=== PATIENT | female | born 1965 | race Caucasian/White ===

== ENCOUNTER 2018-08-16 08:28 | Emergency (ER) | payer OTHER, MEDICAID, SELFPAY ==
--- NOTE | 2018-08-16 08:33 | ED.SKABFB ---
HPI - Skin/Abscess/Foreign Bdy General Chief complaint: Skin/Abscess/Foreign Body Stated complaint: ITCHY RASH ALL OVER NECK/BACK Time Seen by Provider: 08/16/18 08:33 Source: patient Mode of arrival: ambulatory Limitations: no limitations History of Present Illness HPI narrative: The patient has a rash on her occipital scalp, posterior neck and upper back. The rash started 3 days ago, has not spread. There is irritating. She is very itchy. She has especially if she in the occipital scalp. She has psoriasis. She has been scratching the occipital scalp quite a bit. She also uses a she improved especially for psoriasis. She is having no fever, or chills. She has no drainage/discharge from the site specified. She has no other current skin irritation. Related Data Home Medications Medication Instructions Recorded Confirmed APAP/Dichloralphenazone/Torey #0 01/22/11 (MIDRIN 65 MG-100 MG-325 MG) NORTRIPTYLINE HCL (Nortriptyline 10 mg PO HS #0 01/22/11 HCl) cetirizine 10 mg PO Q DAY #0 01/22/11 Previous Rx's Medication Instructions Recorded clindamycin HCl [Cleocin HCl] 300 mg PO Q8H 7 Days #21 cap 08/16/18 Allergies Allergy/AdvReac Type Severity Reaction Status Date / Time bee pollen Allergy Severe Hives Verified 08/16/18 08:58 shellfish derived Allergy Severe Hives Verified 08/16/18 08:58 Sulfa (Sulfonamide Allergy Severe Hives Verified 08/16/18 08:58 Antibiotics) naproxen [From Naprosyn] Allergy Unknown Verified 08/16/18 08:58 PCN (PENICILLIN) Allergy Severe Hives Uncoded 08/16/18 08:58 Review of Systems Review of Systems ROS Unobtainable: All systems reviewed & are unremarkable except as noted in HPI and below Constitutional Denies chills and Denies fever(s) Eyes Denies irritation ENT Ears, Nose, Mouth, and Throat: Denies dry mouth, Denies mouth lesions and Denies mouth pain Cardiovascular Denies dyspnea Respiratory Denies cough and Denies dyspnea Integumentary/Breasts Reports as per HPI PFSH Medical History Psoriasis (Acute) Social History Smoking Status: Former smoker Social History Smoking Status: Former smoker Exam Initial Vital Signs Initial Vital Signs: Vital Signs Temperature 97.8 F 08/16/18 08:39 Pulse Rate 82 08/16/18 08:39 Respiratory Rate 16 08/16/18 08:39 Blood Pressure 110/77 08/16/18 08:39 Pulse Oximetry 99 08/16/18 08:39 Const General: cooperative and well developed Nutritional Appearance: well nourished Orientation: alert, awake and oriented x3 HENMT Head: normocephalic, atraumatic and scalp tenderness (Occipital area.) Mouth: oral mucosae normal Eyes General: appearance normal, both eyes and all related structures Eyelids: eyelids normal Conjunctivae: conjunctivae normal Sclera: sclerae normal Pupils: PERRL EOM: EOM intact bilaterally Neck Lymphatic: No lymphadenopathy Skin Other: Folliculitis on her posterior neck, and upper back. Just above the hairline there is intense erythema with warmth but no purulent discharge. Findings consistent with folliculitis. Neuro General: alert, oriented x3 and no focal motor deficits Speech: speech normal Course Vital Signs - 8 hr 08/16/18 08:39 Temperature 97.8 F Pulse Rate 82 Respiratory Rate 16 Blood Pressure 110/77 Pulse Oximetry 99 MDM - Skin/Abscess/Foreign Bdy MDM Narrative Medical decision making narrative: She has folliculitis most concentrated in the occipital scalp. She will be started on clindamycin. She is advised not to use her current show improved, she can try it again once the current rash as resolved. She should follow up with her doctor next week if no better. Discharge Plan Departure Patient Disposition: Home Clinical Impression: Folliculitis Instructions: Folliculitis Activity Restrictions/Additional Instructions: Do not use the psoriasis shampoo you most recently used. Cleocin 300 milligrams 3 times daily for 1 week. You may use Benadryl every 4-6 hours as needed for itching. Apply moisturizers to the area if you wish. Recheck with her doctor next week if no better. Return here if obviously worse. Prescriptions: New clindamycin HCl [Cleocin HCl] 300 mg capsule 300 mg PO Q8H 7 Days Qty: 21 RF: 0 No Action NORTRIPTYLINE HCL (Nortriptyline HCl) 10 mg PO HS Qty: 0 RF: 0 APAP/Dichloralphenazone/Torey (MIDRIN 65 MG-100 MG-325 MG) Qty: 0 RF: 0 cetirizine 10 MG tablet 10 mg PO Q DAY Qty: 0 RF: 0
[2018-08-16 08:39] VITALS: BP 110/77; PULSE 82; RESP 16; TEMP 36.6; O2SAT 99; BMI 36.6
[2018-08-16 09:21] VITALS: BP 104/78; PULSE 80; RESP 18; O2SAT 99
== END 2018-08-16 09:21 | disposition home or self-care (01) ==
PROVIDERS: Emergency Provider Emergency Medicine
DX: L73.9 Follicular disorder, unspecified (principal)
CPT/HCPCS: 99282

== ENCOUNTER 2021-05-30 09:45 | Outpatient (RCR) | payer MEDICARE, MEDICAID, SELFPAY ==
--- NOTE | 2021-05-03 16:41 | PT.OIE ---
Current Diagnoses Pain in right foot (05/03/21) Difficulty in walking, not elsewhere classified (05/03/21) Unspecified injury of right Achilles tendon, initial encounter (05/03/21) Past Medical History (Last Updated 08/16/18 @ 08:59 by Erin Cruz RN) Psoriasis Visit Care Team Role Provider Type CHANI Mack Attending Provider Non-Staff Family Provider Primary Care Provider Referring Provider Specialty: Medical Address: [address] [place] [address], [phone] Email: Physical Therapy Initial Evaluation PT-OP-A Visit Information Start: 05/02/21 12:45 Freq: Status: Active Protocol: Document 05/03/21 10:30 AW (Rec: 05/03/21 15:33 AW [email or web address]) Out-Patient Physical Therapy Visit Information Visit Information Visit Type Initial Evaluation Visit Start Time 09:45 Visit Stop Time 10:30 Total Visit Minutes 45 Visit Number 1 Number of CREDIT UNION MANAGER Visits 0 Evaluation Information Evaluation Date 05/03/21 PT-OP-B Current Condition Start: 05/02/21 12:45 Freq: Status: Active Protocol: Document 05/03/21 10:30 AW (Rec: 05/02/21 12:49 AW [email or web address]) Current Condition History of Current Condition Onset Date 3 weeks ago Current Complaints right ankle pain, recent fall History of Current Condition Pt was walking down stairs 3 weeks ago, did not trip but felt and heard a loud pop along her medial ankle and pain immediately spread around the circumference of her ankle. She states she rolls her ankle all the time. She has been using a SPC since the time of her injury. In 2017, she fell and badly sprained her right ankle. She ended up having surgery a year later on that ankle but can not remember what kind of surgery. She remembers she was in a walking boot for a while. She feels she had good outcomes with PT. Pt states her right foot is always numb and tingly. She occasionally has sharp pain in her arch. She lives with her 13 yo daughter and she can currrently do shopping trips with a shopping cart for support but does not feel she can walk any longer than that. 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 Her bed and bathroom are upstairs (13 with R rail ascending). Pt also reports scoliosis and learning disabilities. She is on SSDI. Prior Treatments and Tests April 2021: x-ray right foot and ankle - no fracture Future Testing and Treatments Planned none identified Treatment Goals Patient/Caregiver Goals Pt would like to be able to walk without a cane and with less pain. Prior Functional Status Baseline Function- ADL's Independent Baseline Function- Mobility Independent Baseline Function- Gait no assistive device Baseline Function- Work/School Pt is on disability Baseline Function- Other Able to complete shopping trips and walk for exercise without AD Current Functional Impairments (Reported) Functional Limitations- Mobility/Gait Walking with SPC nearly 100% of the time. Functional Limitations- Other Definite need for shopping cart or other support to complete shopping trips. PT-OP-C Subjective Start: 05/02/21 12:45 Freq: Status: Active Protocol: Document 05/03/21 10:30 AW (Rec: 05/03/21 15:33 AW [email or web address]) OP-PT Subjective Patient Comments Patient Comments My ankle hurts all the time but most when I put weight on it. Patient Questionnaires Foot & Ankle Ability Measure- ADL and Sports FAAM-ADL Score 38 FAAM-ADL Impairment 40 to 59% Impaired (Score 33- 49) Lower Extremity Functional Scale LEFS Score 35 LEFS Impairment 40 to 59% Impaired (Score 32- 47) OP-PT Pain Assessment Pain Assessment Grid Paper Pain Assessment Grid Completed Yes: scanned to EMR Comments Pain Comments Pt is using a CBD cream topically and finds fair relief PT-OP-D Balance Start: 05/02/21 12:45 Freq: Status: Active Protocol: Document 05/03/21 10:30 AW (Rec: 05/03/21 15:33 AW [email or web address]) OP-PT Balance Assessment Sitting Balance Static Sitting Balance Ability Normal Dynamic Sitting Balance Ability Normal Standing Balance Static Standing Balance Ability Fair Dynamic Standing Balance Ability Fair Barrios Fall Scale Copyright Permission PT-OP-F Manual Assessment Start: 05/02/21 12:45 Freq: Status: Active Protocol: Document 05/03/21 10:30 AW (Rec: 05/03/21 15:33 AW [email or web address]) Manual Assessments Soft Tissue Assessment Soft Tissue Mobility Assessment TTP along right plantar fascia , right medial and lateral ankle (medial more affected), calcaneus, and Achilles tendon . Joint Mobility Assessment Joint Mobility Assessment Distal tib-fib glides and talar glides painful on the right side. PT-OP-G Mobility & Gait Start: 05/02/21 12:45 Freq: Status: Active Protocol: Document 05/03/21 10:30 AW (Rec: 05/03/21 15:33 AW [email or web address]) OP Gait Assessment Gait Gait Assistance Required: Independent Distance (Feet) 100 Assistive Devices Assistive Device Straight Cane Orthotic/Prosthetic Devices or Brace: No Gait Deviations General Gait Pattern Antalgic,Lateral Trunk Lean, Step-to Gait,Wide Based Gait Factors Limiting Gait Function Factors Limiting Gait Function Decreased Sensation,Decreased Strength,Limited Range of Motion,Pain Comments Gait Comments Pt ambulates with cane in left hand, good patterning, decreased heelstrike, L lean in right stance, WBOS. Pt walks with inversion bias, landing on her lateral foot ( right more affected than left) . PT-OP-H Neuro Start: 05/02/21 12:45 Freq: Status: Active Protocol: Document 05/03/21 10:30 AW (Rec: 05/03/21 15:33 AW [email or web address]) Sensation Evaluation Gross Sensation Gross Sensation Right LE Impaired Sensation Description Numbness,Tingling Comments Summary Comments Pt reports chronic numbness and tingling in the right foot . Deep Tendon Reflex & Clonus Assessment Deep Tendon Reflex Bilateral Achilles Deep Tendon Reflex 1+ Diminished Bilateral Patellar Deep Tendon Reflex 1+ Diminished PT-OP-J Posture/Palpation/Skin Start: 05/02/21 12:45 Freq: Status: Active Protocol: Document 05/03/21 10:30 AW (Rec: 05/03/21 15:36 AW [email or web address]) Skin Assessment Circumference Measurement feet Location B foot and ankle Comments Ankle @ malleoli: 25 cm B. Forefoot: 23 cm B. 5 cm above ankle: 25 R 23 L PT-OP-K Range of Motion Start: 05/02/21 12:45 Freq: Status: Active Protocol: Document 05/03/21 10:30 AW (Rec: 05/03/21 15:42 AW [email or web address]) Ankle and Foot Goniometric Range of Motion Ankle and Foot right Ankle/Foot ROM WFL Yes Testing Position Supine Plantarflexion 30 Inversion 30 Eversion 10 Comments DF with knee flexed - lacking 5 degrees. DF with knee extended - lacking 3 degrees. left Ankle/Foot ROM WFL Yes Testing Position Supine Dorsiflexion with Knee Flexed 8 Dorsiflexion with Knee Extended 11 Plantarflexion 40 Inversion 48 Eversion 20 Toe Range of Motion Toe B great toe Toe ROM WFL Yes Comments No increased pain with extension in non-weightbearing . PT-OP-L Special Tests Start: 05/02/21 12:45 Freq: Status: Active Protocol: Document 05/03/21 10:30 AW (Rec: 05/03/21 15:42 AW [email or web address]) Special Tests Foot/Ankle Special Tests Anterior Draw Test Results boggy PT-OP-M Strength Start: 05/02/21 12:45 Freq: Status: Active Protocol: Document 05/03/21 10:30 AW (Rec: 05/03/21 15:42 AW [email or web address]) Hip Strength Hip Manual Muscle Testing bilat Flexion (L2) 4 Good Extension (S1) 4- Good- Abduction 4- Good- Knee Strength Knee Manual Muscle Testing Right Flexion (S2) 4 Good Extension (L3) 4 Good Left Flexion (S2) 4+ Good+ Extension (L3) 4+ Good+ Ankle/Foot Strength Ankle and Foot Manual Muscle Testing Right Dorsiflexion (L4) 3- Fair- Plantarflexion (S1) 3+ Fair+ Inversion 3+ Fair+ Eversion (S1) 3+ Fair+ Left Dorsiflexion (L4) 4+ Good+ Plantarflexion (S1) 4+ Good+ Inversion 4+ Good+ Eversion (S1) 4+ Good+ PT-OP-Q Treatments Start: 05/02/21 12:45 Freq: Status: Active Protocol: Document 05/03/21 10:30 AW (Rec: 05/03/21 15:47 AW [email or web address]) Gait Training Gait Activity gait with SPC Device Used SPC Level of Assistance SBA Surface carpet and tile Distance/Duration 100' x 3 Treatment Focus patterning, stability, step length Comments Pt able to ambulate with SPC, improved step length and swing through with cues for shorter step RLE. Self-Care/Home Management Treatment Education Patient Education Pain Management Other Education Discussed icing with pt who states she tolerates cold poorly and she reports shooting pain up her leg with cryotherapy. Discussed recommendation for continued use of SPC at this time and pt agreed. Summarized evaluation findings and proposed POC and pt agreed. PT-OP-T Assessment and Plan Start: 05/02/21 12:45 Freq: Status: Active Protocol: Document 05/03/21 10:30 AW (Rec: 05/03/21 15:54 AW [email or web address]) Physical Therapy Assessment Rehab Potential Rehabilitation Potential Good Evaluation Complexity Number of Personal Factors/Comorbidities 1-2 Number of Body Systems Impaired 3 Clinical Presentation at Evaluation Evolving Impairments Impairments Balance,Edema,Gait,Pain, Posture,ROM,Sensation,Soft Tissue Mobility,Strength Goals Four Impairment ROM - R ankle decreased ROM all planes Short Term Goal (STG) Pt will improve active right ankle dorsiflexion to neutral for improved gait mechanics. STG Duration 05/31/21 Offender Job Retention Specialist Goal (LTG) Pt will improve right ankle dorsiflexion to 5 degrees or greater for improved ability to navigate stairs. LTG Duration 07/07/21 Three Impairment needs cane for walking Short Term Goal (STG) Pt will walk parking lot distances without need for SPC and no increase in baseline pain. STG Duration 05/31/21 Snf Goal (LTG) Pt will complete 6 Minute Walk Test without AD and without increase in baseline pain as a measure of improved community ambulation LTG Duration 07/07/21 Two Impairment FAAM 38/84 Snf Goal (LTG) Pt will improve FAAM from 38/ 84 to 60/84 or greater as a measure of improved independence with ADL's. LTG Duration 07/07/21 One Impairment lacks HEP Short Term Goal (STG) Pt will be instructed in HEP for ROM and foot/ankle strength STG Duration 05/31/21 Offender Job Retention Specialist Goal (LTG) Pt will be independent with HEP for ROM and BLE strength to be able to participate in a self-directed exercise program of her choosing LTG Duration 07/07/21 Assessment Summary Assessment [place] is a 55 yo woman with history of chronic back pain and ankle instability who presents to outpatient physical therapy with complaints of right ankle pain after hearing a pop in her medial ankle while descending stairs three weeks ago. Her history of ankle instability and prior injuries predisposes her to the current injury. On exam, her symptoms are consistent with ankle sprain which is affecting her ability to ambulate without device and to participate in household duties such as grocery shopping for herself and her teenaged daughter. She is expected to benefit from skilled physical therapy to address her ROM and strength impairments for return to baseline function and to reduce risk of future injury. Physical Therapy Plan Frequency and Duration Frequency of Treatment 1-2x/week Duration of Treatment 10 weeks Plan of Care Start Date 05/03/21 Plan of Care End Date 07/07/21 Therapeutic Interventions Therapeutic Interventions Balance Training,Gait Training ,Home Exercise Program,Joint Mobilizations,Manual Therapy, Neuromuscular Re-education, Patient/Caregiver Education, Self-Care/Home Management,Soft Tissue Mobilization,Taping, Therapeutic Activities, Therapeutic Exercises Modalities Cold Pack/Ice Massage,Hot Packs,Ultrasound Next Visit Focus/Plan Next Note Type Treatment Note Next Visit Plan Consider recumbent stepper, assess stair mobility, initiate AROM right ankle all planes, modalities for pain management.
--- NOTE | 2021-05-16 11:02 | PT.OTN ---
Current Diagnoses Pain in right foot (05/16/21) Difficulty in walking, not elsewhere classified (05/16/21) Unspecified injury of right Achilles tendon, initial encounter (05/16/21) Physical Therapy Treatment Note PT-OP-A Visit Information Start: 05/02/21 12:45 Freq: Status: Active Protocol: Document 05/16/21 09:43 AW (Rec: 05/16/21 09:46 AW [id number]) Out-Patient Physical Therapy Visit Information Visit Information Visit Type Treatment Note Visit Start Time 09:00 Visit Stop Time 09:43 Total Visit Minutes 43 Visit Number 2 Number of CONSERVATION POLICY ANALYST Visits 0 Evaluation Information Evaluation Date 05/03/21 Precautions Precautions Pt does not tolerate cold PT-OP-B Current Condition Start: 05/02/21 12:45 Freq: Status: Active Protocol: Document 05/03/21 10:30 AW (Rec: 05/02/21 12:49 AW [email or web address]) Current Condition History of Current Condition Onset Date 3 weeks ago Current Complaints right ankle pain, recent fall History of Current Condition Pt was walking down stairs 3 weeks ago, did not trip but felt and heard a loud pop along her medial ankle and pain immediately spread around the circumference of her ankle. She states she rolls her ankle all the time. She has been using a SPC since the time of her injury. In 2017, she fell and badly sprained her right ankle. She ended up having surgery a year later on that ankle but can not remember what kind of surgery. She remembers she was in a walking boot for a while. She feels she had good outcomes with PT. Pt states her right foot is always numb and tingly. She occasionally has sharp pain in her arch. She lives with her 13 yo daughter and she can currrently do shopping trips with a shopping cart for support but does not feel she can walk any longer than that. 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 Her bed and bathroom are upstairs (13 with R rail ascending). Pt also reports scoliosis and learning disabilities. She is on SSDI. Prior Treatments and Tests April 2021: x-ray right foot and ankle - no fracture Future Testing and Treatments Planned none identified Treatment Goals Patient/Caregiver Goals Pt would like to be able to walk without a cane and with less pain. Prior Functional Status Baseline Function- ADL's Independent Baseline Function- Mobility Independent Baseline Function- Gait no assistive device Baseline Function- Work/School Pt is on disability Baseline Function- Other Able to complete shopping trips and walk for exercise without AD Current Functional Impairments (Reported) Functional Limitations- Mobility/Gait Walking with SPC nearly 100% of the time. Functional Limitations- Other Definite need for shopping cart or other support to complete shopping trips. PT-OP-C Subjective Start: 05/02/21 12:45 Freq: Status: Active Protocol: Document 05/16/21 09:43 AW (Rec: 05/16/21 09:46 AW [id number]) OP-PT Subjective Patient Comments Patient Comments Still unable to walk to walk without cane but doesn't feel stable enough yet. Left ankle is starting to feel worse due to overuse. PT-OP-D Balance Start: 05/02/21 12:45 Freq: Status: Active Protocol: Document 05/03/21 10:30 AW (Rec: 05/03/21 15:33 AW [email or web address]) OP-PT Balance Assessment Sitting Balance Static Sitting Balance Ability Normal Dynamic Sitting Balance Ability Normal Standing Balance Static Standing Balance Ability Fair Dynamic Standing Balance Ability Fair Barrios Fall Scale Copyright Permission PT-OP-F Manual Assessment Start: 05/02/21 12:45 Freq: Status: Active Protocol: Document 05/03/21 10:30 AW (Rec: 05/03/21 15:33 AW [email or web address]) Manual Assessments Soft Tissue Assessment Soft Tissue Mobility Assessment TTP along right plantar fascia , right medial and lateral ankle (medial more affected), calcaneus, and Achilles tendon . Joint Mobility Assessment Joint Mobility Assessment Distal tib-fib glides and talar glides painful on the right side. PT-OP-G Mobility & Gait Start: 05/02/21 12:45 Freq: Status: Active Protocol: Document 05/03/21 10:30 AW (Rec: 05/03/21 15:33 AW [email or web address]) OP Gait Assessment Gait Gait Assistance Required: Independent Distance (Feet) 100 Assistive Devices Assistive Device Straight Cane Orthotic/Prosthetic Devices or Brace: No Gait Deviations General Gait Pattern Antalgic,Lateral Trunk Lean, Step-to Gait,Wide Based Gait Factors Limiting Gait Function Factors Limiting Gait Function Decreased Sensation,Decreased Strength,Limited Range of Motion,Pain Comments Gait Comments Pt ambulates with cane in left hand, good patterning, decreased heelstrike, L lean in right stance, WBOS. Pt walks with inversion bias, landing on her lateral foot ( right more affected than left) . PT-OP-H Neuro Start: 05/02/21 12:45 Freq: Status: Active Protocol: Document 05/03/21 10:30 AW (Rec: 05/03/21 15:33 AW [email or web address]) Sensation Evaluation Gross Sensation Gross Sensation Right LE Impaired Sensation Description Numbness,Tingling Comments Summary Comments Pt reports chronic numbness and tingling in the right foot . Deep Tendon Reflex & Clonus Assessment Deep Tendon Reflex Bilateral Achilles Deep Tendon Reflex 1+ Diminished Bilateral Patellar Deep Tendon Reflex 1+ Diminished PT-OP-J Posture/Palpation/Skin Start: 05/02/21 12:45 Freq: Status: Active Protocol: Document 05/03/21 10:30 AW (Rec: 05/03/21 15:36 AW [email or web address]) Skin Assessment Circumference Measurement feet Location B foot and ankle Comments Ankle @ malleoli: 25 cm B. Forefoot: 23 cm B. 5 cm above ankle: 25 R 23 L PT-OP-K Range of Motion Start: 05/02/21 12:45 Freq: Status: Active Protocol: Document 05/03/21 10:30 AW (Rec: 05/03/21 15:42 AW [email or web address]) Ankle and Foot Goniometric Range of Motion Ankle and Foot right Ankle/Foot ROM WFL Yes Testing Position Supine Plantarflexion 30 Inversion 30 Eversion 10 Comments DF with knee flexed - lacking 5 degrees. DF with knee extended - lacking 3 degrees. left Ankle/Foot ROM WFL Yes Testing Position Supine Dorsiflexion with Knee Flexed 8 Dorsiflexion with Knee Extended 11 Plantarflexion 40 Inversion 48 Eversion 20 Toe Range of Motion Toe B great toe Toe ROM WFL Yes Comments No increased pain with extension in non-weightbearing . PT-OP-L Special Tests Start: 05/02/21 12:45 Freq: Status: Active Protocol: Document 05/03/21 10:30 AW (Rec: 05/03/21 15:42 AW [email or web address]) Special Tests Foot/Ankle Special Tests Anterior Draw Test Results boggy PT-OP-M Strength Start: 05/02/21 12:45 Freq: Status: Active Protocol: Document 05/03/21 10:30 AW (Rec: 05/03/21 15:42 AW [email or web address]) Hip Strength Hip Manual Muscle Testing bilat Flexion (L2) 4 Good Extension (S1) 4- Good- Abduction 4- Good- Knee Strength Knee Manual Muscle Testing Right Flexion (S2) 4 Good Extension (L3) 4 Good Left Flexion (S2) 4+ Good+ Extension (L3) 4+ Good+ Ankle/Foot Strength Ankle and Foot Manual Muscle Testing Right Dorsiflexion (L4) 3- Fair- Plantarflexion (S1) 3+ Fair+ Inversion 3+ Fair+ Eversion (S1) 3+ Fair+ Left Dorsiflexion (L4) 4+ Good+ Plantarflexion (S1) 4+ Good+ Inversion 4+ Good+ Eversion (S1) 4+ Good+ PT-OP-Q Treatments Start: 05/02/21 12:45 Freq: Status: Active Protocol: Document 05/16/21 09:43 AW (Rec: 05/16/21 09:46 AW [id number]) Cardio Equipment Recumbent Elliptical (Arrowsight) Duration (Minutes) 5 Resistance 2 Seat Position 6 Therapeutic Exercises Sitting Exercises great toe extension Sitting Exercise Name great toe extension Side right Resistance AROM Reps/Minutes x15 small ball plantar fascia self mob Equipment Used racquetball Comments can or bottle for HEP arch lift Sitting Exercise Name arch lift Side right Reps/Minutes x15 Comments 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 Manual Therapy Treatment Soft Tissue Mobilization retro edema massage Body Location retro edema massage Intensity/Depth Superficial Body Position Supine Comments With attention to right groin lymph nodes first for edema management Self-Care/Home Management Treatment Education Other Education Discussed elevating R ankle as much as possible since cold is not tolerated. PT-OP-T Assessment and Plan Start: 05/02/21 12:45 Freq: Status: Active Protocol: Document 05/16/21 09:43 AW (Rec: 05/16/21 11:02 AW [email or web address]) Physical Therapy Assessment Goals Four Impairment ROM - R ankle decreased ROM all planes Short Term Goal (STG) Pt will improve active right ankle dorsiflexion to neutral for improved gait mechanics. STG Duration 05/31/21 Intermediate Goal (LTG) Pt will improve right ankle dorsiflexion to 5 degrees or greater for improved ability to navigate stairs. LTG Duration 07/07/21 Three Impairment needs cane for walking Short Term Goal (STG) Pt will walk parking lot distances without need for SPC and no increase in baseline pain. STG Duration 05/31/21 Drier Tender Naphthalene Goal (LTG) Pt will complete 6 Minute Walk Test without AD and without increase in baseline pain as a measure of improved community ambulation LTG Duration 07/07/21 Two Impairment FAAM 38/84 Intermediate Goal (LTG) Pt will improve FAAM from 38/ 84 to 60/84 or greater as a measure of improved independence with ADL's. LTG Duration 07/07/21 One Impairment lacks HEP Short Term Goal (STG) Pt will be instructed in HEP for ROM and foot/ankle strength STG Duration 05/31/21 Drier Tender Naphthalene Goal (LTG) Pt will be independent with HEP for ROM and BLE strength to be able to participate in a self-directed exercise program of her choosing LTG Duration 07/07/21 Assessment Summary Assessment Treatment focused on intrinsic foot mobility and strength as well as edema management. Pt does not tolerate cold. PT educated pt on increasing time in elevation for edema management. Assigned initial HEP for ankle and foot ROM. Physical Therapy Plan Frequency and Duration Frequency of Treatment 1-2x/week Duration of Treatment 10 weeks Plan of Care Start Date 05/03/21 Plan of Care End Date 07/07/21 Therapeutic Interventions Therapeutic Interventions Balance Training,Gait Training ,Home Exercise Program,Joint Mobilizations,Manual Therapy, Neuromuscular Re-education, Patient/Caregiver Education, Self-Care/Home Management,Soft Tissue Mobilization,Taping, Therapeutic Activities, Therapeutic Exercises Modalities Cold Pack/Ice Massage,Hot Packs,Ultrasound Next Visit Focus/Plan Next Note Type Treatment Note Next Visit Plan Recumbent stepper, AROM right ankle all planes, BAPS, modalities for pain management .
--- NOTE | 2021-05-18 12:57 | PT.OTN ---
Current Diagnoses Pain in right foot (05/18/21) Difficulty in walking, not elsewhere classified (05/18/21) Unspecified injury of right Achilles tendon, initial encounter (05/18/21) Physical Therapy Treatment Note PT-OP-A Visit Information Start: 05/02/21 12:45 Freq: Status: Active Protocol: Document 05/18/21 08:15 ER (Rec: 05/18/21 09:48 ER [id number]) Out-Patient Physical Therapy Visit Information Visit Information Visit Type Treatment Note Visit Note NILDA Penaloza lead treatment and provided education under direct supervision and instruction of DOMINIQUE Farias. Visit Start Time 08:15 Visit Stop Time 09:06 Total Visit Minutes 51 Visit Number 3 Number of RESOLUTE PROFESSIONAL Visits 1 Precautions Precautions Pt does not tolerate cold PT-OP-B Current Condition Start: 05/02/21 12:45 Freq: Status: Active Protocol: Document 05/03/21 10:30 AW (Rec: 05/02/21 12:49 AW [email or web address]) Current Condition History of Current Condition Onset Date 3 weeks ago Current Complaints right ankle pain, recent fall History of Current Condition Pt was walking down stairs 3 weeks ago, did not trip but felt and heard a loud pop along her medial ankle and pain immediately spread around the circumference of her ankle. She states she rolls her ankle all the time. She has been using a SPC since the time of her injury. In 2016, she fell and badly sprained her right ankle. She ended up having surgery a year later on that ankle but can not remember what kind of surgery. She remembers she was in a walking boot for a while. She feels she had good outcomes with PT. Pt states her right foot is always numb and tingly. She occasionally has sharp pain in her arch. She lives with her 13 yo daughter and she can currrently do shopping trips with a shopping cart for support but does not feel she can walk any longer than that. 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 Her bed and bathroom are upstairs (13 with R rail ascending). Pt also reports scoliosis and learning disabilities. She is on SSDI. Prior Treatments and Tests April 2021: x-ray right foot and ankle - no fracture Future Testing and Treatments Planned none identified Treatment Goals Patient/Caregiver Goals Pt would like to be able to walk without a cane and with less pain. Prior Functional Status Baseline Function- ADL's Independent Baseline Function- Mobility Independent Baseline Function- Gait no assistive device Baseline Function- Work/School Pt is on disability Baseline Function- Other Able to complete shopping trips and walk for exercise without AD Current Functional Impairments (Reported) Functional Limitations- Mobility/Gait Walking with SPC nearly 100% of the time. Functional Limitations- Other Definite need for shopping cart or other support to complete shopping trips. PT-OP-C Subjective Start: 05/02/21 12:45 Freq: Status: Active Protocol: Document 05/18/21 08:15 ER (Rec: 05/18/21 09:48 ER [id number]) OP-PT Subjective Patient Comments Patient Comments Pt said had intense pain last night after performing exercises on back of heel and top of foot. She used CBD oil, which provided some relief. Feels like she cant put full weight on R heel. Indicated R ankle pain at 6/10 pre tx, and 8/10 post. PT-OP-D Balance Start: 05/02/21 12:45 Freq: Status: Active Protocol: Document 05/03/21 10:30 AW (Rec: 05/03/21 15:33 AW [email or web address]) OP-PT Balance Assessment Sitting Balance Static Sitting Balance Ability Normal Dynamic Sitting Balance Ability Normal Standing Balance Static Standing Balance Ability Fair Dynamic Standing Balance Ability Fair Barrios Fall Scale Copyright Permission PT-OP-F Manual Assessment Start: 05/02/21 12:45 Freq: Status: Active Protocol: Document 05/03/21 10:30 AW (Rec: 05/03/21 15:33 AW [email or web address]) Manual Assessments Soft Tissue Assessment Soft Tissue Mobility Assessment TTP along right plantar fascia , right medial and lateral ankle (medial more affected), calcaneus, and Achilles tendon . Joint Mobility Assessment Joint Mobility Assessment Distal tib-fib glides and talar glides painful on the right side. PT-OP-G Mobility & Gait Start: 05/02/21 12:45 Freq: Status: Active Protocol: Document 05/03/21 10:30 AW (Rec: 05/03/21 15:33 AW [email or web address]) OP Gait Assessment Gait Gait Assistance Required: Independent Distance (Feet) 100 Assistive Devices Assistive Device Straight Cane Orthotic/Prosthetic Devices or Brace: No Gait Deviations General Gait Pattern Antalgic,Lateral Trunk Lean, Step-to Gait,Wide Based Gait Factors Limiting Gait Function Factors Limiting Gait Function Decreased Sensation,Decreased Strength,Limited Range of Motion,Pain Comments Gait Comments Pt ambulates with cane in left hand, good patterning, decreased heelstrike, L lean in right stance, WBOS. Pt walks with inversion bias, landing on her lateral foot ( right more affected than left) . PT-OP-H Neuro Start: 05/02/21 12:45 Freq: Status: Active Protocol: Document 05/03/21 10:30 AW (Rec: 05/03/21 15:33 AW [email or web address]) Sensation Evaluation Gross Sensation Gross Sensation Right LE Impaired Sensation Description Numbness,Tingling Comments Summary Comments Pt reports chronic numbness and tingling in the right foot . Deep Tendon Reflex & Clonus Assessment Deep Tendon Reflex Bilateral Achilles Deep Tendon Reflex 1+ Diminished Bilateral Patellar Deep Tendon Reflex 1+ Diminished PT-OP-J Posture/Palpation/Skin Start: 05/02/21 12:45 Freq: Status: Active Protocol: Document 05/03/21 10:30 AW (Rec: 05/03/21 15:36 AW [email or web address]) Skin Assessment Circumference Measurement feet Location B foot and ankle Comments Ankle @ malleoli: 25 cm B. Forefoot: 23 cm B. 5 cm above ankle: 25 R 23 L PT-OP-K Range of Motion Start: 05/02/21 12:45 Freq: Status: Active Protocol: Document 05/03/21 10:30 AW (Rec: 05/03/21 15:42 AW [email or web address]) Ankle and Foot Goniometric Range of Motion Ankle and Foot right Ankle/Foot ROM WFL Yes Testing Position Supine Plantarflexion 30 Inversion 30 Eversion 10 Comments DF with knee flexed - lacking 5 degrees. DF with knee extended - lacking 3 degrees. left Ankle/Foot ROM WFL Yes Testing Position Supine Dorsiflexion with Knee Flexed 8 Dorsiflexion with Knee Extended 11 Plantarflexion 40 Inversion 48 Eversion 20 Toe Range of Motion Toe B great toe Toe ROM WFL Yes Comments No increased pain with extension in non-weightbearing . PT-OP-L Special Tests Start: 05/02/21 12:45 Freq: Status: Active Protocol: Document 05/03/21 10:30 AW (Rec: 05/03/21 15:42 AW [email or web address]) Special Tests Foot/Ankle Special Tests Anterior Draw Test Results boggy PT-OP-M Strength Start: 05/02/21 12:45 Freq: Status: Active Protocol: Document 05/03/21 10:30 AW (Rec: 05/03/21 15:42 AW [email or web address]) Hip Strength Hip Manual Muscle Testing bilat Flexion (L2) 4 Good Extension (S1) 4- Good- Abduction 4- Good- Knee Strength Knee Manual Muscle Testing Right Flexion (S2) 4 Good Extension (L3) 4 Good Left Flexion (S2) 4+ Good+ Extension (L3) 4+ Good+ Ankle/Foot Strength Ankle and Foot Manual Muscle Testing Right Dorsiflexion (L4) 3- Fair- Plantarflexion (S1) 3+ Fair+ Inversion 3+ Fair+ Eversion (S1) 3+ Fair+ Left Dorsiflexion (L4) 4+ Good+ Plantarflexion (S1) 4+ Good+ Inversion 4+ Good+ Eversion (S1) 4+ Good+ PT-OP-Q Treatments Start: 05/02/21 12:45 Freq: Status: Active Protocol: Document 05/18/21 08:15 ER (Rec: 05/18/21 09:48 ER [id number]) Cardio Equipment Recumbent Elliptical (Travolver) Duration (Minutes) 3 Resistance 2 Seat Position 6 Other Stopped due to pain in R ankle . Therapeutic Exercises Sitting Exercises WindUdacity Sitting Exercise Name added to HEP Side bilateral Reps/Minutes 10x Comments R ROM < L ROM. Some pain in R ankle. Pt agreed to continue. BAPS board Sitting Exercise Name AP, lateral Side right Equipment Used BAPS L3 Reps/Minutes 5x each direction Comments Most restriced in PF with pain in ankle/ top of foot. Pt agreed to continue Ankle all planes Side right arch lift Sitting Exercise Name arch lift Side right Reps/Minutes x10 Comments good feedback response ankle ABC Sitting Exercise Name reviewed ankle ABC Side right Resistance AROM Comments Increased pain in inversion. Pt agreed to continue. Gait Training Gait Activity stairs Description stairs Device Used R rail ascending, SPC Level of Assistance S Distance/Duration 1 lap Treatment Focus assessment Comments Pt able to ascend/descend step over step with R rail and SPC . improved ankle mobility Manual Therapy Treatment Soft Tissue Mobilization Ankle, Achilles, gastroc Mobilization Type Manual Lymphatic Drainage, Myofascial Release, Oscillations,Sustained Pressure Intensity/Depth Superficial Body Position prone, sitting Comments Pt tenderness lateral achilles at maleolus, dorsal surface of foot, lateral gastroc. Pt reports sore and tender with all. Backed off intensity, but pt okay with continuing work. retro edema massage Body Location retro edema massage Intensity/Depth Superficial Body Position Supine Comments Noted significant swelling R>L . Focus on R foot and calf with good lymphatic movement. Taping Calcaneus Body Location lateral taping of calcaneus Type of Tape Portillo Kinesiotape Comments Base tape across and under R calcaneus. McConnel over same. K tape R lateral gastroc to calcaneus and R peroneals support. Noted improved stance and gait with increased WB through R heel post taping. Self-Care/Home Management Treatment Education Patient Education Pain Management Other Education Self STM with rolling pin of gastroc, and hands on achilles , soft tissue of ankle, and edema management of foot and calf. PT-OP-T Assessment and Plan Start: 05/02/21 12:45 Freq: Status: Active Protocol: Document 05/18/21 08:15 ER (Rec: 05/18/21 09:48 ER [id number]) Physical Therapy Assessment Goals Four Impairment ROM - R ankle decreased ROM all planes Short Term Goal (STG) Pt will improve active right ankle dorsiflexion to neutral for improved gait mechanics. STG Duration 05/31/21 Overcoil Stepper Goal (LTG) Pt will improve right ankle dorsiflexion to 5 degrees or greater for improved ability to navigate stairs. LTG Duration 07/07/21 Three Impairment needs cane for walking Short Term Goal (STG) Pt will walk parking lot distances without need for SPC and no increase in baseline pain. STG Duration 05/31/21 Overcoil Stepper Goal (LTG) Pt will complete 6 Minute Walk Test without AD and without increase in baseline pain as a measure of improved community ambulation LTG Duration 07/07/21 Two Impairment FAAM 38/84 Overcoil Stepper Goal (LTG) Pt will improve FAAM from 38/ 84 to 60/84 or greater as a measure of improved independence with ADL's. LTG Duration 07/07/21 One Impairment lacks HEP Short Term Goal (STG) Pt will be instructed in HEP for ROM and foot/ankle strength STG Duration 05/31/21 Half-Way Goal (LTG) Pt will be independent with HEP for ROM and BLE strength to be able to participate in a self-directed exercise program of her choosing LTG Duration 07/07/21 Assessment Summary Assessment Pt expressed pain at a 6/10 lateral distal achilles and anterior ankle pre session, 8/ 10 after manual and exercise. Worked through ankle mobilization exercises c/o pain, but willing to continue with treatment. STM and edema management reduced pain some, and allowed Pt to continue with increased AROM in R ankle HEP and intruduction of BAPS. Instructed Pt on self STM of foot/ ankle/ calf with rolling pin/ retrograde hands as appropriate. Educated Pt for edema management of feet and lower legs. Pt indicated that she thought that self STM and edema mgmt would hep. Initiated BAPS board exercises , which were tolerated but uncomfortable. Taped R calcaneus, lateral gastroc to calcaneus, and R peroneals, which improved ability to WB in heel on R in stance and gait. Pt able to ascend/ descend stairs with improved DF and minimal discomfort compared to when arrived. Physical Therapy Plan Frequency and Duration Frequency of Treatment 1-2x/week Duration of Treatment 10 weeks Plan of Care Start Date 05/03/21 Plan of Care End Date 07/07/21 Therapeutic Interventions Therapeutic Interventions Balance Training,Gait Training ,Home Exercise Program,Joint Mobilizations,Manual Therapy, Neuromuscular Re-education, Patient/Caregiver Education, Self-Care/Home Management,Soft Tissue Mobilization,Taping, Therapeutic Activities, Therapeutic Exercises Modalities Cold Pack/Ice Massage,Hot Packs,Ultrasound Next Visit Focus/Plan Next Note Type Treatment Note Next Visit Plan Assess response to self STM and recheck windshield wipers. Recumbent stepper, AROM right ankle all planes, BAPS, modalities for pain management .
--- NOTE | 2021-05-22 16:25 | PT.OTN ---
Current Diagnoses Pain in right foot (05/22/21) Difficulty in walking, not elsewhere classified (05/22/21) Unspecified injury of right Achilles tendon, initial encounter (05/22/21) Physical Therapy Treatment Note PT-OP-A Visit Information Start: 05/02/21 12:45 Freq: Status: Active Protocol: Document 05/22/21 15:00 ER (Rec: 05/22/21 16:19 ER [id number]) Out-Patient Physical Therapy Visit Information Visit Information Visit Type Treatment Note Visit Note NILDA Penaloza lead treatment and provided education under direct supervision and instruction of DOMINIQUE Farias. Visit Start Time 15:00 Visit Stop Time 15:45 Total Visit Minutes 45 Visit Number 4 Number of PLATFORM MATERIAL HANDLER MANAGER Visits 2 PT-OP-B Current Condition Start: 05/02/21 12:45 Freq: Status: Active Protocol: Document 05/03/21 10:30 AW (Rec: 05/02/21 12:49 AW [email or web address]) Current Condition History of Current Condition Onset Date 3 weeks ago Current Complaints right ankle pain, recent fall History of Current Condition Pt was walking down stairs 3 weeks ago, did not trip but felt and heard a loud pop along her medial ankle and pain immediately spread around the circumference of her ankle. She states she rolls her ankle all the time. She has been using a SPC since the time of her injury. In 2017, she fell and badly sprained her right ankle. She ended up having surgery a year later on that ankle but can not remember what kind of surgery. She remembers she was in a walking boot for a while. She feels she had good outcomes with PT. Pt states her right foot is always numb and tingly. She occasionally has sharp pain in her arch. She lives with her 13 yo daughter and she can currrently do shopping trips with a shopping cart for support but does not feel she can walk any longer than that. 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 Her bed and bathroom are upstairs (13 with R rail ascending). Pt also reports scoliosis and learning disabilities. She is on SSDI. Prior Treatments and Tests April 2021: x-ray right foot and ankle - no fracture Future Testing and Treatments Planned none identified Treatment Goals Patient/Caregiver Goals Pt would like to be able to walk without a cane and with less pain. Prior Functional Status Baseline Function- ADL's Independent Baseline Function- Mobility Independent Baseline Function- Gait no assistive device Baseline Function- Work/School Pt is on disability Baseline Function- Other Able to complete shopping trips and walk for exercise without AD Current Functional Impairments (Reported) Functional Limitations- Mobility/Gait Walking with SPC nearly 100% of the time. Functional Limitations- Other Definite need for shopping cart or other support to complete shopping trips. PT-OP-C Subjective Start: 05/02/21 12:45 Freq: Status: Active Protocol: Document 05/22/21 15:00 ER (Rec: 05/22/21 16:19 ER [id number]) OP-PT Subjective Patient Comments Patient Comments Pt said that she feels like she is doing better today, and can walk some without her SPC . Indicated that the taping seemed to help her walking, and that her ankle hurt when walking after she took it off. PT-OP-D Balance Start: 05/02/21 12:45 Freq: Status: Active Protocol: Document 05/03/21 10:30 AW (Rec: 05/03/21 15:33 AW [email or web address]) OP-PT Balance Assessment Sitting Balance Static Sitting Balance Ability Normal Dynamic Sitting Balance Ability Normal Standing Balance Static Standing Balance Ability Fair Dynamic Standing Balance Ability Fair Barrios Fall Scale Copyright Permission PT-OP-F Manual Assessment Start: 05/02/21 12:45 Freq: Status: Active Protocol: Document 05/03/21 10:30 AW (Rec: 05/03/21 15:33 AW [email or web address]) Manual Assessments Soft Tissue Assessment Soft Tissue Mobility Assessment TTP along right plantar fascia , right medial and lateral ankle (medial more affected), calcaneus, and Achilles tendon . Joint Mobility Assessment Joint Mobility Assessment Distal tib-fib glides and talar glides painful on the right side. PT-OP-G Mobility & Gait Start: 05/02/21 12:45 Freq: Status: Active Protocol: Document 05/03/21 10:30 AW (Rec: 05/03/21 15:33 AW [email or web address]) OP Gait Assessment Gait Gait Assistance Required: Independent Distance (Feet) 100 Assistive Devices Assistive Device Straight Cane Orthotic/Prosthetic Devices or Brace: No Gait Deviations General Gait Pattern Antalgic,Lateral Trunk Lean, Step-to Gait,Wide Based Gait Factors Limiting Gait Function Factors Limiting Gait Function Decreased Sensation,Decreased Strength,Limited Range of Motion,Pain Comments Gait Comments Pt ambulates with cane in left hand, good patterning, decreased heelstrike, L lean in right stance, WBOS. Pt walks with inversion bias, landing on her lateral foot ( right more affected than left) . PT-OP-H Neuro Start: 05/02/21 12:45 Freq: Status: Active Protocol: Document 05/03/21 10:30 AW (Rec: 05/03/21 15:33 AW [email or web address]) Sensation Evaluation Gross Sensation Gross Sensation Right LE Impaired Sensation Description Numbness,Tingling Comments Summary Comments Pt reports chronic numbness and tingling in the right foot . Deep Tendon Reflex & Clonus Assessment Deep Tendon Reflex Bilateral Achilles Deep Tendon Reflex 1+ Diminished Bilateral Patellar Deep Tendon Reflex 1+ Diminished PT-OP-J Posture/Palpation/Skin Start: 05/02/21 12:45 Freq: Status: Active Protocol: Document 05/03/21 10:30 AW (Rec: 05/03/21 15:36 AW [email or web address]) Skin Assessment Circumference Measurement feet Location B foot and ankle Comments Ankle @ malleoli: 25 cm B. Forefoot: 23 cm B. 5 cm above ankle: 25 R 23 L PT-OP-K Range of Motion Start: 05/02/21 12:45 Freq: Status: Active Protocol: Document 05/03/21 10:30 AW (Rec: 05/03/21 15:42 AW [email or web address]) Ankle and Foot Goniometric Range of Motion Ankle and Foot right Ankle/Foot ROM WFL Yes Testing Position Supine Plantarflexion 30 Inversion 30 Eversion 10 Comments DF with knee flexed - lacking 5 degrees. DF with knee extended - lacking 3 degrees. left Ankle/Foot ROM WFL Yes Testing Position Supine Dorsiflexion with Knee Flexed 8 Dorsiflexion with Knee Extended 11 Plantarflexion 40 Inversion 48 Eversion 20 Toe Range of Motion Toe B great toe Toe ROM WFL Yes Comments No increased pain with extension in non-weightbearing . PT-OP-L Special Tests Start: 05/02/21 12:45 Freq: Status: Active Protocol: Document 05/03/21 10:30 AW (Rec: 05/03/21 15:42 AW [email or web address]) Special Tests Foot/Ankle Special Tests Anterior Draw Test Results boggy PT-OP-M Strength Start: 05/02/21 12:45 Freq: Status: Active Protocol: Document 05/03/21 10:30 AW (Rec: 05/03/21 15:42 AW [email or web address]) Hip Strength Hip Manual Muscle Testing bilat Flexion (L2) 4 Good Extension (S1) 4- Good- Abduction 4- Good- Knee Strength Knee Manual Muscle Testing Right Flexion (S2) 4 Good Extension (L3) 4 Good Left Flexion (S2) 4+ Good+ Extension (L3) 4+ Good+ Ankle/Foot Strength Ankle and Foot Manual Muscle Testing Right Dorsiflexion (L4) 3- Fair- Plantarflexion (S1) 3+ Fair+ Inversion 3+ Fair+ Eversion (S1) 3+ Fair+ Left Dorsiflexion (L4) 4+ Good+ Plantarflexion (S1) 4+ Good+ Inversion 4+ Good+ Eversion (S1) 4+ Good+ PT-OP-Q Treatments Start: 05/02/21 12:45 Freq: Status: Active Protocol: Document 05/22/21 15:00 ER (Rec: 05/22/21 16:19 ER [id number]) Cardio Equipment Recumbent Elliptical (Biodex) Duration (Minutes) 2 Resistance 2 Seat Position 6 Other stopped due to R ankle pain. switched to SciFit Recumbent Stepper (Sci-Fit) Duration (Minutes) 2 Resistance 1 Seat Position 9 Other stopped due to R ankle pain. Therapeutic Exercises Sitting Exercises Tennis Ball DF/PF Sitting Exercise Name DF/ AF of R foot with tennis ball under plantar surface. added to HEP Side right Resistance AROM Equipment Used tennis ball Reps/Minutes 10x Comments good feedback response. Pt expressed would be helpful BAPS board Sitting Exercise Name AP, lateral Side right Equipment Used BAPS L3 AP, L4 lateral Reps/Minutes 10x Comments good feeback with no pain. ankle ABC Sitting Exercise Name reviewed Side right Resistance AROM Comments Pt got to Q before dorsal foot pain made her stop Gait Training Gait Activity Gait with no AD Description without AD Level of Assistance SBA Surface firm Distance/Duration 749' Treatment Focus quality gait, foot clearance, heel to toe, Comments 5min 30 sec duration. 6/10 ankle pain caused Pt to stop. Cues for long strides, erect posture, even step duration. Pt began to tire ~3 min into session, but wanted to continue. required increased cues at this point for long stride, heel to toe pattern. Pt indicated at ~ 4:30 that she felt her R foot felt like it wanted to roll, but wanted to continue. Slowed pace, and additional cues for mindfulness about heel to toe pattern and long, even strides . Manual Therapy Treatment Taping Calcaneus Body Location lateral taping of calcaneus Type of Tape Portillo, Kinesiotape Comments Base tape across and under R calcaneus. Tae over same. K tape R lateral gastroc to calcaneus and R peroneals support. Noted improved stance and gait with increased WB through R heel post taping. PT-OP-T Assessment and Plan Start: 05/02/21 12:45 Freq: Status: Active Protocol: Document 05/22/21 15:00 ER (Rec: 05/22/21 16:19 ER [id number]) Physical Therapy Assessment Goals Four Impairment ROM - R ankle decreased ROM all planes Short Term Goal (STG) Pt will improve active right ankle dorsiflexion to neutral for improved gait mechanics. STG Duration 05/31/21 Animal Care Technician Goal (LTG) Pt will improve right ankle dorsiflexion to 5 degrees or greater for improved ability to navigate stairs. LTG Duration 07/07/21 Three Impairment needs cane for walking Short Term Goal (STG) Pt will walk parking lot distances without need for SPC and no increase in baseline pain. STG Duration 05/31/21 Animal Care Technician Goal (LTG) Pt will complete 6 Minute Walk Test without AD and without increase in baseline pain as a measure of improved community ambulation LTG Duration 07/07/21 Two Impairment FAAM 38/84 Usp Goal (LTG) Pt will improve FAAM from 38/ 84 to 60/84 or greater as a measure of improved independence with ADL's. LTG Duration 07/07/21 One Impairment lacks HEP Short Term Goal (STG) Pt will be instructed in HEP for ROM and foot/ankle strength STG Duration 05/31/21 Animal Care Technician Goal (LTG) Pt will be independent with HEP for ROM and BLE strength to be able to participate in a self-directed exercise program of her choosing LTG Duration 07/07/21 Assessment Summary Assessment Pt demonstrated decreased pain and improved gait pattern with more even weight distribution, and firm heel placement on R foot at beginning of session. Pt experienced R ankle pain when using either the Biodex or SciFit and had to stop using both machines at approx 2 minutes. Recommend no further use of Cardio machines for ankle warm up. Progressed Baps board to L4 ball with lateral shifting of R ankle. Pt experienced tightness w/ Baps board anterior tilt of R ankle , but no pain at L3. Educated Pt on use of a tennis ball as an at-home BAPS exercise. Pt expressed that she thought it would be useful. Taped R calcaneus, R achilles/gastroc, and R peroneals prior to gait . In standing, Pt expressed that she felt more stable. Pt was able to ambulate 749 feet without an AD. Pt did, however become fatigued, and expressed increased pain late in the walk. Required cues for even stride time, foot clearance, heel to toe pattern , which increased as Pt fatigued. Pt had to stop at 5: 30 of 6MWT due to pain in her R ankle. Pt expressed that she felt like her foot had swollen up in her shoe. Pt ambulated from clinic with SPC . Pt expressed she felt today was a helpful session. Physical Therapy Plan Frequency and Duration Frequency of Treatment 1-2x/week Duration of Treatment 10 weeks Plan of Care Start Date 05/03/21 Plan of Care End Date 07/07/21 Therapeutic Interventions Therapeutic Interventions Balance Training,Gait Training ,Home Exercise Program,Joint Mobilizations,Manual Therapy, Neuromuscular Re-education, Patient/Caregiver Education, Self-Care/Home Management,Soft Tissue Mobilization,Taping, Therapeutic Activities, Therapeutic Exercises Modalities Cold Pack/Ice Massage,Hot Packs,Ultrasound Next Visit Focus/Plan Next Note Type Treatment Note Next Visit Plan Stop Biodex and Sci Fit. Pt experiences R ankle pain and has to stop within 2 minutes. Continue AROM R ankle all planes, BAPS, add gait w/o AD and stairs. Recumbent stepper, AROM right ankle all planes, BAPS, modalities for pain management .
--- NOTE | 2021-05-30 12:30 | PT.OTN ---
Current Diagnoses Pain in right foot (05/30/21) Difficulty in walking, not elsewhere classified (05/30/21) Unspecified injury of right Achilles tendon, initial encounter (05/30/21) Physical Therapy Treatment Note PT-OP-A Visit Information Start: 05/02/21 12:45 Freq: Status: Active Protocol: Document 05/30/21 10:23 AW (Rec: 05/30/21 10:25 AW [id number]) Out-Patient Physical Therapy Visit Information Visit Information Visit Type Treatment Note Visit Start Time 09:45 Visit Stop Time 10:23 Total Visit Minutes 38 Visit Number 5 Number of BIOLOGICAL PLANT OPERATOR Visits 0 Precautions Precautions Pt does not tolerate cold PT-OP-B Current Condition Start: 05/02/21 12:45 Freq: Status: Active Protocol: Document 05/03/21 10:30 AW (Rec: 05/02/21 12:49 AW [email or web address]) Current Condition History of Current Condition Onset Date 3 weeks ago Current Complaints right ankle pain, recent fall History of Current Condition Pt was walking down stairs 3 weeks ago, did not trip but felt and heard a loud pop along her medial ankle and pain immediately spread around the circumference of her ankle. She states she rolls her ankle all the time. She has been using a SPC since the time of her injury. In 2017, she fell and badly sprained her right ankle. She ended up having surgery a year later on that ankle but can not remember what kind of surgery. She remembers she was in a walking boot for a while. She feels she had good outcomes with PT. Pt states her right foot is always numb and tingly. She occasionally has sharp pain in her arch. She lives with her 13 yo daughter and she can currrently do shopping trips with a shopping cart for support but does not feel she can walk any longer than that. 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 Her bed and bathroom are upstairs (13 with R rail ascending). Pt also reports scoliosis and learning disabilities. She is on SSDI. Prior Treatments and Tests April 2021: x-ray right foot and ankle - no fracture Future Testing and Treatments Planned none identified Treatment Goals Patient/Caregiver Goals Pt would like to be able to walk without a cane and with less pain. Prior Functional Status Baseline Function- ADL's Independent Baseline Function- Mobility Independent Baseline Function- Gait no assistive device Baseline Function- Work/School Pt is on disability Baseline Function- Other Able to complete shopping trips and walk for exercise without AD Current Functional Impairments (Reported) Functional Limitations- Mobility/Gait Walking with SPC nearly 100% of the time. Functional Limitations- Other Definite need for shopping cart or other support to complete shopping trips. PT-OP-C Subjective Start: 05/02/21 12:45 Freq: Status: Active Protocol: Document 05/30/21 10:23 AW (Rec: 05/30/21 10:25 AW [id number]) OP-PT Subjective Patient Comments Patient Comments I keep rolling my ankle every time I walk. Tape did not seem to help. PT-OP-D Balance Start: 05/02/21 12:45 Freq: Status: Active Protocol: Document 05/03/21 10:30 AW (Rec: 05/03/21 15:33 AW [email or web address]) OP-PT Balance Assessment Sitting Balance Static Sitting Balance Ability Normal Dynamic Sitting Balance Ability Normal Standing Balance Static Standing Balance Ability Fair Dynamic Standing Balance Ability Fair Barrios Fall Scale Copyright Permission PT-OP-F Manual Assessment Start: 05/02/21 12:45 Freq: Status: Active Protocol: Document 05/03/21 10:30 AW (Rec: 05/03/21 15:33 AW [email or web address]) Manual Assessments Soft Tissue Assessment Soft Tissue Mobility Assessment TTP along right plantar fascia , right medial and lateral ankle (medial more affected), calcaneus, and Achilles tendon . Joint Mobility Assessment Joint Mobility Assessment Distal tib-fib glides and talar glides painful on the right side. PT-OP-G Mobility & Gait Start: 05/02/21 12:45 Freq: Status: Active Protocol: Document 05/03/21 10:30 AW (Rec: 05/03/21 15:33 AW [email or web address]) OP Gait Assessment Gait Gait Assistance Required: Independent Distance (Feet) 100 Assistive Devices Assistive Device Straight Cane Orthotic/Prosthetic Devices or Brace: No Gait Deviations General Gait Pattern Antalgic,Lateral Trunk Lean, Step-to Gait,Wide Based Gait Factors Limiting Gait Function Factors Limiting Gait Function Decreased Sensation,Decreased Strength,Limited Range of Motion,Pain Comments Gait Comments Pt ambulates with cane in left hand, good patterning, decreased heelstrike, L lean in right stance, WBOS. Pt walks with inversion bias, landing on her lateral foot ( right more affected than left) . PT-OP-H Neuro Start: 05/02/21 12:45 Freq: Status: Active Protocol: Document 05/03/21 10:30 AW (Rec: 05/03/21 15:33 AW [email or web address]) Sensation Evaluation Gross Sensation Gross Sensation Right LE Impaired Sensation Description Numbness,Tingling Comments Summary Comments Pt reports chronic numbness and tingling in the right foot . Deep Tendon Reflex & Clonus Assessment Deep Tendon Reflex Bilateral Achilles Deep Tendon Reflex 1+ Diminished Bilateral Patellar Deep Tendon Reflex 1+ Diminished PT-OP-J Posture/Palpation/Skin Start: 05/02/21 12:45 Freq: Status: Active Protocol: Document 05/03/21 10:30 AW (Rec: 05/03/21 15:36 AW [email or web address]) Skin Assessment Circumference Measurement feet Location B foot and ankle Comments Ankle @ malleoli: 25 cm B. Forefoot: 23 cm B. 5 cm above ankle: 25 R 23 L PT-OP-K Range of Motion Start: 05/02/21 12:45 Freq: Status: Active Protocol: Document 05/03/21 10:30 AW (Rec: 05/03/21 15:42 AW [email or web address]) Ankle and Foot Goniometric Range of Motion Ankle and Foot right Ankle/Foot ROM WFL Yes Testing Position Supine Plantarflexion 30 Inversion 30 Eversion 10 Comments DF with knee flexed - lacking 5 degrees. DF with knee extended - lacking 3 degrees. left Ankle/Foot ROM WFL Yes Testing Position Supine Dorsiflexion with Knee Flexed 8 Dorsiflexion with Knee Extended 11 Plantarflexion 40 Inversion 48 Eversion 20 Toe Range of Motion Toe B great toe Toe ROM WFL Yes Comments No increased pain with extension in non-weightbearing . PT-OP-L Special Tests Start: 05/02/21 12:45 Freq: Status: Active Protocol: Document 05/03/21 10:30 AW (Rec: 05/03/21 15:42 AW [email or web address]) Special Tests Foot/Ankle Special Tests Anterior Draw Test Results boggy PT-OP-M Strength Start: 05/02/21 12:45 Freq: Status: Active Protocol: Document 05/03/21 10:30 AW (Rec: 05/03/21 15:42 AW [email or web address]) Hip Strength Hip Manual Muscle Testing bilat Flexion (L2) 4 Good Extension (S1) 4- Good- Abduction 4- Good- Knee Strength Knee Manual Muscle Testing Right Flexion (S2) 4 Good Extension (L3) 4 Good Left Flexion (S2) 4+ Good+ Extension (L3) 4+ Good+ Ankle/Foot Strength Ankle and Foot Manual Muscle Testing Right Dorsiflexion (L4) 3- Fair- Plantarflexion (S1) 3+ Fair+ Inversion 3+ Fair+ Eversion (S1) 3+ Fair+ Left Dorsiflexion (L4) 4+ Good+ Plantarflexion (S1) 4+ Good+ Inversion 4+ Good+ Eversion (S1) 4+ Good+ PT-OP-Q Treatments Start: 05/02/21 12:45 Freq: Status: Active Protocol: Document 05/30/21 10:23 AW (Rec: 05/30/21 10:25 AW [id number]) Therapeutic Exercises Sitting Exercises ankle ABC Sitting Exercise Name reviewed Side right Resistance AROM Comments pt able to complete but with increased pain 1 pt on 10-pt scale Gait Training Gait Activity gait with SPC Device Used SPC Level of Assistance SBA Surface carpet and tile Distance/Duration 100' x 3 Treatment Focus patterning, stability, step length Comments focused on heel strike, weight acceptance. Uncued - pt tends to land on lateral border of right foot. No rolling when cued for heel strike and toes pointed fwd Manual Therapy Treatment Soft Tissue Mobilization Ankle, Achilles, gastroc Mobilization Type Manual Lymphatic Drainage, Myofascial Release, Oscillations,Sustained Pressure Intensity/Depth Superficial Body Position prone, sitting Comments Pt tenderness lateral achilles at maleolus, dorsal surface of foot, lateral gastroc. Pt reports sore and tender with all. Backed off intensity, but pt okay with continuing work. retro edema massage Body Location retro edema massage Intensity/Depth Superficial Body Position Supine Comments Noted significant swelling R>L . Focus on R foot and calf with good lymphatic movement. PT-OP-T Assessment and Plan Start: 05/02/21 12:45 Freq: Status: Active Protocol: Document 05/30/21 10:23 AW (Rec: 05/30/21 12:30 AW [email or web address]) Physical Therapy Assessment Goals Four Impairment ROM - R ankle decreased ROM all planes Short Term Goal (STG) Pt will improve active right ankle dorsiflexion to neutral for improved gait mechanics. 05/30/21 - AROM continues to be painful. Continue toward goal. STG Duration 05/31/21 Environmental Communications Specialist Goal (LTG) Pt will improve right ankle dorsiflexion to 5 degrees or greater for improved ability to navigate stairs. LTG Duration 07/07/21 Three Impairment needs cane for walking Short Term Goal (STG) Pt will walk parking lot distances without need for SPC and no increase in baseline pain. 05/30/21 - not met. Pt still requires SPC and cueing for ankle stability. STG Duration 05/31/21 Longterm Goal (LTG) Pt will complete 6 Minute Walk Test without AD and without increase in baseline pain as a measure of improved community ambulation LTG Duration 07/07/21 Two Impairment FAAM 38/84 Longterm Goal (LTG) Pt will improve FAAM from 38/ 84 to 60/84 or greater as a measure of improved independence with ADL's. LTG Duration 07/07/21 One Impairment lacks HEP Short Term Goal (STG) Pt will be instructed in HEP for ROM and foot/ankle strength 05/30/21 - Progressing with ROM only at this time due to irritability of symptoms. 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 Pt reports frequent continued rolling of her ankle . She is unable to discontinue stairs at home since her bathroom is upstairs and she admits much of the ankle inversion rolling happens on stairs. In gait, pt lands on lateral border with right foot , increasing the inversion moment. With training, cues, and increased awarenss, pt is able to ambulate with SPC and to improve her heel strike for more evenly distributed weight acceptance. and weightbearing. Pt has an appointment with podiatry on 06/06. PT advised pt to ask about a recommendation for an ankle brace to improve stability. Physical Therapy Plan Frequency and Duration Frequency of Treatment 1-2x/week Duration of Treatment 10 weeks Plan of Care Start Date 05/03/21 Plan of Care End Date 07/07/21 Therapeutic Interventions Therapeutic Interventions Balance Training,Gait Training ,Home Exercise Program,Joint Mobilizations,Manual Therapy, Neuromuscular Re-education, Patient/Caregiver Education, Self-Care/Home Management,Soft Tissue Mobilization,Taping, Therapeutic Activities, Therapeutic Exercises Modalities Cold Pack/Ice Massage,Hot Packs,Ultrasound Next Visit Focus/Plan Next Note Type Treatment Note Next Visit Plan AROM, STM for edema management , gait training or without SPC as tolerated.
--- NOTE | 2021-07-17 08:31 | PT.OPDS ---
Current Diagnoses Pain in right foot (05/30/21) Difficulty in walking, not elsewhere classified (05/30/21) Unspecified injury of right Achilles tendon, initial encounter (05/30/21) Visit Care Team Role Provider Type CHANI Mack Attending Provider Non-Staff Family Provider Primary Care Provider Referring Provider Specialty: Medical Address: [address] [place] [address], [place], [phone] Email: Visit Number Visit Number 5 Discharge Summary PT-OP-B Current Condition Start: 05/02/21 12:45 Freq: Status: Active Protocol: Document 05/03/21 10:30 AW (Rec: 05/02/21 12:49 AW [email or web address]) Current Condition History of Current Condition Onset Date 3 weeks ago Current Complaints right ankle pain, recent fall History of Current Condition Pt was walking down stairs 3 weeks ago, did not trip but felt and heard a loud pop along her medial ankle and pain immediately spread around the circumference of her ankle. She states she rolls her ankle all the time. She has been using a SPC since the time of her injury. In 2017, she fell and badly sprained her right ankle. She ended up having surgery a year later on that ankle but can not remember what kind of surgery. She remembers she was in a walking boot for a while. She feels she had good outcomes with PT. Pt states her right foot is always numb and tingly. She occasionally has sharp pain in her arch. She lives with her 13 yo daughter and she can currrently do shopping trips with a shopping cart for support but does not feel she can walk any longer than that. 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 Her bed and bathroom are upstairs (13 with R rail ascending). Pt also reports scoliosis and learning disabilities. She is on SSDI. Prior Treatments and Tests April 2021: x-ray right foot and ankle - no fracture Future Testing and Treatments Planned none identified Treatment Goals Patient/Caregiver Goals Pt would like to be able to walk without a cane and with less pain. Prior Functional Status Baseline Function- ADL's Independent Baseline Function- Mobility Independent Baseline Function- Gait no assistive device Baseline Function- Work/School Pt is on disability Baseline Function- Other Able to complete shopping trips and walk for exercise without AD Current Functional Impairments (Reported) Functional Limitations- Mobility/Gait Walking with SPC nearly 100% of the time. Functional Limitations- Other Definite need for shopping cart or other support to complete shopping trips. PT-OP-C Subjective Start: 05/02/21 12:45 Freq: Status: Active Protocol: Document 05/30/21 10:23 AW (Rec: 05/30/21 10:25 AW [id number]) OP-PT Subjective Patient Comments Patient Comments I keep rolling my ankle every time I walk. Tape did not seem to help. PT-OP-D Balance Start: 05/02/21 12:45 Freq: Status: Active Protocol: Document 05/03/21 10:30 AW (Rec: 05/03/21 15:33 AW [email or web address]) OP-PT Balance Assessment Sitting Balance Static Sitting Balance Ability Normal Dynamic Sitting Balance Ability Normal Standing Balance Static Standing Balance Ability Fair Dynamic Standing Balance Ability Fair Barrios Fall Scale Copyright Permission PT-OP-F Manual Assessment Start: 05/02/21 12:45 Freq: Status: Active Protocol: Document 05/03/21 10:30 AW (Rec: 05/03/21 15:33 AW [email or web address]) Manual Assessments Soft Tissue Assessment Soft Tissue Mobility Assessment TTP along right plantar fascia , right medial and lateral ankle (medial more affected), calcaneus, and Achilles tendon . Joint Mobility Assessment Joint Mobility Assessment Distal tib-fib glides and talar glides painful on the right side. PT-OP-G Mobility & Gait Start: 05/02/21 12:45 Freq: Status: Active Protocol: Document 05/03/21 10:30 AW (Rec: 05/03/21 15:33 AW [email or web address]) OP Gait Assessment Gait Gait Assistance Required: Independent Distance (Feet) 100 Assistive Devices Assistive Device Straight Cane Orthotic/Prosthetic Devices or Brace: No Gait Deviations General Gait Pattern Antalgic,Lateral Trunk Lean, Step-to Gait,Wide Based Gait Factors Limiting Gait Function Factors Limiting Gait Function Decreased Sensation,Decreased Strength,Limited Range of Motion,Pain Comments Gait Comments Pt ambulates with cane in left hand, good patterning, decreased heelstrike, L lean in right stance, WBOS. Pt walks with inversion bias, landing on her lateral foot ( right more affected than left) . PT-OP-H Neuro Start: 05/02/21 12:45 Freq: Status: Active Protocol: Document 05/03/21 10:30 AW (Rec: 05/03/21 15:33 AW [email or web address]) Sensation Evaluation Gross Sensation Gross Sensation Right LE Impaired Sensation Description Numbness,Tingling Comments Summary Comments Pt reports chronic numbness and tingling in the right foot . Deep Tendon Reflex & Clonus Assessment Deep Tendon Reflex Bilateral Achilles Deep Tendon Reflex 1+ Diminished Bilateral Patellar Deep Tendon Reflex 1+ Diminished PT-OP-J Posture/Palpation/Skin Start: 05/02/21 12:45 Freq: Status: Active Protocol: Document 05/03/21 10:30 AW (Rec: 05/03/21 15:36 AW [email or web address]) Skin Assessment Circumference Measurement feet Location B foot and ankle Comments Ankle @ malleoli: 25 cm B. Forefoot: 23 cm B. 5 cm above ankle: 25 R 23 L PT-OP-K Range of Motion Start: 05/02/21 12:45 Freq: Status: Active Protocol: Document 05/03/21 10:30 AW (Rec: 05/03/21 15:42 AW [email or web address]) Ankle and Foot Goniometric Range of Motion Ankle and Foot right Ankle/Foot ROM WFL Yes Testing Position Supine Plantarflexion 30 Inversion 30 Eversion 10 Comments DF with knee flexed - lacking 5 degrees. DF with knee extended - lacking 3 degrees. left Ankle/Foot ROM WFL Yes Testing Position Supine Dorsiflexion with Knee Flexed 8 Dorsiflexion with Knee Extended 11 Plantarflexion 40 Inversion 48 Eversion 20 Toe Range of Motion Toe B great toe Toe ROM WFL Yes Comments No increased pain with extension in non-weightbearing . PT-OP-L Special Tests Start: 05/02/21 12:45 Freq: Status: Active Protocol: Document 05/03/21 10:30 AW (Rec: 05/03/21 15:42 AW [email or web address]) Special Tests Foot/Ankle Special Tests Anterior Draw Test Results boggy PT-OP-M Strength Start: 05/02/21 12:45 Freq: Status: Active Protocol: Document 05/03/21 10:30 AW (Rec: 05/03/21 15:42 AW [email or web address]) Hip Strength Hip Manual Muscle Testing bilat Flexion (L2) 4 Good Extension (S1) 4- Good- Abduction 4- Good- Knee Strength Knee Manual Muscle Testing Right Flexion (S2) 4 Good Extension (L3) 4 Good Left Flexion (S2) 4+ Good+ Extension (L3) 4+ Good+ Ankle/Foot Strength Ankle and Foot Manual Muscle Testing Right Dorsiflexion (L4) 3- Fair- Plantarflexion (S1) 3+ Fair+ Inversion 3+ Fair+ Eversion (S1) 3+ Fair+ Left Dorsiflexion (L4) 4+ Good+ Plantarflexion (S1) 4+ Good+ Inversion 4+ Good+ Eversion (S1) 4+ Good+ PT-OP-T Assessment and Plan Start: 05/02/21 12:45 Freq: Status: Active Protocol: Document 07/17/21 08:30 AW (Rec: 08/22/21 08:31 AW [id number]) Physical Therapy Plan Discharge Physical Therapy Discharge Reasons No Longer Attending PT Discharge Comments Pt has not attended PT or scheduled more appointments in over one month. She will need a new referral if she wishes to return to PT.
== END 2021-08-23 08:56 ==
LOC: PHYS 09:45
PROVIDERS: Family Provider Nurse Practitioner Family; PCP Nurse Practitioner Family; Referring Provider Nurse Practitioner Family; Visit Provider Nurse Practitioner Family
DX: M79.671 Pain in right foot (principal); S86.001A Unspecified injury of right Achilles tendon, initial encounter; R26.2 Difficulty in walking, not elsewhere classified
CPT/HCPCS: 97110; 97116; 97140; 97162; 97535

== ENCOUNTER 2021-10-26 11:15 | Outpatient (RCR) | payer MEDICARE, MEDICAID, SELFPAY ==
--- NOTE | 2021-08-23 17:21 | PT.OIE ---
Current Diagnoses Other chronic pain (08/23/21) Other instability, right ankle (08/23/21) Other instability, left ankle (08/23/21) Low back pain, unspecified (08/23/21) Repeated falls (08/23/21) Past Medical History (Last Updated 08/16/18 @ 08:59 by Erin Cruz RN) Psoriasis Visit Care Team Role Provider Type CHANI Mack Attending Provider Non-Staff Family Provider Primary Care Provider Referring Provider Specialty: Medical Address: [address] [place] [address], [phone] Email: Physical Therapy Initial Evaluation PT-OP-A Visit Information Start: 08/22/21 14:24 Freq: Status: Active Protocol: Document 08/23/21 09:45 AW (Rec: 08/22/21 17:07 AW [id number]) Out-Patient Physical Therapy Visit Information Visit Information Visit Type Initial Evaluation Visit Start Time 09:00 Visit Stop Time 09:45 Total Visit Minutes 45 Visit Number 1 Number of 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 Most falls occur on the stairs but she says she can fall anywhere . She lives in a 2-story unit and can sleep on the order entry but the only bathroom is upstairs (13 narrow steps with R rail ascending and wall opposite side). She will often go up and down stairs sideways. She attributes her falls to ankle instability and the right is worse than the left. Urinary urgency is sometimes a factor in her falls. She states she often feels no urge to void and then has urgent need. She has new high top shoes and thinks she does not fall as frequently while wearing them but she usually does not wear them in the home. She has worn a custom shoe insert for right foot after previous surgery but has not used it in a long time. She is currently using a SPC for all mobility. Her PCP recently recommended a walker . She has ordered a walker and is waiting on delivery. Pt lives with her 14 yo daughter. She is able to manage shopping trips if hanging on to a cart but will sometimes use a motorized cart. 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 Prior Treatments and Tests - R ankle surgery 2017 - PT 2020 for ankle pain Future Testing and Treatments Planned Possible referral for EMG. Treatment Goals Patient/Caregiver Goals Walk with less pain and without assistive device. Improve ankle stability and balance. Reduce falls frequency. Prior Functional Status Baseline Function- Mobility Independent Baseline Function- Other Able to complete shopping trips without AD. Walk for exercise. Current Functional Impairments (Reported) Functional Limitations- Mobility/Gait Walking with SPC at all times Functional Limitations- Other Definite need for shopping cart or other support to walk grocery store distance. Personal Factors Other Personal Factors That May Effect Chronicity of deficits may Therapy/Recovery affect rehab outcomes. PT-OP-C Subjective Start: 08/22/21 14:24 Freq: Status: Active Protocol: Document 08/23/21 09:45 AW (Rec: 08/23/21 14:14 AW [id number]) Patient Questionnaires Lower Extremity Functional Scale LEFS Score 53 - pt likely misunderstood scoring Oswestry Low Back Index Oswestry Score 56 Oswestry Impairment 40 to 59% Impaired (Score 40- 59) OP-PT Pain Assessment Pain Assessment Grid Paper Pain Assessment Grid Completed Yes: Scanned to EMR PT-OP-D Balance Start: 08/22/21 14:24 Freq: Status: Active Protocol: Document 08/23/21 09:45 AW (Rec: 08/23/21 13:24 AW [id number]) Balance Tests Single Limb Standing Single Limb- Right < 3 seconds before reaching for support Single Limb- Left < 3 seconds before reaching for support PT-OP-F Manual Assessment Start: 08/22/21 14:24 Freq: Status: Active Protocol: Document 08/23/21 09:45 AW (Rec: 08/23/21 13:24 AW [id number]) Manual Assessments Soft Tissue Assessment Soft Tissue Mobility Assessment TTP at right medial and lateral malleolus. TTP at longitudinal arch bilaterally PT-OP-G Mobility & Gait Start: 08/22/21 14:24 Freq: Status: Active Protocol: Document 08/23/21 09:45 AW (Rec: 08/23/21 16:35 AW [id number]) OP Gait Assessment Comments Gait Comments Pt ambulates with cane held in left hand, heavy UE weightbearing, consistent patterning.She has decreased heel strike and poor push off bilaterally but right is more affected. Inversion bias noted with pt tending to land on the lateral border of both feet (R>L). Stair Climbing Evaluation Evaluation Level of Assist On Stairs Standby Assistance Devices Stair Climbing Assistive Devices Straight Cane,Right Railing Technique/Endurance Stair Climbing Direction Ascend and Descend Stair Climbing Technique Step Over Step Number of Steps Climbed 3 Stair Climbing Set # Repetitions (reps) 2 Comments Stair Climbing Comments Pt needs cues for patterning stair climbing with rail and SPC. PT-OP-H Neuro Start: 08/22/21 14:24 Freq: Status: Active Protocol: Document 08/23/21 09:45 AW (Rec: 08/23/21 16:43 AW [id number]) Sensation Evaluation Gross Sensation Gross Sensation Right LE Impaired Sensation Description Numbness,Tingling Comments Summary Comments Pt reports chronic numbness/ tingliong in the right foot Deep Tendon Reflex & Clonus Assessment Deep Tendon Reflex Bilateral Achilles Deep Tendon Reflex 1+ Diminished Bilateral Patellar Deep Tendon Reflex 1+ Diminished PT-OP-J Posture/Palpation/Skin Start: 08/22/21 14:24 Freq: Status: Active Protocol: Document 08/23/21 09:45 AW (Rec: 08/23/21 16:43 AW [id number]) Posture Evaluation Comments Posture Comments Pt stands in bare feet with minimal longitudinal arch, forefoot adduction. From behind, Achilles tendons appear normally aligned. Pt has spinal changes including levoscoliosis. Left illiac crest lower than right. PT-OP-K Range of Motion Start: 08/22/21 14:24 Freq: Status: Active Protocol: Document 08/23/21 09:45 AW (Rec: 08/23/21 16:43 AW [id number]) Knee Goniometric Range of Motion Knee bilat Knee ROM WFL Yes Comments Pt has swelling in right prepatellar bursae and chronic right knee pain. ROM WNL. Ankle and Foot Goniometric Range of Motion Ankle and Foot right Dorsiflexion with Knee Extended 5 Inversion 30 Eversion 22 Comments inversion and plantar flexion AROM reproduce pain left Testing Position Sitting Dorsiflexion with Knee Extended 5 Inversion 60 Eversion 25 Ankle and Foot ROM Limitations ROM Limitations Muscle Weakness,Pain PT-OP-M Strength Start: 08/22/21 14:24 Freq: Status: Active Protocol: Document 08/23/21 09:45 AW (Rec: 08/23/21 16:48 AW [id number]) Hip Strength Hip Manual Muscle Testing Right Flexion (L2) 4- Good- External Rotation 4- Good- Internal Rotation 4 Good Left Flexion (L2) 4+ Good+ External Rotation 4+ Good+ Internal Rotation 4+ Good+ Knee Strength Knee Manual Muscle Testing Right Flexion (S2) 4- Good- Extension (L3) 4 Good Comments Right knee painful with all resisted movement Left Flexion (S2) 4+ Good+ Extension (L3) 5 Normal Ankle/Foot Strength Ankle and Foot Manual Muscle Testing Right Dorsiflexion (L4) 4 Good Plantarflexion (S1) 4- Good- Inversion 4- Good- Eversion (S1) 4- Good- Left Dorsiflexion (L4) 5 Normal Plantarflexion (S1) 4 Good Inversion 4+ Good+ Eversion (S1) 4+ Good+ Toe Strength Toe Manual Muscle Testing Great Toe Flexion 4+ Good+ Comments 4+ bilat PT-OP-T Assessment and Plan Start: 08/22/21 14:24 Freq: Status: Active Protocol: Document 08/23/21 09:45 AW (Rec: 08/24/21 17:21 AW [id number]) Physical Therapy Assessment Rehab Potential Rehabilitation Potential Good Evaluation Complexity Number of Personal Factors/Comorbidities 1-2 Number of Body Systems Impaired 3 Clinical Presentation at Evaluation Evolving Impairments Impairments Balance,Edema,Gait,Pain, Posture,ROM,Sensation,Soft Tissue Mobility,Strength Other Concerns Fall Risk high per pt self-report Barriers to Rehabilitation Chronicity of deficits and pt' s environment including stairs which she has no choice but to navigate may be barriers to rehab. Goals Four Impairment balance Longterm Goal (LTG) Pt will score 19/24 or greater on Dynamic Gait Index as a measure of improved balance and reduced falls risk. 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 STG Duration 4 weeks - 09/20/21 Longterm Goal (LTG) Pt will be independent with HEP for ROM, strength, and balance to support a self- directed exrecise program LTG Duration 10 weeks - 11/01/21 Assessment Summary Assessment [place] is 56 yo woman who attends outpatient physical therapy with complaints of chronic back pain, chronic ankle instability, and regular falls . She reports falling twice daily on stairs which she must climb to access her washroom. Her history of ankle instability and previous injuries are contributing to current falls frequency. She is using a cane for all gait at this time and her primary care provider is recommending a walker. Pt is expected to benefit from skilled PT to address ankle ROM, BLE strength, and balance to reduce her falls risk and prevent re-injury. Physical Therapy Plan Frequency and Duration Frequency of Treatment 2x/Week Duration of Treatment 10 weeks Plan of Care Start Date 08/23/21 Plan of Care End Date 11/01/21 Therapeutic Interventions Therapeutic Interventions Aquatic Therapy,Balance Training,Gait Training,Home Exercise Program,Manual Therapy,Neuromuscular Re- education,Self-Care/Home Management,Soft Tissue Mobilization,Taping, Therapeutic Activities, Therapeutic Exercises Next Visit Focus/Plan Next Note Type Treatment Note Next Visit Plan Ankle AROM, TB ankle strength, consider taping for stability , stair training with SPC
--- NOTE | 2021-08-30 12:37 | PT.OTN ---
Current Diagnoses Other chronic pain (08/30/21) Other instability, right ankle (08/30/21) Other instability, left ankle (08/30/21) Low back pain, unspecified (08/30/21) Repeated falls (08/30/21) Physical Therapy Treatment Note PT-OP-A Visit Information Start: 08/22/21 14:24 Freq: Status: Active Protocol: Document 08/30/21 08:51 AW (Rec: 08/30/21 09:47 AW [id number]) Out-Patient Physical Therapy Visit Information Visit Information Visit Type Treatment Note Visit Start Time 09:00 Visit Stop Time 09:54 Total Visit Minutes 54 Visit Number 2 Number of SPORTS MEDICINE COORDINATOR Visits 0 Evaluation Information Evaluation Date 08/23/21 PT-OP-B Current Condition Start: 08/22/21 14:24 Freq: Status: Active Protocol: Document 08/23/21 09:45 AW (Rec: 08/22/21 17:07 AW [id number]) Current Condition History of Current Condition Onset Date acute on chronic, years Current Complaints falls, unstable ankles, low back pain, right knee pain History of Current Condition [place] reports a current falls frequency of ~2/day. Most falls occur on the stairs but she says she can fall anywhere . She lives in a 2-story unit and can sleep on the customs entry writer but the only bathroom is upstairs (13 narrow steps with R rail ascending and wall opposite side). She will often go up and down stairs sideways. She attributes her falls to ankle instability and the right is worse than the left. Urinary urgency is sometimes a factor in her falls. She states she often feels no urge to void and then has urgent need. She has new high top shoes and thinks she does not fall as frequently while wearing them but she usually does not wear them in the home. She has worn a custom shoe insert for right foot after previous surgery but has not used it in a long time. She is currently using a SPC for all mobility. Her PCP recently recommended a walker . She has ordered a walker and is waiting on delivery. Pt lives with her 14 yo daughter. She is able to manage shopping trips if hanging on to a cart but will sometimes use a motorized cart. 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 Prior Treatments and Tests - R ankle surgery 2018 - PT 2020 for ankle pain Future Testing and Treatments Planned Possible referral for EMG. Treatment Goals Patient/Caregiver Goals Walk with less pain and without assistive device. Improve ankle stability and balance. Reduce falls frequency. Prior Functional Status Baseline Function- Mobility Independent Baseline Function- Other Able to complete shopping trips without AD. Walk for exercise. Current Functional Impairments (Reported) Functional Limitations- Mobility/Gait Walking with SPC at all times Functional Limitations- Other Definite need for shopping cart or other support to walk grocery store distance. Personal Factors Other Personal Factors That May Effect Chronicity of deficits may Therapy/Recovery affect rehab outcomes. PT-OP-C Subjective Start: 08/22/21 14:24 Freq: Status: Active Protocol: Document 08/30/21 08:51 AW (Rec: 08/30/21 09:47 AW [id number]) OP-PT Subjective Patient Comments Patient Comments Pt walked five blocks yesterday. Feels sore at inside of right ankle and in low back today. PT-OP-D Balance Start: 08/22/21 14:24 Freq: Status: Active Protocol: Document 08/23/21 09:45 AW (Rec: 08/23/21 13:24 AW [id number]) Balance Tests Single Limb Standing Single Limb- Right < 3 seconds before reaching for support Single Limb- Left < 3 seconds before reaching for support PT-OP-F Manual Assessment Start: 08/22/21 14:24 Freq: Status: Active Protocol: Document 08/23/21 09:45 AW (Rec: 08/23/21 13:24 AW [id number]) Manual Assessments Soft Tissue Assessment Soft Tissue Mobility Assessment TTP at right medial and lateral malleolus. TTP at longitudinal arch bilaterally PT-OP-G Mobility & Gait Start: 08/22/21 14:24 Freq: Status: Active Protocol: Document 08/23/21 09:45 AW (Rec: 08/23/21 16:35 AW [id number]) OP Gait Assessment Comments Gait Comments Pt ambulates with cane held in left hand, heavy UE weightbearing, consistent patterning.She has decreased heel strike and poor push off bilaterally but right is more affected. Inversion bias noted with pt tending to land on the lateral border of both feet (R>L). Stair Climbing Evaluation Evaluation Level of Assist On Stairs Standby Assistance Devices Stair Climbing Assistive Devices Straight Cane,Right Railing Technique/Endurance Stair Climbing Direction Ascend and Descend Stair Climbing Technique Step Over Step Number of Steps Climbed 3 Stair Climbing Set # Repetitions (reps) 2 Comments Stair Climbing Comments Pt needs cues for patterning stair climbing with rail and SPC. PT-OP-H Neuro Start: 08/22/21 14:24 Freq: Status: Active Protocol: Document 08/23/21 09:45 AW (Rec: 08/23/21 16:43 AW [id number]) Sensation Evaluation Gross Sensation Gross Sensation Right LE Impaired Sensation Description Numbness,Tingling Comments Summary Comments Pt reports chronic numbness/ tingliong in the right foot Deep Tendon Reflex & Clonus Assessment Deep Tendon Reflex Bilateral Achilles Deep Tendon Reflex 1+ Diminished Bilateral Patellar Deep Tendon Reflex 1+ Diminished PT-OP-J Posture/Palpation/Skin Start: 08/22/21 14:24 Freq: Status: Active Protocol: Document 08/23/21 09:45 AW (Rec: 08/23/21 16:43 AW [id number]) Posture Evaluation Comments Posture Comments Pt stands in bare feet with minimal longitudinal arch, forefoot adduction. From behind, Achilles tendons appear normally aligned. Pt has spinal changes including levoscoliosis. Left illiac crest lower than right. PT-OP-K Range of Motion Start: 08/22/21 14:24 Freq: Status: Active Protocol: Document 08/23/21 09:45 AW (Rec: 08/23/21 16:43 AW [id number]) Knee Goniometric Range of Motion Knee bilat Knee ROM WFL Yes Comments Pt has swelling in right prepatellar bursae and chronic right knee pain. ROM WNL. Ankle and Foot Goniometric Range of Motion Ankle and Foot right Dorsiflexion with Knee Extended 5 Inversion 30 Eversion 22 Comments inversion and plantar flexion AROM reproduce pain left Testing Position Sitting Dorsiflexion with Knee Extended 5 Inversion 60 Eversion 25 Ankle and Foot ROM Limitations ROM Limitations Muscle Weakness,Pain PT-OP-M Strength Start: 08/22/21 14:24 Freq: Status: Active Protocol: Document 08/23/21 09:45 AW (Rec: 08/23/21 16:48 AW [id number]) Hip Strength Hip Manual Muscle Testing Right Flexion (L2) 4- Good- External Rotation 4- Good- Internal Rotation 4 Good Left Flexion (L2) 4+ Good+ External Rotation 4+ Good+ Internal Rotation 4+ Good+ Knee Strength Knee Manual Muscle Testing Right Flexion (S2) 4- Good- Extension (L3) 4 Good Comments Right knee painful with all resisted movement Left Flexion (S2) 4+ Good+ Extension (L3) 5 Normal Ankle/Foot Strength Ankle and Foot Manual Muscle Testing Right Dorsiflexion (L4) 4 Good Plantarflexion (S1) 4- Good- Inversion 4- Good- Eversion (S1) 4- Good- Left Dorsiflexion (L4) 5 Normal Plantarflexion (S1) 4 Good Inversion 4+ Good+ Eversion (S1) 4+ Good+ Toe Strength Toe Manual Muscle Testing Great Toe Flexion 4+ Good+ Comments 4+ bilat PT-OP-Q Treatments Start: 08/22/21 14:24 Freq: Status: Active Protocol: Document 08/30/21 08:51 AW (Rec: 08/30/21 09:47 AW [id number]) Therapeutic Exercises Sitting Exercises foot instrinsics Sitting Exercise Name toe ext/abd; 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 Focus on R foot and calf with good lymphatic movement. Taping tib post Body Location tib post Treatment Focus stability Type of Tape KT tape Skin Inspection intact Comments Pt educated to remove if skin irritation occurs Neuro Re-Education Treatment Balance Activities NBOS Details NBOS Surface firm Reps/Duration 10 min Comments - NBOS EO and EC - NBOS EO head turns and nods Self-Care/Home Management Treatment Education Patient Education Home Exercise Program Other Education Issued initial HEP. Educated pt extensively on elevation of BLE for edema management. PT-OP-R Modalities Start: 08/22/21 14:24 Freq: Status: Active Protocol: Document 08/30/21 08:51 AW (Rec: 08/30/21 09:48 AW [id number]) Hot Pack/Cold Pack Treatment Hot Pack Location l/s Patient Position Prone Treatment Duration (minutes) 12 Patient Tolerance Good Comments end of session during education PT-OP-T Assessment and Plan Start: 08/22/21 14:24 Freq: Status: Active Protocol: Document 08/30/21 08:51 AW (Rec: 08/30/21 09:47 AW [id number]) Physical Therapy Assessment Goals Four Impairment balance [facility] Goal (LTG) Pt will score 19/24 or greater on Dynamic Gait Index as a measure of improved balance and reduced falls risk. LTG Duration 10 weeks - 11/01/21 Three Impairment gait Short Term Goal (STG) Pt will ambulate 900 feet on 6 minute walk test with SPC to improve community ambulation STG Duration 4 weeks - 09/20/21 [facility] Goal (LTG) Pt will ambulate 1050 feet on 6 minute walk test with LRAD to improve community ambulation LTG Duration 10 weeks - 11/01/21 Two Impairment falls Short Term Goal (STG) Pt will reduce falls frequency to twice weekly or less STG Duration 4 weeks - 09/20/21 Blast Setter Goal (LTG) Pt will report no falls for two weeks LTG Duration 10 weeks - 11/01/21 One Impairment lacks HEP Short Term Goal (STG) Pt will be instructed in HEP for ROM, strength, and balance to support therapy services provided in clinic. STG Duration 4 weeks - 09/20/21 [facility] Goal (LTG) Pt will be independent with HEP for ROM, strength, and balance to support a self- directed exrecise program LTG Duration 10 weeks - 11/01/21 Assessment Summary Assessment Pt complained of low back pain in hooklying and in standing activities but otherwise tolerated AROM exercises intrinsic foot exercises well. Will consider taping for BLE edema which is limiting right ankle ROM. Physical Therapy Plan Frequency and Duration Frequency of Treatment 2x/Week Duration of Treatment 10 weeks Plan of Care Start Date 08/23/21 Plan of Care End Date 11/01/21 Therapeutic Interventions Therapeutic Interventions Aquatic Therapy,Balance Training,Gait Training,Home Exercise Program,Manual Therapy,Neuromuscular Re- education,Self-Care/Home Management,Soft Tissue Mobilization,Taping, Therapeutic Activities, Therapeutic Exercises Next Visit Focus/Plan Next Note Type Treatment Note Next Visit Plan Continue ankle AROM, instrinsic foot exercise. Consider isometric strength, taping for edema management. Stair training with SPC.
--- NOTE | 2021-09-05 11:43 | PT.OTN ---
Current Diagnoses Other chronic pain (09/05/21) Other instability, right ankle (09/05/21) Other instability, left ankle (09/05/21) Low back pain, unspecified (09/05/21) Repeated falls (09/05/21) Physical Therapy Treatment Note PT-OP-A Visit Information Start: 08/22/21 14:24 Freq: Status: Active Protocol: Document 09/05/21 08:28 AW (Rec: 09/05/21 09:47 AW [id number]) Out-Patient Physical Therapy Visit Information Visit Information Visit Type Treatment Note Visit Start Time 09:00 Visit Stop Time 09:45 Total Visit Minutes 45 Visit Number 3 Number of INSTALLMENT LOAN COLLECTOR Visits 0 Evaluation Information Evaluation Date 08/23/21 PT-OP-B Current Condition Start: 08/22/21 14:24 Freq: Status: Active Protocol: Document 08/23/21 09:45 AW (Rec: 08/22/21 17:07 AW [id number]) Current Condition History of Current Condition Onset Date acute on chronic, years Current Complaints falls, unstable ankles, low back pain, right knee pain History of Current Condition [place] reports a current falls frequency of ~2/day. Most falls occur on the stairs but she says she can fall anywhere . She lives in a 2-story unit and can sleep on the carpentry specialist but the only bathroom is upstairs (13 narrow steps with R rail ascending and wall opposite side). She will often go up and down stairs sideways. She attributes her falls to ankle instability and the right is worse than the left. Urinary urgency is sometimes a factor in her falls. She states she often feels no urge to void and then has urgent need. She has new high top shoes and thinks she does not fall as frequently while wearing them but she usually does not wear them in the home. She has worn a custom shoe insert for right foot after previous surgery but has not used it in a long time. She is currently using a SPC for all mobility. Her PCP recently recommended a walker . She has ordered a walker and is waiting on delivery. Pt lives with her 14 yo daughter. She is able to manage shopping trips if hanging on to a cart but will sometimes use a motorized cart. 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 Prior Treatments and Tests - R ankle surgery 2018 - PT 2020 for ankle pain Future Testing and Treatments Planned Possible referral for EMG. Treatment Goals Patient/Caregiver Goals Walk with less pain and without assistive device. Improve ankle stability and balance. Reduce falls frequency. Prior Functional Status Baseline Function- Mobility Independent Baseline Function- Other Able to complete shopping trips without AD. Walk for exercise. Current Functional Impairments (Reported) Functional Limitations- Mobility/Gait Walking with SPC at all times Functional Limitations- Other Definite need for shopping cart or other support to walk grocery store distance. Personal Factors Other Personal Factors That May Effect Chronicity of deficits may Therapy/Recovery affect rehab outcomes. PT-OP-C Subjective Start: 08/22/21 14:24 Freq: Status: Active Protocol: Document 09/05/21 08:28 AW (Rec: 09/05/21 09:47 AW [id number]) OP-PT Subjective Patient Comments Patient Comments Pt had swelling above tape after last treatment but does not think it was related. No redness. Tape did feel stabilizing and pt's mom noticed a difference in gait. PT-OP-D Balance Start: 08/22/21 14:24 Freq: Status: Active Protocol: Document 08/23/21 09:45 AW (Rec: 08/23/21 13:24 AW [id number]) Balance Tests Single Limb Standing Single Limb- Right < 3 seconds before reaching for support Single Limb- Left < 3 seconds before reaching for support PT-OP-F Manual Assessment Start: 08/22/21 14:24 Freq: Status: Active Protocol: Document 08/23/21 09:45 AW (Rec: 08/23/21 13:24 AW [id number]) Manual Assessments Soft Tissue Assessment Soft Tissue Mobility Assessment TTP at right medial and lateral malleolus. TTP at longitudinal arch bilaterally PT-OP-G Mobility & Gait Start: 08/22/21 14:24 Freq: Status: Active Protocol: Document 08/23/21 09:45 AW (Rec: 08/23/21 16:35 AW [id number]) OP Gait Assessment Comments Gait Comments Pt ambulates with cane held in left hand, heavy UE weightbearing, consistent patterning.She has decreased heel strike and poor push off bilaterally but right is more affected. Inversion bias noted with pt tending to land on the lateral border of both feet (R>L). Stair Climbing Evaluation Evaluation Level of Assist On Stairs Standby Assistance Devices Stair Climbing Assistive Devices Straight Cane,Right Railing Technique/Endurance Stair Climbing Direction Ascend and Descend Stair Climbing Technique Step Over Step Number of Steps Climbed 3 Stair Climbing Set # Repetitions (reps) 2 Comments Stair Climbing Comments Pt needs cues for patterning stair climbing with rail and SPC. PT-OP-H Neuro Start: 08/22/21 14:24 Freq: Status: Active Protocol: Document 08/23/21 09:45 AW (Rec: 08/23/21 16:43 AW [id number]) Sensation Evaluation Gross Sensation Gross Sensation Right LE Impaired Sensation Description Numbness,Tingling Comments Summary Comments Pt reports chronic numbness/ tingliong in the right foot Deep Tendon Reflex & Clonus Assessment Deep Tendon Reflex Bilateral Achilles Deep Tendon Reflex 1+ Diminished Bilateral Patellar Deep Tendon Reflex 1+ Diminished PT-OP-J Posture/Palpation/Skin Start: 08/22/21 14:24 Freq: Status: Active Protocol: Document 08/23/21 09:45 AW (Rec: 08/23/21 16:43 AW [id number]) Posture Evaluation Comments Posture Comments Pt stands in bare feet with minimal longitudinal arch, forefoot adduction. From behind, Achilles tendons appear normally aligned. Pt has spinal changes including levoscoliosis. Left illiac crest lower than right. PT-OP-K Range of Motion Start: 08/22/21 14:24 Freq: Status: Active Protocol: Document 08/23/21 09:45 AW (Rec: 08/23/21 16:43 AW [id number]) Knee Goniometric Range of Motion Knee bilat Knee ROM WFL Yes Comments Pt has swelling in right prepatellar bursae and chronic right knee pain. ROM WNL. Ankle and Foot Goniometric Range of Motion Ankle and Foot right Dorsiflexion with Knee Extended 5 Inversion 30 Eversion 22 Comments inversion and plantar flexion AROM reproduce pain left Testing Position Sitting Dorsiflexion with Knee Extended 5 Inversion 60 Eversion 25 Ankle and Foot ROM Limitations ROM Limitations Muscle Weakness,Pain PT-OP-M Strength Start: 08/22/21 14:24 Freq: Status: Active Protocol: Document 08/23/21 09:45 AW (Rec: 08/23/21 16:48 AW [id number]) Hip Strength Hip Manual Muscle Testing Right Flexion (L2) 4- Good- External Rotation 4- Good- Internal Rotation 4 Good Left Flexion (L2) 4+ Good+ External Rotation 4+ Good+ Internal Rotation 4+ Good+ Knee Strength Knee Manual Muscle Testing Right Flexion (S2) 4- Good- Extension (L3) 4 Good Comments Right knee painful with all resisted movement Left Flexion (S2) 4+ Good+ Extension (L3) 5 Normal Ankle/Foot Strength Ankle and Foot Manual Muscle Testing Right Dorsiflexion (L4) 4 Good Plantarflexion (S1) 4- Good- Inversion 4- Good- Eversion (S1) 4- Good- Left Dorsiflexion (L4) 5 Normal Plantarflexion (S1) 4 Good Inversion 4+ Good+ Eversion (S1) 4+ Good+ Toe Strength Toe Manual Muscle Testing Great Toe Flexion 4+ Good+ Comments 4+ bilat PT-OP-Q Treatments Start: 08/22/21 14:24 Freq: Status: Active Protocol: Document 09/05/21 08:28 AW (Rec: 09/05/21 09:47 AW [id number]) Therapeutic Exercises Supine Exercises isometric ankle Supine Exercise Name isometric ankle - inv/ev/PF with ball Side bilateral Equipment Used sm ball Reps/Minutes 5SH x 10 Comments HEP Sitting Exercises ankle AROM Sitting Exercise Name PF/DF/inv/ev Side bilateral Resistance AROM Reps/Minutes with legs elevated on bolster Comments inv/ev feeling less painful Gait Training Gait Activity stairs Device Used R rail ascending, SPC Level of Assistance SBA Distance/Duration 6 step - 4 steps x 3 Treatment Focus stability, patterning Comments Pt able to ascend/descend step over step with R rail and SPC . Cues for patterning Manual Therapy Treatment Taping R ankle edema Body Location R ankle Treatment Focus edema management Type of Tape KT tape Skin Inspection intact tib post Body Location tib post Treatment Focus stability Type of Tape KT tape Skin Inspection intact Comments Pt educated to remove if skin irritation occurs Neuro Re-Education Treatment Balance Activities NBOS Details NBOS, semi-tandem Surface firm Equipment socks only Reps/Duration 6 min Comments - NBOS EO and EC - NBOS EO head turns and nods - semi-tandem EO and EC with head turns Self-Care/Home Management Treatment Education Patient Education Home Exercise Program Other Education Added isometric ankle exercises. Continued to encourage elevation. PT-OP-R Modalities Start: 08/22/21 14:24 Freq: Status: Active Protocol: Document 08/30/21 08:51 AW (Rec: 08/30/21 09:48 AW [id number]) Hot Pack/Cold Pack Treatment Hot Pack Location l/s Patient Position Prone Treatment Duration (minutes) 12 Patient Tolerance Good Comments end of session during education PT-OP-T Assessment and Plan Start: 08/22/21 14:24 Freq: Status: Active Protocol: Document 09/05/21 08:28 AW (Rec: 09/05/21 09:47 AW [id number]) Physical Therapy Assessment Goals Four Impairment balance [facility] Goal (LTG) Pt will score 19/24 or greater on Dynamic Gait Index as a measure of improved balance and reduced falls risk. LTG Duration 10 weeks - 11/01/21 Three Impairment gait Short Term Goal (STG) Pt will ambulate 900 feet on 6 minute walk test with SPC to improve community ambulation STG Duration 4 weeks - 09/20/21 Trumpet Player Goal (LTG) Pt will ambulate 1050 feet on 6 minute walk test with LRAD to improve community ambulation LTG Duration 10 weeks - 11/01/21 Two Impairment falls Short Term Goal (STG) Pt will reduce falls frequency to twice weekly or less STG Duration 4 weeks - 09/20/21 [facility] Goal (LTG) Pt will report no falls for two weeks LTG Duration 10 weeks - 11/01/21 One Impairment lacks HEP Short Term Goal (STG) Pt will be instructed in HEP for ROM, strength, and balance to support therapy services provided in clinic. STG Duration 4 weeks - 09/20/21 [facility] Goal (LTG) Pt will be independent with HEP for ROM, strength, and balance to support a self- directed exrecise program LTG Duration 10 weeks - 11/01/21 Assessment Summary Assessment Pt reports improved ankle stability with taping. Re- applied tape for tibialis posterior support and added fan strips for edema management on the right ankle. Pt tolerated exercise, stair navigation, and balance work without complaint of increased pain today. Physical Therapy Plan Frequency and Duration Frequency of Treatment 2x/Week Duration of Treatment 10 weeks Plan of Care Start Date 08/23/21 Plan of Care End Date 11/01/21 Therapeutic Interventions Therapeutic Interventions Aquatic Therapy,Balance Training,Gait Training,Home Exercise Program,Manual Therapy,Neuromuscular Re- education,Self-Care/Home Management,Soft Tissue Mobilization,Taping, Therapeutic Activities, Therapeutic Exercises Next Visit Focus/Plan Next Note Type Treatment Note Next Visit Plan Continue ankle AROM in elevation, stair training. Review isometrics. Progress balance to uneven surface - consider yoga mat.
--- NOTE | 2021-09-07 09:47 | PT.OTN ---
Current Diagnoses Other chronic pain (09/07/21) Other instability, right ankle (09/07/21) Other instability, left ankle (09/07/21) Low back pain, unspecified (09/07/21) Repeated falls (09/07/21) Physical Therapy Treatment Note PT-OP-A Visit Information Start: 08/22/21 14:24 Freq: Status: Active Protocol: Document 09/07/21 08:50 AW (Rec: 09/07/21 09:47 AW [id number]) Out-Patient Physical Therapy Visit Information Visit Information Visit Type Treatment Note Visit Start Time 09:00 Visit Stop Time 09:45 Total Visit Minutes 45 Visit Number 4 Number of BIRD RAISER Visits 0 Evaluation Information Evaluation Date 08/23/21 PT-OP-B Current Condition Start: 08/22/21 14:24 Freq: Status: Active Protocol: Document 08/23/21 09:45 AW (Rec: 08/22/21 17:07 AW [id number]) Current Condition History of Current Condition Onset Date acute on chronic, years Current Complaints falls, unstable ankles, low back pain, right knee pain History of Current Condition [place] reports a current falls frequency of ~2/day. Most falls occur on the stairs but she says she can fall anywhere . She lives in a 2-story unit and can sleep on the direct entry midwife but the only bathroom is upstairs (13 narrow steps with R rail ascending and wall opposite side). She will often go up and down stairs sideways. She attributes her falls to ankle instability and the right is worse than the left. Urinary urgency is sometimes a factor in her falls. She states she often feels no urge to void and then has urgent need. She has new high top shoes and thinks she does not fall as frequently while wearing them but she usually does not wear them in the home. She has worn a custom shoe insert for right foot after previous surgery but has not used it in a long time. She is currently using a SPC for all mobility. Her PCP recently recommended a walker . She has ordered a walker and is waiting on delivery. Pt lives with her 14 yo daughter. She is able to manage shopping trips if hanging on to a cart but will sometimes use a motorized cart. 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 Prior Treatments and Tests - R ankle surgery 2018 - PT 2020 for ankle pain Future Testing and Treatments Planned Possible referral for EMG. Treatment Goals Patient/Caregiver Goals Walk with less pain and without assistive device. Improve ankle stability and balance. Reduce falls frequency. Prior Functional Status Baseline Function- Mobility Independent Baseline Function- Other Able to complete shopping trips without AD. Walk for exercise. Current Functional Impairments (Reported) Functional Limitations- Mobility/Gait Walking with SPC at all times Functional Limitations- Other Definite need for shopping cart or other support to walk grocery store distance. Personal Factors Other Personal Factors That May Effect Chronicity of deficits may Therapy/Recovery affect rehab outcomes. PT-OP-C Subjective Start: 08/22/21 14:24 Freq: Status: Active Protocol: Document 09/07/21 08:50 AW (Rec: 09/07/21 09:47 AW [id number]) OP-PT Subjective Patient Comments Patient Comments Pt denies reaction to tape after last tx. She did her exercises yesterday and feels more sore today. Pt arrives using a 4WW she got from the [facility]. Pt states she slept with her legs elevated last night. PT-OP-D Balance Start: 08/22/21 14:24 Freq: Status: Active Protocol: Document 08/23/21 09:45 AW (Rec: 08/23/21 13:24 AW [id number]) Balance Tests Single Limb Standing Single Limb- Right < 3 seconds before reaching for support Single Limb- Left < 3 seconds before reaching for support PT-OP-F Manual Assessment Start: 08/22/21 14:24 Freq: Status: Active Protocol: Document 08/23/21 09:45 AW (Rec: 08/23/21 13:24 AW [id number]) Manual Assessments Soft Tissue Assessment Soft Tissue Mobility Assessment TTP at right medial and lateral malleolus. TTP at longitudinal arch bilaterally PT-OP-G Mobility & Gait Start: 08/22/21 14:24 Freq: Status: Active Protocol: Document 08/23/21 09:45 AW (Rec: 08/23/21 16:35 AW [id number]) OP Gait Assessment Comments Gait Comments Pt ambulates with cane held in left hand, heavy UE weightbearing, consistent patterning.She has decreased heel strike and poor push off bilaterally but right is more affected. Inversion bias noted with pt tending to land on the lateral border of both feet (R>L). Stair Climbing Evaluation Evaluation Level of Assist On Stairs Standby Assistance Devices Stair Climbing Assistive Devices Straight Cane,Right Railing Technique/Endurance Stair Climbing Direction Ascend and Descend Stair Climbing Technique Step Over Step Number of Steps Climbed 3 Stair Climbing Set # Repetitions (reps) 2 Comments Stair Climbing Comments Pt needs cues for patterning stair climbing with rail and SPC. PT-OP-H Neuro Start: 08/22/21 14:24 Freq: Status: Active Protocol: Document 08/23/21 09:45 AW (Rec: 08/23/21 16:43 AW [id number]) Sensation Evaluation Gross Sensation Gross Sensation Right LE Impaired Sensation Description Numbness,Tingling Comments Summary Comments Pt reports chronic numbness/ tingliong in the right foot Deep Tendon Reflex & Clonus Assessment Deep Tendon Reflex Bilateral Achilles Deep Tendon Reflex 1+ Diminished Bilateral Patellar Deep Tendon Reflex 1+ Diminished PT-OP-J Posture/Palpation/Skin Start: 08/22/21 14:24 Freq: Status: Active Protocol: Document 08/23/21 09:45 AW (Rec: 08/23/21 16:43 AW [id number]) Posture Evaluation Comments Posture Comments Pt stands in bare feet with minimal longitudinal arch, forefoot adduction. From behind, Achilles tendons appear normally aligned. Pt has spinal changes including levoscoliosis. Left illiac crest lower than right. PT-OP-K Range of Motion Start: 08/22/21 14:24 Freq: Status: Active Protocol: Document 08/23/21 09:45 AW (Rec: 08/23/21 16:43 AW [id number]) Knee Goniometric Range of Motion Knee bilat Knee ROM WFL Yes Comments Pt has swelling in right prepatellar bursae and chronic right knee pain. ROM WNL. Ankle and Foot Goniometric Range of Motion Ankle and Foot right Dorsiflexion with Knee Extended 5 Inversion 30 Eversion 22 Comments inversion and plantar flexion AROM reproduce pain left Testing Position Sitting Dorsiflexion with Knee Extended 5 Inversion 60 Eversion 25 Ankle and Foot ROM Limitations ROM Limitations Muscle Weakness,Pain PT-OP-M Strength Start: 08/22/21 14:24 Freq: Status: Active Protocol: Document 08/23/21 09:45 AW (Rec: 08/23/21 16:48 AW [id number]) Hip Strength Hip Manual Muscle Testing Right Flexion (L2) 4- Good- External Rotation 4- Good- Internal Rotation 4 Good Left Flexion (L2) 4+ Good+ External Rotation 4+ Good+ Internal Rotation 4+ Good+ Knee Strength Knee Manual Muscle Testing Right Flexion (S2) 4- Good- Extension (L3) 4 Good Comments Right knee painful with all resisted movement Left Flexion (S2) 4+ Good+ Extension (L3) 5 Normal Ankle/Foot Strength Ankle and Foot Manual Muscle Testing Right Dorsiflexion (L4) 4 Good Plantarflexion (S1) 4- Good- Inversion 4- Good- Eversion (S1) 4- Good- Left Dorsiflexion (L4) 5 Normal Plantarflexion (S1) 4 Good Inversion 4+ Good+ Eversion (S1) 4+ Good+ Toe Strength Toe Manual Muscle Testing Great Toe Flexion 4+ Good+ Comments 4+ bilat PT-OP-Q Treatments Start: 08/22/21 14:24 Freq: Status: Active Protocol: Document 09/07/21 08:50 AW (Rec: 09/07/21 09:47 AW [id number]) Cardio Equipment Recumbent Stepper (Sci-Fit) Duration (Minutes) 2 Resistance 1 Seat Position 9 Other stopped due to R ankle pain. Therapeutic Exercises Supine Exercises isometric ankle Supine Exercise Name isometric ankle - inv/ev/PF with ball Side bilateral Equipment Used sm blue ball Reps/Minutes 5SH x 10 Comments HEP review Sitting Exercises ankle AROM Sitting Exercise Name PF/DF/inv/ev Side bilateral Resistance AROM Reps/Minutes with legs elevated on 2 bolsters Comments inv/ev feeling less painful Manual Therapy Treatment Soft Tissue Mobilization retro edema massage Body Location retro edema massage Intensity/Depth Superficial Body Position Supine Comments Noted significant swelling R>L . Focus on R foot and calf with good lymphatic movement. Taping R ankle edema Body Location R ankle Treatment Focus edema management Type of Tape KT tape Skin Inspection intact Comments 1 fan strip lateral ankle tib post Body Location tib post Treatment Focus stability Type of Tape KT tape Skin Inspection intact Comments 1 I strip medial ankle Neuro Re-Education Treatment Balance Activities NBOS Details NBOS, semi-tandem Surface firm Equipment socks only; yoga mat with towel laid over Reps/Duration 8 min Comments - NBOS EO and EC - NBOS EO head turns and nods - semi-tandem EO and EC with head turns PT-OP-R Modalities Start: 08/22/21 14:24 Freq: Status: Active Protocol: Document 08/30/21 08:51 AW (Rec: 08/30/21 09:48 AW [id number]) Hot Pack/Cold Pack Treatment Hot Pack Location l/s Patient Position Prone Treatment Duration (minutes) 12 Patient Tolerance Good Comments end of session during education PT-OP-T Assessment and Plan Start: 08/22/21 14:24 Freq: Status: Active Protocol: Document 09/07/21 08:50 AW (Rec: 09/07/21 09:47 AW [id number]) Physical Therapy Assessment Goals Four Impairment balance Back End Developer Goal (LTG) Pt will score 19/24 or greater on Dynamic Gait Index as a measure of improved balance and reduced falls risk. LTG Duration 10 weeks - 11/01/21 Three Impairment gait Short Term Goal (STG) Pt will ambulate 900 feet on 6 minute walk test with SPC to improve community ambulation STG Duration 4 weeks - 09/20/21 Shelter Goal (LTG) Pt will ambulate 1050 feet on 6 minute walk test with LRAD to improve community ambulation LTG Duration 10 weeks - 11/01/21 Two Impairment falls Short Term Goal (STG) Pt will reduce falls frequency to twice weekly or less STG Duration 4 weeks - 09/20/21 Shelter Goal (LTG) Pt will report no falls for two weeks LTG Duration 10 weeks - 11/01/21 One Impairment lacks HEP Short Term Goal (STG) Pt will be instructed in HEP for ROM, strength, and balance to support therapy services provided in clinic. STG Duration 4 weeks - 09/20/21 Shelter Goal (LTG) Pt will be independent with HEP for ROM, strength, and balance to support a self- directed exrecise program LTG Duration 10 weeks - 11/01/21 Assessment Summary Assessment Pt reports good energy conservation and improved stability with FWW. She is tolerating isometric ankle well. Educated today on importance of progressing balance work for ankle stability. Physical Therapy Plan Frequency and Duration Frequency of Treatment 2x/Week Duration of Treatment 10 weeks Plan of Care Start Date 08/23/21 Plan of Care End Date 11/01/21 Therapeutic Interventions Therapeutic Interventions Aquatic Therapy,Balance Training,Gait Training,Home Exercise Program,Manual Therapy,Neuromuscular Re- education,Self-Care/Home Management,Soft Tissue Mobilization,Taping, Therapeutic Activities, Therapeutic Exercises Next Visit Focus/Plan Next Note Type Treatment Note Next Visit Plan Continue ankle AROM in elevation, stair training. Review isometrics. Progress balance to uneven surface - consider blue foam, shuttle balance.
--- NOTE | 2021-09-12 11:30 | PT.OTN ---
Current Diagnoses Other chronic pain (09/12/21) Other instability, right ankle (09/12/21) Other instability, left ankle (09/12/21) Low back pain, unspecified (09/12/21) Repeated falls (09/12/21) Physical Therapy Treatment Note PT-OP-A Visit Information Start: 08/22/21 14:24 Freq: Status: Active Protocol: Document 09/12/21 08:34 AW (Rec: 09/12/21 08:51 AW [id number]) Out-Patient Physical Therapy Visit Information Visit Information Visit Type Treatment Note Visit Start Time 09:00 Visit Stop Time 09:44 Total Visit Minutes 44 Visit Number 5 Number of CAR STEREO INSTALLER Visits 0 Evaluation Information Evaluation Date 08/23/21 PT-OP-B Current Condition Start: 08/22/21 14:24 Freq: Status: Active Protocol: Document 08/23/21 09:45 AW (Rec: 08/22/21 17:07 AW [id number]) Current Condition History of Current Condition Onset Date acute on chronic, years Current Complaints falls, unstable ankles, low back pain, right knee pain History of Current Condition [place] reports a current falls frequency of ~2/day. Most falls occur on the stairs but she says she can fall anywhere . She lives in a 2-story unit and can sleep on the jacquard card cutter but the only bathroom is upstairs (13 narrow steps with R rail ascending and wall opposite side). She will often go up and down stairs sideways. She attributes her falls to ankle instability and the right is worse than the left. Urinary urgency is sometimes a factor in her falls. She states she often feels no urge to void and then has urgent need. She has new high top shoes and thinks she does not fall as frequently while wearing them but she usually does not wear them in the home. She has worn a custom shoe insert for right foot after previous surgery but has not used it in a long time. She is currently using a SPC for all mobility. Her PCP recently recommended a walker . She has ordered a walker and is waiting on delivery. Pt lives with her 14 yo daughter. She is able to manage shopping trips if hanging on to a cart but will sometimes use a motorized cart. 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 Prior Treatments and Tests - R ankle surgery 2018 - PT 2020 for ankle pain Future Testing and Treatments Planned Possible referral for EMG. Treatment Goals Patient/Caregiver Goals Walk with less pain and without assistive device. Improve ankle stability and balance. Reduce falls frequency. Prior Functional Status Baseline Function- Mobility Independent Baseline Function- Other Able to complete shopping trips without AD. Walk for exercise. Current Functional Impairments (Reported) Functional Limitations- Mobility/Gait Walking with SPC at all times Functional Limitations- Other Definite need for shopping cart or other support to walk grocery store distance. Personal Factors Other Personal Factors That May Effect Chronicity of deficits may Therapy/Recovery affect rehab outcomes. PT-OP-C Subjective Start: 08/22/21 14:24 Freq: Status: Active Protocol: Document 09/12/21 08:34 AW (Rec: 09/12/21 09:14 AW [id number]) OP-PT Subjective Patient Comments Patient Comments Pt states she was picking something up from the floor yesterday and rolled her right ankle hard. She is pretty sore today. Going up stairs is getting better but last three steps coming down are where she now tends to roll ankles. PT-OP-D Balance Start: 08/22/21 14:24 Freq: Status: Active Protocol: Document 08/23/21 09:45 AW (Rec: 08/23/21 13:24 AW [id number]) Balance Tests Single Limb Standing Single Limb- Right < 3 seconds before reaching for support Single Limb- Left < 3 seconds before reaching for support PT-OP-F Manual Assessment Start: 08/22/21 14:24 Freq: Status: Active Protocol: Document 08/23/21 09:45 AW (Rec: 08/23/21 13:24 AW [id number]) Manual Assessments Soft Tissue Assessment Soft Tissue Mobility Assessment TTP at right medial and lateral malleolus. TTP at longitudinal arch bilaterally PT-OP-G Mobility & Gait Start: 08/22/21 14:24 Freq: Status: Active Protocol: Document 08/23/21 09:45 AW (Rec: 08/23/21 16:35 AW [id number]) OP Gait Assessment Comments Gait Comments Pt ambulates with cane held in left hand, heavy UE weightbearing, consistent patterning.She has decreased heel strike and poor push off bilaterally but right is more affected. Inversion bias noted with pt tending to land on the lateral border of both feet (R>L). Stair Climbing Evaluation Evaluation Level of Assist On Stairs Standby Assistance Devices Stair Climbing Assistive Devices Straight Cane,Right Railing Technique/Endurance Stair Climbing Direction Ascend and Descend Stair Climbing Technique Step Over Step Number of Steps Climbed 3 Stair Climbing Set # Repetitions (reps) 2 Comments Stair Climbing Comments Pt needs cues for patterning stair climbing with rail and SPC. PT-OP-H Neuro Start: 08/22/21 14:24 Freq: Status: Active Protocol: Document 08/23/21 09:45 AW (Rec: 08/23/21 16:43 AW [id number]) Sensation Evaluation Gross Sensation Gross Sensation Right LE Impaired Sensation Description Numbness,Tingling Comments Summary Comments Pt reports chronic numbness/ tingliong in the right foot Deep Tendon Reflex & Clonus Assessment Deep Tendon Reflex Bilateral Achilles Deep Tendon Reflex 1+ Diminished Bilateral Patellar Deep Tendon Reflex 1+ Diminished PT-OP-J Posture/Palpation/Skin Start: 08/22/21 14:24 Freq: Status: Active Protocol: Document 08/23/21 09:45 AW (Rec: 08/23/21 16:43 AW [id number]) Posture Evaluation Comments Posture Comments Pt stands in bare feet with minimal longitudinal arch, forefoot adduction. From behind, Achilles tendons appear normally aligned. Pt has spinal changes including levoscoliosis. Left illiac crest lower than right. PT-OP-K Range of Motion Start: 08/22/21 14:24 Freq: Status: Active Protocol: Document 08/23/21 09:45 AW (Rec: 08/23/21 16:43 AW [id number]) Knee Goniometric Range of Motion Knee bilat Knee ROM WFL Yes Comments Pt has swelling in right prepatellar bursae and chronic right knee pain. ROM WNL. Ankle and Foot Goniometric Range of Motion Ankle and Foot right Dorsiflexion with Knee Extended 5 Inversion 30 Eversion 22 Comments inversion and plantar flexion AROM reproduce pain left Testing Position Sitting Dorsiflexion with Knee Extended 5 Inversion 60 Eversion 25 Ankle and Foot ROM Limitations ROM Limitations Muscle Weakness,Pain PT-OP-M Strength Start: 08/22/21 14:24 Freq: Status: Active Protocol: Document 08/23/21 09:45 AW (Rec: 08/23/21 16:48 AW [id number]) Hip Strength Hip Manual Muscle Testing Right Flexion (L2) 4- Good- External Rotation 4- Good- Internal Rotation 4 Good Left Flexion (L2) 4+ Good+ External Rotation 4+ Good+ Internal Rotation 4+ Good+ Knee Strength Knee Manual Muscle Testing Right Flexion (S2) 4- Good- Extension (L3) 4 Good Comments Right knee painful with all resisted movement Left Flexion (S2) 4+ Good+ Extension (L3) 5 Normal Ankle/Foot Strength Ankle and Foot Manual Muscle Testing Right Dorsiflexion (L4) 4 Good Plantarflexion (S1) 4- Good- Inversion 4- Good- Eversion (S1) 4- Good- Left Dorsiflexion (L4) 5 Normal Plantarflexion (S1) 4 Good Inversion 4+ Good+ Eversion (S1) 4+ Good+ Toe Strength Toe Manual Muscle Testing Great Toe Flexion 4+ Good+ Comments 4+ bilat PT-OP-Q Treatments Start: 08/22/21 14:24 Freq: Status: Active Protocol: Document 09/12/21 08:34 AW (Rec: 09/12/21 08:51 AW [id number]) Therapeutic Exercises Sitting Exercises resisted inv/ev Sitting Exercise Name resisted inv/ev Side bilateral Resistance TB1 Reps/Minutes 2x10 Comments HEP ankle AROM Sitting Exercise Name PF/DF/inv/ev Side bilateral Resistance AROM Reps/Minutes with legs elevated on 2 bolsters Comments inv/ev feeling less painful Other Exercises sit to stand Other Exercise Name sit to stand Manual Therapy Treatment Taping tib post Body Location tib post Treatment Focus stability Type of Tape KT tape Skin Inspection intact Comments 1 I strip medial ankle Neuro Re-Education Treatment Balance Activities NBOS Details NBOS, stride stance Surface firm Equipment socks only; yoga mat folded over + towel laid over Reps/Duration 10 min Comments - NBOS EO and EC - NBOS EO head turns and nods - stride stance with A/P weight shifts EO (CGA) and EC (CGA>[place]). Self-Care/Home Management Treatment Education Patient Education Home Exercise Program Other Education added resisted inv/ev to HEP PT-OP-R Modalities Start: 08/22/21 14:24 Freq: Status: Active Protocol: Document 08/30/21 08:51 AW (Rec: 08/30/21 09:48 AW [id number]) Hot Pack/Cold Pack Treatment Hot Pack Location l/s Patient Position Prone Treatment Duration (minutes) 12 Patient Tolerance Good Comments end of session during education PT-OP-T Assessment and Plan Start: 08/22/21 14:24 Freq: Status: Active Protocol: Document 09/12/21 08:34 AW (Rec: 09/12/21 08:51 AW [id number]) Physical Therapy Assessment Goals Four Impairment balance Agronomy Technician Goal (LTG) Pt will score 19/24 or greater on Dynamic Gait Index as a measure of improved balance and reduced falls risk. LTG Duration 10 weeks - 11/01/21 Three Impairment gait Short Term Goal (STG) Pt will ambulate 900 feet on 6 minute walk test with SPC to improve community ambulation STG Duration 4 weeks - 09/20/21 Correction Goal (LTG) Pt will ambulate 1050 feet on 6 minute walk test with LRAD to improve community ambulation LTG Duration 10 weeks - 11/01/21 Two Impairment falls Short Term Goal (STG) Pt will reduce falls frequency to twice weekly or less STG Duration 4 weeks - 09/20/21 Agronomy Technician Goal (LTG) Pt will report no falls for two weeks LTG Duration 10 weeks - 11/01/21 One Impairment lacks HEP Short Term Goal (STG) Pt will be instructed in HEP for ROM, strength, and balance to support therapy services provided in clinic. STG Duration 4 weeks - 09/20/21 Correction Goal (LTG) Pt will be independent with HEP for ROM, strength, and balance to support a self- directed exrecise program LTG Duration 10 weeks - 11/01/21 Assessment Summary Assessment Pt reports improved stair management ascending but continues to struggle with descent. She tolerates balance work for ankle stability well and left with less pain than on arrival today. Physical Therapy Plan Frequency and Duration Frequency of Treatment 2x/Week Duration of Treatment 10 weeks Plan of Care Start Date 08/23/21 Plan of Care End Date 11/01/21 Therapeutic Interventions Therapeutic Interventions Aquatic Therapy,Balance Training,Gait Training,Home Exercise Program,Manual Therapy,Neuromuscular Re- education,Self-Care/Home Management,Soft Tissue Mobilization,Taping, Therapeutic Activities, Therapeutic Exercises Next Visit Focus/Plan Next Note Type Treatment Note Next Visit Plan Continue ankle AROM in elevation, stair training. Progress balance to uneven surface - consider blue foam, shuttle balance. Weight shifting A/P and lateral - possibly for HEP
--- NOTE | 2021-09-14 12:27 | PT.OTN ---
Current Diagnoses Other chronic pain (09/14/21) Other instability, right ankle (09/14/21) Other instability, left ankle (09/14/21) Low back pain, unspecified (09/14/21) Repeated falls (09/14/21) Physical Therapy Treatment Note PT-OP-A Visit Information Start: 08/22/21 14:24 Freq: Status: Active Protocol: Document 09/14/21 08:31 AW (Rec: 09/14/21 09:43 AW [id number]) Out-Patient Physical Therapy Visit Information Visit Information Visit Type Treatment Note Visit Start Time 09:00 Visit Stop Time 09:43 Total Visit Minutes 43 Visit Number 6 Number of RINKMAN Visits 0 Evaluation Information Evaluation Date 08/23/21 PT-OP-B Current Condition Start: 08/22/21 14:24 Freq: Status: Active Protocol: Document 08/23/21 09:45 AW (Rec: 08/22/21 17:07 AW [id number]) Current Condition History of Current Condition Onset Date acute on chronic, years Current Complaints falls, unstable ankles, low back pain, right knee pain History of Current Condition [place] reports a current falls frequency of ~2/day. Most falls occur on the stairs but she says she can fall anywhere . 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 She will often go up and down stairs sideways. She attributes her falls to ankle instability and the right is worse than the left. Urinary urgency is sometimes a factor in her falls. She states she often feels no urge to void and then has urgent need. She has new high top shoes and thinks she does not fall as frequently while wearing them but she usually does not wear them in the home. She has worn a custom shoe insert for right foot after previous surgery but has not used it in a long time. She is currently using a SPC for all mobility. Her PCP recently recommended a walker . She has ordered a walker and is waiting on delivery. Pt lives with her 14 yo daughter. She is able to manage shopping trips if hanging on to a cart but will sometimes use a motorized cart. 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 Prior Treatments and Tests - R ankle surgery 2018 - PT 2020 for ankle pain Future Testing and Treatments Planned Possible referral for EMG. Treatment Goals Patient/Caregiver Goals Walk with less pain and without assistive device. Improve ankle stability and balance. Reduce falls frequency. Prior Functional Status Baseline Function- Mobility Independent Baseline Function- Other Able to complete shopping trips without AD. Walk for exercise. Current Functional Impairments (Reported) Functional Limitations- Mobility/Gait Walking with SPC at all times Functional Limitations- Other Definite need for shopping cart or other support to walk grocery store distance. Personal Factors Other Personal Factors That May Effect Chronicity of deficits may Therapy/Recovery affect rehab outcomes. PT-OP-C Subjective Start: 08/22/21 14:24 Freq: Status: Active Protocol: Document 09/14/21 08:31 AW (Rec: 09/14/21 09:43 AW [id number]) OP-PT Subjective Patient Comments Patient Comments Pt states she is feeling better today and having less foot/ankle pain. PT-OP-D Balance Start: 08/22/21 14:24 Freq: Status: Active Protocol: Document 08/23/21 09:45 AW (Rec: 08/23/21 13:24 AW [id number]) Balance Tests Single Limb Standing Single Limb- Right < 3 seconds before reaching for support Single Limb- Left < 3 seconds before reaching for support PT-OP-F Manual Assessment Start: 08/22/21 14:24 Freq: Status: Active Protocol: Document 08/23/21 09:45 AW (Rec: 08/23/21 13:24 AW [id number]) Manual Assessments Soft Tissue Assessment Soft Tissue Mobility Assessment TTP at right medial and lateral malleolus. TTP at longitudinal arch bilaterally PT-OP-G Mobility & Gait Start: 08/22/21 14:24 Freq: Status: Active Protocol: Document 08/23/21 09:45 AW (Rec: 08/23/21 16:35 AW [id number]) OP Gait Assessment Comments Gait Comments Pt ambulates with cane held in left hand, heavy UE weightbearing, consistent patterning.She has decreased heel strike and poor push off bilaterally but right is more affected. Inversion bias noted with pt tending to land on the lateral border of both feet (R>L). Stair Climbing Evaluation Evaluation Level of Assist On Stairs Standby Assistance Devices Stair Climbing Assistive Devices Straight Cane,Right Railing Technique/Endurance Stair Climbing Direction Ascend and Descend Stair Climbing Technique Step Over Step Number of Steps Climbed 3 Stair Climbing Set # Repetitions (reps) 2 Comments Stair Climbing Comments Pt needs cues for patterning stair climbing with rail and SPC. PT-OP-H Neuro Start: 08/22/21 14:24 Freq: Status: Active Protocol: Document 08/23/21 09:45 AW (Rec: 08/23/21 16:43 AW [id number]) Sensation Evaluation Gross Sensation Gross Sensation Right LE Impaired Sensation Description Numbness,Tingling Comments Summary Comments Pt reports chronic numbness/ tingliong in the right foot Deep Tendon Reflex & Clonus Assessment Deep Tendon Reflex Bilateral Achilles Deep Tendon Reflex 1+ Diminished Bilateral Patellar Deep Tendon Reflex 1+ Diminished PT-OP-J Posture/Palpation/Skin Start: 08/22/21 14:24 Freq: Status: Active Protocol: Document 08/23/21 09:45 AW (Rec: 08/23/21 16:43 AW [id number]) Posture Evaluation Comments Posture Comments Pt stands in bare feet with minimal longitudinal arch, forefoot adduction. From behind, Achilles tendons appear normally aligned. Pt has spinal changes including levoscoliosis. Left illiac crest lower than right. PT-OP-K Range of Motion Start: 08/22/21 14:24 Freq: Status: Active Protocol: Document 08/23/21 09:45 AW (Rec: 08/23/21 16:43 AW [id number]) Knee Goniometric Range of Motion Knee bilat Knee ROM WFL Yes Comments Pt has swelling in right prepatellar bursae and chronic right knee pain. ROM WNL. Ankle and Foot Goniometric Range of Motion Ankle and Foot right Dorsiflexion with Knee Extended 5 Inversion 30 Eversion 22 Comments inversion and plantar flexion AROM reproduce pain left Testing Position Sitting Dorsiflexion with Knee Extended 5 Inversion 60 Eversion 25 Ankle and Foot ROM Limitations ROM Limitations Muscle Weakness,Pain PT-OP-M Strength Start: 08/22/21 14:24 Freq: Status: Active Protocol: Document 08/23/21 09:45 AW (Rec: 08/23/21 16:48 AW [id number]) Hip Strength Hip Manual Muscle Testing Right Flexion (L2) 4- Good- External Rotation 4- Good- Internal Rotation 4 Good Left Flexion (L2) 4+ Good+ External Rotation 4+ Good+ Internal Rotation 4+ Good+ Knee Strength Knee Manual Muscle Testing Right Flexion (S2) 4- Good- Extension (L3) 4 Good Comments Right knee painful with all resisted movement Left Flexion (S2) 4+ Good+ Extension (L3) 5 Normal Ankle/Foot Strength Ankle and Foot Manual Muscle Testing Right Dorsiflexion (L4) 4 Good Plantarflexion (S1) 4- Good- Inversion 4- Good- Eversion (S1) 4- Good- Left Dorsiflexion (L4) 5 Normal Plantarflexion (S1) 4 Good Inversion 4+ Good+ Eversion (S1) 4+ Good+ Toe Strength Toe Manual Muscle Testing Great Toe Flexion 4+ Good+ Comments 4+ bilat PT-OP-Q Treatments Start: 08/22/21 14:24 Freq: Status: Active Protocol: Document 09/14/21 08:31 AW (Rec: 09/14/21 09:43 AW [id number]) Therapeutic Exercises Supine Exercises SAQ Supine Exercise Name SAQ Side bilateral Reps/Minutes 5SH x 10 Sitting Exercises LAQ Sitting Exercise Name LAQ Reps/Minutes 5SH x 8 resisted inv/ev Sitting Exercise Name resisted inv/ev Side bilateral Resistance TB1 Reps/Minutes 2x10 Comments hooklying w/ legs up on bolster foot instrinsics Sitting Exercise Name toe ext/abd; marble fiber picker; towel scrunch Side bilateral ankle AROM Sitting Exercise Name PF/DF/inv/ev Side bilateral Resistance AROM Reps/Minutes with legs elevated on 2 bolsters Other Exercises sit to stand Other Exercise Name sit to stand Equipment Used hi/lo table set high, set low, std ht chair Reps/Minutes 3x8 - one set from each surface Manual Therapy Treatment Soft Tissue Mobilization retro edema massage Body Location retro edema massage Intensity/Depth Superficial Body Position Supine Comments During ther ex Neuro Re-Education Treatment Balance Activities NBOS Details NBOS, stride stance Surface yoga mat Equipment socks only; yoga mat folded over + towel laid over Reps/Duration 10 min Comments - NBOS EO and EC - NBOS EO head turns and nods - stride stance with A/P and lateral weight shifts EO (CGA) and EC (CGA). Focus on ankle stability Self-Care/Home Management Treatment Education Other Education Educated pt on benefits of compression stockings to address persistent edema. Provided handout describing recommended 15-20 mm hg. PT-OP-R Modalities Start: 08/22/21 14:24 Freq: Status: Active Protocol: Document 08/30/21 08:51 AW (Rec: 08/30/21 09:48 AW [id number]) Hot Pack/Cold Pack Treatment Hot Pack Location l/s Patient Position Prone Treatment Duration (minutes) 12 Patient Tolerance Good Comments end of session during education PT-OP-T Assessment and Plan Start: 08/22/21 14:24 Freq: Status: Active Protocol: Document 09/14/21 08:31 AW (Rec: 09/14/21 09:43 AW [id number]) Physical Therapy Assessment Goals Four Impairment balance Alf Goal (LTG) Pt will score 19/24 or greater on Dynamic Gait Index as a measure of improved balance and reduced falls risk. 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 STG Duration 4 weeks - 09/20/21 Alf Goal (LTG) Pt will be independent with HEP for ROM, strength, and balance to support a self- directed exrecise program LTG Duration 10 weeks - 11/01/21 Assessment Summary Assessment Pt is able to focus well on stabilizing ankles during balance challenges on unstable surfaces today. She would benefit from continued balance training to progress ankle stability and balance reactions. Physical Therapy Plan Frequency and Duration Frequency of Treatment 2x/Week Duration of Treatment 10 weeks Plan of Care Start Date 08/23/21 Plan of Care End Date 11/01/21 Therapeutic Interventions Therapeutic Interventions Aquatic Therapy,Balance Training,Gait Training,Home Exercise Program,Manual Therapy,Neuromuscular Re- education,Self-Care/Home Management,Soft Tissue Mobilization,Taping, Therapeutic Activities, Therapeutic Exercises Next Visit Focus/Plan Next Note Type Treatment Note Next Visit Plan Continue ankle AROM in elevation, stair training. Progress balance to uneven surface - consider blue foam, shuttle balance. Weight shifting A/P and lateral - possibly for HEP
--- NOTE | 2021-09-19 14:56 | PT.OTN ---
Current Diagnoses Other chronic pain (09/19/21) Other instability, right ankle (09/19/21) Other instability, left ankle (09/19/21) Low back pain, unspecified (09/19/21) Repeated falls (09/19/21) Physical Therapy Treatment Note PT-OP-A Visit Information Start: 08/22/21 14:24 Freq: Status: Active Protocol: Document 09/19/21 13:49 LRN (Rec: 09/19/21 14:55 LRN [id number]) Out-Patient Physical Therapy Visit Information Visit Information Visit Type Treatment Note Visit Start Time 13:49 Visit Stop Time 14:32 Total Visit Minutes 43 Visit Number 7 Number of SPORT INTERNSHIP Visits 0 Evaluation Information Evaluation Date 08/23/21 PT-OP-B Current Condition Start: 08/22/21 14:24 Freq: Status: Active Protocol: Document 08/23/21 09:45 AW (Rec: 08/22/21 17:07 AW [id number]) Current Condition History of Current Condition Onset Date acute on chronic, years Current Complaints falls, unstable ankles, low back pain, right knee pain History of Current Condition [place] reports a current falls frequency of ~2/day. Most falls occur on the stairs but she says she can fall anywhere . 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 She will often go up and down stairs sideways. She attributes her falls to ankle instability and the right is worse than the left. Urinary urgency is sometimes a factor in her falls. She states she often feels no urge to void and then has urgent need. She has new high top shoes and thinks she does not fall as frequently while wearing them but she usually does not wear them in the home. She has worn a custom shoe insert for right foot after previous surgery but has not used it in a long time. She is currently using a SPC for all mobility. Her PCP recently recommended a walker . She has ordered a walker and is waiting on delivery. Pt lives with her 14 yo daughter. She is able to manage shopping trips if hanging on to a cart but will sometimes use a motorized cart. 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 Prior Treatments and Tests - R ankle surgery 2018 - PT 2020 for ankle pain Future Testing and Treatments Planned Possible referral for EMG. Treatment Goals Patient/Caregiver Goals Walk with less pain and without assistive device. Improve ankle stability and balance. Reduce falls frequency. Prior Functional Status Baseline Function- Mobility Independent Baseline Function- Other Able to complete shopping trips without AD. Walk for exercise. Current Functional Impairments (Reported) Functional Limitations- Mobility/Gait Walking with SPC at all times Functional Limitations- Other Definite need for shopping cart or other support to walk grocery store distance. Personal Factors Other Personal Factors That May Effect Chronicity of deficits may Therapy/Recovery affect rehab outcomes. PT-OP-C Subjective Start: 08/22/21 14:24 Freq: Status: Active Protocol: Document 09/19/21 13:49 LRN (Rec: 09/19/21 14:55 LRN [id number]) OP-PT Subjective Patient Comments Patient Comments States she is walking around your apartment without the walker holding onto things. Thinks she is doing better walking with the walker. Pain in R foot is the same, 12/24. PT-OP-D Balance Start: 08/22/21 14:24 Freq: Status: Active Protocol: Document 08/23/21 09:45 AW (Rec: 08/23/21 13:24 AW [id number]) Balance Tests Single Limb Standing Single Limb- Right < 3 seconds before reaching for support Single Limb- Left < 3 seconds before reaching for support PT-OP-F Manual Assessment Start: 08/22/21 14:24 Freq: Status: Active Protocol: Document 08/23/21 09:45 AW (Rec: 08/23/21 13:24 AW [id number]) Manual Assessments Soft Tissue Assessment Soft Tissue Mobility Assessment TTP at right medial and lateral malleolus. TTP at longitudinal arch bilaterally PT-OP-G Mobility & Gait Start: 08/22/21 14:24 Freq: Status: Active Protocol: Document 08/23/21 09:45 AW (Rec: 08/23/21 16:35 AW [id number]) OP Gait Assessment Comments Gait Comments Pt ambulates with cane held in left hand, heavy UE weightbearing, consistent patterning.She has decreased heel strike and poor push off bilaterally but right is more affected. Inversion bias noted with pt tending to land on the lateral border of both feet (R>L). Stair Climbing Evaluation Evaluation Level of Assist On Stairs Standby Assistance Devices Stair Climbing Assistive Devices Straight Cane,Right Railing Technique/Endurance Stair Climbing Direction Ascend and Descend Stair Climbing Technique Step Over Step Number of Steps Climbed 3 Stair Climbing Set # Repetitions (reps) 2 Comments Stair Climbing Comments Pt needs cues for patterning stair climbing with rail and SPC. PT-OP-H Neuro Start: 08/22/21 14:24 Freq: Status: Active Protocol: Document 08/23/21 09:45 AW (Rec: 08/23/21 16:43 AW [id number]) Sensation Evaluation Gross Sensation Gross Sensation Right LE Impaired Sensation Description Numbness,Tingling Comments Summary Comments Pt reports chronic numbness/ tingliong in the right foot Deep Tendon Reflex & Clonus Assessment Deep Tendon Reflex Bilateral Achilles Deep Tendon Reflex 1+ Diminished Bilateral Patellar Deep Tendon Reflex 1+ Diminished PT-OP-J Posture/Palpation/Skin Start: 08/22/21 14:24 Freq: Status: Active Protocol: Document 08/23/21 09:45 AW (Rec: 08/23/21 16:43 AW [id number]) Posture Evaluation Comments Posture Comments Pt stands in bare feet with minimal longitudinal arch, forefoot adduction. From behind, Achilles tendons appear normally aligned. Pt has spinal changes including levoscoliosis. Left illiac crest lower than right. PT-OP-K Range of Motion Start: 08/22/21 14:24 Freq: Status: Active Protocol: Document 08/23/21 09:45 AW (Rec: 08/23/21 16:43 AW [id number]) Knee Goniometric Range of Motion Knee bilat Knee ROM WFL Yes Comments Pt has swelling in right prepatellar bursae and chronic right knee pain. ROM WNL. Ankle and Foot Goniometric Range of Motion Ankle and Foot right Dorsiflexion with Knee Extended 5 Inversion 30 Eversion 22 Comments inversion and plantar flexion AROM reproduce pain left Testing Position Sitting Dorsiflexion with Knee Extended 5 Inversion 60 Eversion 25 Ankle and Foot ROM Limitations ROM Limitations Muscle Weakness,Pain PT-OP-M Strength Start: 08/22/21 14:24 Freq: Status: Active Protocol: Document 08/23/21 09:45 AW (Rec: 08/23/21 16:48 AW [id number]) Hip Strength Hip Manual Muscle Testing Right Flexion (L2) 4- Good- External Rotation 4- Good- Internal Rotation 4 Good Left Flexion (L2) 4+ Good+ External Rotation 4+ Good+ Internal Rotation 4+ Good+ Knee Strength Knee Manual Muscle Testing Right Flexion (S2) 4- Good- Extension (L3) 4 Good Comments Right knee painful with all resisted movement Left Flexion (S2) 4+ Good+ Extension (L3) 5 Normal Ankle/Foot Strength Ankle and Foot Manual Muscle Testing Right Dorsiflexion (L4) 4 Good Plantarflexion (S1) 4- Good- Inversion 4- Good- Eversion (S1) 4- Good- Left Dorsiflexion (L4) 5 Normal Plantarflexion (S1) 4 Good Inversion 4+ Good+ Eversion (S1) 4+ Good+ Toe Strength Toe Manual Muscle Testing Great Toe Flexion 4+ Good+ Comments 4+ bilat PT-OP-Q Treatments Start: 08/22/21 14:24 Freq: Status: Active Protocol: Document 09/19/21 13:49 LRN (Rec: 09/19/21 14:55 LRN [id number]) Therapeutic Exercises Supine Exercises SAQ Supine Exercise Name SAQ Side bilateral Reps/Minutes 5SH x 15 Sitting Exercises LAQ Sitting Exercise Name LAQ Reps/Minutes 5SH x 12 resisted inv/ev Sitting Exercise Name resisted inv/ev in longsit Side bilateral Resistance TB1 Reps/Minutes 10x 2 R, 30x L Comments Long rest between 2nd & 3rd set on R ankle ankle AROM Sitting Exercise Name PF/DF/inv/ev Side bilateral Resistance AROM Reps/Minutes Each 30x, inv/ev required rests btn bouts Comments with legs elevated on 2 bolsters Other Exercises sit to stand Other Exercise Name sit to stand Equipment Used hi/lo table, set low, std ht chair Reps/Minutes 3x10 - one set from low surface, 2 sets from std hgt chair surface Manual Therapy Treatment Soft Tissue Mobilization retro edema massage Body Location retro edema massage Intensity/Depth Superficial Body Position Supine Comments During ther ex Neuro Re-Education Treatment Balance Activities NBOS Details NBOS, stride stance Surface yoga mat Equipment NBOS: Blue foam; Stride stance : Black Oval & Blue Foam Reps/Duration 10 min Comments - NBOS EO and EC - NBOS EO head turns and nods - stride stance with A/P and lateral weight shifts EO (SBA) and EC (Close guarding SBA). 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 LTG Duration 10 weeks - 11/01/21 Three Impairment gait Short Term Goal (STG) Pt will ambulate 900 feet on 6 minute walk test with SPC to improve community ambulation STG Duration 4 weeks - 09/20/21 [facility] Goal (LTG) Pt will ambulate 1050 feet on 6 minute walk test with LRAD to improve community ambulation LTG Duration 10 weeks - 11/01/21 Two Impairment falls Short Term Goal (STG) Pt will reduce falls frequency to twice weekly or less STG Duration 4 weeks - 09/20/21 Blade Bender Furnace Tender Goal (LTG) Pt will report no falls for two weeks LTG Duration 10 weeks - 11/01/21 One Impairment lacks HEP Short Term Goal (STG) Pt will be instructed in HEP for ROM, strength, and balance to support therapy services provided in clinic. STG Duration 4 weeks - 09/20/21 [facility] Goal (LTG) Pt will be independent with HEP for ROM, strength, and balance to support a self- directed exrecise program LTG Duration 10 weeks - 11/01/21 Assessment Summary Assessment Pt R lateral ankle appears moderately swollen with mild decrease after massage. Pt is limited with EV strengthening due to pain/swelling. Pt was able to tolerate increase in ex; therefore strength is slowly improving. She did well on blue foam balance ex's EO, less steady with EC as expected. Physical Therapy Plan Frequency and Duration Frequency of Treatment 2x/Week Duration of Treatment 10 weeks Plan of Care Start Date 08/23/21 Plan of Care End Date 11/01/21 Next Visit Focus/Plan Next Note Type Treatment Note Next Visit Plan K-tape to R ankle for stability. Educate pt in MARY wrap to R ankle if she brings own MARY wrap in. Assess response to balance on uneven surface (blue foam/black oval) . Continue ankle AROM in elevation. Add shuttle balance and stair training. Weight shifting A/P and lateral - possibly for HEP
--- NOTE | 2021-09-21 16:53 | PT.OTN ---
Current Diagnoses Other chronic pain (09/21/21) Other instability, right ankle (09/21/21) Other instability, left ankle (09/21/21) Low back pain, unspecified (09/21/21) Repeated falls (09/21/21) Physical Therapy Treatment Note PT-OP-A Visit Information Start: 08/22/21 14:24 Freq: Status: Active Protocol: Document 09/21/21 14:36 LRN (Rec: 09/21/21 16:53 LRN [id number]) Out-Patient Physical Therapy Visit Information Visit Information Visit Type Treatment Note Visit Start Time 14:37 Visit Stop Time 15:17 Total Visit Minutes 40 Visit Number 8 Evaluation Information Evaluation Date 08/23/21 PT-OP-B Current Condition Start: 08/22/21 14:24 Freq: Status: Active Protocol: Document 08/23/21 09:45 AW (Rec: 08/22/21 17:07 AW [id number]) Current Condition History of Current Condition Onset Date acute on chronic, years Current Complaints falls, unstable ankles, low back pain, right knee pain History of Current Condition [place] reports a current falls frequency of ~2/day. Most falls occur on the stairs but she says she can fall anywhere . 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 She will often go up and down stairs sideways. She attributes her falls to ankle instability and the right is worse than the left. Urinary urgency is sometimes a factor in her falls. She states she often feels no urge to void and then has urgent need. She has new high top shoes and thinks she does not fall as frequently while wearing them but she usually does not wear them in the home. She has worn a custom shoe insert for right foot after previous surgery but has not used it in a long time. She is currently using a SPC for all mobility. Her PCP recently recommended a walker . She has ordered a walker and is waiting on delivery. Pt lives with her 14 yo daughter. She is able to manage shopping trips if hanging on to a cart but will sometimes use a motorized cart. 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 Prior Treatments and Tests - R ankle surgery 2018 - PT 2020 for ankle pain Future Testing and Treatments Planned Possible referral for EMG. Treatment Goals Patient/Caregiver Goals Walk with less pain and without assistive device. Improve ankle stability and balance. Reduce falls frequency. Prior Functional Status Baseline Function- Mobility Independent Baseline Function- Other Able to complete shopping trips without AD. Walk for exercise. Current Functional Impairments (Reported) Functional Limitations- Mobility/Gait Walking with SPC at all times Functional Limitations- Other Definite need for shopping cart or other support to walk grocery store distance. Personal Factors Other Personal Factors That May Effect Chronicity of deficits may Therapy/Recovery affect rehab outcomes. PT-OP-C Subjective Start: 08/22/21 14:24 Freq: Status: Active Protocol: Document 09/21/21 14:36 LRN (Rec: 09/21/21 16:53 LRN [id number]) OP-PT Subjective Patient Comments Patient Comments Fell out of the car and twisted R ankle yesterday. She tried to stay off of it and elevated it. Pain rated 9 /10 in R ankle. States she got her ankle sock and it is working. PT-OP-D Balance Start: 08/22/21 14:24 Freq: Status: Active Protocol: Document 08/23/21 09:45 AW (Rec: 08/23/21 13:24 AW [id number]) Balance Tests Single Limb Standing Single Limb- Right < 3 seconds before reaching for support Single Limb- Left < 3 seconds before reaching for support PT-OP-F Manual Assessment Start: 08/22/21 14:24 Freq: Status: Active Protocol: Document 08/23/21 09:45 AW (Rec: 08/23/21 13:24 AW [id number]) Manual Assessments Soft Tissue Assessment Soft Tissue Mobility Assessment TTP at right medial and lateral malleolus. TTP at longitudinal arch bilaterally PT-OP-G Mobility & Gait Start: 08/22/21 14:24 Freq: Status: Active Protocol: Document 08/23/21 09:45 AW (Rec: 08/23/21 16:35 AW [id number]) OP Gait Assessment Comments Gait Comments Pt ambulates with cane held in left hand, heavy UE weightbearing, consistent patterning.She has decreased heel strike and poor push off bilaterally but right is more affected. Inversion bias noted with pt tending to land on the lateral border of both feet (R>L). Stair Climbing Evaluation Evaluation Level of Assist On Stairs Standby Assistance Devices Stair Climbing Assistive Devices Straight Cane,Right Railing Technique/Endurance Stair Climbing Direction Ascend and Descend Stair Climbing Technique Step Over Step Number of Steps Climbed 3 Stair Climbing Set # Repetitions (reps) 2 Comments Stair Climbing Comments Pt needs cues for patterning stair climbing with rail and SPC. PT-OP-H Neuro Start: 08/22/21 14:24 Freq: Status: Active Protocol: Document 08/23/21 09:45 AW (Rec: 08/23/21 16:43 AW [id number]) Sensation Evaluation Gross Sensation Gross Sensation Right LE Impaired Sensation Description Numbness,Tingling Comments Summary Comments Pt reports chronic numbness/ tingliong in the right foot Deep Tendon Reflex & Clonus Assessment Deep Tendon Reflex Bilateral Achilles Deep Tendon Reflex 1+ Diminished Bilateral Patellar Deep Tendon Reflex 1+ Diminished PT-OP-J Posture/Palpation/Skin Start: 08/22/21 14:24 Freq: Status: Active Protocol: Document 08/23/21 09:45 AW (Rec: 08/23/21 16:43 AW [id number]) Posture Evaluation Comments Posture Comments Pt stands in bare feet with minimal longitudinal arch, forefoot adduction. From behind, Achilles tendons appear normally aligned. Pt has spinal changes including levoscoliosis. Left illiac crest lower than right. PT-OP-K Range of Motion Start: 08/22/21 14:24 Freq: Status: Active Protocol: Document 08/23/21 09:45 AW (Rec: 08/23/21 16:43 AW [id number]) Knee Goniometric Range of Motion Knee bilat Knee ROM WFL Yes Comments Pt has swelling in right prepatellar bursae and chronic right knee pain. ROM WNL. Ankle and Foot Goniometric Range of Motion Ankle and Foot right Dorsiflexion with Knee Extended 5 Inversion 30 Eversion 22 Comments inversion and plantar flexion AROM reproduce pain left Testing Position Sitting Dorsiflexion with Knee Extended 5 Inversion 60 Eversion 25 Ankle and Foot ROM Limitations ROM Limitations Muscle Weakness,Pain PT-OP-M Strength Start: 08/22/21 14:24 Freq: Status: Active Protocol: Document 08/23/21 09:45 AW (Rec: 08/23/21 16:48 AW [id number]) Hip Strength Hip Manual Muscle Testing Right Flexion (L2) 4- Good- External Rotation 4- Good- Internal Rotation 4 Good Left Flexion (L2) 4+ Good+ External Rotation 4+ Good+ Internal Rotation 4+ Good+ Knee Strength Knee Manual Muscle Testing Right Flexion (S2) 4- Good- Extension (L3) 4 Good Comments Right knee painful with all resisted movement Left Flexion (S2) 4+ Good+ Extension (L3) 5 Normal Ankle/Foot Strength Ankle and Foot Manual Muscle Testing Right Dorsiflexion (L4) 4 Good Plantarflexion (S1) 4- Good- Inversion 4- Good- Eversion (S1) 4- Good- Left Dorsiflexion (L4) 5 Normal Plantarflexion (S1) 4 Good Inversion 4+ Good+ Eversion (S1) 4+ Good+ Toe Strength Toe Manual Muscle Testing Great Toe Flexion 4+ Good+ Comments 4+ bilat PT-OP-Q Treatments Start: 08/22/21 14:24 Freq: Status: Active Protocol: Document 09/21/21 14:36 LRN (Rec: 09/21/21 16:53 LRN [id number]) Therapeutic Exercises Sitting Exercises LE lymphedema ex's Sitting Exercise Name LE lymphedema ex's. Side right Reps/Minutes 20' Manual Therapy Treatment Soft Tissue Mobilization R LE lympedema massage Body Location R LE Mobilization Type Manual Lymphatic Drainage Intensity/Depth Superficial Body Position Supine Comments Legs elevated on bolster. Start of therapy: Girth MSMT of R ankle: Fig 8: R is 51.5 cm. L is 51.2 cm. Taping R ankle support Body Location R ankle medial/lateral stability Treatment Focus Stabilization Type of Tape Kinesio Tape Skin Inspection Intact/good Comments One I-strip each for lateral & medial R ankle support. R ankle edema Body Location R ankle Treatment Focus edema and stability management Type of Tape Kinesio Tape Skin Inspection intact Comments One Y strip for edema at ankle . Self-Care/Home Management Treatment Education Patient Education Joint Protection,Pain Management Other Education Pt educated in safe and proper removal of K-tape with I/S in precautions to remove if having allergic reaction. Pt I/S to remove within 5 days or sooner as needed. Pt educated in LE lymphedema massage/exercise. Pt educated in RICE treatment to her RLE. Brief review of precautions to for manula lyphatic drainiage LE sequence. Activities Self-Care/Home Management Activities Pt issued & reviewed HEP handouts for LE lymphedema exercises, RICE self care for edema, and Do's & Dont's of LE lymphedema. PT-OP-R Modalities Start: 08/22/21 14:24 Freq: Status: Active Protocol: Document 08/30/21 08:51 AW (Rec: 08/30/21 09:48 AW [id number]) Hot Pack/Cold Pack Treatment Hot Pack Location l/s Patient Position Prone Treatment Duration (minutes) 12 Patient Tolerance Good Comments end of session during education PT-OP-T Assessment and Plan Start: 08/22/21 14:24 Freq: Status: Active Protocol: Document 09/21/21 14:36 LRN (Rec: 09/21/21 16:53 LRN [id number]) Physical Therapy Assessment Goals Four Impairment balance Baseball Scout Goal (LTG) Pt will score 19/24 or greater on Dynamic Gait Index as a measure of improved balance and reduced falls risk. LTG Duration 10 weeks - 11/01/21 Three Impairment gait Short Term Goal (STG) Pt will ambulate 900 feet on 6 minute walk test with SPC to improve community ambulation STG Duration 4 weeks - 09/20/21 Half-Way Goal (LTG) Pt will ambulate 1050 feet on 6 minute walk test with LRAD to improve community ambulation LTG Duration 10 weeks - 11/01/21 Two Impairment falls Short Term Goal (STG) Pt will reduce falls frequency to twice weekly or less STG Duration 4 weeks - 09/20/21 Half-Way Goal (LTG) Pt will report no falls for two weeks LTG Duration 10 weeks - 11/01/21 One Impairment lacks HEP Short Term Goal (STG) Pt will be instructed in HEP for ROM, strength, and balance to support therapy services provided in clinic. STG Duration 4 weeks - 09/20/21 Baseball Scout Goal (LTG) Pt will be independent with HEP for ROM, strength, and balance to support a self- directed exrecise program LTG Duration 10 weeks - 11/01/21 Progress Towards Goals Progress Towards Goals Slow Progress due to Activity Tolerance,Slow Progress due to Medical Issues Progress Comments Pt fell yesterday coming out of a car, spraining possibly the medial side of her R ankle . Assessment Summary Assessment Pt presents with reinjury of the ankle from what appears to have strained the medial aspect of the R ankle by her description of what happened. Her ankle is tender to touch and painful with AROM. She is wearing a compressive ankle sock that doesn't appear to be causing swelling in the R LE; therefor the pt did not need education in MARY wrap of the ankle. The sock appears to be doing a good job at minimizing swelling at the ankle. Physical Therapy Plan Frequency and Duration Frequency of Treatment 2x/Week Duration of Treatment 10 weeks Plan of Care Start Date 08/23/21 Plan of Care End Date 11/01/21 Next Visit Focus/Plan Next Note Type Treatment Note Next Visit Plan Assess response to K-tape for stability and edema of R ankle . Assess response to balance on uneven surface ( blue foam/black oval). Continue ankle AROM in elevation. Add shuttle balance and stair training. Weight shifting A/P and lateral - possibly for HEP when appropriate.
--- NOTE | 2021-09-25 15:18 | PT.OTN ---
Current Diagnoses Other chronic pain (09/25/21) Other instability, right ankle (09/25/21) Other instability, left ankle (09/25/21) Low back pain, unspecified (09/25/21) Repeated falls (09/25/21) Physical Therapy Treatment Note PT-OP-A Visit Information Start: 08/22/21 14:24 Freq: Status: Active Protocol: Document 09/25/21 14:35 LRN (Rec: 09/25/21 15:15 LRN [id number]) Out-Patient Physical Therapy Visit Information Visit Information Visit Type Treatment Note Visit Start Time 14:35 Visit Stop Time 15:14 Total Visit Minutes 39 Visit Number 9 Evaluation Information Evaluation Date 08/23/21 PT-OP-B Current Condition Start: 08/22/21 14:24 Freq: Status: Active Protocol: Document 08/23/21 09:45 AW (Rec: 08/22/21 17:07 AW [id number]) Current Condition History of Current Condition Onset Date acute on chronic, years Current Complaints falls, unstable ankles, low back pain, right knee pain History of Current Condition [place] reports a current falls frequency of ~2/day. Most falls occur on the stairs but she says she can fall anywhere . 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 She will often go up and down stairs sideways. She attributes her falls to ankle instability and the right is worse than the left. Urinary urgency is sometimes a factor in her falls. She states she often feels no urge to void and then has urgent need. She has new high top shoes and thinks she does not fall as frequently while wearing them but she usually does not wear them in the home. She has worn a custom shoe insert for right foot after previous surgery but has not used it in a long time. She is currently using a SPC for all mobility. Her PCP recently recommended a walker . She has ordered a walker and is waiting on delivery. Pt lives with her 14 yo daughter. She is able to manage shopping trips if hanging on to a cart but will sometimes use a motorized cart. 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 Prior Treatments and Tests - R ankle surgery 2017 - PT 2020 for ankle pain Future Testing and Treatments Planned Possible referral for EMG. Treatment Goals Patient/Caregiver Goals Walk with less pain and without assistive device. Improve ankle stability and balance. Reduce falls frequency. Prior Functional Status Baseline Function- Mobility Independent Baseline Function- Other Able to complete shopping trips without AD. Walk for exercise. Current Functional Impairments (Reported) Functional Limitations- Mobility/Gait Walking with SPC at all times Functional Limitations- Other Definite need for shopping cart or other support to walk grocery store distance. Personal Factors Other Personal Factors That May Effect Chronicity of deficits may Therapy/Recovery affect rehab outcomes. PT-OP-C Subjective Start: 08/22/21 14:24 Freq: Status: Active Protocol: Document 09/25/21 14:35 LRN (Rec: 09/25/21 15:15 LRN [id number]) OP-PT Subjective Patient Comments Patient Comments States she had ms spasms in the bottoms of her R foot right after removing the K- tape 09/23/21 (was coming off). Went walking day after last session. Pt states R ankle pain is rated 5/10 (after PT 8 /10). Pt has not fallen this week, 1x tweeked the ankle. PT-OP-D Balance Start: 08/22/21 14:24 Freq: Status: Active Protocol: Document 08/23/21 09:45 AW (Rec: 08/23/21 13:24 AW [id number]) Balance Tests Single Limb Standing Single Limb- Right < 3 seconds before reaching for support Single Limb- Left < 3 seconds before reaching for support PT-OP-F Manual Assessment Start: 08/22/21 14:24 Freq: Status: Active Protocol: Document 09/25/21 14:35 LRN (Rec: 09/25/21 15:15 LRN [id number]) Manual Assessments Soft Tissue Assessment Soft Tissue Mobility Assessment Start of therapy: Girth MSMT of R ankle: Fig 8: R is 51.0 cm. L is 50.5 cm. PT-OP-G Mobility & Gait Start: 08/22/21 14:24 Freq: Status: Active Protocol: Document 08/23/21 09:45 AW (Rec: 08/23/21 16:35 AW [id number]) OP Gait Assessment Comments Gait Comments Pt ambulates with cane held in left hand, heavy UE weightbearing, consistent patterning.She has decreased heel strike and poor push off bilaterally but right is more affected. Inversion bias noted with pt tending to land on the lateral border of both feet (R>L). Stair Climbing Evaluation Evaluation Level of Assist On Stairs Standby Assistance Devices Stair Climbing Assistive Devices Straight Cane,Right Railing Technique/Endurance Stair Climbing Direction Ascend and Descend Stair Climbing Technique Step Over Step Number of Steps Climbed 3 Stair Climbing Set # Repetitions (reps) 2 Comments Stair Climbing Comments Pt needs cues for patterning stair climbing with rail and SPC. PT-OP-H Neuro Start: 08/22/21 14:24 Freq: Status: Active Protocol: Document 08/23/21 09:45 AW (Rec: 08/23/21 16:43 AW [id number]) Sensation Evaluation Gross Sensation Gross Sensation Right LE Impaired Sensation Description Numbness,Tingling Comments Summary Comments Pt reports chronic numbness/ tingliong in the right foot Deep Tendon Reflex & Clonus Assessment Deep Tendon Reflex Bilateral Achilles Deep Tendon Reflex 1+ Diminished Bilateral Patellar Deep Tendon Reflex 1+ Diminished PT-OP-J Posture/Palpation/Skin Start: 08/22/21 14:24 Freq: Status: Active Protocol: Document 08/23/21 09:45 AW (Rec: 08/23/21 16:43 AW [id number]) Posture Evaluation Comments Posture Comments Pt stands in bare feet with minimal longitudinal arch, forefoot adduction. From behind, Achilles tendons appear normally aligned. Pt has spinal changes including levoscoliosis. Left illiac crest lower than right. PT-OP-K Range of Motion Start: 08/22/21 14:24 Freq: Status: Active Protocol: Document 08/23/21 09:45 AW (Rec: 08/23/21 16:43 AW [id number]) Knee Goniometric Range of Motion Knee bilat Knee ROM WFL Yes Comments Pt has swelling in right prepatellar bursae and chronic right knee pain. ROM WNL. Ankle and Foot Goniometric Range of Motion Ankle and Foot right Dorsiflexion with Knee Extended 5 Inversion 30 Eversion 22 Comments inversion and plantar flexion AROM reproduce pain left Testing Position Sitting Dorsiflexion with Knee Extended 5 Inversion 60 Eversion 25 Ankle and Foot ROM Limitations ROM Limitations Muscle Weakness,Pain PT-OP-M Strength Start: 08/22/21 14:24 Freq: Status: Active Protocol: Document 08/23/21 09:45 AW (Rec: 08/23/21 16:48 AW [id number]) Hip Strength Hip Manual Muscle Testing Right Flexion (L2) 4- Good- External Rotation 4- Good- Internal Rotation 4 Good Left Flexion (L2) 4+ Good+ External Rotation 4+ Good+ Internal Rotation 4+ Good+ Knee Strength Knee Manual Muscle Testing Right Flexion (S2) 4- Good- Extension (L3) 4 Good Comments Right knee painful with all resisted movement Left Flexion (S2) 4+ Good+ Extension (L3) 5 Normal Ankle/Foot Strength Ankle and Foot Manual Muscle Testing Right Dorsiflexion (L4) 4 Good Plantarflexion (S1) 4- Good- Inversion 4- Good- Eversion (S1) 4- Good- Left Dorsiflexion (L4) 5 Normal Plantarflexion (S1) 4 Good Inversion 4+ Good+ Eversion (S1) 4+ Good+ Toe Strength Toe Manual Muscle Testing Great Toe Flexion 4+ Good+ Comments 4+ bilat PT-OP-Q Treatments Start: 08/22/21 14:24 Freq: Status: Active Protocol: Document 09/25/21 14:35 LRN (Rec: 09/25/21 15:15 LRN [id number]) Therapeutic Exercises Supine Exercises Ankle strengthening Supine Exercise Name Ankle DF, EV Side right Equipment Used Lev 2 TB Reps/Minutes 5H x 8 SAQ Supine Exercise Name SAQ Side bilateral Equipment Used 2# Reps/Minutes 15x 2 isometric ankle Supine Exercise Name Ankle Isometric EV, DF, PF Using other foot to resist Side right Reps/Minutes 10 H x 8 Sitting Exercises ankle AROM Sitting Exercise Name PF/DF/ev strengthening Side bilateral Resistance AROM Equipment Used Lev 2 TBand Reps/Minutes 10x 3 DF; 12x, 10x 2 EV, Comments Extra time to determine max karthik resistance with TBand PT-OP-R Modalities Start: 08/22/21 14:24 Freq: Status: Active Protocol: Document 08/30/21 08:51 AW (Rec: 08/30/21 09:48 AW [id number]) Hot Pack/Cold Pack Treatment Hot Pack Location l/s Patient Position Prone Treatment Duration (minutes) 12 Patient Tolerance Good Comments end of session during education PT-OP-T Assessment and Plan Start: 08/22/21 14:24 Freq: Status: Active Protocol: Document 09/25/21 14:35 LRN (Rec: 09/25/21 15:15 LRN [id number]) Physical Therapy Assessment Goals Four Impairment balance Stage Rigger Goal (LTG) Pt will score 19/24 or greater on Dynamic Gait Index as a measure of improved balance and reduced falls risk. LTG Duration 10 weeks - 11/01/21 Three Impairment gait Short Term Goal (STG) Pt will ambulate 900 feet on 6 minute walk test with SPC to improve community ambulation STG Duration 4 weeks - 09/20/21 Stage Rigger Goal (LTG) Pt will ambulate 1050 feet on 6 minute walk test with LRAD to improve community ambulation LTG Duration 10 weeks - 11/01/21 Two Impairment falls Short Term Goal (STG) Pt will reduce falls frequency to twice weekly or less STG Duration 4 weeks - 09/20/21 Retirement Goal (LTG) Pt will report no falls for two weeks LTG Duration 10 weeks - 11/01/21 One Impairment lacks HEP Short Term Goal (STG) Pt will be instructed in HEP for ROM, strength, and balance to support therapy services provided in clinic. STG Duration 4 weeks - 09/20/21 Retirement Goal (LTG) Pt will be independent with HEP for ROM, strength, and balance to support a self- directed exrecise program LTG Duration 10 weeks - 11/01/21 Progress Towards Goals Progress Towards Goals Slow Progress due to Activity Tolerance Assessment Summary Assessment Pt had foot ms spasm after removing K-tape, possibly due to tape supporting her arch; therefore pt chooses not to K- tape. R Ankle swelling is much improved with only a 0.5 cm difference. Girth MSMT of R ankle: Fig 8: R is 51.0 cm. L is 50.5 cm; therefore K- tape not needed. Pt moves slowly through ex's but does not complain of pain, but at end of therapy notes pain increased from 5/10 to 8/10. Pt to ice ankle at home. Physical Therapy Plan Frequency and Duration Frequency of Treatment 2x/Week Duration of Treatment 10 weeks Plan of Care Start Date 08/23/21 Plan of Care End Date 11/01/21 Next Visit Focus/Plan Next Note Type Progress Note Next Visit Plan Progress R ankle strengthening as tolerated. Assess response to balance on uneven surface (blue foam/black oval) . Continue ankle AROM in elevation. Add shuttle balance and stair training. Weight shifting A/P and lateral - possibly for HEP when appropriate.
--- NOTE | 2021-09-28 15:04 | PT.OTN ---
Current Diagnoses Other chronic pain (09/28/21) Other instability, right ankle (09/28/21) Other instability, left ankle (09/28/21) Low back pain, unspecified (09/28/21) Repeated falls (09/28/21) Physical Therapy Treatment Note PT-OP-A Visit Information Start: 08/22/21 14:24 Freq: Status: Active Protocol: Document 09/28/21 13:46 LRN (Rec: 09/28/21 14:59 LRN [id number]) Out-Patient Physical Therapy Visit Information Visit Information Visit Type Progress Note Visit Start Time 13:45 Visit Stop Time 14:28 Total Visit Minutes 43 Visit Number 10 Evaluation Information Evaluation Date 08/23/21 PT-OP-B Current Condition Start: 08/22/21 14:24 Freq: Status: Active Protocol: Document 08/23/21 09:45 AW (Rec: 08/22/21 17:07 AW [id number]) Current Condition History of Current Condition Onset Date acute on chronic, years Current Complaints falls, unstable ankles, low back pain, right knee pain History of Current Condition [place] reports a current falls frequency of ~2/day. Most falls occur on the stairs but she says she can fall anywhere . 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 She will often go up and down stairs sideways. She attributes her falls to ankle instability and the right is worse than the left. Urinary urgency is sometimes a factor in her falls. She states she often feels no urge to void and then has urgent need. She has new high top shoes and thinks she does not fall as frequently while wearing them but she usually does not wear them in the home. She has worn a custom shoe insert for right foot after previous surgery but has not used it in a long time. She is currently using a SPC for all mobility. Her PCP recently recommended a walker . She has ordered a walker and is waiting on delivery. Pt lives with her 14 yo daughter. She is able to manage shopping trips if hanging on to a cart but will sometimes use a motorized cart. 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 Prior Treatments and Tests - R ankle surgery 2018 - PT 2020 for ankle pain Future Testing and Treatments Planned Possible referral for EMG. Treatment Goals Patient/Caregiver Goals Walk with less pain and without assistive device. Improve ankle stability and balance. Reduce falls frequency. Prior Functional Status Baseline Function- Mobility Independent Baseline Function- Other Able to complete shopping trips without AD. Walk for exercise. Current Functional Impairments (Reported) Functional Limitations- Mobility/Gait Walking with SPC at all times Functional Limitations- Other Definite need for shopping cart or other support to walk grocery store distance. Personal Factors Other Personal Factors That May Effect Chronicity of deficits may Therapy/Recovery affect rehab outcomes. PT-OP-C Subjective Start: 08/22/21 14:24 Freq: Status: Active Protocol: Document 09/28/21 13:46 LRN (Rec: 09/28/21 14:59 LRN [id number]) OP-PT Subjective Patient Comments Patient Comments States her R ankle isn't sore, but is tired from driving her mom around (to [facility]). Patient Questionnaires Lower Extremity Functional Scale LEFS Score 39 LEFS Impairment 40 to 59% Impaired (Score 32- 47) Oswestry Low Back Index Oswestry Score 21 Oswestry Impairment 20 to 39% Impaired (Score 20- 39) PT-OP-D Balance Start: 08/22/21 14:24 Freq: Status: Active Protocol: Document 08/23/21 09:45 AW (Rec: 08/23/21 13:24 AW [id number]) Balance Tests Single Limb Standing Single Limb- Right < 3 seconds before reaching for support Single Limb- Left < 3 seconds before reaching for support PT-OP-E Functional Tests Start: 08/22/21 14:24 Freq: Status: Active Protocol: Document 09/28/21 13:46 LRN (Rec: 09/28/21 14:59 LRN [id number]) Functional Tests 6 Minute Walk Test Distance 664.8 Device Used SPC Comments Antalgic gait on R Dynamic Gait Index (DGI) Score 17 with SPC DGI Impairment Rating 20 to <40% Impaired (Score 15- 19) PT-OP-F Manual Assessment Start: 08/22/21 14:24 Freq: Status: Active Protocol: Document 09/25/21 14:35 LRN (Rec: 09/25/21 15:15 LRN [id number]) Manual Assessments Soft Tissue Assessment Soft Tissue Mobility Assessment Start of therapy: Girth MSMT of R ankle: Fig 8: R is 51.0 cm. L is 50.5 cm. PT-OP-G Mobility & Gait Start: 08/22/21 14:24 Freq: Status: Active Protocol: Document 08/23/21 09:45 AW (Rec: 08/23/21 16:35 AW [id number]) OP Gait Assessment Comments Gait Comments Pt ambulates with cane held in left hand, heavy UE weightbearing, consistent patterning.She has decreased heel strike and poor push off bilaterally but right is more affected. Inversion bias noted with pt tending to land on the lateral border of both feet (R>L). Stair Climbing Evaluation Evaluation Level of Assist On Stairs Standby Assistance Devices Stair Climbing Assistive Devices Straight Cane,Right Railing Technique/Endurance Stair Climbing Direction Ascend and Descend Stair Climbing Technique Step Over Step Number of Steps Climbed 3 Stair Climbing Set # Repetitions (reps) 2 Comments Stair Climbing Comments Pt needs cues for patterning stair climbing with rail and SPC. PT-OP-H Neuro Start: 08/22/21 14:24 Freq: Status: Active Protocol: Document 08/23/21 09:45 AW (Rec: 08/23/21 16:43 AW [id number]) Sensation Evaluation Gross Sensation Gross Sensation Right LE Impaired Sensation Description Numbness,Tingling Comments Summary Comments Pt reports chronic numbness/ tingliong in the right foot Deep Tendon Reflex & Clonus Assessment Deep Tendon Reflex Bilateral Achilles Deep Tendon Reflex 1+ Diminished Bilateral Patellar Deep Tendon Reflex 1+ Diminished PT-OP-J Posture/Palpation/Skin Start: 08/22/21 14:24 Freq: Status: Active Protocol: Document 08/23/21 09:45 AW (Rec: 08/23/21 16:43 AW [id number]) Posture Evaluation Comments Posture Comments Pt stands in bare feet with minimal longitudinal arch, forefoot adduction. From behind, Achilles tendons appear normally aligned. Pt has spinal changes including levoscoliosis. Left illiac crest lower than right. PT-OP-K Range of Motion Start: 08/22/21 14:24 Freq: Status: Active Protocol: Document 08/23/21 09:45 AW (Rec: 08/23/21 16:43 AW [id number]) Knee Goniometric Range of Motion Knee bilat Knee ROM WFL Yes Comments Pt has swelling in right prepatellar bursae and chronic right knee pain. ROM WNL. Ankle and Foot Goniometric Range of Motion Ankle and Foot right Dorsiflexion with Knee Extended 5 Inversion 30 Eversion 22 Comments inversion and plantar flexion AROM reproduce pain left Testing Position Sitting Dorsiflexion with Knee Extended 5 Inversion 60 Eversion 25 Ankle and Foot ROM Limitations ROM Limitations Muscle Weakness,Pain PT-OP-M Strength Start: 08/22/21 14:24 Freq: Status: Active Protocol: Document 08/23/21 09:45 AW (Rec: 08/23/21 16:48 AW [id number]) Hip Strength Hip Manual Muscle Testing Right Flexion (L2) 4- Good- External Rotation 4- Good- Internal Rotation 4 Good Left Flexion (L2) 4+ Good+ External Rotation 4+ Good+ Internal Rotation 4+ Good+ Knee Strength Knee Manual Muscle Testing Right Flexion (S2) 4- Good- Extension (L3) 4 Good Comments Right knee painful with all resisted movement Left Flexion (S2) 4+ Good+ Extension (L3) 5 Normal Ankle/Foot Strength Ankle and Foot Manual Muscle Testing Right Dorsiflexion (L4) 4 Good Plantarflexion (S1) 4- Good- Inversion 4- Good- Eversion (S1) 4- Good- Left Dorsiflexion (L4) 5 Normal Plantarflexion (S1) 4 Good Inversion 4+ Good+ Eversion (S1) 4+ Good+ Toe Strength Toe Manual Muscle Testing Great Toe Flexion 4+ Good+ Comments 4+ bilat PT-OP-Q Treatments Start: 08/22/21 14:24 Freq: Status: Active Protocol: Document 09/28/21 13:46 LRN (Rec: 09/28/21 14:59 LRN [id number]) Therapeutic Exercises Other Exercises sit to stand Other Exercise Name sit to stand Equipment Used hi/lo table, set low, std ht chair Reps/Minutes 15x 2 - one set from low surface, 2 sets from std hgt & lower chair surface Gait Training Gait Activity Gait with no AD Description Gait on solid flat surface Distance/Duration 1' Treatment Focus Stability of R ankle with gait Comments Pt wearing high top boots. stairs Device Used R rail ascending, L rail decending Level of Assistance SBA Distance/Duration 6 step - 4 steps x 2 Treatment Focus stability, patterning Comments Pt able to ascend/descend step over step with R rail and SPC . Cues for patterning gait with SPC Description Gait of varying speeds, obstacles Device Used SPC Level of Assistance SBA Surface carpet and tile Distance/Duration 6' + gait with changes of speed, head mvmts, turning x 4 , around/over steps Treatment Focus patterning, stability, step length Comments focused on heel strike, weight acceptance. Occasional mild rolling of R ankle in high top boots Neuro Re-Education Treatment Balance Activities NBOS Details Feet together & tandem (jay) Surface level Equipment corner with chair in front Reps/Duration 10 min Comments - NBOS EO - NBOS EO head turns and nods - stride stance with A/P and lateral weight shifts EO (SBA) . Focus on ankle stability PT-OP-R Modalities Start: 08/22/21 14:24 Freq: Status: Active Protocol: Document 08/30/21 08:51 AW (Rec: 08/30/21 09:48 AW [id number]) Hot Pack/Cold Pack Treatment Hot Pack Location l/s Patient Position Prone Treatment Duration (minutes) 12 Patient Tolerance Good Comments end of session during education PT-OP-T Assessment and Plan Start: 08/22/21 14:24 Freq: Status: Active Protocol: Document 09/28/21 13:46 LRN (Rec: 09/28/21 14:59 LRN [id number]) Physical Therapy Assessment Rehab Potential Rehabilitation Potential Good Evaluation Complexity Number of Personal Factors/Comorbidities 1-2 Number of Body Systems Impaired 3 Clinical Presentation at Evaluation Evolving Impairments Impairments Balance,Edema,Gait,Pain, Posture,ROM,Sensation,Soft Tissue Mobility,Strength Other Concerns Fall Risk high per pt self-report Barriers to Rehabilitation Chronicity of deficits and pt' s environment including stairs which she has no choice but to navigate may continue to be barriers to rehab. Goals Four Impairment balance [employer] Goal (LTG) Pt will score 19/24 or greater on Dynamic Gait Index as a measure of improved balance and reduced falls risk. LTG Duration 10 weeks - 11/01/21 (09/28/21: DGI 17) Three Impairment gait Short Term Goal (STG) Pt will ambulate 900 feet on 6 minute walk test with SPC to improve community ambulation STG Duration 4 weeks - 09/20/21 (4/14/22: 6 'walk w/SPC is 664.8 ft) [employer] Goal (LTG) Pt will ambulate 1050 feet on 6 minute walk test with LRAD to improve community ambulation LTG Duration 10 weeks - 11/01/21 Two Impairment falls Short Term Goal (STG) Pt will reduce falls frequency to twice weekly or less (09/28/21: Pt fell 1x last week and none this week thus far) STG Duration 4 weeks - 09/20/21 MET GOAL. Penitentiary Goal (LTG) Pt will report no falls for two weeks LTG Duration 10 weeks - 11/01/21 One Impairment lacks HEP Short Term Goal (STG) Pt will be instructed in HEP for ROM, strength, and balance to support therapy services provided in clinic. (: Pt I/S in HEP of corner standing balance ex of feet together and tandem). STG Duration 4 weeks - 09/20/21 [employer] Goal (LTG) Pt will be independent with HEP for ROM, strength, and balance to support a self- directed exrecise program LTG Duration 10 weeks - 11/01/21 Progress Towards Goals Progress Towards Goals Progressing Toward Goals,Slow Progress due to Activity Tolerance,Slow Progress due to Medical Issues Progress Comments Progressed HEP w/added standing balance corner ex ( feet together and tandem). DGI 17 (20<40% impairment), was 56 (40-59% impaired) LEFS 39 (40-59% impaired). was 53 (20-49% impaired) but note was pt likely misunderstood scoring. Assessment Summary Assessment Pt presents today with no complaints of R ankle pain, only tightness, tiredness. Pt wearing compressive ankle sock that is helping a lot to decrease edema. She has had a couple incidents of rolling of her R ankle; threrefore progress has been hindered by other medical issues after ankle rolling. The pt is improving in strength and would benefit from continued physical therapy to further improve her R ankle strength, endurance, and stability to return her to prior function and ability to be a community ambulator. Physical Therapy Plan Frequency and Duration Frequency of Treatment 2x/Week Duration of Treatment 10 weeks Plan of Care Start Date 08/23/21 Plan of Care End Date 11/01/21 Therapeutic Interventions Therapeutic Interventions Aquatic Therapy,Balance Training,Gait Training,Home Exercise Program,Manual Therapy,Neuromuscular Re- education,Self-Care/Home Management,Soft Tissue Mobilization,Taping, Therapeutic Activities, Therapeutic Exercises Next Visit Focus/Plan Next Note Type Treatment Note Next Visit Plan Progress R ankle strengthening , add standing balance ex's with both feet (feet together, tandem) until ankle strength improves for safe SLS balance. Assess response to balance on uneven surface (blue foam/ black oval). Continue ankle AROM in elevation. Add shuttle balance and stair training. Weight shifting A/P and lateral - possibly for HEP when appropriate.
--- NOTE | 2021-10-02 14:31 | PT.OTN ---
Current Diagnoses Other chronic pain (10/02/21) Other instability, right ankle (10/02/21) Other instability, left ankle (10/02/21) Low back pain, unspecified (10/02/21) Repeated falls (10/02/21) Physical Therapy Treatment Note PT-OP-A Visit Information Start: 08/22/21 14:24 Freq: Status: Active Protocol: Document 10/02/21 13:45 LRN (Rec: 10/02/21 14:30 LRN [id number]) Out-Patient Physical Therapy Visit Information Visit Information Visit Type Treatment Note Visit Start Time 13:45 Visit Stop Time 14:25 Total Visit Minutes 40 Visit Number 11 Evaluation Information Evaluation Date 08/23/21 PT-OP-B Current Condition Start: 08/22/21 14:24 Freq: Status: Active Protocol: Document 08/23/21 09:45 AW (Rec: 08/22/21 17:07 AW [id number]) Current Condition History of Current Condition Onset Date acute on chronic, years Current Complaints falls, unstable ankles, low back pain, right knee pain History of Current Condition [place] reports a current falls frequency of ~2/day. Most falls occur on the stairs but she says she can fall anywhere . She lives in a 2-story unit and can sleep on the foreign broadcast specialist but the only bathroom is upstairs (13 narrow steps with R rail ascending and wall opposite side). She will often go up and down stairs sideways. She attributes her falls to ankle instability and the right is worse than the left. Urinary urgency is sometimes a factor in her falls. She states she often feels no urge to void and then has urgent need. She has new high top shoes and thinks she does not fall as frequently while wearing them but she usually does not wear them in the home. She has worn a custom shoe insert for right foot after previous surgery but has not used it in a long time. She is currently using a SPC for all mobility. Her PCP recently recommended a walker . She has ordered a walker and is waiting on delivery. Pt lives with her 14 yo daughter. She is able to manage shopping trips if hanging on to a cart but will sometimes use a motorized cart. 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 Prior Treatments and Tests - R ankle surgery 2018 - PT 2020 for ankle pain Future Testing and Treatments Planned Possible referral for EMG. Treatment Goals Patient/Caregiver Goals Walk with less pain and without assistive device. Improve ankle stability and balance. Reduce falls frequency. Prior Functional Status Baseline Function- Mobility Independent Baseline Function- Other Able to complete shopping trips without AD. Walk for exercise. Current Functional Impairments (Reported) Functional Limitations- Mobility/Gait Walking with SPC at all times Functional Limitations- Other Definite need for shopping cart or other support to walk grocery store distance. Personal Factors Other Personal Factors That May Effect Chronicity of deficits may Therapy/Recovery affect rehab outcomes. PT-OP-C Subjective Start: 08/22/21 14:24 Freq: Status: Active Protocol: Document 10/02/21 13:45 LRN (Rec: 10/02/21 14:30 LRN [id number]) OP-PT Subjective Patient Comments Patient Comments States her daughter fell in her yesterday causing her R ankle to cave inward. Swelled even with high top shoes on. No falls this past week. PT-OP-D Balance Start: 08/22/21 14:24 Freq: Status: Active Protocol: Document 08/23/21 09:45 AW (Rec: 08/23/21 13:24 AW [id number]) Balance Tests Single Limb Standing Single Limb- Right < 3 seconds before reaching for support Single Limb- Left < 3 seconds before reaching for support PT-OP-E Functional Tests Start: 08/22/21 14:24 Freq: Status: Active Protocol: Document 09/28/21 13:46 LRN (Rec: 09/28/21 14:59 LRN [id number]) Functional Tests 6 Minute Walk Test Distance 664.8 Device Used SPC Comments Antalgic gait on R Dynamic Gait Index (DGI) Score 17 with SPC DGI Impairment Rating 20 to <40% Impaired (Score 15- 19) PT-OP-F Manual Assessment Start: 08/22/21 14:24 Freq: Status: Active Protocol: Document 09/25/21 14:35 LRN (Rec: 09/25/21 15:15 LRN [id number]) Manual Assessments Soft Tissue Assessment Soft Tissue Mobility Assessment Start of therapy: Girth MSMT of R ankle: Fig 8: R is 51.0 cm. L is 50.5 cm. PT-OP-G Mobility & Gait Start: 08/22/21 14:24 Freq: Status: Active Protocol: Document 08/23/21 09:45 AW (Rec: 08/23/21 16:35 AW [id number]) OP Gait Assessment Comments Gait Comments Pt ambulates with cane held in left hand, heavy UE weightbearing, consistent patterning.She has decreased heel strike and poor push off bilaterally but right is more affected. Inversion bias noted with pt tending to land on the lateral border of both feet (R>L). Stair Climbing Evaluation Evaluation Level of Assist On Stairs Standby Assistance Devices Stair Climbing Assistive Devices Straight Cane,Right Railing Technique/Endurance Stair Climbing Direction Ascend and Descend Stair Climbing Technique Step Over Step Number of Steps Climbed 3 Stair Climbing Set # Repetitions (reps) 2 Comments Stair Climbing Comments Pt needs cues for patterning stair climbing with rail and SPC. PT-OP-H Neuro Start: 08/22/21 14:24 Freq: Status: Active Protocol: Document 08/23/21 09:45 AW (Rec: 08/23/21 16:43 AW [id number]) Sensation Evaluation Gross Sensation Gross Sensation Right LE Impaired Sensation Description Numbness,Tingling Comments Summary Comments Pt reports chronic numbness/ tingliong in the right foot Deep Tendon Reflex & Clonus Assessment Deep Tendon Reflex Bilateral Achilles Deep Tendon Reflex 1+ Diminished Bilateral Patellar Deep Tendon Reflex 1+ Diminished PT-OP-J Posture/Palpation/Skin Start: 08/22/21 14:24 Freq: Status: Active Protocol: Document 08/23/21 09:45 AW (Rec: 08/23/21 16:43 AW [id number]) Posture Evaluation Comments Posture Comments Pt stands in bare feet with minimal longitudinal arch, forefoot adduction. From behind, Achilles tendons appear normally aligned. Pt has spinal changes including levoscoliosis. Left illiac crest lower than right. PT-OP-K Range of Motion Start: 08/22/21 14:24 Freq: Status: Active Protocol: Document 08/23/21 09:45 AW (Rec: 08/23/21 16:43 AW [id number]) Knee Goniometric Range of Motion Knee bilat Knee ROM WFL Yes Comments Pt has swelling in right prepatellar bursae and chronic right knee pain. ROM WNL. Ankle and Foot Goniometric Range of Motion Ankle and Foot right Dorsiflexion with Knee Extended 5 Inversion 30 Eversion 22 Comments inversion and plantar flexion AROM reproduce pain left Testing Position Sitting Dorsiflexion with Knee Extended 5 Inversion 60 Eversion 25 Ankle and Foot ROM Limitations ROM Limitations Muscle Weakness,Pain PT-OP-M Strength Start: 08/22/21 14:24 Freq: Status: Active Protocol: Document 08/23/21 09:45 AW (Rec: 08/23/21 16:48 AW [id number]) Hip Strength Hip Manual Muscle Testing Right Flexion (L2) 4- Good- External Rotation 4- Good- Internal Rotation 4 Good Left Flexion (L2) 4+ Good+ External Rotation 4+ Good+ Internal Rotation 4+ Good+ Knee Strength Knee Manual Muscle Testing Right Flexion (S2) 4- Good- Extension (L3) 4 Good Comments Right knee painful with all resisted movement Left Flexion (S2) 4+ Good+ Extension (L3) 5 Normal Ankle/Foot Strength Ankle and Foot Manual Muscle Testing Right Dorsiflexion (L4) 4 Good Plantarflexion (S1) 4- Good- Inversion 4- Good- Eversion (S1) 4- Good- Left Dorsiflexion (L4) 5 Normal Plantarflexion (S1) 4 Good Inversion 4+ Good+ Eversion (S1) 4+ Good+ Toe Strength Toe Manual Muscle Testing Great Toe Flexion 4+ Good+ Comments 4+ bilat PT-OP-Q Treatments Start: 08/22/21 14:24 Freq: Status: Active Protocol: Document 10/02/21 13:45 LRN (Rec: 10/02/21 14:30 LRN [id number]) Cardio Equipment Recumbent Bicycle Duration (Minutes) 5 Resistance 3 Seat Position 1 Other Gr back support Gym Equipment Shuttle Recovery Very shallow squats Details R LE very shallow squats keeping foot in neutral Resistance 25# Shuttle Recovery Platform Unstable Reps/Time 15x Bilateral Heel Raises Details Ranjith heel raise Resistance 50 Shuttle Recovery Platform Stable Reps/Time 10x Unilateral Heel Raises Details Unilateral heel raise with opposite foot on platform for safety Resistance 25 Shuttle Recovery Platform Stable Reps/Time 10x 2 Therapeutic Exercises Standing Exercises Heel ups Standing Exercise Name Toe ups: LE's in 3 positions: ER/neutral/IV Equipment Used // bars, holding on Reps/Minutes 10x each position Comments Cuing to not rock backward Toe ups Standing Exercise Name Toe ups: LE's in 3 positions: ER/neutral/IV Equipment Used // bars, holding on Reps/Minutes 10x each position Comments Cuing to move upward vs forward Other Exercises sit to stand Other Exercise Name sit to stand Equipment Used hi/lo table, set lowest hgt Reps/Minutes 15x 3 - lowest plinth setting Neuro Re-Education Treatment Balance Activities SLS Details SLS, L & R, SLS w/head turns Surface Level/solid Equipment // bars with hands over bars Reps/Duration 1' x 2 each. PT-OP-R Modalities Start: 08/22/21 14:24 Freq: Status: Active Protocol: Document 08/30/21 08:51 AW (Rec: 08/30/21 09:48 AW [id number]) Hot Pack/Cold Pack Treatment Hot Pack Location l/s Patient Position Prone Treatment Duration (minutes) 12 Patient Tolerance Good Comments end of session during education PT-OP-T Assessment and Plan Start: 08/22/21 14:24 Freq: Status: Active Protocol: Document 10/02/21 13:45 LRN (Rec: 10/02/21 14:30 LRN [id number]) Physical Therapy Assessment Goals Four Impairment balance Manager Retirement Goal (LTG) Pt will score 19/24 or greater on Dynamic Gait Index as a measure of improved balance and reduced falls risk. LTG Duration 10 weeks - 11/01/21 (09/28/21: DGI 17) Three Impairment gait Short Term Goal (STG) Pt will ambulate 900 feet on 6 minute walk test with SPC to improve community ambulation STG Duration 4 weeks - 09/20/21 (09/28/21: 6 'walk w/SPC is 664.8 ft) Manager Retirement Goal (LTG) Pt will ambulate 1050 feet on 6 minute walk test with LRAD to improve community ambulation LTG Duration 10 weeks - 11/01/21 Two Impairment falls Short Term Goal (STG) Pt will reduce falls frequency to twice weekly or less (09/28/21: Pt fell 1x last week and none this week thus far) STG Duration 4 weeks - 09/20/21 MET GOAL. Manager Retirement Goal (LTG) Pt will report no falls for two weeks LTG Duration 10 weeks - 11/01/21 One Impairment lacks HEP Short Term Goal (STG) Pt will be instructed in HEP for ROM, strength, and balance to support therapy services provided in clinic. (: Pt I/S in HEP of corner standing balance ex of feet together and tandem). STG Duration 4 weeks - 09/20/21 Manager Retirement Goal (LTG) Pt will be independent with HEP for ROM, strength, and balance to support a self- directed exrecise program LTG Duration 10 weeks - 11/01/21 Assessment Summary Assessment Pt fatigued with ankle ex's. Pt ankles weak with SLS, R worse than L. She may be stable enough for safe SLS ex' s next visit. Physical Therapy Plan Frequency and Duration Frequency of Treatment 2x/Week Duration of Treatment 10 weeks Plan of Care Start Date 08/23/21 Plan of Care End Date 11/01/21 Next Visit Focus/Plan Next Note Type Treatment Note Next Visit Plan Continual assessment for need of further therapy beyond current POC. Progress R ankle strengthening, add standing balance ex's with both feet ( tandem), might try SLS balance to see if pt ankle strength is strong enough for stability in standing. Assess response to balance on uneven surface (blue foam/black oval). Continue ankle AROM in elevation. Add shuttle balance and stair training. Weight shifting A/P and lateral - possibly for HEP when appropriate.
--- NOTE | 2021-10-18 09:46 | PT.OTN ---
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 Most falls occur on the stairs but she says she can fall anywhere . She lives in a 2-story unit and can sleep on the order entry administrator but the only bathroom is upstairs (13 narrow steps with R rail ascending and wall opposite side). She will often go up and down stairs sideways. She attributes her falls to ankle instability and the right is worse than the left. Urinary urgency is sometimes a factor in her falls. She states she often feels no urge to void and then has urgent need. She has new high top shoes and thinks she does not fall as frequently while wearing them but she usually does not wear them in the home. She has worn a custom shoe insert for right foot after previous surgery but has not used it in a long time. She is currently using a SPC for all mobility. Her PCP recently recommended a walker . She has ordered a walker and is waiting on delivery. Pt lives with her 14 yo daughter. She is able to manage shopping trips if hanging on to a cart but will sometimes use a motorized cart. 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 Prior Treatments and Tests - R ankle surgery 2017 - PT 2020 for ankle pain Future Testing and Treatments Planned Possible referral for EMG. Treatment Goals Patient/Caregiver Goals Walk with less pain and without assistive device. Improve ankle stability and balance. Reduce falls frequency. Prior Functional Status Baseline Function- Mobility Independent Baseline Function- Other Able to complete shopping trips without AD. Walk for exercise. Current Functional Impairments (Reported) Functional Limitations- Mobility/Gait Walking with SPC at all times Functional Limitations- Other Definite need for shopping cart or other support to walk grocery store distance. Personal Factors Other Personal Factors That May Effect Chronicity of deficits may Therapy/Recovery affect rehab outcomes. PT-OP-C Subjective Start: 08/22/21 14:24 Freq: Status: Active Protocol: Document 10/18/21 09:01 AW (Rec: 10/18/21 09:46 AW [id number]) OP-PT Subjective Patient Comments Patient Comments I'm back to using the cane mostly. I will use the walker though for longer distance. I can go up and down the stairs now without rolling my ankle as long as I'm wearing my brace (SMO compression style). PT-OP-D Balance Start: 08/22/21 14:24 Freq: Status: Active Protocol: Document 08/23/21 09:45 AW (Rec: 08/23/21 13:24 AW [id number]) Balance Tests Single Limb Standing Single Limb- Right < 3 seconds before reaching for support Single Limb- Left < 3 seconds before reaching for support PT-OP-E Functional Tests Start: 08/22/21 14:24 Freq: Status: Active Protocol: Document 09/28/21 13:46 LRN (Rec: 09/28/21 14:59 LRN [id number]) Functional Tests 6 Minute Walk Test Distance 664.8 Device Used SPC Comments Antalgic gait on R Dynamic Gait Index (DGI) Score 17 with SPC DGI Impairment Rating 20 to <40% Impaired (Score 15- 19) PT-OP-F Manual Assessment Start: 08/22/21 14:24 Freq: Status: Active Protocol: Document 09/25/21 14:35 LRN (Rec: 09/25/21 15:15 LRN [id number]) Manual Assessments Soft Tissue Assessment Soft Tissue Mobility Assessment Start of therapy: Girth MSMT of R ankle: Fig 8: R is 51.0 cm. L is 50.5 cm. PT-OP-G Mobility & Gait Start: 08/22/21 14:24 Freq: Status: Active Protocol: Document 08/23/21 09:45 AW (Rec: 08/23/21 16:35 AW [id number]) OP Gait Assessment Comments Gait Comments Pt ambulates with cane held in left hand, heavy UE weightbearing, consistent patterning.She has decreased heel strike and poor push off bilaterally but right is more affected. Inversion bias noted with pt tending to land on the lateral border of both feet (R>L). Stair Climbing Evaluation Evaluation Level of Assist On Stairs Standby Assistance Devices Stair Climbing Assistive Devices Straight Cane,Right Railing Technique/Endurance Stair Climbing Direction Ascend and Descend Stair Climbing Technique Step Over Step Number of Steps Climbed 3 Stair Climbing Set # Repetitions (reps) 2 Comments Stair Climbing Comments Pt needs cues for patterning stair climbing with rail and SPC. PT-OP-H Neuro Start: 08/22/21 14:24 Freq: Status: Active Protocol: Document 08/23/21 09:45 AW (Rec: 08/23/21 16:43 AW [id number]) Sensation Evaluation Gross Sensation Gross Sensation Right LE Impaired Sensation Description Numbness,Tingling Comments Summary Comments Pt reports chronic numbness/ tingliong in the right foot Deep Tendon Reflex & Clonus Assessment Deep Tendon Reflex Bilateral Achilles Deep Tendon Reflex 1+ Diminished Bilateral Patellar Deep Tendon Reflex 1+ Diminished PT-OP-J Posture/Palpation/Skin Start: 08/22/21 14:24 Freq: Status: Active Protocol: Document 08/23/21 09:45 AW (Rec: 08/23/21 16:43 AW [id number]) Posture Evaluation Comments Posture Comments Pt stands in bare feet with minimal longitudinal arch, forefoot adduction. From behind, Achilles tendons appear normally aligned. Pt has spinal changes including levoscoliosis. Left illiac crest lower than right. PT-OP-K Range of Motion Start: 08/22/21 14:24 Freq: Status: Active Protocol: Document 08/23/21 09:45 AW (Rec: 08/23/21 16:43 AW [id number]) Knee Goniometric Range of Motion Knee bilat Knee ROM WFL Yes Comments Pt has swelling in right prepatellar bursae and chronic right knee pain. ROM WNL. Ankle and Foot Goniometric Range of Motion Ankle and Foot right Dorsiflexion with Knee Extended 5 Inversion 30 Eversion 22 Comments inversion and plantar flexion AROM reproduce pain left Testing Position Sitting Dorsiflexion with Knee Extended 5 Inversion 60 Eversion 25 Ankle and Foot ROM Limitations ROM Limitations Muscle Weakness,Pain PT-OP-M Strength Start: 08/22/21 14:24 Freq: Status: Active Protocol: Document 08/23/21 09:45 AW (Rec: 08/23/21 16:48 AW [id number]) Hip Strength Hip Manual Muscle Testing Right Flexion (L2) 4- Good- External Rotation 4- Good- Internal Rotation 4 Good Left Flexion (L2) 4+ Good+ External Rotation 4+ Good+ Internal Rotation 4+ Good+ Knee Strength Knee Manual Muscle Testing Right Flexion (S2) 4- Good- Extension (L3) 4 Good Comments Right knee painful with all resisted movement Left Flexion (S2) 4+ Good+ Extension (L3) 5 Normal Ankle/Foot Strength Ankle and Foot Manual Muscle Testing Right Dorsiflexion (L4) 4 Good Plantarflexion (S1) 4- Good- Inversion 4- Good- Eversion (S1) 4- Good- Left Dorsiflexion (L4) 5 Normal Plantarflexion (S1) 4 Good Inversion 4+ Good+ Eversion (S1) 4+ Good+ Toe Strength Toe Manual Muscle Testing Great Toe Flexion 4+ Good+ Comments 4+ bilat PT-OP-Q Treatments Start: 08/22/21 14:24 Freq: Status: Active Protocol: Document 10/18/21 09:01 AW (Rec: 10/18/21 09:46 AW [id number]) Cardio Equipment Recumbent Bicycle Duration (Minutes) 5 Resistance 3 Seat Position 1 Other Gr back support Gym Equipment Shuttle Recovery Very shallow squats Details R LE 90 deg squats keeping foot in neutral Resistance 25# Shuttle Recovery Platform Unstable Reps/Time 15x Bilateral Heel Raises Details Ranjith heel raise Resistance 50 Shuttle Recovery Platform Stable Reps/Time 12x2 Unilateral Heel Raises Details Unilateral heel raise with opposite foot on platform for safety Resistance 25 Shuttle Recovery Platform Stable Reps/Time 12x 2 Therapeutic Exercises Standing Exercises Heel ups Standing Exercise Name Toe ups: LE's in 3 positions: ER/neutral/IV Equipment Used // bars, holding on Reps/Minutes 10x each position Comments Cuing to not rock backward Toe ups Standing Exercise Name Toe ups: LE's in 3 positions: ER/neutral/IV Equipment Used // bars, holding on Reps/Minutes 10x each position Comments Cuing to move upward vs forward Other Exercises sit to stand Other Exercise Name sit to stand Equipment Used mesh chair; 16 block Reps/Minutes 12x 2 - on set from each surface Comments cued hip rotation/neutral knee Gait Training Gait Activity stairs Device Used R rail ascending, L rail decending Level of Assistance SBA Distance/Duration 6 step - 4 steps x 2 Treatment Focus stability, patterning Comments Pt able to ascend/descend step over step with R rail and SPC . Cues for patterning Neuro Re-Education Treatment Balance Activities SLS Details SLS, L & R, SLS w/head turns Surface Level/solid Equipment // bars with hands over bars Reps/Duration 1' x 2 each. Comments cued weight distribution more medial for improved control of eversion moment NBOS Details Feet together & tandem (ranjith) Surface level Equipment corner with chair in front Reps/Duration 10 min Comments - NBOS EO - NBOS EO head turns and nods - stride stance with A/P and lateral weight shifts EO (SBA) . Focus on ankle stability PT-OP-R Modalities Start: 08/22/21 14:24 Freq: Status: Active Protocol: Document 08/30/21 08:51 AW (Rec: 08/30/21 09:48 AW [id number]) Hot Pack/Cold Pack Treatment Hot Pack Location l/s Patient Position Prone Treatment Duration (minutes) 12 Patient Tolerance Good Comments end of session during education PT-OP-T Assessment and Plan Start: 08/22/21 14:24 Freq: Status: Active Protocol: Document 10/18/21 09:01 AW (Rec: 10/18/21 09:46 AW [id number]) Physical Therapy Assessment Other Concerns Fall Risk high per pt self-report Barriers to Rehabilitation Chronicity of deficits and pt' s environment including stairs which she has no choice but to navigate may continue to be barriers to rehab. Goals Four Impairment balance Half-Way Goal (LTG) Pt will score 19/24 or greater on Dynamic Gait Index as a measure of improved balance and reduced falls risk. LTG Duration 10 weeks - 11/01/21 (09/28/21: DGI 17) Three Impairment gait Short Term Goal (STG) Pt will ambulate 900 feet on 6 minute walk test with SPC to improve community ambulation STG Duration 4 weeks - 09/20/21 (09/28/21: 6 'walk w/SPC is 664.8 ft) Aeronautical Engineering Teacher Goal (LTG) Pt will ambulate 1050 feet on 6 minute walk test with LRAD to improve community ambulation LTG Duration 10 weeks - 11/01/21 Two Impairment falls Short Term Goal (STG) Pt will reduce falls frequency to twice weekly or less (09/28/21: Pt fell 1x last week and none this week thus far) STG Duration 4 weeks - 09/20/21 MET GOAL. Aeronautical Engineering Teacher Goal (LTG) Pt will report no falls for two weeks LTG Duration 10 weeks - 11/01/21 One Impairment lacks HEP Short Term Goal (STG) Pt will be instructed in HEP for ROM, strength, and balance to support therapy services provided in clinic. (: Pt I/S in HEP of corner standing balance ex of feet together and tandem). STG Duration 4 weeks - 09/20/21 Aeronautical Engineering Teacher Goal (LTG) Pt will be independent with HEP for ROM, strength, and balance to support a self- directed exrecise program LTG Duration 10 weeks - 11/01/21 Assessment Summary Assessment Pt tolerates all activities well today with main complaints of knee pain ( corrected with cues for neutral hip rotation in sit to stand) and ankle fatigue. Pt greatly benefits from SMO style ankle compression which improves her stability. Physical Therapy Plan Frequency and Duration Frequency of Treatment 2x/Week Duration of Treatment 10 weeks Plan of Care Start Date 08/23/21 Plan of Care End Date 11/01/21 Therapeutic Interventions Therapeutic Interventions Aquatic Therapy,Balance Training,Gait Training,Home Exercise Program,Manual Therapy,Neuromuscular Re- education,Self-Care/Home Management,Soft Tissue Mobilization,Taping, Therapeutic Activities, Therapeutic Exercises Next Visit Focus/Plan Next Note Type Treatment Note Next Visit Plan Continual assessment for need of further therapy beyond current POC. Progress R ankle strengthening, add standing balance ex's with both feet ( tandem), might try SLS balance to see if pt ankle strength is strong enough for stability in standing. Assess response to balance on uneven surface (blue foam/black oval). Continue ankle AROM in elevation. Add shuttle balance and stair training. Weight shifting A/P and lateral - possibly for HEP when appropriate.
--- NOTE | 2021-10-26 12:08 | PT.OTN ---
Current Diagnoses Other chronic pain (10/26/21) Other instability, right ankle (10/26/21) Other instability, left ankle (10/26/21) Low back pain, unspecified (10/26/21) Repeated falls (10/26/21) Physical Therapy Treatment Note PT-OP-A Visit Information Start: 08/22/21 14:24 Freq: Status: Active Protocol: Document 10/26/21 11:19 AW (Rec: 10/26/21 12:07 AW [id number]) Out-Patient Physical Therapy Visit Information Visit Information Visit Type Discharge Summary Visit Start Time 11:19 Visit Stop Time 12:00 Total Visit Minutes 41 Visit Number 13 Number of RIM TECHNICIAN Visits 0 Evaluation Information Evaluation Date 08/23/21 PT-OP-B Current Condition Start: 08/22/21 14:24 Freq: Status: Active Protocol: Document 08/23/21 09:45 AW (Rec: 08/22/21 17:07 AW [id number]) Current Condition History of Current Condition Onset Date acute on chronic, years Current Complaints falls, unstable ankles, low back pain, right knee pain History of Current Condition [place] reports a current falls frequency of ~2/day. Most falls occur on the stairs but she says she can fall anywhere . 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 She will often go up and down stairs sideways. She attributes her falls to ankle instability and the right is worse than the left. Urinary urgency is sometimes a factor in her falls. She states she often feels no urge to void and then has urgent need. She has new high top shoes and thinks she does not fall as frequently while wearing them but she usually does not wear them in the home. She has worn a custom shoe insert for right foot after previous surgery but has not used it in a long time. She is currently using a SPC for all mobility. Her PCP recently recommended a walker . She has ordered a walker and is waiting on delivery. Pt lives with her 14 yo daughter. She is able to manage shopping trips if hanging on to a cart but will sometimes use a motorized cart. 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 Prior Treatments and Tests - R ankle surgery 2018 - PT 2020 for ankle pain Future Testing and Treatments Planned Possible referral for EMG. Treatment Goals Patient/Caregiver Goals Walk with less pain and without assistive device. Improve ankle stability and balance. Reduce falls frequency. Prior Functional Status Baseline Function- Mobility Independent Baseline Function- Other Able to complete shopping trips without AD. Walk for exercise. Current Functional Impairments (Reported) Functional Limitations- Mobility/Gait Walking with SPC at all times Functional Limitations- Other Definite need for shopping cart or other support to walk grocery store distance. Personal Factors Other Personal Factors That May Effect Chronicity of deficits may Therapy/Recovery affect rehab outcomes. PT-OP-C Subjective Start: 08/22/21 14:24 Freq: Status: Active Protocol: Document 10/26/21 11:19 AW (Rec: 10/26/21 12:07 AW [id number]) OP-PT Subjective Patient Comments Patient Comments Pt is wearing sandals with a high ankle strap and no SMO compression. She states her left ankle is now occasionally unstable but not nearly as bothersome as the right one was before starting therapy. PT-OP-D Balance Start: 08/22/21 14:24 Freq: Status: Active Protocol: Document 08/23/21 09:45 AW (Rec: 08/23/21 13:24 AW [id number]) Balance Tests Single Limb Standing Single Limb- Right < 3 seconds before reaching for support Single Limb- Left < 3 seconds before reaching for support PT-OP-E Functional Tests Start: 08/22/21 14:24 Freq: Status: Active Protocol: Document 09/28/21 13:46 LRN (Rec: 09/28/21 14:59 LRN [id number]) Functional Tests 6 Minute Walk Test Distance 664.8 Device Used SPC Comments Antalgic gait on R Dynamic Gait Index (DGI) Score 17 with SPC DGI Impairment Rating 20 to <40% Impaired (Score 15- 19) PT-OP-F Manual Assessment Start: 08/22/21 14:24 Freq: Status: Active Protocol: Document 09/25/21 14:35 LRN (Rec: 09/25/21 15:15 LRN [id number]) Manual Assessments Soft Tissue Assessment Soft Tissue Mobility Assessment Start of therapy: Girth MSMT of R ankle: Fig 8: R is 51.0 cm. L is 50.5 cm. PT-OP-G Mobility & Gait Start: 08/22/21 14:24 Freq: Status: Active Protocol: Document 08/23/21 09:45 AW (Rec: 08/23/21 16:35 AW [id number]) OP Gait Assessment Comments Gait Comments Pt ambulates with cane held in left hand, heavy UE weightbearing, consistent patterning.She has decreased heel strike and poor push off bilaterally but right is more affected. Inversion bias noted with pt tending to land on the lateral border of both feet (R>L). Stair Climbing Evaluation Evaluation Level of Assist On Stairs Standby Assistance Devices Stair Climbing Assistive Devices Straight Cane,Right Railing Technique/Endurance Stair Climbing Direction Ascend and Descend Stair Climbing Technique Step Over Step Number of Steps Climbed 3 Stair Climbing Set # Repetitions (reps) 2 Comments Stair Climbing Comments Pt needs cues for patterning stair climbing with rail and SPC. PT-OP-H Neuro Start: 08/22/21 14:24 Freq: Status: Active Protocol: Document 08/23/21 09:45 AW (Rec: 08/23/21 16:43 AW [id number]) Sensation Evaluation Gross Sensation Gross Sensation Right LE Impaired Sensation Description Numbness,Tingling Comments Summary Comments Pt reports chronic numbness/ tingliong in the right foot Deep Tendon Reflex & Clonus Assessment Deep Tendon Reflex Bilateral Achilles Deep Tendon Reflex 1+ Diminished Bilateral Patellar Deep Tendon Reflex 1+ Diminished PT-OP-J Posture/Palpation/Skin Start: 08/22/21 14:24 Freq: Status: Active Protocol: Document 08/23/21 09:45 AW (Rec: 08/23/21 16:43 AW [id number]) Posture Evaluation Comments Posture Comments Pt stands in bare feet with minimal longitudinal arch, forefoot adduction. From behind, Achilles tendons appear normally aligned. Pt has spinal changes including levoscoliosis. Left illiac crest lower than right. PT-OP-K Range of Motion Start: 08/22/21 14:24 Freq: Status: Active Protocol: Document 08/23/21 09:45 AW (Rec: 08/23/21 16:43 AW [id number]) Knee Goniometric Range of Motion Knee bilat Knee ROM WFL Yes Comments Pt has swelling in right prepatellar bursae and chronic right knee pain. ROM WNL. Ankle and Foot Goniometric Range of Motion Ankle and Foot right Dorsiflexion with Knee Extended 5 Inversion 30 Eversion 22 Comments inversion and plantar flexion AROM reproduce pain left Testing Position Sitting Dorsiflexion with Knee Extended 5 Inversion 60 Eversion 25 Ankle and Foot ROM Limitations ROM Limitations Muscle Weakness,Pain PT-OP-M Strength Start: 08/22/21 14:24 Freq: Status: Active Protocol: Document 08/23/21 09:45 AW (Rec: 08/23/21 16:48 AW [id number]) Hip Strength Hip Manual Muscle Testing Right Flexion (L2) 4- Good- External Rotation 4- Good- Internal Rotation 4 Good Left Flexion (L2) 4+ Good+ External Rotation 4+ Good+ Internal Rotation 4+ Good+ Knee Strength Knee Manual Muscle Testing Right Flexion (S2) 4- Good- Extension (L3) 4 Good Comments Right knee painful with all resisted movement Left Flexion (S2) 4+ Good+ Extension (L3) 5 Normal Ankle/Foot Strength Ankle and Foot Manual Muscle Testing Right Dorsiflexion (L4) 4 Good Plantarflexion (S1) 4- Good- Inversion 4- Good- Eversion (S1) 4- Good- Left Dorsiflexion (L4) 5 Normal Plantarflexion (S1) 4 Good Inversion 4+ Good+ Eversion (S1) 4+ Good+ Toe Strength Toe Manual Muscle Testing Great Toe Flexion 4+ Good+ Comments 4+ bilat PT-OP-Q Treatments Start: 08/22/21 14:24 Freq: Status: Active Protocol: Document 10/26/21 11:19 AW (Rec: 10/26/21 12:07 AW [id number]) Cardio Equipment Recumbent Bicycle Duration (Minutes) 5 Resistance 5 Seat Position 1 Other Gr back support Gym Equipment Shuttle Recovery Very shallow squats Details unilat BLE 90 deg squats keeping foot in neutral Resistance 25# Shuttle Recovery Platform Unstable Reps/Time 15x2 Bilateral Heel Raises Details Ranjith heel raise Resistance 50 Shuttle Recovery Platform Stable Reps/Time 12x Gait Training Gait Activity DGI Description DGI Device Used no AD Level of Assistance SBA Surface firm Treatment Focus reassessment Comments - reduced falls risk compared with earlier assesment 6MWT Device Used SPC Level of Assistance SBA Surface firm Distance/Duration 1168'/6 min Treatment Focus re-assessment Comments Average gait speed 0.99 m/s Neuro Re-Education Treatment Balance Activities tandem walking Details tandem walking Surface firm Equipment in and out of // Reps/Duration 10 steps x 5 Comments good ankle stability PT-OP-R Modalities Start: 08/22/21 14:24 Freq: Status: Active Protocol: Document 08/30/21 08:51 AW (Rec: 08/30/21 09:48 AW [id number]) Hot Pack/Cold Pack Treatment Hot Pack Location l/s Patient Position Prone Treatment Duration (minutes) 12 Patient Tolerance Good Comments end of session during education PT-OP-T Assessment and Plan Start: 08/22/21 14:24 Freq: Status: Active Protocol: Document 10/26/21 11:19 AW (Rec: 10/26/21 12:07 AW [id number]) Physical Therapy Assessment Goals Four Impairment balance Suppression Crew Leader Goal (LTG) Pt will score 19/24 or greater on Dynamic Gait Index as a measure of improved balance and reduced falls risk. 10/26/21 - GOAL MET LTG Duration 10 weeks - 11/01/21 (09/28/21: DGI 17) GOAL MET Three Impairment gait Short Term Goal (STG) Pt will ambulate 900 feet on 6 minute walk test with SPC to improve community ambulation STG Duration 4 weeks - 09/20/21 (09/28/21: 6 'walk w/SPC is 664.8 ft) Suppression Crew Leader Goal (LTG) Pt will ambulate 1050 feet on 6 minute walk test with LRAD to improve community ambulation 10/26/21 - Pt walked 1168 feet with SPC LTG Duration 10 weeks - 11/01/21 GOAL MET Two Impairment falls Short Term Goal (STG) Pt will reduce falls frequency to twice weekly or less (09/28/21: Pt fell 1x last week and none this week thus far) STG Duration 4 weeks - 09/20/21 MET GOAL. Group Home Goal (LTG) Pt will report no falls for two weeks LTG Duration 10 weeks - 11/01/21 GOAL MET One Impairment lacks HEP Short Term Goal (STG) Pt will be instructed in HEP for ROM, strength, and balance to support therapy services provided in clinic. (: Pt I/S in HEP of corner standing balance ex of feet together and tandem). STG Duration 4 weeks - 09/20/21 Group Home Goal (LTG) Pt will be independent with HEP for ROM, strength, and balance to support a self- directed exrecise program LTG Duration 10 weeks - 11/01/21 GOAL MET Assessment Summary Assessment Re-assessed all objective measures today and pt has improved all. Gait distance with SPC on 6MWT improved significantly. DGI score benny from to indicating decreased risk of falls. Pt is comforatble with [facility] and pleased with progress. Discharge to [facility] Physical Therapy Plan Frequency and Duration Frequency of Treatment 2x/Week Duration of Treatment 10 weeks Plan of Care Start Date 08/23/21 Plan of Care End Date 11/01/21 Therapeutic Interventions Therapeutic Interventions Aquatic Therapy,Balance Training,Gait Training,Home Exercise Program,Manual Therapy,Neuromuscular Re- education,Self-Care/Home Management,Soft Tissue Mobilization,Taping, Therapeutic Activities, Therapeutic Exercises Discharge Physical Therapy Discharge Reasons Goals Met Discharge Comments Pt is pleased with her progress and reports no falls in the past one month. She continues to experience mild ankle instability while descending stairs but states it is far less than when she began therapy. She is appropriate to discharge to [facility].
== END 2021-10-27 09:02 ==
LOC: PHYS 11:15
PROVIDERS: Family Provider Nurse Practitioner Family; PCP Nurse Practitioner Family; Referring Provider Nurse Practitioner Family; Visit Provider Nurse Practitioner Family
DX: M25.371 Other instability, right ankle (principal); M25.372 Other instability, left ankle; R29.6 Repeated falls; M54.50 Low back pain, unspecified; G89.29 Other chronic pain
CPT/HCPCS: 97110; 97112; 97116; 97140; 97162; 97530

== ENCOUNTER → 2022-01-08 07:21 | Outpatient (CLI) | payer MEDICARE, MEDICAID, SELFPAY ==
--- NOTE | 2022-01-08 07:22 | DI.MG.S_ITS ---
BILATERAL DIGITAL SCREENING MAMMOGRAM 3D/2D WITH CAD: 01/08/2022 CLINICAL: Routine screening. Family history of breast cancer. Comparison is made to exams dated: 03/08/2020 mammogram, 10/29/2016 mammogram, and 11/08/2016 mammogram - [facility]. The tissue of both breasts is heterogeneously dense. This may lower the sensitivity of mammography. Current study was also evaluated with a Computer Aided Detection (CAD) system. No significant masses, calcifications, or other findings are seen in either breast. There has been no significant interval change. IMPRESSION: NEGATIVE There is no mammographic evidence of malignancy. A 1 year screening mammogram is recommended. This exam was interpreted at Station ID: [id number]. NOTE: For mammograms, a report in lay terms will be sent to the patient. Approximately 15% of breast malignancies will not be visualized mammographically. In the management of a palpable breast mass, a negative mammogram must not discourage biopsy of a clinically suspicious lesion. Electronically Signed By: Hayes whitman/ric:01/08/2022 10:20:24 letter sent: Normal Exam ACR BI-RADS Category 1: Negative [id number]
== END ==
PROVIDERS: Family Provider Nurse Practitioner Family; PCP Nurse Practitioner Family; Referring Provider Nurse Practitioner Family; Visit Provider Nurse Practitioner Family
DX: Z12.31 Encounter for screening mammogram for malignant neoplasm of breast (principal); Z80.3 Family history of malignant neoplasm of breast
CPT/HCPCS: 77063; 77067

== ENCOUNTER 2022-04-11 18:40 | Emergency (ER) | payer MEDICARE, MEDICAID, SELFPAY ==
[2022-04-11 19:18] VITALS: BP 166/83; PULSE 70; RESP 20; TEMP 36.1; O2SAT 98; BMI 37.8
--- NOTE | 2022-04-11 19:22 | DI.RAD.S_ITS ---
PROCEDURE: XR CHEST 2V INDICATIONS: 3 week cough TECHNIQUE: 2 views of the chest were acquired. COMPARISON: None. FINDINGS: Surgical changes and devices: None. Lungs and pleura: Minimal streaky left basilar opacities likely representing atelectasis. No focal consolidation. No pleural effusions or pneumothorax. Mediastinum: Mediastinal contours are normal. Heart size is normal. Bones and chest wall: No suspicious bony abnormalities. Soft tissues appear unremarkable. IMPRESSION: Minimal left basilar streaky opacities likely representing atelectasis. No focal consolidation seen. Otherwise, no acute cardiopulmonary abnormalities. Dictated by: Von Anderson M.D. on 04/11/2022 at 20:15 Approved by: Von Anderson M.D. on 04/11/2022 at 20:16
[2022-04-11 20:36] LABS: Adenovirus Not Detected (Not Detect); B. parapertussis Not Detected (Not Detecte); Bordetella pertussis Not Detected (Not Detecte); Chlamydophila pneumoniae Not Detected (Not Detect); Coronavirus 229E Not Detected (Not Detect); Coronavirus HKU1 Not Detected (Not Detect); Coronavirus NL 63 Not Detected (Not Detect); Coronavirus OC43 Not Detected (Not Detect); Human Metapneumovirus Not Detected (Not Detect); Human Rhinovirus/Enterovirus Detected (Not Detect); Influenza A Not Detected (Not Detect); Influenza B Not Detected (Not Detect); Parainfluenza Virus 1 Not Detected (Not Detect); Parainfluenza Virus 2 Not Detected (Not Detect); Parainfluenza Virus 3 Not Detected (Not Detect); Parainfluenza Virus 4 Not Detected (Not Detect); Respiratory Syncytial Virus Not Detected (Not Detect); SARS- CoV-2 Not Detected (Not Detecte)
[2022-04-11 20:37] LABS: Mycoplasma pneumoniae Not Detected (Not Detect)
[2022-04-11 23:33] VITALS: PULSE 79; O2SAT 97
[2022-04-11 23:34] VITALS: BP 158/72; PULSE 77; O2SAT 94
--- NOTE | 2022-04-11 23:44 | ED.URI ---
HPI - URI/Sore Throat General Chief Complaint: Upper Respiratory Symptoms Stated Complaint: Illness, Coughing, SOB, 3 weeks Time Seen by Provider: 04/11/22 23:38 Source: patient Mode of arrival: Ambulatory History of Present Illness HPI Narrative: Patient complains of cough shortness of breath for the past 3 weeks. Unknown sick contacts. No fever chills. No previous lung disease. Patient in no distress. Related Data Home Medications Medication Instructions Recorded Confirmed APAP/Dichloralphenazone/Torey ##0 01/22/11 03/05/22 (MIDRIN 65 MG-100 MG-325 MG) NORTRIPTYLINE HCL (Nortriptyline 10 mg PO HS ##0 01/22/11 03/05/22 HCl) cetirizine 10 mg tablet 10 mg PO Q DAY ##0 01/22/11 03/05/22 losarten PO 1XD 01/08/22 03/05/22 Previous Rx's Medication Instructions Recorded benzocaine 15 mg-menthol 3.6 mg 1 sonido mucous membrane Q2-4H PRN 01/08/22 lozenges (Cepacol Sore Throat sore throat #16 ea (benzocaine-menthol)) nirmatrelvir 300 mg (150 mg See Rx Instructions PO .COMPLEX 01/08/22 x2)-ritonavir 100 mg tablet,dose #30 tabs pack(EUA) (Paxlovid) benzonatate 100 mg capsule 100 mg PO TID PRN cough #20 caps 04/11/22 Allergies Allergy/AdvReac Type Severity Reaction Status Date / Time bee pollen Allergy Severe Hives Verified 04/11/22 19:28 shellfish derived Allergy Severe Hives Verified 04/11/22 19:28 Sulfa (Sulfonamide Allergy Severe Hives Verified 04/11/22 19:28 Antibiotics) naproxen [From Naprosyn] Allergy Unknown Verified 04/11/22 19:28 Penicillins Allergy Verified 04/11/22 19:28 Review of Systems Review of Systems Narrative: GENERAL: Denies chills, fatigue, malaise, fever, sweats. HEENT: Denies sinus pain, ear pain, sore throat, positive congestion RESPIRATORY: Positive dyspnea, cough CARDIOVASCULAR: Denies chest pain, palpitations GASTROINTESTINAL: Denies nausea, vomiting, abdominal pain : Denies dysuria, frequency, hematuria MUSCULOSKELETAL: denies muscle or bony pain SKIN: Denies rash, skin lesions NEUROLOGIC: Denies weakness, numbness ROS Unobtainable: All systems reviewed & are unremarkable except as noted in HPI and below Patient History Medical History Psoriasis Social History Smoking Status: Former smoker Smoking Status: Former smoker alcohol intake frequency: holidays/special occasions only Substance Use Type: does not use Exam Narrative Exam Narrative: GENERAL: in no distress, not toxic not dyspneic HEAD: Normocephalic. EYES: Pupils equal round No scleral icterus. ENT: Mucous membranes moist. Bilateral nasal congestion and edema. NECK: Trachea midline. CARDIOVASCULAR: Regular rate and rhythm without murmurs RESPIRATORY: Clear to auscultation. Breath sounds equal bilaterally. No wheezes, rales, or rhonchi. Speaking full sentences no respiratory distress GASTROINTESTINAL: Abdomen soft, non-tender EXTREMITIES: No gross deformities. BACK: No flank tenderness. NEURO: AOx4. SKIN: Warm and dry PSYCH: Not anxious, is cooperative Initial Vital Signs Initial Vital Signs: Vital Signs Temperature 97 F L 04/11/22 19:18 Pulse Rate 70 04/11/22 19:18 Respiratory Rate 20 04/11/22 19:18 Blood Pressure 166/83 H 04/11/22 19:18 Pulse Oximetry 98 04/11/22 19:18 Oxygen Delivery Method 04/11/22 19:18 Course Course Course Narrative: No new issues during course of stay Orders Ordered: Discontinued Medications Albuterol (Albuterol Hfa Prepack) 1 box MISC SEEINSTR ONE Stop: 04/11/22 23:44 Last Admin: 04/12/22 00:09 Dose: 1 box Documented By: DAYANA Benzonatate (Benzonatate 100 Mg Capsule) 100 mg PO NOW ONE Stop: 04/11/22 23:44 Last Admin: 04/12/22 00:10 Dose: 100 mg Documented By: MONA Reevaluation(s) Reevaluation #1: Reviewed results with patient. Will need supportive care, this will need time to resolve. She does have a family doctor to follow up with. Not toxic at discharge. Return precautions reviewed with her Time: 23:51 Vital Signs Vital signs: Vital Signs - 8 hr 10/26/22 23:33 04/11/22 23:34 04/11/22 23:34 Pulse Rate 79 77 Blood Pressure 158/72 H Pulse Oximetry 97 94 04/12/22 00:00 04/12/22 00:00 04/12/22 00:13 Pulse Rate 69 66 Blood Pressure 136/64 Pulse Oximetry 93 98 04/12/22 00:13 Pulse Rate Blood Pressure 143/70 H Pulse Oximetry MDM - URI/Sore Throat Differential Diagnosis Differential diagnosis: Likely upper respiratory infection, viral infection and influenza Lab Data Labs: Lab Results 04/11/22 Range/Units 19:30 Chlamy pneumoniae PCR Not detected (Not Detect) Adenovirus (PCR) Not detected (Not Detect) B. pertussis DNA (PCR) Not detected (Not Detecte) B.parapertussis DNA PCR Not detected (Not Detecte) Coronavirus OC43 (PCR) Not detected (Not Detect) Coronavirus HKU1 (PCR) Not detected (Not Detect) Coronavirus 229E (PCR) Not detected (Not Detect) SARS-CoV-2 (PCR) Not detected (Not Detecte) Coronavirus NL63 (PCR) Not detected (Not Detect) Human Metapneumovir PCR Not detected (Not Detect) Influenza Type A (PCR) Not detected (Not Detect) Influenza Type B (PCR) Not detected (Not Detect) M. pneumoniae (PCR) Not detected (Not Detect) Parainfluenza 1 (PCR) Not detected (Not Detect) Parainfluenza 2 (PCR) Not detected (Not Detect) Parainfluenza 3 (PCR) Not detected (Not Detect) Parainfluenza 4 (PCR) Not detected (Not Detect) RSV (PCR) Not detected (Not Detect) Entero/Rhino (PCR) Detected H (Not Detect) Point of Care Testing Glucose POC 112 Imaging Data Chest x-ray: Radiologist's Impression: [address] [address] XRay Report Signed Patient: [place] Bruno MR#: [id number] : 1965 Acct:[id number] Age/Sex: 56 / F Date of Service: 04/11/22 Loc: ED Accession Number: [id number] ?? Procedure: XR chest 2V Ordering Provider: Tyrese Howard MD PROCEDURE:? XR CHEST 2V ? INDICATIONS:? 3 week cough ? TECHNIQUE:? 2 views of the chest were acquired.? ? COMPARISON:? None. ? FINDINGS:? ? Surgical changes and devices:? None.? ? Lungs and pleura:? Minimal streaky left basilar opacities likely representing atelectasis.? No focal consolidation.? No pleural effusions or pneumothorax.? ? Mediastinum:? Mediastinal contours are normal.? Heart size is normal.? ? Bones and chest wall:? No suspicious bony abnormalities.? Soft tissues appear unremarkable.? ? IMPRESSION:? Minimal left basilar streaky opacities likely representing atelectasis.? No focal consolidation seen.? Otherwise, no acute cardiopulmonary abnormalities. ? ? Dictated by: Von Anderson M.D. on 04/11/2022 at 20:15 ? ? Approved by: Von Anderson M.D. on 04/11/2022 at 20:16 ? MDM Narrative Medical decision making narrative: Appropriate for discharge home. Exam and laboratory studies and imaging are reassuring. Not hypoxic not tachypneic. Not requiring supplemental oxygen. Return precautions reviewed with her. Inhaler and cough medication provided. Patient agrees with treatment plan and follow up with primary care. Discharge Plan Departure Patient Disposition: Home Clinical Impression: Acute bronchitis due to Rhinovirus Instructions: DI for Acute Bronchitis, DI for Viral Upper Respiratory Infection -- Adult Activity Restrictions/Additional Instructions: See family doctor in a week for re-evaluation. Use inhaler 2 puffs every 4 hours as needed for cough or any shortness of breath. Return if worse if any questions or concerns. Return if any trouble breathing. 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 Prescriptions: New benzonatate 100 mg capsule 100 mg PO TID PRN (Reason: cough) Qty: 20 0RF No Action losarten 50 mg PO 1XD Paxlovid (EUA) 150 mg x 2- 100 mg tablet See Rx Instructions PO .COMPLEX Qty: 30 0RF Rx Instructions: take TWO 150 mg tablets of nirmatrelvir with ONE 100 mg tablet of ritonavir twice daily for 5 days PO Cepacol Sore Throat (felice-men) 15-3.6 mg lozenge 1 sonido mucous membrane Q2-4H PRN (Reason: sore throat) Qty: 16 0RF NORTRIPTYLINE HCL (Nortriptyline HCl) 10 mg PO HS Qty: 0 APAP/Dichloralphenazone/Torey (MIDRIN 65 MG-100 MG-325 MG) Qty: 0 cetirizine 10 MG tablet 10 mg PO Q DAY Qty: 0 Referrals: Mady Leyva ARNP [Primary Care Provider] - Visit Report Forms: Patient Portal/API
[2022-04-12] VITALS: BP 136/64; PULSE 69; O2SAT 93
[2022-04-12] MEDS: ALBUTEROL HFA PREPACK 1 BOX MISC (00:09)
[2022-04-12] MEDS: BENZONATATE 100 MG CAPSULE PO (00:10)
[2022-04-12 00:13] VITALS: BP 143/70; PULSE 66; O2SAT 98
== END 2022-04-12 00:18 | disposition home or self-care (01) ==
PROVIDERS: Emergency Provider Emergency Medicine; Family Provider Nurse Practitioner Family; PCP Nurse Practitioner Family
DX: J20.6 Acute bronchitis due to rhinovirus (principal); Z20.822 Contact with and (suspected) exposure to COVID-19
CPT/HCPCS: 71046; 82962; 87633; 99283; 99284

== ENCOUNTER 2022-07-08 18:09 | Emergency (ER) | payer MEDICARE, MEDICAID, SELFPAY ==
[2022-07-08 18:09] VITALS: BP 147/76; PULSE 86; RESP 16; TEMP 36.9; O2SAT 99; BMI 38.5
--- NOTE | 2022-07-08 18:13 | DI.RAD.S_ITS ---
PROCEDURE: XR CHEST 1V INDICATIONS: chest pain TECHNIQUE: One view of the chest was acquired. COMPARISON: [facility], CR, XR CHEST 2V, 04/11/2022, 19:37. FINDINGS: Surgical changes and devices: None. Lungs and pleura: Lungs are clear. No pleural effusions or pneumothorax. Mediastinum: Mediastinal contours appear normal. Heart size is normal. Bones and chest wall: No suspicious bony lesions. Overlying soft tissues appear unremarkable. IMPRESSION: No acute cardiopulmonary pathology. Dictated by: Kalpesh Cooper M.D. on 07/08/2022 at 18:36 Approved by: Kalpesh Cooper M.D. on 07/08/2022 at 18:38
[2022-07-08 18:14] VITALS: PULSE 83; O2SAT 97
--- NOTE | 2022-07-08 18:21 | PC.NURSE ---
patient has been moving furniture at home by herself. Today she was sitting and drinking soda when she began having 7/10 left chest pain radiating to her back. She states she is not short of breathe but it does hurt to breathe
--- NOTE | 2022-07-08 18:22 | ED.CHESTPAIN ---
HPI - Chest Pain General Chief Complaint: Chest Pain Stated Complaint: Lt. chest px Time Seen by Provider: 07/08/22 18:13 Source: patient and EMS Mode of arrival: EMS Limitations: no limitations History of Present Illness HPI narrative: 57-year-old female who for the past couple days has had left-sided chest discomfort that is now radiating around to his back. She states that it is now constant and was intermittent. It is worse when she touches the area or takes a deep breath. No vomiting. Has not tried anything for the symptoms. Does have a history of headaches. No problems breathing. Related Data Home Medications Medication Instructions Recorded Confirmed APAP/Dichloralphenazone/Torey ##0 01/22/11 03/05/22 (MIDRIN 65 MG-100 MG-325 MG) NORTRIPTYLINE HCL (Nortriptyline 10 mg PO HS ##0 01/22/11 03/05/22 HCl) cetirizine 10 mg tablet 10 mg PO Q DAY ##0 01/22/11 03/05/22 losarten PO 1XD 01/08/22 03/05/22 Previous Rx's Medication Instructions Recorded benzocaine 15 mg-menthol 3.6 mg 1 sonido mucous membrane Q2-4H PRN 01/08/22 lozenges (Cepacol Sore Throat sore throat #16 ea (benzocaine-menthol)) nirmatrelvir 300 mg (150 mg See Rx Instructions PO .COMPLEX 01/08/22 x2)-ritonavir 100 mg tablet,dose #30 tabs pack(EUA) (Paxlovid) benzonatate 100 mg capsule 100 mg PO TID PRN cough #20 caps 04/11/22 Allergies Allergy/AdvReac Type Severity Reaction Status Date / Time bee pollen Allergy Severe Hives Verified 04/11/22 19:28 shellfish derived Allergy Severe Hives Verified 04/11/22 19:28 Sulfa (Sulfonamide Allergy Severe Hives Verified 04/11/22 19:28 Antibiotics) naproxen [From Naprosyn] Allergy Unknown Verified 04/11/22 19:28 aspirin Allergy Verified 07/08/22 18:09 Penicillins Allergy Verified 04/11/22 19:28 Review of Systems Constitutional Constitutional: Reports system reviewed and no additional complaints, except as documented Cardiovascular Cardiovascular: Reports system reviewed and no additional complaints, except as documented Respiratory Respiratory: Reports system reviewed and no additional complaints, except as documented Gastrointestinal Gastrointestinal: Reports system reviewed and no additional complaints, except as documented Integumentary/Breasts Skin/Breast: Reports system reviewed and no additional complaints, except as documented Patient History Medical History Psoriasis Social History Smoking Status: Former smoker Smoking Status: Former smoker alcohol intake frequency: holidays/special occasions only Substance Use Type: does not use Exam Initial Vital Signs Initial Vital Signs: Vital Signs Temperature 98.5 F 07/08/22 18:09 Pulse Rate 86 07/08/22 18:09 Respiratory Rate 16 07/08/22 18:09 Blood Pressure 147/76 H 07/08/22 18:09 Pulse Oximetry 99 07/08/22 18:09 Oxygen Delivery Method 07/08/22 18:09 HENMT Head: normal to inspection and normocephalic Chest Chest: No crepitus and tenderness (Left-sided chest wall) Resp Effort & Inspection: normal respiratory effort Auscultation: clear to auscultation bilaterally Cardio Rate: regular rate Rhythm: regular rhythm Back/Spine/Pelvis Back: No erythema Thoracic/Lumbar Spine: paraspinal tenderness (Left-sided thoracic region) Skin General: no rashes or lesions noted Neuro General: patient alert, patient awake and moves all extremities Extrem General: capillary refill normal Scores HEART Score Heart Score history: Slightly Suspicious Heart Score EKG: Normal Heart Score Age: 45-64 years old Heart Score risk factors: No known risk factors Heart Score troponin: < or = to normal limit Heart Score Total: 1 Course Orders Ordered: ED Orders 07/08/22 18:12 Complete Blood Count AUTO DIFF Stat Comprehensive Metabolic Panel Stat Lipase Stat Magnesium Stat Troponin & CK Cardiac Panel Stat 07/08/22 18:13 XR chest 1V Stat 07/08/22 18:19 EKG-12 Lead Stat Discontinued Medications Ketorolac Tromethamine (Ketorolac 30 Mg/Ml Vial) 30 mg IV NOW ONE Stop: 07/08/22 18:23 Last Admin: 07/08/22 18:27 Dose: 30 mg Documented By: SY Vital Signs Vital signs: Vital Signs - 8 hr 07/08/22 18:09 07/08/22 19:17 07/08/22 18:14 Temperature 98.5 F Pulse Rate 86 71 83 Respiratory Rate 16 21 Blood Pressure 147/76 H 120/63 Pulse Oximetry 99 95 97 Oxygen Delivery Method Room Air Room Air 07/08/22 18:30 07/08/22 18:30 07/08/22 19:00 Temperature Pulse Rate 80 Respiratory Rate Blood Pressure 126/60 120/63 Pulse Oximetry 94 Oxygen Delivery Method 07/08/22 19:00 07/08/22 19:14 07/08/22 19:14 Temperature Pulse Rate 74 76 Respiratory Rate Blood Pressure 120/63 Pulse Oximetry 95 95 Oxygen Delivery Method MDM - Chest Pain Differential Diagnosis Differential diagnosis: Likely fracture of rib, pneumothorax, stable angina, unstable angina pectoris, atypical chest pain, st elevation myocardial infarction, costochondritis and chest pain Condition is:: Improved Lab Data Attestation: I reviewed the patient's lab results. Result diagrams: 07/08/22 18:12 07/08/22 18:12 Labs: Lab Results 07/08/22 07/08/22 Range/Units 18:12 18:12 WBC 11.0 (4.5-11.0) X10^3/uL RBC 4.68 (4.0-5.2) X10^6/uL Hgb 13.4 (12.0-16.0) g/dL Hct 39.9 (36-46) % MCV 85.2 (80-100) fL MCH 28.6 (26-34) PG MCHC 33.5 (30-36) % RDW 13.3 (11.6-14.8) % Plt Count 280 (150-400) X10^3/uL Neut % (Auto) 63.1 (50-75) % Lymph % (Auto) 28.6 (25-40) % Mellette % (Auto) 5.9 (3-14) % Eos % (Auto) 1.7 L (2-4) % Baso % (Auto) 0.7 (0-2) % Neut # (Auto) 7000 (5935-8420) /uL Lymph # (Auto) 3200 (4266-3265) /uL Mellette # (Auto) 700 (0-900) /uL Eos # (Auto) 200 (0-450) /uL Baso # (Auto) 100 (0-100) /uL Sodium 137 (137-145) mmol/L Potassium 3.0 L (3.4-5.1) mmol/L Chloride 96 L (98-107) mmol/L Carbon Dioxide 30 (22-32) mmol/L BUN 21 H (7-17) mg/dL Creatinine 0.93 (0.52-1.04) mg/dL Estimated GFR > 60 (>60) mL/min BUN/Creatinine Ratio 22.6 H (6-22) Glucose 151 H (70-100) mg/dL Calcium 9.2 (8.4-10.2) mg/dL Magnesium 1.6 (1.6-2.3) mg/dL Total Bilirubin 0.3 (0.2-1.3) mg/dL AST 28 (14-36) IU/L ALT 41 H (<35) IU/L Alkaline Phosphatase 136 H (38-126) U/L Total Creatine Kinase 47 (30-135) U/L CK-MB (CK-2) TNP CK-MB (CK-2) Rel Index TNP Troponin I < 0.012 (0.01-0.034) ng/mL Total Protein 7.9 (6.3-8.2) g/dL Albumin 4.2 (3.5-5.0) g/dL Globulin 3.7 (1.7-4.1) g/dL Albumin/Globulin Ratio 1.1 (1.0-2.8) Lipase 135 (23-300) U/L Imaging Data Chest x-ray: Radiologist's Impression: [address] [address] XRay Report Signed Patient: Brooklyn Bruno MR#: [id number] : 1965 Acct:[id number] Age/Sex: 57 / F Date of Service: 07/08/22 Loc: ED Accession Number: [id number] ?? Procedure: XR chest 1V Ordering Provider: Pancho Lucia D.O. PROCEDURE:? XR CHEST 1V ? INDICATIONS:? chest pain ? TECHNIQUE:? One view of the chest was acquired.? ? COMPARISON:? [facility], CR, XR CHEST 2V, 04/11/2022, 19:37. ? FINDINGS:? ? Surgical changes and devices:? None.? ? Lungs and pleura:? Lungs are clear.? No pleural effusions or pneumothorax.? ? Mediastinum:? Mediastinal contours appear normal.? Heart size is normal.? ? Bones and chest wall:? No suspicious bony lesions.? Overlying soft tissues appear unremarkable.? ? IMPRESSION:? No acute cardiopulmonary pathology. ? ? Dictated by: Kalpesh Cooper M.D. on 07/08/2022 at 18:36 ? ? Approved by: Kalpesh Cooper M.D. on 07/08/2022 at 18:38? ECG Data Attestation: I personally reviewed and interpreted this ECG as follows: Interpretation: Sinus rhythm Ventricular rate 82 Normal axis Normal QRS Normal QTC No ST T wave changes MDM Narrative Medical decision making narrative: Low risk heart score and the chest discomfort that the patient was complaining about is clearly reproducible with palpation. Her chest x-ray is negative. EKG is unremarkable. Troponin is negative. I have low suspicion that this is PE, ACS, pneumothorax, pneumonia or other emergent condition. I have a very high suspicion this is musculoskeletal potentially intercostal muscle spasms. She stated that she did feel somewhat better after the Toradol. There is no skin rash over the area concerning for zoster. Will discharge patient home to contact primary provider. She was given return precautions. She expressed understanding and agreement. Discharge Plan Departure Patient Disposition: Home Clinical Impression: Left-sided chest wall pain Instructions: DI for Atypical Chest Pain Activity Restrictions/Additional Instructions: Recommend that you continue to take all of your medications as directed. Do some stretching like we discussed. Your primary doctor a follow-up. Return to the emergency department for any new symptoms. Prescriptions: No Action losarten 50 mg PO 1XD Paxlovid (EUA) 150 mg x 2- 100 mg tablet See Rx Instructions PO .COMPLEX Qty: 30 0RF Rx Instructions: take TWO 150 mg tablets of nirmatrelvir with ONE 100 mg tablet of ritonavir twice daily for 5 days PO Cepacol Sore Throat (felice-men) 15-3.6 mg lozenge 1 sonido mucous membrane Q2-4H PRN (Reason: sore throat) Qty: 16 0RF NORTRIPTYLINE HCL (Nortriptyline HCl) 10 mg PO HS Qty: 0 APAP/Dichloralphenazone/Torey (MIDRIN 65 MG-100 MG-325 MG) Qty: 0 cetirizine 10 MG tablet 10 mg PO Q DAY Qty: 0 benzonatate 100 mg capsule 100 mg PO TID PRN (Reason: cough) Qty: 20 0RF Referrals: Mady Leyva ARNP [Primary Care Provider] - Stand Alone Forms: Patient Portal/API
[2022-07-08 18:23] LABS: Add Manual Diff / Slide Review NO; Basophils Absolute Auto 100 /uL (0-100); Basophils Percent Auto 0.7 % (0-2); Eosinophils Absolute Auto 200 /uL (0-450); Eosinophils Percent Auto 1.7 % (2-4); Hematocrit 39.9 % (36-46); Hemoglobin 13.4 g/dL (12.0-16.0); Lymphocytes Absolute Auto 3200 /uL (1100-4500); Lymphocytes Percent Auto 28.6 % (25-40); Mean Corpuscular HGB Conc 33.5 % (30-36); Mean Corpuscular Hemoglobin 28.6 PG (26-34); Mean Corpuscular Volume 85.2 fL (80-100); Monocytes Absolute Auto 700 /uL (0-900); Monocytes Percent Auto 5.9 % (3-14); Neutrophils Absolute Auto 7000 /uL (1500-7000); Neutrophils Percent Auto 63.1 % (50-75); Platelet Count 280 X10^3/uL (150-400); Red Blood Cell Count 4.68 X10^6/uL (4.0-5.2); Red Cell Distribution Width 13.3 % (11.6-14.8)
[2022-07-08] MEDS: KETOROLAC 30 MG/ML VIAL IV (18:27)
[2022-07-08 18:30] VITALS: BP 126/60; PULSE 80; O2SAT 94
[2022-07-08 18:34] LABS: Alanine Aminotransferase 41 IU/L (<35); Albumin 4.2 g/dL (3.5-5.0); Albumin Globulin Ratio 1.1 (1.0-2.8); Alkaline Phosphatase 136 U/L (38-126); Aspartate Aminotransferase 28 IU/L (14-36); BUN Creatinine Ratio 22.6 (6-22); Bilirubin Total 0.3 mg/dL (0.2-1.3); Blood Urea Nitrogen 21 mg/dL (7-17); Calcium 9.2 mg/dL (8.4-10.2); Carbon Dioxide 30 mmol/L (22-32); Chloride 96 mmol/L (98-107); Creatine Kinase 47 U/L (30-135); Estimated Glomerular Filt Rate > 60 mL/min (>60); Globulin 3.7 g/dL (1.7-4.1); Glucose 151 mg/dL (70-100); HEMOLYSIS < 15 (0-50); Lipase 135 U/L (23-300); Magnesium 1.6 mg/dL (1.6-2.3); Sodium 137 mmol/L (137-145); Total Protein 7.9 g/dL (6.3-8.2)
[2022-07-08 18:45] LABS: Troponin I < 0.012 ng/mL (0.01-0.034)
[2022-07-08 19:00] VITALS: BP 120/63; PULSE 74; O2SAT 95
[2022-07-08 19:14] VITALS: BP 120/63; PULSE 76; O2SAT 95
[2022-07-08 19:17] VITALS: BP 120/63; PULSE 71; RESP 21; O2SAT 95
== END 2022-07-08 19:31 | disposition home or self-care (01) ==
PROVIDERS: Emergency Provider Emergency Medicine; Family Provider Nurse Practitioner Family; PCP Nurse Practitioner Family
DX: R07.89 Other chest pain (principal)
CPT/HCPCS: 36415; 71045; 80053; 82550; 83690; 83735; 84484; 85025; 93005; 96374; 99284; J1885

== ENCOUNTER 2022-08-14 16:11 | Emergency (ER) | payer MEDICARE, MEDICAID, SELFPAY ==
[2022-08-14 16:23] VITALS: BP 137/83; PULSE 85; RESP 19; TEMP 36.4; O2SAT 97; BMI 37.5
[2022-08-14] MEDS: ONDANSETRON 4 MG/2 ML INJ IV (16:58)
[2022-08-14] MEDS: KETOROLAC 30 MG/ML VIAL 15 MG IV (16:58)
[2022-08-14 17:01] LABS: Add Manual Diff / Slide Review NO; Basophils Absolute Auto 100 /uL (0-100); Basophils Percent Auto 1.3 % (0-2); Eosinophils Absolute Auto 200 /uL (0-450); Eosinophils Percent Auto 1.9 % (2-4); Hematocrit 40.4 % (36-46); Hemoglobin 13.9 g/dL (12.0-16.0); Lymphocytes Absolute Auto 2800 /uL (1100-4500); Lymphocytes Percent Auto 29.2 % (25-40); Mean Corpuscular HGB Conc 34.3 % (30-36); Mean Corpuscular Hemoglobin 29.1 PG (26-34); Mean Corpuscular Volume 84.9 fL (80-100); Monocytes Absolute Auto 700 /uL (0-900); Monocytes Percent Auto 7.2 % (3-14); Neutrophils Absolute Auto 5900 /uL (1500-7000); Neutrophils Percent Auto 60.4 % (50-75); Platelet Count 269 X10^3/uL (150-400); Red Blood Cell Count 4.76 X10^6/uL (4.0-5.2); Red Cell Distribution Width 13.3 % (11.6-14.8); White Blood Cell Count 9.7 X10^3/uL (4.5-11.0)
[2022-08-14 17:17] LABS: Alanine Aminotransferase 42 IU/L (<35); Albumin 4.4 g/dL (3.5-5.0); Albumin Globulin Ratio 1.3 (1.0-2.8); Alkaline Phosphatase 112 U/L (38-126); Aspartate Aminotransferase 28 IU/L (14-36); BUN Creatinine Ratio 18.4 (6-22); Bilirubin Total 0.5 mg/dL (0.2-1.3); Blood Urea Nitrogen 19 mg/dL (7-17); Calcium 9.5 mg/dL (8.4-10.2); Carbon Dioxide 29 mmol/L (22-32); Chloride 98 mmol/L (98-107); Estimated Glomerular Filt Rate > 60 mL/min (>60); Globulin 3.5 g/dL (1.7-4.1); Glucose 116 mg/dL (70-100); HEMOLYSIS < 15 (0-50); Lipase 123 U/L (23-300); Potassium 3.4 mmol/L (3.4-5.1); Sodium 139 mmol/L (137-145); Total Protein 7.9 g/dL (6.3-8.2)
[2022-08-14] MEDS: SODIUM CHLORIDE 0.9% 1,000 ML 1000 ML IV (17:20)
[2022-08-14] MEDS: METOCLOPRAMIDE 10 MG/2 ML INJ IV (17:26)
--- NOTE | 2022-08-14 18:40 | DI.CT.S_ITS ---
PROCEDURE: CT ABDOMEN PELVIS W CON INDICATIONS: epigastric px; L flank pain TECHNIQUE: After the administration of intravenous contrast, axial sections acquired from the lung bases to the pubic symphysis. Coronal and sagittal reformats were performed. For radiation dose reduction, the following was used: automated exposure control, adjustment of mA and/or kV according to patient size. COMPARISON: None. FINDINGS: Image quality: Excellent. Lung bases: Bibasilar dependent atelectasis is seen. Heart: No significant findings. ABDOMEN: Liver: Moderate hepatic steatosis is seen. No discrete hepatic lesion.. Gallbladder: Gallbladder is within normal limits. Biliary ducts: Unremarkable. Pancreas: Unremarkable. Spleen: Unremarkable. Adrenal Glands: Unremarkable. Kidneys and Ureters: 5.1 x 5.4 cm simple cyst is seen in upper pole right kidney. No hydronephrosis or hydroureter.. Stomach and Bowel: There is no bowel obstruction or abnormal bowel wall thickening. Appendix is visualized and is within normal limits. No mesenteric fat stranding. Mild sigmoid diverticulosis is noted without sigmoid colon wall thickening or pericolonic fat stranding. Peritoneum: No abnormal intraperitoneal fluid. No free air. Ventral Wall: No hernias. Abdominal Nodes: No retroperitoneal or mesenteric adenopathy by size criteria. Vessels: Aorta and inferior vena cava are normal in size. PELVIS: Pelvic Organs: Uterus and bilateral adnexa show no gross abnormalities.. Bladder: Mild diffuse bladder wall thickening is noted particularly in anterior bladder wall measures up to 1 cm in thickness. No definite bladder wall mass is seen. Pelvic Nodes: No enlarged lymph nodes. Miscellaneous: No hernias are seen. Bones: No suspicious bony lesions. No acute vertebral body compression fracture. IMPRESSION: 1. No bowel obstruction or abnormal bowel wall thickening. Normal appendix. Sigmoid diverticulosis without evidence of acute diverticulitis. No free fluid or free air. 2. Simple right renal cyst as above. No hydronephrosis or hydroureter. Diffuse bladder wall thickening as above which may represent infectious inflammatory cystitis. Urological correlation is recommended. No definite bladder wall mass. 3. Moderate hepatic steatosis, no discrete hepatic lesion. Dictated by: Kalpesh Cooper M.D. on 08/14/2022 at 19:42 Approved by: Kalpesh Cooper M.D. on 08/14/2022 at 19:46
[2022-08-14 19:45] VITALS: BP 126/68; PULSE 64; O2SAT 97
--- NOTE | 2022-08-21 20:58 | ED_ITS ---
HPI - Abdominal Pain <Elba Mendoza PA-C - Last Filed: 08/21/22 21:03> General Chief Complaint: Abdominal Pain Stated Complaint: states kidney attack Time Seen by Provider: 08/14/22 17:06 Source: patient Mode of arrival: Family Vehicle History of Present Illness HPI narrative: 57-year-old female presents to the ED with 2 days of left flank pain wrapping around to the left lower abdomen. Patient endorses severe pain of 9/10. Patient endorses a history of kidney stones. Patient endorses nausea, vomiting, denies fever, chills. Denies dysuria, lightheadedness, dizziness, syncope, chest pain, shortness of breath. Related Data Home Medications Medication Instructions Recorded Confirmed APAP/Dichloralphenazone/Torey ##0 01/22/11 03/05/22 (MIDRIN 65 MG-100 MG-325 MG) NORTRIPTYLINE HCL (Nortriptyline 10 mg PO HS ##0 01/22/11 03/05/22 HCl) cetirizine 10 mg tablet 10 mg PO Q DAY ##0 01/22/11 03/05/22 losarten PO 1XD 01/08/22 03/05/22 Previous Rx's Medication Instructions Recorded benzocaine 15 mg-menthol 3.6 mg 1 sonido mucous membrane Q2-4H PRN 01/08/22 lozenges (Cepacol Sore Throat sore throat #16 ea (benzocaine-menthol)) nirmatrelvir 300 mg (150 mg See Rx Instructions PO .COMPLEX 01/08/22 x2)-ritonavir 100 mg tablet,dose #30 tabs pack(EUA) (Paxlovid) benzonatate 100 mg capsule 100 mg PO TID PRN cough #20 caps 04/11/22 Allergies Allergy/AdvReac Type Severity Reaction Status Date / Time bee pollen Allergy Severe Hives Verified 08/14/22 16:21 shellfish derived Allergy Severe Hives Verified 08/14/22 16:21 Sulfa (Sulfonamide Allergy Severe Hives Verified 08/14/22 16:21 Antibiotics) naproxen [From Naprosyn] Allergy Unknown Verified 08/14/22 16:21 aspirin Allergy Verified 08/14/22 16:21 Penicillins Allergy Verified 08/14/22 16:21 Review of Systems <Elba Mendoza PA-C - Last Filed: 08/21/22 21:03> Review of Systems ROS Unobtainable: All systems reviewed & are unremarkable except as noted in HPI and below Constitutional Constitutional: Denies chills, Denies fatigue, Denies fever(s), Denies frequent falls, Denies lethargy and Denies weakness Eyes Eyes: Denies change in vision, Denies eye discharge, Denies irritation and Denies loss of vision ENT Ears, Nose, Mouth, and Throat: Denies change in voice, Denies dizziness, Denies neck pain, Denies sore throat and Denies throat swelling Cardiovascular Cardiovascular: Denies chest pain, Denies irregular heart rhythm, Denies lightheadedness, Denies palpitations, Denies dyspnea, Denies dyspnea on exertion and Denies orthopnea Respiratory Respiratory: Denies cough, Denies dyspnea, Denies dyspnea on exertion and Denies wheezing Gastrointestinal Gastrointestinal: Reports abdominal pain, Denies change in bowel habits, Denies diarrhea, Reports nausea and Reports vomiting Genitourinary Genitourinary: Denies hematuria, Denies flank pain, Denies urinary incontinence and Denies urinary urgency Comments: Flank pain Musculoskeletal Musculoskeletal: Denies back pain, Denies muscle weakness, Denies neck pain, Denies numbness and Denies tingling Integumentary/Breasts Skin/Breast: Denies pruritus, Denies erythema, Denies rash and Denies wounds Neurologic Neurologic: Denies behavioral changes, Denies confusion, Denies dizziness, Denies frequent falls, Denies loss of vision, Denies numbness, Denies tingling and Denies weakness Psychiatric Psychiatric: Denies anxiety, Denies behavioral changes, Denies confusion, Denies depression, Denies homicidal ideation and Denies suicidal ideation Endocrine Endocrine: Denies fatigue, Denies flushing and Denies palpitations Hematologic/Lymphatic Hematologic/Lymphatic: Denies easy bruising Allergic/Immunologic Allergic/Immunologic: Denies urticaria, Denies throat swelling and Denies wheezing Patient History <Elba Mendoza PA-C - Last Filed: 08/21/22 21:03> Medical History Psoriasis Social History Smoking Status: Former smoker Smoking Status: Former smoker alcohol intake frequency: holidays/special occasions only Substance Use Type: does not use Exam <Elba Mendoza PA-C - Last Filed: 08/21/22 21:03> Narrative Exam Narrative: Const General:?cooperative, healthy appearing and comfortable [facility] Head:?normal to inspection Ears:?hearing grossly normal bilaterally Nose:?external nose normal Face and sinus:?normal facial exam and sinuses nontender Mouth:?oral mucosae normal Throat:?posterior oropharynx normal Eyes General:?appearance normal, both eyes and all related structures Neck Neck:?normal visual inspection and no lymphadenopathy noted Resp Effort & Inspection:?normal respiratory effort Auscultation:?clear to auscultation bilaterally Cardio Rate:?regular rate Rhythm:?regular rhythm GI Abdomen is soft, nontender, nondistended. There is no CVA tenderness. Neuro General:?patient alert, patient awake and patient oriented x3 Initial Vital Signs Initial Vital Signs: Vital Signs Temperature 97.6 F 08/14/22 16:23 Pulse Rate 85 08/14/22 16:23 Respiratory Rate 19 08/14/22 16:23 Blood Pressure 137/83 08/14/22 16:23 Pulse Oximetry 97 08/14/22 16:23 Oxygen Delivery Method Room Air 08/14/22 16:23 <Tyrese Howard MD - Last Filed: 08/28/22 08:03> Initial Vital Signs Initial Vital Signs: Vital Signs Temperature 97.6 F 08/14/22 16:23 Pulse Rate 85 08/14/22 16:23 Respiratory Rate 19 08/14/22 16:23 Blood Pressure 137/83 08/14/22 16:23 Pulse Oximetry 97 08/14/22 16:23 Oxygen Delivery Method Room Air 08/14/22 16:23 Course <Elba Mendoza PA-C - Last Filed: 08/21/22 21:03> Orders Ordered: Discontinued Medications Sodium Chloride (Normal Saline 0.9%) 1,000 mls @ 1,000 mls/hr IV BOLUS ONE Stop: 08/14/22 18:24 Last Infusion: 08/14/22 18:22 Dose: 0 mls/hr Documented By: Admin: 08/14/22 17:20 Dose: 1,000 mls/hr Documented By: RICO Ketorolac Tromethamine (Ketorolac 30 Mg/Ml Vial) 15 mg IV NOW ONE Stop: 08/14/22 16:53 Last Admin: 08/14/22 16:58 Dose: 15 mg Documented By: RB Metoclopramide HCl (Metoclopramide 10 Mg/2 Ml Inj) 10 mg IV NOW ONE Stop: 08/14/22 17:23 Last Admin: 08/14/22 17:26 Dose: 10 mg Documented By: AMU Morphine Sulfate (Morphine 4 Mg/Ml Inj) 4 mg IV NOW ONE Stop: 08/14/22 19:28 Last Admin: 08/14/22 19:48 Dose: Not Given Documented By: ABIMBOLA Ondansetron HCl (Ondansetron 4 Mg Odt) 4 mg PO NOW PRN PRN Reason: Nausea And Vomiting Ondansetron HCl (Ondansetron 4 Mg/2 Ml Inj) 4 mg IV NOW PRN PRN Reason: Nausea And Vomiting Last Admin: 08/14/22 16:58 Dose: 4 mg Documented By: RB <Tyrese Howard MD - Last Filed: 08/28/22 08:03> Orders Ordered: Discontinued Medications Sodium Chloride (Normal Saline 0.9%) 1,000 mls @ 1,000 mls/hr IV BOLUS ONE Stop: 08/14/22 18:24 Last Infusion: 08/14/22 18:22 Dose: 0 mls/hr Documented By: Admin: 08/14/22 17:20 Dose: 1,000 mls/hr Documented By: RICO Ketorolac Tromethamine (Ketorolac 30 Mg/Ml Vial) 15 mg IV NOW ONE Stop: 08/14/22 16:53 Last Admin: 08/14/22 16:58 Dose: 15 mg Documented By: RB Metoclopramide HCl (Metoclopramide 10 Mg/2 Ml Inj) 10 mg IV NOW ONE Stop: 08/14/22 17:23 Last Admin: 08/14/22 17:26 Dose: 10 mg Documented By: AMU Morphine Sulfate (Morphine 4 Mg/Ml Inj) 4 mg IV NOW ONE Stop: 08/14/22 19:28 Last Admin: 08/14/22 19:48 Dose: Not Given Documented By: ABIMBOLA Ondansetron HCl (Ondansetron 4 Mg Odt) 4 mg PO NOW PRN PRN Reason: Nausea And Vomiting Ondansetron HCl (Ondansetron 4 Mg/2 Ml Inj) 4 mg IV NOW PRN PRN Reason: Nausea And Vomiting Last Admin: 08/14/22 16:58 Dose: 4 mg Documented By: SANDY KOENIG - Abdominal Pain <Elba Mendoza PA-C - Last Filed: 08/21/22 21:03> Lab Data 08/14/22 16:46 08/14/22 16:46 Labs: Lab Results 08/14/22 08/14/22 Range/Units 16:46 16:46 WBC 9.7 (4.5-11.0) X10^3/uL RBC 4.76 (4.0-5.2) X10^6/uL Hgb 13.9 (12.0-16.0) g/dL Hct 40.4 (36-46) % MCV 84.9 (80-100) fL MCH 29.1 (26-34) PG MCHC 34.3 (30-36) % RDW 13.3 (11.6-14.8) % Plt Count 269 (150-400) X10^3/uL Neut % (Auto) 60.4 (50-75) % Lymph % (Auto) 29.2 (25-40) % Eagle % (Auto) 7.2 (3-14) % Eos % (Auto) 1.9 L (2-4) % Baso % (Auto) 1.3 (0-2) % Neut # (Auto) 5900 (4945-0114) /uL Lymph # (Auto) 2800 (5657-6767) /uL Eagle # (Auto) 700 (0-900) /uL Eos # (Auto) 200 (0-450) /uL Baso # (Auto) 100 (0-100) /uL Sodium 139 (137-145) mmol/L Potassium 3.4 (3.4-5.1) mmol/L Chloride 98 (98-107) mmol/L Carbon Dioxide 29 (22-32) mmol/L BUN 19 H (7-17) mg/dL Creatinine 1.03 (0.52-1.04) mg/dL Estimated GFR > 60 (>60) mL/min BUN/Creatinine Ratio 18.4 (6-22) Glucose 116 H (70-100) mg/dL Calcium 9.5 (8.4-10.2) mg/dL Total Bilirubin 0.5 (0.2-1.3) mg/dL AST 28 (14-36) IU/L ALT 42 H (<35) IU/L Alkaline Phosphatase 112 (38-126) U/L Total Protein 7.9 (6.3-8.2) g/dL Albumin 4.4 (3.5-5.0) g/dL Globulin 3.5 (1.7-4.1) g/dL Albumin/Globulin Ratio 1.3 (1.0-2.8) Lipase 123 (23-300) U/L Point of care testing: Urine Dip Bedside Urine Glucose Negative Bedside Urine Bilirubin - Negative Bedside Urine Ketone - Negative Urine Specific Fleischmanns 1.015 Bedside Urine Occult Blood - Negative Bedside Urine pH 6 Bedside Urine Protein - Negative Bedside Urine Urobilinogen - Negative Bedside Urine Nitrite - Negative Bedside Urine Leukocytes - Negative Esterase MDM Narrative Medical decision making narrative: 57-year-old female presents to the ED with 2 days of left flank pain wrapping around to the left lower abdomen. Concern for kidney stones versus UTI versus pyelonephritis versus other intra-abdominal pathology versus other. Obtained UA, labs, CT abdomen pelvis. UA was negative for UTI. Labs within normal limits. CT abdomen pelvis with no acute findings. It is possible that patient passed the kidney stone prior to the CT since her symptoms improved over the course of the ED. Patient was also given Zofran, Toradol, Reglan, IV fluids for her symptoms with good improvement. Findings discussed with patient. ED return precautions were discussed with patient. Patient verbalized understanding. Medical records reviewed: Yes <Tyrese Howard MD - Last Filed: 08/28/22 08:03> Lab Data Labs: Lab Results 08/14/22 08/14/22 Range/Units 16:46 16:46 WBC 9.7 (4.5-11.0) X10^3/uL RBC 4.76 (4.0-5.2) X10^6/uL Hgb 13.9 (12.0-16.0) g/dL Hct 40.4 (36-46) % MCV 84.9 (80-100) fL MCH 29.1 (26-34) PG MCHC 34.3 (30-36) % RDW 13.3 (11.6-14.8) % Plt Count 269 (150-400) X10^3/uL Neut % (Auto) 60.4 (50-75) % Lymph % (Auto) 29.2 (25-40) % Eagle % (Auto) 7.2 (3-14) % Eos % (Auto) 1.9 L (2-4) % Baso % (Auto) 1.3 (0-2) % Neut # (Auto) 5900 (4082-5566) /uL Lymph # (Auto) 2800 (8831-7092) /uL Eagle # (Auto) 700 (0-900) /uL Eos # (Auto) 200 (0-450) /uL Baso # (Auto) 100 (0-100) /uL Sodium 139 (137-145) mmol/L Potassium 3.4 (3.4-5.1) mmol/L Chloride 98 (98-107) mmol/L Carbon Dioxide 29 (22-32) mmol/L BUN 19 H (7-17) mg/dL Creatinine 1.03 (0.52-1.04) mg/dL Estimated GFR > 60 (>60) mL/min BUN/Creatinine Ratio 18.4 (6-22) Glucose 116 H (70-100) mg/dL Calcium 9.5 (8.4-10.2) mg/dL Total Bilirubin 0.5 (0.2-1.3) mg/dL AST 28 (14-36) IU/L ALT 42 H (<35) IU/L Alkaline Phosphatase 112 (38-126) U/L Total Protein 7.9 (6.3-8.2) g/dL Albumin 4.4 (3.5-5.0) g/dL Globulin 3.5 (1.7-4.1) g/dL Albumin/Globulin Ratio 1.3 (1.0-2.8) Lipase 123 (23-300) U/L Point of care testing: Urine Dip Bedside Urine Glucose Negative Bedside Urine Bilirubin - Negative Bedside Urine Ketone - Negative Urine Specific Fleischmanns 1.015 Bedside Urine Occult Blood - Negative Bedside Urine pH 6 Bedside Urine Protein - Negative Bedside Urine Urobilinogen - Negative Bedside Urine Nitrite - Negative Bedside Urine Leukocytes - Negative Esterase Discharge Plan Departure Patient Disposition: Home Clinical Impression: Abdominal pain Instructions: DI for Abdominal Pain-Adult Activity Restrictions/Additional Instructions: You were evaluated in the ED today for flank and abdominal pain. Your labs, urine, CT abdomen pelvis did not show any acute findings to explain your symptoms. It is quite possible that you passed the kidney stone prior to the CT, which can also explain why your pain improved in the ED. You were given some ketorolac and IV fluids along with Zofran and Reglan for nausea. Please follow-up with your PCP as soon as possible. If your symptoms worsen, you are persistently vomiting, you have a fever, chills, please return to the ED immedi ately for further evaluation. Prescriptions: No Action losarten 50 mg PO 1XD Paxlovid (EUA) 150 mg x 2- 100 mg tablet See Rx Instructions PO .COMPLEX Qty: 30 0RF Rx Instructions: take TWO 150 mg tablets of nirmatrelvir with ONE 100 mg tablet of ritonavir t wice daily for 5 days PO Cepacol Sore Throat (felice-men) 15-3.6 mg lozenge 1 sonido mucous membrane Q2-4H PRN (Reason: sore throat) Qty: 16 0RF NORTRIPTYLINE HCL (Nortriptyline HCl) 10 mg PO HS Qty: 0 APAP/Dichloralphenazone/Torey (MIDRIN 65 MG-100 MG-325 MG) Qty: 0 cetirizine 10 MG tablet 10 mg PO Q DAY Qty: 0 benzonatate 100 mg capsule 100 mg PO TID PRN (Reason: cough) Qty: 20 0RF Referrals: Mady Leyva ARNP [Primary Care Provider] - Stand Alone Forms: Patient Portal/API <Tyrese Howard MD - Last Filed: 08/28/22 08:03> [facility] Raymundo Attestation: I was immediately available in the department for consultation. ?This documentation has been reviewed and I agree with assessment and plan. Supervised by Tyrese Howard MD
== END 2022-08-14 20:11 | disposition home or self-care (01) ==
PROVIDERS: Emergency Medicine; Emergency Provider Student in an Organized Health Care Education/Training Program; Family Provider Nurse Practitioner Family; PCP Nurse Practitioner Family
DX: R10.32 Left lower quadrant pain (principal)
CPT/HCPCS: 36415; 74177; 80053; 81003; 83690; 85025; 96361; 96374; 96375; 99284; J1885; J2405; J2765

== ENCOUNTER → 2023-01-15 12:35 | Outpatient (CLI) | payer MEDICARE, MEDICAID, SELFPAY ==
--- NOTE | 2023-01-15 | DI.MG.S_ITS ---
BILATERAL DIGITAL SCREENING MAMMOGRAM 3D/2D WITH CAD: 01/15/2023 CLINICAL: Routine screening. Family history of breast cancer. Comparison is made to exams dated: 01/08/2022 mammogram - [facility], 03/08/2020 mammogram, and 10/29/2016 mammogram - [facility]. Both breasts are heterogeneously dense, which may obscure small masses (category c / 51-75% glandular tissue). Current study was also evaluated with a Computer Aided Detection (CAD) system. There is a 0.6 cm x 0.4 cm oval asymmetry with a circumscribed margin in the right breast middle depth medial region seen on the craniocaudal view only. This is seen in additional views. No other significant masses, calcifications, or other findings are seen in either breast. IMPRESSION: INCOMPLETE: NEEDS ADDITIONAL IMAGING EVALUATION The 0.6 cm x 0.4 cm oval asymmetry in the right breast is indeterminate. Additional views with possible ultrasound are recommended. Based on the Tyrer Cuzick model (a risk assessment model) the patient's lifetime risk is 13.2% and her 10 year risk is 4.4%. According to the ACR, ACS, and NCCN guidelines, an annual breast MRI exam along with mammogram is recommended if the patient's lifetime risk is 20% or greater. This exam was interpreted at Station ID: [id number]. NOTE: For mammograms, a report in lay terms will be sent to the patient. Approximately 15% of breast malignancies will not be visualized mammographically. In the management of a palpable breast mass, a negative mammogram must not discourage biopsy of a clinically suspicious lesion. Electronically Signed By: Ryan Byoce M.D. acr/:01/15/2023 16:07:27 letter sent: Additional Imaging Needed ACR BI-RADS Category 0: Incomplete 3340F
== END ==
PROVIDERS: Family Provider Nurse Practitioner Family; PCP Nurse Practitioner Family; Referring Provider Nurse Practitioner Family; Visit Provider Nurse Practitioner Family
DX: Z12.31 Encounter for screening mammogram for malignant neoplasm of breast (principal); Z80.3 Family history of malignant neoplasm of breast
CPT/HCPCS: 77063; 77067

== ENCOUNTER → 2023-01-25 09:17 | Outpatient (CLI) | payer MEDICARE, MEDICAID, SELFPAY ==
--- NOTE | 2023-01-25 | DI.US.S_ITS ---
ULTRASOUND OF RIGHT BREAST: 01/25/2023 CLINICAL: Patient returns today to evaluate an asymmetry in the right breast. Comparison is made to exams dated: 01/25/2023 mammogram, 01/15/2023 mammogram, 01/08/2022 mammogram - [facility], 03/08/2020 mammogram, 11/08/2016 mammogram, and 10/29/2016 mammogram - [facility]. Real-time ultrasound of the right breast was performed. Liriano scale images of the real-time examination were reviewed. No significant abnormalities were seen sonographically in the right breast. IMPRESSION: PROBABLY BENIGN There is no abnormality seen in the right breast to correspond with the mammography finding which likely represents normal fibroglandular tissue and is probably benign. A follow-up right mammogram with possible right ultrasound in 6 months is recommended to demonstrate stability. Findings and recommendations were conveyed to the patient during today's evaluation. This exam was interpreted at Station ID: [id number]. Electronically Signed By: Von Anderson M.D. at/:01/25/2023 10:40:30 letter sent: Followup Recommended Ultrasound BI-RADS: 3 Probably benign
--- NOTE | 2023-01-25 | DI.MG.S_ITS ---
UNILATERAL RIGHT DIGITAL DIAGNOSTIC MAMMOGRAM 3D/2D WITH ADDITIONAL VIEWS: 01/25/2023 CLINICAL: Additional evaluation requested from prior study. Comparison is made to exams dated: 01/15/2023 mammogram, 01/08/2022 mammogram - [facility], and 03/08/2020 mammogram - [facility]. The right breast is heterogeneously dense, which may obscure small masses (category c / 51-75% glandular tissue). There is a 0.6 cm oval equal density focal asymmetry in the right breast central to the nipple middle depth. This is seen in additional views but appears less prominent. No other significant masses or calcifications are seen in the breast. IMPRESSION: INCOMPLETE: NEEDS ADDITIONAL IMAGING EVALUATION The 0.6 cm oval equal density focal asymmetry in the right breast resembles a cyst or a lymph node and is indeterminate. An ultrasound is recommended for further evaluation and is scheduled to immediately follow this examination. Based on the Tyrer Cuzick model (a risk assessment model) the patient's lifetime risk is 13.2% and her 10 year risk is 4.4%. According to the ACR, ACS, and NCCN guidelines, an annual breast MRI exam along with mammogram is recommended if the patient's lifetime risk is 20% or greater. This exam was interpreted at Station ID: [id number]. NOTE: For mammograms, a report in lay terms will be sent to the patient. Approximately 15% of breast malignancies will not be visualized mammographically. In the management of a palpable breast mass, a negative mammogram must not discourage biopsy of a clinically suspicious lesion. Electronically Signed By: Von Anderson M.D. aty/:01/25/2023 10:13:14 ACR BI-RADS Category 0: Incomplete 3340F
== END ==
PROVIDERS: Family Provider Nurse Practitioner Family; PCP Nurse Practitioner Family; Referring Provider Nurse Practitioner Family; Visit Provider Nurse Practitioner Family
DX: R92.8 Other abnormal and inconclusive findings on diagnostic imaging of breast (principal)
CPT/HCPCS: 76642; 77065; G0279

== ENCOUNTER 2023-03-04 17:15 | Emergency (ER) | payer MEDICARE, MEDICAID, SELFPAY ==
[2023-03-04 17:16] VITALS: BP 135/67; PULSE 80; RESP 18; TEMP 36.7; O2SAT 96
[2023-03-04 17:37] LABS: COVID19 -Nasal RAPID POSITIVE (Negative)
--- NOTE | 2023-03-04 19:21 | ED.HA ---
HPI - Headache General Chief Complaint: Headache Stated Complaint: Headache, Dizzy, Lightheaded Time Seen by Provider: 03/04/23 19:21 History of Present Illness HPI Narrative: 57-year-old woman with a history hypertension began having mild upper respiratory symptoms approximately 6 days ago that significantly improved within about 4 days. She did have a positive home COVID test. She assumed that she was getting better until today when she began having increasing sinus pressure, frontal headaches dizziness and ear pain. She comes in for further evaluation. She is not having fever, cough, chills, abdominal pain, nausea or vomiting. The initial COVID symptoms were minimal at best and included mild headache and a stuffy nose. Related Data Home Medications Medication Instructions Recorded Confirmed APAP/Dichloralphenazone/Torey ##0 01/22/11 03/05/22 (MIDRIN 65 MG-100 MG-325 MG) NORTRIPTYLINE HCL (Nortriptyline 10 mg PO HS ##0 01/22/11 03/05/22 HCl) cetirizine 10 mg tablet 10 mg PO Q DAY ##0 01/22/11 03/05/22 losarten PO 1XD 01/08/22 03/05/22 Previous Rx's Medication Instructions Recorded benzocaine 15 mg-menthol 3.6 mg 1 sonido mucous membrane Q2-4H PRN 01/08/22 lozenges (Cepacol Sore Throat sore throat #16 ea (benzocaine-menthol)) nirmatrelvir 300 mg (150 mg See Rx Instructions PO .COMPLEX 01/08/22 x2)-ritonavir 100 mg tablet,dose #30 tabs pack (Paxlovid) benzonatate 100 mg capsule 100 mg PO TID PRN cough #20 caps 04/11/22 Allergies Allergy/AdvReac Type Severity Reaction Status Date / Time bee pollen Allergy Severe Hives Verified 08/14/22 16:21 shellfish derived Allergy Severe Hives Verified 08/14/22 16:21 Sulfa (Sulfonamide Allergy Severe Hives Verified 08/14/22 16:21 Antibiotics) naproxen [From Naprosyn] Allergy Unknown Verified 08/14/22 16:21 aspirin Allergy Verified 08/14/22 16:21 Penicillins Allergy Verified 08/14/22 16:21 Review of Systems Review of Systems Narrative: Pertinent positive and negative findings as per HPI Patient History Medical History Psoriasis Social History Smoking Status: Former smoker Smoking Status: Former smoker alcohol intake frequency: holidays/special occasions only Substance Use Type: does not use Exam Initial Vital Signs Initial Vital Signs: Vital Signs Temperature 98.0 F 03/04/23 17:16 Pulse Rate 80 03/04/23 17:16 Respiratory Rate 18 03/04/23 17:16 Blood Pressure 135/67 03/04/23 17:16 Pulse Oximetry 96 03/04/23 17:16 Oxygen Delivery Method Room Air 03/04/23 17:16 General: Healthy appearing, in no acute distress. Able to give a complete and coherent history. Well-nourished well-developed HEENT: Moist mucous membranes, normal sclera with reactive pupils, tympanic membranes occluded bilaterally with cerumen. This is removed with both mechanical removal as well as irrigation on the left side. Tympanic membranes after cerumen removed are normal bilaterally Neck: No cervical adenopathy, supple Respiratory: Lungs are clear to auscultation, no wheezing no rales no rhonchi. Full and symmetrical air movement Cardiac: Regular rate and rhythm no murmurs no bruits Abdomen: Soft, nontender, good bowel tones, no flank pain Skin: Warm and dry, no rashes Neurologic: Grossly neurologically intact with no obvious asymmetries or abnormalities Extremities: No trauma, well perfused Psych: Cooperative, appropriate insight and affect Procedures Ear Wax Removal Both Ears: Time of procedure: 19:50 Results: Re-examined: cerumen removed completely TM Examination: TM(s) intact, normal appearance Ear Canal Exam: atraumatic Patient Tolerated Procedure: Well Complications: no problems Technique: ear canal irrigated and ear canal curetted Course Orders Ordered: ED Orders 03/04/23 17:24 COVID19 -Nasal RAPID Stat Vital Signs Vital signs: Vital Signs - 8 hr 03/04/23 17:16 Temperature 98.0 F Pulse Rate 80 Respiratory Rate 18 Blood Pressure 135/67 Pulse Oximetry 96 Oxygen Delivery Method Room Air MDM - Headache Lab Data Labs: Lab Results 03/04/23 Range/Units 17:24 SARS-CoV-2 (PCR) Positive H (Negative) MDM Narrative Medical decision making narrative: CC: Day 6 of COVID, worsening headache and dizziness today Complicating co-morbidities: Hypertension Data collected from: patient, Differential considered: Worsening COVID, acute sinusitis, meningitis, stroke, vestibulitis, labyrinthitis, cerumen occlusion Exam documented above, pertinent findings include: Normal exam with the exception of bilateral cerumen occlusion Treatments: Cerumen removed and symptoms were significantly improved Discussion: Resolving COVID infection with likely mild labyrinthitis secondary to persistent nasal stuffiness and bilaterally occluded tympanic membranes. Once the ear wax was removed tympanic membranes were unremarkable. She has had sinus issues in the past and has had success with using saline nasal rinses and will go back to this. At this point she is past her 5 day infectivity window and as long as she feels well can go about activities as usual. She is safe for discharge Discharge Plan Departure Patient Disposition: Home Clinical Impression: COVID, Bilateral impacted cerumen, Headache Instructions: DI for Cerumen Impaction, DI for Viral Upper Respiratory Infection -- Adult Activity Restrictions/Additional Instructions: Thank you for coming in today I suspect that you had your very mild episode of COVID and still had some sinus fullness as a residual. Then with both ears blocked with ear wax that combination was causing your dizziness. I would recommend that you go back to using your saline nasal rinses (netti pot) to help with the sinus headache and sinus fullness. Tylenol and ibuprofen can be helpful. I was able to get the wax out of both ears and I suspect that will make a nice difference as well. If you find that you are getting worse or develop any new symptoms, please feel free to return to the emergency department for further evaluation. Prescriptions: No Action losarten 50 mg PO 1XD Paxlovid 150 mg x 2- 100 mg tablet See Rx Instructions PO .COMPLEX Qty: 30 0RF Rx Instructions: take TWO 150 mg tablets of nirmatrelvir with ONE 100 mg tablet of ritonavir twice daily for 5 days PO Cepacol Sore Throat (felice-men) 15-3.6 mg lozenge 1 sonido mucous membrane Q2-4H PRN (Reason: sore throat) Qty: 16 0RF NORTRIPTYLINE HCL (Nortriptyline HCl) 10 mg PO HS Qty: 0 APAP/Dichloralphenazone/Torey (MIDRIN 65 MG-100 MG-325 MG) Qty: 0 cetirizine 10 MG tablet 10 mg PO Q DAY Qty: 0 benzonatate 100 mg capsule 100 mg PO TID PRN (Reason: cough) Qty: 20 0RF Referrals: Mady Leyva ARNP [Primary Care Provider] - Stand Alone Forms: Patient Portal/API
[2023-03-04 19:51] VITALS: BP 128/77; PULSE 72; RESP 18; O2SAT 99
== END 2023-03-04 19:53 | disposition home or self-care (01) ==
PROVIDERS: Emergency Medicine; Emergency Provider Emergency Medicine; Family Provider Nurse Practitioner Family; PCP Nurse Practitioner Family
DX: U07.1 COVID-19 (principal); H61.23 Impacted cerumen, bilateral; R51.9 Headache, unspecified
CPT/HCPCS: 69209; 87635; 99281; 99283; C9803

== ENCOUNTER → 2023-03-19 09:54 | Outpatient (CLI) | payer MEDICARE, MEDICAID, SELFPAY ==
[2023-03-19 10:43] LABS: Add Manual Diff / Slide Review NO; Basophils Absolute Auto 100 /uL (0-100); Basophils Percent Auto 0.5 % (0-2); Eosinophils Absolute Auto 200 /uL (0-450); Eosinophils Percent Auto 1.8 % (2-4); Hematocrit 42.7 % (36-46); Hemoglobin 14.4 g/dL (12.0-16.0); Lymphocytes Absolute Auto 3200 /uL (1100-4500); Lymphocytes Percent Auto 33.3 % (25-40); Mean Corpuscular HGB Conc 33.7 % (30-36); Mean Corpuscular Hemoglobin 28.8 PG (26-34); Mean Corpuscular Volume 85.2 fL (80-100); Monocytes Absolute Auto 700 /uL (0-900); Monocytes Percent Auto 7.1 % (3-14); Neutrophils Absolute Auto 5400 /uL (1500-7000); Neutrophils Percent Auto 57.3 % (50-75); Platelet Count 315 X10^3/uL (150-400); Red Blood Cell Count 5.02 X10^6/uL (4.0-5.2); Red Cell Distribution Width 13.5 % (11.6-14.8); White Blood Cell Count 9.5 X10^3/uL (4.5-11.0)
[2023-03-19 10:52] LABS: Hemoglobin A1C% w Est Avg Glu 5.8 % (4.0-6.0)
[2023-03-19 11:14] LABS: Alanine Aminotransferase 38 IU/L (<35); Albumin 4.5 g/dL (3.5-5.0); Albumin Globulin Ratio 1.4 (1.0-2.8); Alkaline Phosphatase 109 U/L (38-126); Aspartate Aminotransferase 27 IU/L (14-36); BUN Creatinine Ratio 23.5 (6-22); Bilirubin Total 0.5 mg/dL (0.2-1.3); Blood Urea Nitrogen 20 mg/dL (7-17); Calcium 10.2 mg/dL (8.4-10.2); Carbon Dioxide 31 mmol/L (22-32); Chloride 97 mmol/L (98-107); Cholesterol 241 mg/dL (140-199); Estimated Glomerular Filt Rate > 60 mL/min (>60); Globulin 3.3 g/dL (1.7-4.1); Glucose 108 mg/dL (70-100); HDL Cholesterol 55 mg/dL (40-60); HEMOLYSIS < 15 (0-50); LDL Cholesterol Calculated 148 mg/dL (<100); Potassium 3.4 mmol/L (3.4-5.1); Sodium 138 mmol/L (137-145); Total Protein 7.8 g/dL (6.3-8.2); Triglycerides 188 mg/dL (35-150)
[2023-03-19 11:31] LABS: Creatinine Urine Random 161.5 mg/dL
[2023-03-19 11:37] LABS: Microalbumi Creatinin Ratio Ur 5.5 ug/mg CR (<30); Microalbumin Urine Random 0.9 mg/dL (0-1.6)
[2023-03-19 11:41] LABS: Ferritin 154 ng/mL (11-264)
== END ==
PROVIDERS: Family Provider Nurse Practitioner Family; PCP Nurse Practitioner Family; Referring Provider Nurse Practitioner Family; Visit Provider Nurse Practitioner Family
DX: R79.89 Other specified abnormal findings of blood chemistry (principal); I10 Essential (primary) hypertension; R73.01 Impaired fasting glucose
CPT/HCPCS: 36415; 80053; 80061; 82043; 82570; 82728; 83036; 85025

== ENCOUNTER 2023-03-21 09:00 | Outpatient (RCR) | payer MEDICARE, MEDICAID, SELFPAY ==
--- NOTE | 2023-02-06 08:55 | PT.OPPOC ---
Physical, Occupational & Speech Therapy At [facility] Current Diagnoses Achilles tendinitis, right leg (02/06/23) Visit Care Team Role Provider Type CHANI Mack Attending Provider Non-Staff Family Provider Primary Care Provider Referring Provider Specialty: Medical Address: [address] [place] [address], [phone] Email: Plan Of Care PT-OP-T Assessment and Plan Start: 02/05/23 15:34 Freq: Status: Active Protocol: Document 02/06/23 08:55 AM (Rec: 02/06/23 10:24 AM [id number]) Physical Therapy Assessment Rehab Potential Rehabilitation Potential Good Evaluation Complexity Number of Personal Factors/Comorbidities 1-2 Number of Body Systems Impaired 1-2 Clinical Presentation at Evaluation Stable Impairments Impairments Activity Tolerance,Balance, Edema,Functional Activities, Functional Mobility,Gait,Pain, ROM,Soft Tissue Mobility, Strength Goals Five Impairment Balance Impairment Pt unable to SLS on R LE secondary to pain Short Term Goal (STG) Pt able to SLS for 5 seconds on ea LE. STG Duration 3 weeks Penitentiary Goal (LTG) Pt able to SLS for 10 seconds on ea LE LTG Duration 6 weeks Four Impairment LEFS Impairment Pt with score of 44/80 on LEFS . Penitentiary Goal (LTG) Pt with LEFS of 65/80. LTG Duration 6 weeks Three Impairment Pain with driving Impairment Pt unable to drive without increase in pain. Manager Science Goal (LTG) Pt to report that she is able to drive desired distance without increase in pain by 1- 2 points on 0-10 scale. LTG Duration 6 weeks Two Impairment Difficulty walking Impairment Pt reports that she is unable to ambulate 3 blocks with SPC, secondary to pain. Short Term Goal (STG) Pt able to ambulate 3 blocks with proper heel strike without increase in pain more than 2 points on 0-10 scale. STG Duration 3 weeks Penitentiary Goal (LTG) Pt able to ambulate 5 blocks without increase in pain more than 2 points on 0-10 scale. LTG Duration 6 weeks One Impairment Pt with limited dorsiflexion ROM Impairment Pt's dorsiflexion with knee extended ROM at 3 degrees Short Term Goal (STG) Pt will demonstrate improvement in ankle dorsiflexion ROM to 8 degrees. STG Duration 3 weeks Manager Science Goal (LTG) Pt will demonstrate improvement in ankle dorsiflexion ROM to 12 degrees LTG Duration 6 weeks Assessment Summary Assessment Brooklyn Bruno presents to PT to address R achilles pain and difficulty with ambulation. Pt demonstrates limitations in R ankle ROM and strength in all directions. Pt with inability to demonstrate heel strike during gait secondary to ankle dorsiflexion ROM restrictions and pain. Pt demonstrated tenderness at achilles and posterior heel with palpation. Pt demonstrate edema at foot and lateral ankle. Pt demonstrates inability to bear weight on R LE in SLS secondary to pain. Pt is able to do heel raise with bilateral LE without production of increased pain. Pt demonstrates moderate limitations at R hamstring compare to L. Pt tolerated HEP well, though requires cueing to avoid painful ranges with exercises. Pt would benefit from continued PT to progress ankle ROM/strength to improve gait pattern and tolerance to functional tasks. Physical Therapy Plan Frequency and Duration Frequency of Treatment 2x/Week Duration of treatment (weeks) 6 Plan of Care Start Date 02/06/23 Plan of Care End Date 03/20/23 Therapeutic Interventions Therapeutic Interventions Balance Training,Gait Training ,Home Exercise Program,Joint Mobilizations,Manual Therapy, Neuromuscular Re-education, Patient/Caregiver Education, Self-Care/Home Management,Soft Tissue Mobilization,Taping, Therapeutic Activities, Therapeutic Exercises Modalities Cold Pack/Ice Massage,Electric Stimulation,Hot Packs, Ultrasound Next Visit Focus/Plan Next Note Type Treatment Note Next Visit Plan Progress LE strength and ankle mobility as tolerated. Utilize manual tecnniques to decrease pain. Continue to tape if effective. Plan of Care Dates Plan of Care Start Date 02/06/23 Plan of Care End Date 03/20/23 Electronically Signed by: Claudia Sanford PT 02/06/23 0567 If you are in agreement with this Plan of Care, please return a signed and dated copy. I have reviewed this Plan of Care and certify that the skilled therapy services above are required to meet the patient?s needs. Physician Signature Date Printed Name and Credentials Clinical Instructor Signature Printed Name and Credentials
--- NOTE | 2023-02-06 15:16 | PT.OIE ---
Addendum entered and electronically signed by Claudia Sanford, PT 02/07/23 09:02: Kinesiotape applied to R achilles, 1 webbed on ea med and lat ankle for edema, I strip for achilles assist from medial calf to heel Original Note: Addendum entered and electronically signed by Claudia Sanford, PT 02/06/23 16:24: Exercises include: seated calf stretch with towel, standing calf raise with 5 second hold at the top, seated hamstring stretch; each added to HEP Original Note: Current Diagnoses Achilles tendinitis, right leg (02/06/23) Past Medical History (Last Reviewed 08/21/22 @ 21:02 by Elba Mendoza PA-C) Psoriasis Visit Care Team Role Provider Type CHANI Mack Attending Provider Non-Staff Family Provider Primary Care Provider Referring Provider Specialty: Medical Address: [address] [place] [address], [phone] Email: Physical Therapy Initial Evaluation PT-OP-A Visit Information Start: 02/05/23 15:34 Freq: Status: Active Protocol: Document 02/06/23 08:55 AM (Rec: 02/06/23 10:24 AM [id number]) Out-Patient Physical Therapy Visit Information Visit Information Visit Type Initial Evaluation Visit Start Time 09:03 Visit Stop Time 09:48 Total Visit Minutes 45 Visit Number 1 Evaluation Information Evaluation Date 02/06/23 PT-OP-B Current Condition Start: 02/05/23 15:34 Freq: Status: Active Protocol: Document 02/06/23 08:55 AM (Rec: 02/06/23 10:24 AM [id number]) Current Condition History of Current Condition Onset Date 1 month ago Current Complaints Pain at posterior heel and achilles History of Current Condition Pt slipped on ice in 2017. In 2018 she found that she had more extensive damage from that event, which required surgery. 1 month ago pt was descending stairs and slipped on the last 2 stairs, which caused current exacerbation. Pt has been using SPC full- time for one month. Pt has used SPC intermittently in the past. Prior Treatments and Tests Pt reports that she saw her referring provider and they did not do imaging at this time. Pt is taking tylenol as needed. Future Testing and Treatments Planned Pt plans to go back to surgeon (from 2018) if symptoms do not resolve. Treatment Goals Patient/Caregiver Goals To be able to drive, walk and stand without increase in pain . Current Functional Impairments (Reported) Functional Limitations- ADL's Difficulty walking Functional Limitations- Mobility/Gait Pt only able to walk 2-3 blocks before pain prevents her from continuing. PT-OP-C Subjective Start: 02/05/23 15:34 Freq: Status: Active Protocol: Document 02/06/23 08:55 AM (Rec: 02/06/23 10:24 AM [id number]) OP-PT Subjective Patient Comments Patient Reported Progress Same Patient Questionnaires Foot & Ankle Ability Measure- ADL and Sports FAAM-ADL Score 66 FAAM-ADL Impairment 20 to 39% Impaired (Score 50- 66) Lower Extremity Functional Scale LEFS Score 44 LEFS Impairment 40 to 59% Impaired (Score 32- 47) OP-PT Pain Assessment Pain Assessment Grid Paper Pain Assessment Grid Completed Yes Location Right Posterior Lateral Ankle Pain Location Details Pain at heel, distal achilles Intensity 7 Scale Used Numeric (0 - 10) Description Aching,Spasm,Stabbing,Tender Frequency Daily Pain Aggravating Factors Changing Position,ADL's, Activity,Exercise,Standing, Walking,Stair Climbing Pain Alleviating Factors Inactivity,Elevation,Changing Position,Rest Other Pain Alleviating Factors Pt reports that ice worsens symptoms Home Pain Medication Use Pain Medications Used Yes: tylenol Home Pain Medication Frequency as needed Pain Behaviors Pain Behaviors Guarding,Restlessness PT-OP-D Balance Start: 02/05/23 15:34 Freq: Status: Active Protocol: Document 02/06/23 08:55 AM (Rec: 02/06/23 10:24 AM [id number]) OP-PT Balance Assessment Standing Balance Static Standing Balance Ability Poor Dynamic Standing Balance Ability Poor Device Used SPC Standing Balance Comments Pt unable to bear weight on R LE for SLS. Pt able to bear weight on L, though unable to balance >3 sec Balance Tests Single Limb Standing Single Limb- Right 0 Single Limb- Left 3 Barrios Fall Scale Copyright Permission PT-OP-G Mobility & Gait Start: 02/05/23 15:34 Freq: Status: Active Protocol: Document 02/06/23 08:55 AM (Rec: 02/06/23 10:24 AM [id number]) OP Gait Assessment Gait Gait Assistance Required: Independent Assistive Devices Assistive Device Straight Cane Orthotic/Prosthetic Devices or Brace: No Gait Deviations General Gait Pattern Antalgic,Decreased Stride Length Factors Limiting Gait Function Factors Limiting Gait Function Decreased Strength,Limited Range of Motion,Pain Comments Gait Comments Pt unable to demonstrate heel strike on right. Pt maintains R ankle plantarflexion during gait, secondary to pain. PT-OP-J Posture/Palpation/Skin Start: 02/05/23 15:34 Freq: Status: Active Protocol: Document 02/06/23 08:55 AM (Rec: 02/06/23 10:24 AM [id number]) Posture Evaluation Position Standing Ankle/Foot Posture (L) Pronated,(R) Pronated Foot Arch (L) Medium Arch,(R) Low Arch Palpation Assessment Location One Palpation Location R achilles/ankle Palpation Findings Edema,Soft Tissue Tightness, Tenderness Palpation Details at distal achilles, heel, minimal discomfort at calf PT-OP-K Range of Motion Start: 02/05/23 15:34 Freq: Status: Active Protocol: Document 02/06/23 08:55 AM (Rec: 02/06/23 10:24 AM [id number]) Knee Goniometric Range of Motion Knee Right Knee ROM WFL Yes Comments R hamstring limited compared to L. Ankle and Foot Goniometric Range of Motion Ankle and Foot Left Active Ankle/Foot ROM WFL Yes Testing Position Supine Dorsiflexion with Knee Flexed 12 Dorsiflexion with Knee Extended 12 Plantarflexion 35 Inversion 39 Eversion 20 Right Ankle/Foot ROM WFL No Testing Position Supine Dorsiflexion with Knee Flexed 3 Dorsiflexion with Knee Extended 3 Plantarflexion 20 Inversion 26 Eversion 8 Ankle and Foot ROM Limitations ROM Limitations Soft Tissue Tightness,Muscle Weakness,Pain,Swelling PT-OP-L Special Tests Start: 02/05/23 15:34 Freq: Status: Active Protocol: Document 02/06/23 08:55 AM (Rec: 02/06/23 10:24 AM [id number]) Special Tests Foot/Ankle Special Tests Zarco Test Results negative Other Special Tests Special Tests neg haglands, negative royal davila test on R PT-OP-M Strength Start: 02/05/23 15:34 Freq: Status: Active Protocol: Document 02/06/23 08:55 AM (Rec: 02/06/23 10:24 AM [id number]) Ankle/Foot Strength Ankle and Foot Manual Muscle Testing Left Dorsiflexion (L4) 5 Normal Plantarflexion (S1) 5 Normal Inversion 5 Normal Eversion (S1) 5 Normal Right Dorsiflexion (L4) 3+ Fair+ Plantarflexion (S1) 3+ Fair+ Inversion 3 Fair Eversion (S1) 3 Fair Comments Pt able to do heel raise in standing position with bilateral LE PT-OP-T Assessment and Plan Start: 02/05/23 15:34 Freq: Status: Active Protocol: Document 02/06/23 08:55 AM (Rec: 02/06/23 10:24 AM [id number]) Physical Therapy Assessment Rehab Potential Rehabilitation Potential Good Evaluation Complexity Number of Personal Factors/Comorbidities 1-2 Number of Body Systems Impaired 1-2 Clinical Presentation at Evaluation Stable Impairments Impairments Activity Tolerance,Balance, Edema,Functional Activities, Functional Mobility,Gait,Pain, ROM,Soft Tissue Mobility, Strength Goals Five Impairment Balance Impairment Pt unable to SLS on R LE secondary to pain Short Term Goal (STG) Pt able to SLS for 5 seconds on ea LE. STG Duration 3 weeks Housekeeping Attendant Goal (LTG) Pt able to SLS for 10 seconds on ea LE LTG Duration 6 weeks Four Impairment LEFS Impairment Pt with score of 44/80 on LEFS . Housekeeping Attendant Goal (LTG) Pt with LEFS of 65/80. LTG Duration 6 weeks Three Impairment Pain with driving Impairment Pt unable to drive without increase in pain. Snf Goal (LTG) Pt to report that she is able to drive desired distance without increase in pain by 1- 2 points on 0-10 scale. LTG Duration 6 weeks Two Impairment Difficulty walking Impairment Pt reports that she is unable to ambulate 3 blocks with SPC, secondary to pain. Short Term Goal (STG) Pt able to ambulate 3 blocks with proper heel strike without increase in pain more than 2 points on 0-10 scale. STG Duration 3 weeks Snf Goal (LTG) Pt able to ambulate 5 blocks without increase in pain more than 2 points on 0-10 scale. LTG Duration 6 weeks One Impairment Pt with limited dorsiflexion ROM Impairment Pt's dorsiflexion with knee extended ROM at 3 degrees Short Term Goal (STG) Pt will demonstrate improvement in ankle dorsiflexion ROM to 8 degrees. STG Duration 3 weeks Housekeeping Attendant Goal (LTG) Pt will demonstrate improvement in ankle dorsiflexion ROM to 12 degrees LTG Duration 6 weeks Assessment Summary Assessment Brooklyn Bruno presents to PT to address R achilles pain and difficulty with ambulation. Pt demonstrates limitations in R ankle ROM and strength in all directions. Pt with inability to demonstrate heel strike during gait secondary to ankle dorsiflexion ROM restrictions and pain. Pt demonstrated tenderness at achilles and posterior heel with palpation. Pt demonstrate edema at foot and lateral ankle. Pt demonstrates inability to bear weight on R LE in SLS secondary to pain. Pt is able to do heel raise with bilateral LE without production of increased pain. Pt demonstrates moderate limitations at R hamstring compare to L. Pt tolerated HEP well, though requires cueing to avoid painful ranges with exercises. Pt would benefit from continued PT to progress ankle ROM/strength to improve gait pattern and tolerance to functional tasks. Physical Therapy Plan Frequency and Duration Frequency of Treatment 2x/Week Duration of treatment (weeks) 6 Plan of Care Start Date 02/06/23 Plan of Care End Date 03/20/23 Therapeutic Interventions Therapeutic Interventions Balance Training,Gait Training ,Home Exercise Program,Joint Mobilizations,Manual Therapy, Neuromuscular Re-education, Patient/Caregiver Education, Self-Care/Home Management,Soft Tissue Mobilization,Taping, Therapeutic Activities, Therapeutic Exercises Modalities Cold Pack/Ice Massage,Electric Stimulation,Hot Packs, Ultrasound Next Visit Focus/Plan Next Note Type Treatment Note Next Visit Plan Progress LE strength and ankle mobility as tolerated. Utilize manual tecnniques to decrease pain. Continue to tape if effective.
--- NOTE | 2023-02-15 10:34 | PT.OTN ---
Current Diagnoses Achilles tendinitis, right leg (02/15/23) Physical Therapy Treatment Note PT-OP-A Visit Information Start: 02/05/23 15:34 Freq: Status: Active Protocol: Document 02/15/23 10:34 AM (Rec: 02/15/23 11:32 AM [id number]) Out-Patient Physical Therapy Visit Information Visit Information Visit Type Treatment Note Visit Start Time 10:34 Visit Stop Time 11:19 Total Visit Minutes 45 Visit Number 2 Number of FINAL OPERATIONS TECHNICIAN Visits 0 PT-OP-B Current Condition Start: 02/05/23 15:34 Freq: Status: Active Protocol: Document 02/15/23 10:34 AM (Rec: 02/15/23 11:32 AM [id number]) Current Condition History of Current Condition Onset Date 1 month ago Current Complaints Pain at posterior heel and achilles History of Current Condition Pt slipped on ice in 2017. In 2018 she found that she had more extensive damage from that event, which required surgery. 1 month ago pt was descending stairs and slipped on the last 2 stairs, which caused current exacerbation. Pt has been using SPC full- time for one month. Pt has used SPC intermittently in the past. Prior Treatments and Tests Pt reports that she saw her referring provider and they did not do imaging at this time. Pt is taking tylenol as needed. Future Testing and Treatments Planned Pt plans to go back to surgeon (from 2018) if symptoms do not resolve. PT-OP-C Subjective Start: 02/05/23 15:34 Freq: Status: Active Protocol: Document 02/15/23 10:34 AM (Rec: 02/15/23 11:32 AM [id number]) OP-PT Subjective Patient Comments Patient Comments Pt reports pain at a 4/10 today. Pt reports that her symptoms have improved some. Pt reports that she is focusing on trying to put her heel down when she walks. Pt reports that she had a head cold earlier this week, which is why she missed her appt. Pt reports that she has been walking at home without AD. PT-OP-D Balance Start: 02/05/23 15:34 Freq: Status: Active Protocol: Document 02/06/23 08:55 AM (Rec: 02/06/23 10:24 AM [id number]) OP-PT Balance Assessment Standing Balance Static Standing Balance Ability Poor Dynamic Standing Balance Ability Poor Device Used SPC Standing Balance Comments Pt unable to bear weight on R LE for SLS. Pt able to bear weight on L, though unable to balance >3 sec Balance Tests Single Limb Standing Single Limb- Right 0 Single Limb- Left 3 Barrios Fall Scale Copyright Permission PT-OP-G Mobility & Gait Start: 02/05/23 15:34 Freq: Status: Active Protocol: Document 02/06/23 08:55 AM (Rec: 02/06/23 10:24 AM [id number]) OP Gait Assessment Gait Gait Assistance Required: Independent Assistive Devices Assistive Device Straight Cane Orthotic/Prosthetic Devices or Brace: No Gait Deviations General Gait Pattern Antalgic,Decreased Stride Length Factors Limiting Gait Function Factors Limiting Gait Function Decreased Strength,Limited Range of Motion,Pain Comments Gait Comments Pt unable to demonstrate heel strike on right. Pt maintains R ankle plantarflexion during gait, secondary to pain. PT-OP-J Posture/Palpation/Skin Start: 02/05/23 15:34 Freq: Status: Active Protocol: Document 02/06/23 08:55 AM (Rec: 02/06/23 10:24 AM [id number]) Posture Evaluation Position Standing Ankle/Foot Posture (L) Pronated,(R) Pronated Foot Arch (L) Medium Arch,(R) Low Arch Palpation Assessment Location One Palpation Location R achilles/ankle Palpation Findings Edema,Soft Tissue Tightness, Tenderness Palpation Details at distal achilles, heel, minimal discomfort at calf PT-OP-K Range of Motion Start: 02/05/23 15:34 Freq: Status: Active Protocol: Document 02/06/23 08:55 AM (Rec: 02/06/23 10:24 AM [id number]) Knee Goniometric Range of Motion Knee Right Knee ROM WFL Yes Comments R hamstring limited compared to L. Ankle and Foot Goniometric Range of Motion Ankle and Foot Left Active Ankle/Foot ROM WFL Yes Testing Position Supine Dorsiflexion with Knee Flexed 12 Dorsiflexion with Knee Extended 12 Plantarflexion 35 Inversion 39 Eversion 20 Right Ankle/Foot ROM WFL No Testing Position Supine Dorsiflexion with Knee Flexed 3 Dorsiflexion with Knee Extended 3 Plantarflexion 20 Inversion 26 Eversion 8 Ankle and Foot ROM Limitations ROM Limitations Soft Tissue Tightness,Muscle Weakness,Pain,Swelling PT-OP-L Special Tests Start: 02/05/23 15:34 Freq: Status: Active Protocol: Document 02/06/23 08:55 AM (Rec: 02/06/23 10:24 AM [id number]) Special Tests Foot/Ankle Special Tests Zarco Test Results negative Other Special Tests Special Tests neg hag[place], negative royal davila test on R PT-OP-M Strength Start: 02/05/23 15:34 Freq: Status: Active Protocol: Document 02/06/23 08:55 AM (Rec: 02/06/23 10:24 AM [id number]) Ankle/Foot Strength Ankle and Foot Manual Muscle Testing Left Dorsiflexion (L4) 5 Normal Plantarflexion (S1) 5 Normal Inversion 5 Normal Eversion (S1) 5 Normal Right Dorsiflexion (L4) 3+ Fair+ Plantarflexion (S1) 3+ Fair+ Inversion 3 Fair Eversion (S1) 3 Fair Comments Pt able to do heel raise in standing position with bilateral LE PT-OP-Q Treatments Start: 02/05/23 15:34 Freq: Status: Active Protocol: Document 02/15/23 10:34 AM (Rec: 02/15/23 11:32 AM [id number]) Cardio Equipment Recumbent Stepper (Sci-Fit) Duration (Minutes) 5 Resistance 2 Seat Position 9 Therapeutic Exercises Standing Exercises 3 Standing Exercise Name standing hamstring stretch Side bilateral Equipment Used step Reps/Minutes 2x30 sec 2 Standing Exercise Name standing calf stretch Side bilateral Equipment Used wedge Reps/Minutes 2x30 sec 1 Standing Exercise Name calf raise Side bilateral Reps/Minutes 10 Comments 5 sec hold Manual Therapy Treatment Soft Tissue Mobilization Calf, achilles, plantarfascia Body Location R calf, achilles, plantar fascia Mobilization Type Myofascial Release,Trigger Point Release Intensity/Depth Moderate Body Position Prone Taping 1 Body Location R achilles Type of Tape Kinesio Tape Comments I Y band at calf to heel, 1 I band heel strap and 1 I band at posterior heel PT-OP-T Assessment and Plan Start: 02/05/23 15:34 Freq: Status: Active Protocol: Document 02/15/23 10:34 AM (Rec: 02/15/23 11:32 AM [id number]) Physical Therapy Assessment Impairments Impairments Activity Tolerance,Balance, Edema,Functional Activities, Functional Mobility,Gait,Pain, ROM,Soft Tissue Mobility, Strength Goals Five Impairment Balance Impairment Pt unable to SLS on R LE secondary to pain Short Term Goal (STG) Pt able to SLS for 5 seconds on ea LE. STG Duration 3 weeks Longterm Goal (LTG) Pt able to SLS for 10 seconds on ea LE LTG Duration 6 weeks Four Impairment LEFS Impairment Pt with score of 44/80 on LEFS . Backup Sawyer Goal (LTG) Pt with LEFS of 65/80. LTG Duration 6 weeks Three Impairment Pain with driving Impairment Pt unable to drive without increase in pain. Backup Sawyer Goal (LTG) Pt to report that she is able to drive desired distance without increase in pain by 1- 2 points on 0-10 scale. LTG Duration 6 weeks Two Impairment Difficulty walking Impairment Pt reports that she is unable to ambulate 3 blocks with SPC, secondary to pain. Short Term Goal (STG) Pt able to ambulate 3 blocks with proper heel strike without increase in pain more than 2 points on 0-10 scale. STG Duration 3 weeks Backup Sawyer Goal (LTG) Pt able to ambulate 5 blocks without increase in pain more than 2 points on 0-10 scale. LTG Duration 6 weeks One Impairment Pt with limited dorsiflexion ROM Impairment Pt's dorsiflexion with knee extended ROM at 3 degrees Short Term Goal (STG) Pt will demonstrate improvement in ankle dorsiflexion ROM to 8 degrees. STG Duration 3 weeks Longterm Goal (LTG) Pt will demonstrate improvement in ankle dorsiflexion ROM to 12 degrees LTG Duration 6 weeks Assessment Summary Assessment Pt with tenderness at medial/ lateral gastroc, achilles and plantar fascia with STM today. Pt able to tolerate gentle stretching with minimal increase in pain. Pt demonstrates improving gait pattern with increased frequency of heel strike. Pt would benefit from continued PT to progress R calf mobility and ankle strength as tolerated. Physical Therapy Plan Frequency and Duration Frequency of Treatment 2x/Week Duration of treatment (weeks) 6 Plan of Care Start Date 02/06/23 Plan of Care End Date 03/20/23 Therapeutic Interventions Therapeutic Interventions Balance Training,Gait Training ,Home Exercise Program,Joint Mobilizations,Manual Therapy, Neuromuscular Re-education, Patient/Caregiver Education, Self-Care/Home Management,Soft Tissue Mobilization,Taping, Therapeutic Activities, Therapeutic Exercises Modalities Cold Pack/Ice Massage,Electric Stimulation,Hot Packs, Ultrasound Next Visit Focus/Plan Next Note Type Treatment Note Next Visit Plan Progress LE strength and ankle mobility as tolerated. Utilize manual tecnniques to decrease pain. Continue to tape if effective.
--- NOTE | 2023-02-20 10:28 | PT.OTN ---
Current Diagnoses Achilles tendinitis, right leg (02/20/23) Physical Therapy Treatment Note PT-OP-A Visit Information Start: 02/05/23 15:34 Freq: Status: Active Protocol: Document 02/20/23 10:28 AM (Rec: 02/20/23 13:32 AM [id number]) Out-Patient Physical Therapy Visit Information Visit Information Visit Type Treatment Note Visit Start Time 10:30 Visit Stop Time 11:15 Total Visit Minutes 45 Visit Number 3 Number of SALES ENABLEMENT MANAGER Visits 0 PT-OP-B Current Condition Start: 02/05/23 15:34 Freq: Status: Active Protocol: Document 02/20/23 10:28 AM (Rec: 02/20/23 13:32 AM [id number]) Current Condition History of Current Condition Onset Date 1 month ago Current Complaints Pain at posterior heel and achilles History of Current Condition Pt slipped on ice in 2017. In 2018 she found that she had more extensive damage from that event, which required surgery. 1 month ago pt was descending stairs and slipped on the last 2 stairs, which caused current exacerbation. Pt has been using SPC full- time for one month. Pt has used SPC intermittently in the past. Prior Treatments and Tests Pt reports that she saw her referring provider and they did not do imaging at this time. Pt is taking tylenol as needed. Future Testing and Treatments Planned Pt plans to go back to surgeon (from 2018) if symptoms do not resolve. PT-OP-C Subjective Start: 02/05/23 15:34 Freq: Status: Active Protocol: Document 02/20/23 10:28 AM (Rec: 02/20/23 13:32 AM [id number]) OP-PT Subjective Patient Comments Patient Comments Pt reports that she is feels that it is getting easier to get her heel down when walking . Pt reports pain is now up in achilles more than the heel. Pt reports that she continues to have some swelling. Pt reports that she can almost walk 2 blocks before she needs to stop secondary to pain. PT-OP-D Balance Start: 02/05/23 15:34 Freq: Status: Active Protocol: Document 02/06/23 08:55 AM (Rec: 02/06/23 10:24 AM [id number]) OP-PT Balance Assessment Standing Balance Static Standing Balance Ability Poor Dynamic Standing Balance Ability Poor Device Used SPC Standing Balance Comments Pt unable to bear weight on R LE for SLS. Pt able to bear weight on L, though unable to balance >3 sec Balance Tests Single Limb Standing Single Limb- Right 0 Single Limb- Left 3 Barrios Fall Scale Copyright Permission PT-OP-G Mobility & Gait Start: 02/05/23 15:34 Freq: Status: Active Protocol: Document 02/06/23 08:55 AM (Rec: 02/06/23 10:24 AM [id number]) OP Gait Assessment Gait Gait Assistance Required: Independent Assistive Devices Assistive Device Straight Cane Orthotic/Prosthetic Devices or Brace: No Gait Deviations General Gait Pattern Antalgic,Decreased Stride Length Factors Limiting Gait Function Factors Limiting Gait Function Decreased Strength,Limited Range of Motion,Pain Comments Gait Comments Pt unable to demonstrate heel strike on right. Pt maintains R ankle plantarflexion during gait, secondary to pain. PT-OP-J Posture/Palpation/Skin Start: 02/05/23 15:34 Freq: Status: Active Protocol: Document 02/06/23 08:55 AM (Rec: 02/06/23 10:24 AM [id number]) Posture Evaluation Position Standing Ankle/Foot Posture (L) Pronated,(R) Pronated Foot Arch (L) Medium Arch,(R) Low Arch Palpation Assessment Location One Palpation Location R achilles/ankle Palpation Findings Edema,Soft Tissue Tightness, Tenderness Palpation Details at distal achilles, heel, minimal discomfort at calf PT-OP-K Range of Motion Start: 02/05/23 15:34 Freq: Status: Active Protocol: Document 02/06/23 08:55 AM (Rec: 02/06/23 10:24 AM [id number]) Knee Goniometric Range of Motion Knee Right Knee ROM WFL Yes Comments R hamstring limited compared to L. Ankle and Foot Goniometric Range of Motion Ankle and Foot Left Active Ankle/Foot ROM WFL Yes Testing Position Supine Dorsiflexion with Knee Flexed 12 Dorsiflexion with Knee Extended 12 Plantarflexion 35 Inversion 39 Eversion 20 Right Ankle/Foot ROM WFL No Testing Position Supine Dorsiflexion with Knee Flexed 3 Dorsiflexion with Knee Extended 3 Plantarflexion 20 Inversion 26 Eversion 8 Ankle and Foot ROM Limitations ROM Limitations Soft Tissue Tightness,Muscle Weakness,Pain,Swelling PT-OP-L Special Tests Start: 02/05/23 15:34 Freq: Status: Active Protocol: Document 02/06/23 08:55 AM (Rec: 02/06/23 10:24 AM [id number]) Special Tests Foot/Ankle Special Tests [place] Test Results negative Other Special Tests Special Tests neg [place]ag[place], negative royal davila test on R PT-OP-M Strength Start: 02/05/23 15:34 Freq: Status: Active Protocol: Document 02/06/23 08:55 AM (Rec: 02/06/23 10:24 AM [id number]) Ankle/Foot Strength Ankle and Foot Manual Muscle Testing Left Dorsiflexion (L4) 5 Normal Plantarflexion (S1) 5 Normal Inversion 5 Normal Eversion (S1) 5 Normal Right Dorsiflexion (L4) 3+ Fair+ Plantarflexion (S1) 3+ Fair+ Inversion 3 Fair Eversion (S1) 3 Fair Comments Pt able to do heel raise in standing position with bilateral LE PT-OP-Q Treatments Start: 02/05/23 15:34 Freq: Status: Active Protocol: Document 02/20/23 10:28 AM (Rec: 02/20/23 13:32 AM [id number]) Cardio Equipment Recumbent Stepper (Sci-Fit) Duration (Minutes) 5 Resistance 2.5 Seat Position 9 Gym Equipment Shuttle Recovery Unilateral squat Resistance 37# 1 navy and 1 heath Shuttle Recovery Platform Stable Reps/Time x40 sec on R and 1 min on L bilateral squat Resistance 3 navy 75# Shuttle Recovery Platform Stable Reps/Time x1 min Therapeutic Exercises Supine Exercises 4-way ankle Supine Exercise Name 4-way ankle Side right Resistance [place] for dorsiflexion and inversion, AROM plantarflexion Comments Eversion AROM painful, therefore not done today. Pain -limiting reps of all Standing Exercises 3 Standing Exercise Name standing hamstring stretch Side bilateral Equipment Used step Reps/Minutes 2x30 sec 2 Standing Exercise Name standing calf stretch Side bilateral Equipment Used wedge Reps/Minutes 2x30 sec Manual Therapy Treatment Soft Tissue Mobilization Calf, achilles, plantarfascia Body Location R calf, achilles, plantar fascia Mobilization Type Myofascial Release,Trigger Point Release Intensity/Depth Moderate Body Position Prone Joint Mobilizations A-P ankle Joint Talocrural Direction A-P Grade I Comments Increased discomfort, therefore limited today PT-OP-T Assessment and Plan Start: 02/05/23 15:34 Freq: Status: Active Protocol: Document 02/20/23 10:28 AM (Rec: 02/20/23 13:32 AM [id number]) Physical Therapy Assessment Goals Five Impairment Balance Impairment Pt unable to SLS on R LE secondary to pain Short Term Goal (STG) Pt able to SLS for 5 seconds on ea LE. STG Duration 3 weeks Ostomy Care Nurse Goal (LTG) Pt able to SLS for 10 seconds on ea LE LTG Duration 6 weeks Four Impairment LEFS Impairment Pt with score of 44/80 on LEFS . Alf Goal (LTG) Pt with LEFS of 65/80. LTG Duration 6 weeks Three Impairment Pain with driving Impairment Pt unable to drive without increase in pain. Alf Goal (LTG) Pt to report that she is able to drive desired distance without increase in pain by 1- 2 points on 0-10 scale. LTG Duration 6 weeks Two Impairment Difficulty walking Impairment Pt reports that she is unable to ambulate 3 blocks with SPC, secondary to pain. Short Term Goal (STG) Pt able to ambulate 3 blocks with proper heel strike without increase in pain more than 2 points on 0-10 scale. STG Duration 3 weeks Ostomy Care Nurse Goal (LTG) Pt able to ambulate 5 blocks without increase in pain more than 2 points on 0-10 scale. LTG Duration 6 weeks One Impairment Pt with limited dorsiflexion ROM Impairment Pt's dorsiflexion with knee extended ROM at 3 degrees Short Term Goal (STG) Pt will demonstrate improvement in ankle dorsiflexion ROM to 8 degrees. STG Duration 3 weeks Ostomy Care Nurse Goal (LTG) Pt will demonstrate improvement in ankle dorsiflexion ROM to 12 degrees LTG Duration 6 weeks Assessment Summary Assessment Pt demonstrated decreased tenderness at heel and achilles today compared to previous session. Pt with trigger points at medial gastroc. Pt demonstrated difficulty with resisted and active ankle ROM with 4-way ankle strengthening, reporting lateral ankle pain along scar . Pt would benefit from continued PT to progress ankle mobility and strength as tolerated. Pt not taped today as pt reporting no change with previous taping. Physical Therapy Plan Frequency and Duration Frequency of Treatment 2x/Week Duration of treatment (weeks) 6 Plan of Care Start Date 02/06/23 Plan of Care End Date 03/20/23 Therapeutic Interventions Therapeutic Interventions Balance Training,Gait Training ,Home Exercise Program,Joint Mobilizations,Manual Therapy, Neuromuscular Re-education, Patient/Caregiver Education, Self-Care/Home Management,Soft Tissue Mobilization,Taping, Therapeutic Activities, Therapeutic Exercises Modalities Cold Pack/Ice Massage,Electric Stimulation,Hot Packs, Ultrasound Next Visit Focus/Plan Next Note Type Treatment Note Next Visit Plan Progress LE strength and ankle mobility as tolerated. Utilize manual tecnniques to decrease pain.
--- NOTE | 2023-02-25 10:37 | PT.OTN ---
Current Diagnoses Achilles tendinitis, right leg (02/25/23) Physical Therapy Treatment Note PT-OP-A Visit Information Start: 02/05/23 15:34 Freq: Status: Active Protocol: Document 02/25/23 10:37 AM (Rec: 02/25/23 11:23 AM [id number]) Out-Patient Physical Therapy Visit Information Visit Information Visit Type Treatment Note Visit Start Time 10:37 Visit Stop Time 11:16 Total Visit Minutes 39 Visit Number 4 PT-OP-B Current Condition Start: 02/05/23 15:34 Freq: Status: Active Protocol: Document 02/25/23 10:37 AM (Rec: 02/25/23 11:23 AM [id number]) Current Condition History of Current Condition Onset Date 1 month ago Current Complaints Pain at posterior heel and achilles History of Current Condition Pt slipped on ice in 2017. In 2018 she found that she had more extensive damage from that event, which required surgery. 1 month ago pt was descending stairs and slipped on the last 2 stairs, which caused current exacerbation. Pt has been using SPC full- time for one month. Pt has used SPC intermittently in the past. Prior Treatments and Tests Pt reports that she saw her referring provider and they did not do imaging at this time. Pt is taking tylenol as needed. Future Testing and Treatments Planned Pt plans to go back to surgeon (from 2018) if symptoms do not resolve. PT-OP-C Subjective Start: 02/05/23 15:34 Freq: Status: Active Protocol: Document 02/25/23 10:37 AM (Rec: 02/25/23 11:23 AM [id number]) OP-PT Subjective Patient Comments Patient Comments Pt reports that she rolled her ankle (inversion) yesterday and has had signifcantly more pain since then. Pt reports difficulty descending stairs. Pt reports pain at 7/10 today. PT-OP-D Balance Start: 02/05/23 15:34 Freq: Status: Active Protocol: Document 02/06/23 08:55 AM (Rec: 02/06/23 10:24 AM [id number]) OP-PT Balance Assessment Standing Balance Static Standing Balance Ability Poor Dynamic Standing Balance Ability Poor Device Used SPC Standing Balance Comments Pt unable to bear weight on R LE for SLS. Pt able to bear weight on L, though unable to balance >3 sec Balance Tests Single Limb Standing Single Limb- Right 0 Single Limb- Left 3 Barrios Fall Scale Copyright Permission PT-OP-G Mobility & Gait Start: 02/05/23 15:34 Freq: Status: Active Protocol: Document 02/06/23 08:55 AM (Rec: 02/06/23 10:24 AM [id number]) OP Gait Assessment Gait Gait Assistance Required: Independent Assistive Devices Assistive Device Straight Cane Orthotic/Prosthetic Devices or Brace: No Gait Deviations General Gait Pattern Antalgic,Decreased Stride Length Factors Limiting Gait Function Factors Limiting Gait Function Decreased Strength,Limited Range of Motion,Pain Comments Gait Comments Pt unable to demonstrate heel strike on right. Pt maintains R ankle plantarflexion during gait, secondary to pain. PT-OP-J Posture/Palpation/Skin Start: 02/05/23 15:34 Freq: Status: Active Protocol: Document 02/06/23 08:55 AM (Rec: 02/06/23 10:24 AM [id number]) Posture Evaluation Position Standing Ankle/Foot Posture (L) Pronated,(R) Pronated Foot Arch (L) Medium Arch,(R) Low Arch Palpation Assessment Location One Palpation Location R achilles/ankle Palpation Findings Edema,Soft Tissue Tightness, Tenderness Palpation Details at distal achilles, heel, minimal discomfort at calf PT-OP-K Range of Motion Start: 02/05/23 15:34 Freq: Status: Active Protocol: Document 02/06/23 08:55 AM (Rec: 02/06/23 10:24 AM [id number]) Knee Goniometric Range of Motion Knee Right Knee ROM WFL Yes Comments R hamstring limited compared to L. Ankle and Foot Goniometric Range of Motion Ankle and Foot Left Active Ankle/Foot ROM WFL Yes Testing Position Supine Dorsiflexion with Knee Flexed 12 Dorsiflexion with Knee Extended 12 Plantarflexion 35 Inversion 39 Eversion 20 Right Ankle/Foot ROM WFL No Testing Position Supine Dorsiflexion with Knee Flexed 3 Dorsiflexion with Knee Extended 3 Plantarflexion 20 Inversion 26 Eversion 8 Ankle and Foot ROM Limitations ROM Limitations Soft Tissue Tightness,Muscle Weakness,Pain,Swelling PT-OP-L Special Tests Start: 02/05/23 15:34 Freq: Status: Active Protocol: Document 02/06/23 08:55 AM (Rec: 02/06/23 10:24 AM [id number]) Special Tests Foot/Ankle Special Tests [place] Test Results negative Other Special Tests Special Tests neg [place], negative royal davila test on R PT-OP-M Strength Start: 02/05/23 15:34 Freq: Status: Active Protocol: Document 02/06/23 08:55 AM (Rec: 02/06/23 10:24 AM [id number]) Ankle/Foot Strength Ankle and Foot Manual Muscle Testing Left Dorsiflexion (L4) 5 Normal Plantarflexion (S1) 5 Normal Inversion 5 Normal Eversion (S1) 5 Normal Right Dorsiflexion (L4) 3+ Fair+ Plantarflexion (S1) 3+ Fair+ Inversion 3 Fair Eversion (S1) 3 Fair Comments Pt able to do heel raise in standing position with bilateral LE PT-OP-Q Treatments Start: 02/05/23 15:34 Freq: Status: Active Protocol: Document 02/25/23 10:37 AM (Rec: 02/25/23 11:23 AM [id number]) Cardio Equipment Recumbent Stepper (Sci-Fit) Duration (Minutes) 3 Resistance 1.5 Seat Position 9 Therapeutic Exercises Supine Exercises Alphabet Supine Exercise Name Ankle alphabet Side right Reps/Minutes x1 Sitting Exercises 1 Sitting Exercise Name Towel scrunch Side right Equipment Used clipboard and towel Reps/Minutes 1 min Standing Exercises 3 Standing Exercise Name standing hamstring stretch Side right Equipment Used step Reps/Minutes 2x30 sec Manual Therapy Treatment Soft Tissue Mobilization Calf, achilles, plantarfascia Body Location R calf, achilles, plantar fascia Mobilization Type Myofascial Release,Trigger Point Release Intensity/Depth Moderate Body Position Prone Joint Mobilizations P-A ankle Joint Talocrural Direction P-A Grade I Body Position Prone PT-OP-T Assessment and Plan Start: 02/05/23 15:34 Freq: Status: Active Protocol: Document 02/25/23 10:37 AM (Rec: 02/25/23 11:23 AM [id number]) Physical Therapy Assessment Impairments Impairments Activity Tolerance,Balance, Edema,Functional Activities, Functional Mobility,Gait,Pain, ROM,Soft Tissue Mobility, Strength Goals Five Impairment Balance Impairment Pt unable to SLS on R LE secondary to pain Short Term Goal (STG) Pt able to SLS for 5 seconds on ea LE. STG Duration 02/27/23 Longterm Goal (LTG) Pt able to SLS for 10 seconds on ea LE LTG Duration 03/20/23 Four Impairment LEFS Impairment Pt with score of 44/80 on LEFS . Greige Goods Examiner Goal (LTG) Pt with LEFS of 65/80. LTG Duration 03/20/23 Three Impairment Pain with driving Impairment Pt unable to drive without increase in pain. Greige Goods Examiner Goal (LTG) Pt to report that she is able to drive desired distance without increase in pain by 1- 2 points on 0-10 scale. LTG Duration 03/20/23 Two Impairment Difficulty walking Impairment Pt reports that she is unable to ambulate 3 blocks with SPC, secondary to pain. Short Term Goal (STG) Pt able to ambulate 3 blocks with proper heel strike without increase in pain more than 2 points on 0-10 scale. STG Duration 02/27/23 Greige Goods Examiner Goal (LTG) Pt able to ambulate 5 blocks without increase in pain more than 2 points on 0-10 scale. LTG Duration 03/20/23 One Impairment Pt with limited dorsiflexion ROM Impairment Pt's dorsiflexion with knee extended ROM at 3 degrees Short Term Goal (STG) Pt will demonstrate improvement in ankle dorsiflexion ROM to 8 degrees. STG Duration 02/27/23 Greige Goods Examiner Goal (LTG) Pt will demonstrate improvement in ankle dorsiflexion ROM to 12 degrees LTG Duration 03/20/23 Assessment Summary Assessment Pt with poor tolerated to weightbearing, exercise and mobility work today secondary to increased pain. Pt with increased tenderness to palpation at plantar fascia, heel, achilles and calf with STM. Pt instructed to add alphabet to HEP and stop calf raises until next session. Pt with increased difficulty with heel strike during gait and demonstrated worsened antalgic gait compared to previous session. Pt will returnt to PT later this week to progress exercise and mobility as tolerated. Physical Therapy Plan Frequency and Duration Frequency of Treatment 2x/Week Duration of treatment (weeks) 6 Plan of Care Start Date 02/06/23 Plan of Care End Date 03/20/23 Therapeutic Interventions Therapeutic Interventions Balance Training,Gait Training ,Home Exercise Program,Joint Mobilizations,Manual Therapy, Neuromuscular Re-education, Patient/Caregiver Education, Self-Care/Home Management,Soft Tissue Mobilization,Taping, Therapeutic Activities, Therapeutic Exercises Modalities Cold Pack/Ice Massage,Electric Stimulation,Hot Packs, Ultrasound Next Visit Focus/Plan Next Note Type Treatment Note Next Visit Plan Progress LE strength and ankle mobility as tolerated. Utilize manual tecnniques to decrease pain.
--- NOTE | 2023-03-07 14:23 | PT.OTN ---
Current Diagnoses Achilles tendinitis, right leg (03/07/23) Physical Therapy Treatment Note PT-OP-A Visit Information Start: 02/05/23 15:34 Freq: Status: Active Protocol: Document 03/07/23 14:23 AM (Rec: 03/07/23 17:10 AM [id number]) Out-Patient Physical Therapy Visit Information Visit Information Visit Type Progress Note Visit Start Time 14:22 Visit Stop Time 15:02 Total Visit Minutes 40 Visit Number 5 PT-OP-B Current Condition Start: 02/05/23 15:34 Freq: Status: Active Protocol: Document 03/07/23 14:23 AM (Rec: 03/07/23 17:10 AM [id number]) Current Condition History of Current Condition Onset Date 1 month ago Current Complaints Pain at posterior heel and achilles History of Current Condition Pt slipped on ice in 2017. In 2018 she found that she had more extensive damage from that event, which required surgery. 1 month ago pt was descending stairs and slipped on the last 2 stairs, which caused current exacerbation. Pt has been using SPC full- time for one month. Pt has used SPC intermittently in the past. Prior Treatments and Tests Pt reports that she saw her referring provider and they did not do imaging at this time. Pt is taking tylenol as needed. Future Testing and Treatments Planned Pt plans to go back to surgeon (from 2018) if symptoms do not resolve. PT-OP-C Subjective Start: 02/05/23 15:34 Freq: Status: Active Protocol: Document 03/07/23 14:23 AM (Rec: 03/07/23 17:10 AM [id number]) OP-PT Subjective Patient Comments Patient Comments Pt reports that she went to the ER on Saturday for dizziness. Pt reports that she rolled her ankle because of the dizziness. Pt reports pain at 4/10 today. She feels symptoms are improving. Pt will see her referring provider on 03/22/23 PT-OP-D Balance Start: 02/05/23 15:34 Freq: Status: Active Protocol: Document 03/07/23 14:23 AM (Rec: 03/07/23 17:10 AM [id number]) Balance Tests Single Limb Standing Single Limb- Right 4 Single Limb- Left 10 PT-OP-G Mobility & Gait Start: 02/05/23 15:34 Freq: Status: Active Protocol: Document 02/06/23 08:55 AM (Rec: 02/06/23 10:24 AM [id number]) OP Gait Assessment Gait Gait Assistance Required: Independent Assistive Devices Assistive Device Straight Cane Orthotic/Prosthetic Devices or Brace: No Gait Deviations General Gait Pattern Antalgic,Decreased Stride Length Factors Limiting Gait Function Factors Limiting Gait Function Decreased Strength,Limited Range of Motion,Pain Comments Gait Comments Pt unable to demonstrate heel strike on right. Pt maintains R ankle plantarflexion during gait, secondary to pain. PT-OP-J Posture/Palpation/Skin Start: 02/05/23 15:34 Freq: Status: Active Protocol: Document 02/06/23 08:55 AM (Rec: 02/06/23 10:24 AM [id number]) Posture Evaluation Position Standing Ankle/Foot Posture (L) Pronated,(R) Pronated Foot Arch (L) Medium Arch,(R) Low Arch Palpation Assessment Location One Palpation Location R achilles/ankle Palpation Findings Edema,Soft Tissue Tightness, Tenderness Palpation Details at distal achilles, heel, minimal discomfort at calf PT-OP-K Range of Motion Start: 02/05/23 15:34 Freq: Status: Active Protocol: Document 03/07/23 14:23 AM (Rec: 03/07/23 17:10 AM [id number]) Ankle and Foot Goniometric Range of Motion Ankle and Foot Right Dorsiflexion with Knee Flexed 10 Dorsiflexion with Knee Extended 5 Plantarflexion 30 Inversion 30 Eversion 15 PT-OP-L Special Tests Start: 02/05/23 15:34 Freq: Status: Active Protocol: Document 02/06/23 08:55 AM (Rec: 02/06/23 10:24 AM [id number]) Special Tests Foot/Ankle Special Tests [place] Test Results negative Other Special Tests Special Tests neg haglands, negative royal davila test on R PT-OP-M Strength Start: 02/05/23 15:34 Freq: Status: Active Protocol: Document 02/06/23 08:55 AM (Rec: 02/06/23 10:24 AM [id number]) Ankle/Foot Strength Ankle and Foot Manual Muscle Testing Left Dorsiflexion (L4) 5 Normal Plantarflexion (S1) 5 Normal Inversion 5 Normal Eversion (S1) 5 Normal Right Dorsiflexion (L4) 3+ Fair+ Plantarflexion (S1) 3+ Fair+ Inversion 3 Fair Eversion (S1) 3 Fair Comments Pt able to do heel raise in standing position with bilateral LE PT-OP-Q Treatments Start: 02/05/23 15:34 Freq: Status: Active Protocol: Document 03/07/23 14:23 AM (Rec: 03/07/23 17:10 AM [id number]) Therapeutic Exercises Supine Exercises 4-way ankle Supine Exercise Name 4-way ankle Side right Resistance [place] TB for dorsiflexion and inversion, AROM plantarflexion Reps/Minutes x10 Comments Eversion AROM only Sitting Exercises 1 Sitting Exercise Name Towel scrunch Side right Equipment Used clipboard and towel Reps/Minutes 1 min Manual Therapy Treatment Soft Tissue Mobilization Calf, achilles, plantarfascia Body Location R calf, achilles, plantar fascia Mobilization Type Myofascial Release,Trigger Point Release Intensity/Depth Moderate Body Position Prone PT-OP-T Assessment and Plan Start: 02/05/23 15:34 Freq: Status: Active Protocol: Document 03/07/23 14:23 AM (Rec: 03/07/23 17:10 AM [id number]) Physical Therapy Assessment Impairments Impairments Activity Tolerance,Balance, Edema,Functional Activities, Functional Mobility,Gait,Pain, ROM,Soft Tissue Mobility, Strength Goals Five Impairment Balance Impairment Pt unable to SLS on R LE secondary to pain Short Term Goal (STG) Pt able to SLS for 5 seconds on ea LE. 03/07/23: progressing towards goal. Pt able to hold for 4 seconds on R STG Duration 02/27/23 Jail Goal (LTG) Pt able to SLS for 10 seconds on ea LE LTG Duration 03/20/23 Four Impairment LEFS Impairment Pt with score of 44/80 on LEFS . [place] Goal (LTG) Pt with LEFS of 65/80. LTG Duration 03/20/23 Three Impairment Pain with driving Impairment Pt unable to drive without increase in pain. Jail Goal (LTG) Pt to report that she is able to drive desired distance without increase in pain by 1- 2 points on 0-10 scale. LTG Duration 03/20/23 Two Impairment Difficulty walking Impairment Pt reports that she is unable to ambulate 3 blocks with SPC, secondary to pain. Short Term Goal (STG) Pt able to ambulate 3 blocks with proper heel strike without increase in pain more than 2 points on 0-10 scale. 03/07/23: Progressing towards goal. Pt reports that she has been able to walk 2 blocks comfortably. She had recent covid and has not been walking as much. STG Duration 02/27/23 Jail Goal (LTG) Pt able to ambulate 5 blocks without increase in pain more than 2 points on 0-10 scale. LTG Duration 03/20/23 One Impairment Pt with limited dorsiflexion ROM Impairment Pt's dorsiflexion with knee extended ROM at 3 degrees Short Term Goal (STG) Pt will demonstrate improvement in ankle dorsiflexion ROM to 8 degrees. 03/07/23: Progressing towards goal. Pt with 5 deg DF with knee extended and 10 deg with knee bent. STG Duration 02/27/23 [place] Goal (LTG) Pt will demonstrate improvement in ankle dorsiflexion ROM to 12 degrees LTG Duration 03/20/23 Progress Towards Goals Progress Towards Goals Progressing Toward Goals Assessment Summary Assessment Pt ambulating without AD today , though continues to demonstrate antalgic gait pattern. Pt demonstrates improving ankle mobility in all directions. Pt with tenderness along heel and achilles tendon today. Pt has made progress towards STG. Pt will return to PT next week to continued to progress ankle mobility and strength as tolerated. Physical Therapy Plan Frequency and Duration Frequency of Treatment 2x/Week Duration of treatment (weeks) 6 Plan of Care Start Date 02/06/23 Plan of Care End Date 03/20/23 Therapeutic Interventions Therapeutic Interventions Balance Training,Gait Training ,Home Exercise Program,Joint Mobilizations,Manual Therapy, Neuromuscular Re-education, Patient/Caregiver Education, Self-Care/Home Management,Soft Tissue Mobilization,Taping, Therapeutic Activities, Therapeutic Exercises Modalities Cold Pack/Ice Massage,Electric Stimulation,Hot Packs, Ultrasound Next Visit Focus/Plan Next Note Type Treatment Note Next Visit Plan Progress LE strength and ankle mobility as tolerated. Utilize manual tecnniques to decrease pain.
--- NOTE | 2023-03-12 09:02 | PT.OTN ---
Current Diagnoses Achilles tendinitis, right leg (03/12/23) Physical Therapy Treatment Note PT-OP-A Visit Information Start: 02/05/23 15:34 Freq: Status: Active Protocol: Document 03/12/23 09:02 AM (Rec: 03/12/23 09:45 AM [id number]) Out-Patient Physical Therapy Visit Information Visit Information Visit Type Treatment Note Visit Start Time 09:02 Visit Stop Time 09:43 Total Visit Minutes 41 Visit Number 6 PT-OP-B Current Condition Start: 02/05/23 15:34 Freq: Status: Active Protocol: Document 03/12/23 09:02 AM (Rec: 03/12/23 09:45 AM [id number]) Current Condition History of Current Condition Onset Date 1 month ago Current Complaints Pain at posterior heel and achilles History of Current Condition Pt slipped on ice in 2017. In 2018 she found that she had more extensive damage from that event, which required surgery. 1 month ago pt was descending stairs and slipped on the last 2 stairs, which caused current exacerbation. Pt has been using SPC full- time for one month. Pt has used SPC intermittently in the past. Prior Treatments and Tests Pt reports that she saw her referring provider and they did not do imaging at this time. Pt is taking tylenol as needed. Future Testing and Treatments Planned Pt plans to go back to surgeon (from 2018) if symptoms do not resolve. PT-OP-C Subjective Start: 02/05/23 15:34 Freq: Status: Active Protocol: Document 03/12/23 09:02 AM (Rec: 03/12/23 09:45 AM [id number]) OP-PT Subjective Patient Comments Patient Comments Pt reports that she walked 14 blocks this weekend. She reports that she has been sore for the last 3 days since. PT-OP-D Balance Start: 02/05/23 15:34 Freq: Status: Active Protocol: Document 03/07/23 14:23 AM (Rec: 03/07/23 17:10 AM [id number]) Balance Tests Single Limb Standing Single Limb- Right 4 Single Limb- Left 10 PT-OP-G Mobility & Gait Start: 02/05/23 15:34 Freq: Status: Active Protocol: Document 02/06/23 08:55 AM (Rec: 02/06/23 10:24 AM [id number]) OP Gait Assessment Gait Gait Assistance Required: Independent Assistive Devices Assistive Device Straight Cane Orthotic/Prosthetic Devices or Brace: No Gait Deviations General Gait Pattern Antalgic,Decreased Stride Length Factors Limiting Gait Function Factors Limiting Gait Function Decreased Strength,Limited Range of Motion,Pain Comments Gait Comments Pt unable to demonstrate heel strike on right. Pt maintains R ankle plantarflexion during gait, secondary to pain. PT-OP-J Posture/Palpation/Skin Start: 02/05/23 15:34 Freq: Status: Active Protocol: Document 02/06/23 08:55 AM (Rec: 02/06/23 10:24 AM [id number]) Posture Evaluation Position Standing Ankle/Foot Posture (L) Pronated,(R) Pronated Foot Arch (L) Medium Arch,(R) Low Arch Palpation Assessment Location One Palpation Location R achilles/ankle Palpation Findings Edema,Soft Tissue Tightness, Tenderness Palpation Details at distal achilles, heel, minimal discomfort at calf PT-OP-K Range of Motion Start: 02/05/23 15:34 Freq: Status: Active Protocol: Document 03/07/23 14:23 AM (Rec: 03/07/23 17:10 AM [id number]) Ankle and Foot Goniometric Range of Motion Ankle and Foot Right Dorsiflexion with Knee Flexed 10 Dorsiflexion with Knee Extended 5 Plantarflexion 30 Inversion 30 Eversion 15 PT-OP-L Special Tests Start: 02/05/23 15:34 Freq: Status: Active Protocol: Document 02/06/23 08:55 AM (Rec: 02/06/23 10:24 AM [id number]) Special Tests Foot/Ankle Special Tests [place] Test Results negative Other Special Tests Special Tests neg haglands, negative royal davila test on R PT-OP-M Strength Start: 02/05/23 15:34 Freq: Status: Active Protocol: Document 02/06/23 08:55 AM (Rec: 02/06/23 10:24 AM [id number]) Ankle/Foot Strength Ankle and Foot Manual Muscle Testing Left Dorsiflexion (L4) 5 Normal Plantarflexion (S1) 5 Normal Inversion 5 Normal Eversion (S1) 5 Normal Right Dorsiflexion (L4) 3+ Fair+ Plantarflexion (S1) 3+ Fair+ Inversion 3 Fair Eversion (S1) 3 Fair Comments Pt able to do heel raise in standing position with bilateral LE PT-OP-Q Treatments Start: 02/05/23 15:34 Freq: Status: Active Protocol: Document 03/12/23 09:02 AM (Rec: 03/12/23 09:45 AM [id number]) Cardio Equipment Recumbent Stepper (Sci-Fit) Duration (Minutes) 5 Resistance 1.5 Seat Position 9 Therapeutic Exercises Supine Exercises Alphabet Supine Exercise Name Ankle alphabet Side right Reps/Minutes x1 4-way ankle Supine Exercise Name 4-way ankle Side right Resistance [place] TB for dorsiflexion and inversion, AROM plantarflexion Reps/Minutes x10 Comments Eversion AROM only Standing Exercises Side step Standing Exercise Name Side step Equipment Used at railing Reps/Minutes x5 steps each direction Squats Standing Exercise Name Supported squats Equipment Used railing Reps/Minutes x10 [address] hip Standing Exercise Name 3-way hip Side right Resistance AROM Reps/Minutes x10 3 Standing Exercise Name standing hamstring stretch Side right Equipment Used step Reps/Minutes 2x30 sec Manual Therapy Treatment Soft Tissue Mobilization Calf, achilles, plantarfascia Body Location R calf, achilles, plantar fascia Mobilization Type Myofascial Release,Trigger Point Release Intensity/Depth Moderate Body Position Prone PT-OP-T Assessment and Plan Start: 02/05/23 15:34 Freq: Status: Active Protocol: Document 03/12/23 09:02 AM (Rec: 03/12/23 09:45 AM [id number]) Physical Therapy Assessment Impairments Impairments Activity Tolerance,Balance, Edema,Functional Activities, Functional Mobility,Gait,Pain, ROM,Soft Tissue Mobility, Strength Goals Five Impairment Balance Impairment Pt unable to SLS on R LE secondary to pain Short Term Goal (STG) Pt able to SLS for 5 seconds on ea LE. 03/07/23: progressing towards goal. Pt able to hold for 4 seconds on R STG Duration 02/27/23 Director Of Epidemiology Goal (LTG) Pt able to SLS for 10 seconds on ea LE LTG Duration 03/20/23 Four Impairment LEFS Impairment Pt with score of 44/80 on LEFS . Correction Goal (LTG) Pt with LEFS of 65/80. LTG Duration 03/20/23 Three Impairment Pain with driving Impairment Pt unable to drive without increase in pain. Correction Goal (LTG) Pt to report that she is able to drive desired distance without increase in pain by 1- 2 points on 0-10 scale. LTG Duration 03/20/23 Two Impairment Difficulty walking Impairment Pt reports that she is unable to ambulate 3 blocks with SPC, secondary to pain. Short Term Goal (STG) Pt able to ambulate 3 blocks with proper heel strike without increase in pain more than 2 points on 0-10 scale. 03/07/23: Progressing towards goal. Pt reports that she has been able to walk 2 blocks comfortably. She had recent covid and has not been walking as much. STG Duration 02/27/23 Correction Goal (LTG) Pt able to ambulate 5 blocks without increase in pain more than 2 points on 0-10 scale. LTG Duration 03/20/23 One Impairment Pt with limited dorsiflexion ROM Impairment Pt's dorsiflexion with knee extended ROM at 3 degrees Short Term Goal (STG) Pt will demonstrate improvement in ankle dorsiflexion ROM to 8 degrees. 03/07/23: Progressing towards goal. Pt with 5 deg DF with knee extended and 10 deg with knee bent. STG Duration 02/27/23 Director Of Epidemiology Goal (LTG) Pt will demonstrate improvement in ankle dorsiflexion ROM to 12 degrees LTG Duration 03/20/23 Assessment Summary Assessment Pt demonstrates continued antalgic gait. Pt with improving tolerance to 4-way ankle strengthening. Pt demonstrates continued tenderness at heel and achilles with STM today. Pt would benefit from continued PT to progress ankle strength and mobility to improve gait and tolerance to functional activities. Physical Therapy Plan Frequency and Duration Frequency of Treatment 2x/Week Duration of treatment (weeks) 6 Plan of Care Start Date 02/06/23 Plan of Care End Date 03/20/23 Therapeutic Interventions Therapeutic Interventions Balance Training,Gait Training ,Home Exercise Program,Joint Mobilizations,Manual Therapy, Neuromuscular Re-education, Patient/Caregiver Education, Self-Care/Home Management,Soft Tissue Mobilization,Taping, Therapeutic Activities, Therapeutic Exercises Modalities Cold Pack/Ice Massage,Electric Stimulation,Hot Packs, Ultrasound Next Visit Focus/Plan Next Note Type Treatment Note Next Visit Plan Progress LE strength and ankle mobility as tolerated. Utilize manual tecnniques to decrease pain.
--- NOTE | 2023-03-19 09:03 | PT.OTN ---
Current Diagnoses Achilles tendinitis, right leg (03/19/23) Physical Therapy Treatment Note PT-OP-A Visit Information Start: 02/05/23 15:34 Freq: Status: Active Protocol: Document 03/19/23 09:03 AM (Rec: 03/19/23 09:55 AM [id number]) Out-Patient Physical Therapy Visit Information Visit Information Visit Type Treatment Note Visit Start Time 09:03 Visit Stop Time 09:45 Total Visit Minutes 42 Visit Number 7 PT-OP-B Current Condition Start: 02/05/23 15:34 Freq: Status: Active Protocol: Document 03/12/23 09:02 AM (Rec: 03/12/23 09:45 AM [id number]) Current Condition History of Current Condition Onset Date 1 month ago Current Complaints Pain at posterior heel and achilles History of Current Condition Pt slipped on ice in 2017. In 2018 she found that she had more extensive damage from that event, which required surgery. 1 month ago pt was descending stairs and slipped on the last 2 stairs, which caused current exacerbation. Pt has been using SPC full- time for one month. Pt has used SPC intermittently in the past. Prior Treatments and Tests Pt reports that she saw her referring provider and they did not do imaging at this time. Pt is taking tylenol as needed. Future Testing and Treatments Planned Pt plans to go back to surgeon (from 2018) if symptoms do not resolve. PT-OP-C Subjective Start: 02/05/23 15:34 Freq: Status: Active Protocol: Document 03/19/23 09:03 AM (Rec: 03/19/23 09:55 AM [id number]) OP-PT Subjective Patient Comments Patient Comments Pt reports that she had a cramp at her calf a few days ago and her ankle has been quite painful since. Pt presents with SPC today. Pt will see her referring provider today. PT-OP-D Balance Start: 02/05/23 15:34 Freq: Status: Active Protocol: Document 03/07/23 14:23 AM (Rec: 03/07/23 17:10 AM [id number]) Balance Tests Single Limb Standing Single Limb- Right 4 Single Limb- Left 10 PT-OP-G Mobility & Gait Start: 02/05/23 15:34 Freq: Status: Active Protocol: Document 02/06/23 08:55 AM (Rec: 02/06/23 10:24 AM [id number]) OP Gait Assessment Gait Gait Assistance Required: Independent Assistive Devices Assistive Device Straight Cane Orthotic/Prosthetic Devices or Brace: No Gait Deviations General Gait Pattern Antalgic,Decreased Stride Length Factors Limiting Gait Function Factors Limiting Gait Function Decreased Strength,Limited Range of Motion,Pain Comments Gait Comments Pt unable to demonstrate heel strike on right. Pt maintains R ankle plantarflexion during gait, secondary to pain. PT-OP-J Posture/Palpation/Skin Start: 02/05/23 15:34 Freq: Status: Active Protocol: Document 02/06/23 08:55 AM (Rec: 02/06/23 10:24 AM [id number]) Posture Evaluation Position Standing Ankle/Foot Posture (L) Pronated,(R) Pronated Foot Arch (L) Medium Arch,(R) Low Arch Palpation Assessment Location One Palpation Location R achilles/ankle Palpation Findings Edema,Soft Tissue Tightness, Tenderness Palpation Details at distal achilles, heel, minimal discomfort at calf PT-OP-K Range of Motion Start: 02/05/23 15:34 Freq: Status: Active Protocol: Document 03/07/23 14:23 AM (Rec: 03/07/23 17:10 AM [id number]) Ankle and Foot Goniometric Range of Motion Ankle and Foot Right Dorsiflexion with Knee Flexed 10 Dorsiflexion with Knee Extended 5 Plantarflexion 30 Inversion 30 Eversion 15 PT-OP-L Special Tests Start: 02/05/23 15:34 Freq: Status: Active Protocol: Document 02/06/23 08:55 AM (Rec: 02/06/23 10:24 AM [id number]) Special Tests Foot/Ankle Special Tests Zar[place] Test Results negative Other Special Tests Special Tests neg haglands, negative royal davila test on R PT-OP-M Strength Start: 02/05/23 15:34 Freq: Status: Active Protocol: Document 02/06/23 08:55 AM (Rec: 02/06/23 10:24 AM [id number]) Ankle/Foot Strength Ankle and Foot Manual Muscle Testing Left Dorsiflexion (L4) 5 Normal Plantarflexion (S1) 5 Normal Inversion 5 Normal Eversion (S1) 5 Normal Right Dorsiflexion (L4) 3+ Fair+ Plantarflexion (S1) 3+ Fair+ Inversion 3 Fair Eversion (S1) 3 Fair Comments Pt able to do heel raise in standing position with bilateral LE PT-OP-Q Treatments Start: 02/05/23 15:34 Freq: Status: Active Protocol: Document 03/19/23 09:03 AM (Rec: 03/19/23 09:55 AM [id number]) Cardio Equipment Recumbent Stepper (Sci-Fit) Duration (Minutes) 5 Resistance 1.5 Seat Position 10 Therapeutic Exercises Supine Exercises 4-way ankle Supine Exercise Name 4-way ankle Side right Resistance [place] TB for dorsiflexion and inversion, AROM plantarflexion Reps/Minutes x10 Comments Eversion AROM only Manual Therapy Treatment Soft Tissue Mobilization Calf, achilles, plantarfascia Body Location R calf, achilles, plantar fascia Mobilization Type Myofascial Release,Trigger Point Release Intensity/Depth Moderate Body Position Prone Taping 1 Body Location R ankle Comments 2 I bands 1 vertical and 1 as a heel cup Manual Techniques Manual hamstring stretch Body Position Supine Manual ankle stretching Type all directions Body Location prone and supine PT-OP-T Assessment and Plan Start: 02/05/23 15:34 Freq: Status: Active Protocol: Document 03/19/23 09:03 AM (Rec: 03/19/23 09:55 AM [id number]) Physical Therapy Assessment Impairments Impairments Activity Tolerance,Balance, Edema,Functional Activities, Functional Mobility,Gait,Pain, ROM,Soft Tissue Mobility, Strength Goals Five Impairment Balance Impairment Pt unable to SLS on R LE secondary to pain Short Term Goal (STG) Pt able to SLS for 5 seconds on ea LE. 03/07/23: progressing towards goal. Pt able to hold for 4 seconds on R STG Duration 02/27/23 Service Person Goal (LTG) Pt able to SLS for 10 seconds on ea LE LTG Duration 03/20/23 Four Impairment LEFS Impairment Pt with score of 44/80 on LEFS . [facility]ci Goal (LTG) Pt with LEFS of 65/80. LTG Duration 03/20/23 Three Impairment Pain with driving Impairment Pt unable to drive without increase in pain. [facility] Goal (LTG) Pt to report that she is able to drive desired distance without increase in pain by 1- 2 points on 0-10 scale. LTG Duration 03/20/23 Two Impairment Difficulty walking Impairment Pt reports that she is unable to ambulate 3 blocks with SPC, secondary to pain. Short Term Goal (STG) Pt able to ambulate 3 blocks with proper heel strike without increase in pain more than 2 points on 0-10 scale. 03/07/23: Progressing towards goal. Pt reports that she has been able to walk 2 blocks comfortably. She had recent covid and has not been walking as much. STG Duration 02/27/23 [facility]ci Goal (LTG) Pt able to ambulate 5 blocks without increase in pain more than 2 points on 0-10 scale. LTG Duration 03/20/23 One Impairment Pt with limited dorsiflexion ROM Impairment Pt's dorsiflexion with knee extended ROM at 3 degrees Short Term Goal (STG) Pt will demonstrate improvement in ankle dorsiflexion ROM to 8 degrees. 03/07/23: Progressing towards goal. Pt with 5 deg DF with knee extended and 10 deg with knee bent. STG Duration 02/27/23 [facility]ci Goal (LTG) Pt will demonstrate improvement in ankle dorsiflexion ROM to 12 degrees LTG Duration 03/20/23 Assessment Summary Assessment Pt with increased antalgic gait today. Pt with por tolerance to weightbearing activities today. Pt demonstrates greater limitations in ankle mobility today compared to previous session. Pt will see her referring provider on Saturday. Pt will return to PT on to reassess progress. Physical Therapy Plan Frequency and Duration Frequency of Treatment 2x/Week Duration of treatment (weeks) 6 Plan of Care Start Date 02/06/23 Plan of Care End Date 03/20/23 Therapeutic Interventions Therapeutic Interventions Balance Training,Gait Training ,Home Exercise Program,Joint Mobilizations,Manual Therapy, Neuromuscular Re-education, Patient/Caregiver Education, Self-Care/Home Management,Soft Tissue Mobilization,Taping, Therapeutic Activities, Therapeutic Exercises Modalities Cold Pack/Ice Massage,Electric Stimulation,Hot Packs, Ultrasound Next Visit Focus/Plan Next Note Type Treatment Note Next Visit Plan Progress LE strength and ankle mobility as tolerated. Utilize manual tecnniques to decrease pain.
--- NOTE | 2023-03-21 09:03 | PT.OPPN ---
Current Diagnoses Achilles tendinitis, right leg (03/21/23) Physical Therapy Progress Note PT-OP-A Visit Information Start: 02/05/23 15:34 Freq: Status: Active Protocol: Document 03/21/23 09:03 AM (Rec: 03/21/23 15:16 AM [id number]) Out-Patient Physical Therapy Visit Information Visit Information Visit Type Treatment Note Visit Start Time 09:03 Visit Stop Time 09:45 Total Visit Minutes 42 Visit Number 8 PT-OP-B Current Condition Start: 02/05/23 15:34 Freq: Status: Active Protocol: Document 03/12/23 09:02 AM (Rec: 03/12/23 09:45 AM [id number]) Current Condition History of Current Condition Onset Date 1 month ago Current Complaints Pain at posterior heel and achilles History of Current Condition Pt slipped on ice in 2017. In 2018 she found that she had more extensive damage from that event, which required surgery. 1 month ago pt was descending stairs and slipped on the last 2 stairs, which caused current exacerbation. Pt has been using SPC full- time for one month. Pt has used SPC intermittently in the past. Prior Treatments and Tests Pt reports that she saw her referring provider and they did not do imaging at this time. Pt is taking tylenol as needed. Future Testing and Treatments Planned Pt plans to go back to surgeon (from 2018) if symptoms do not resolve. PT-OP-C Subjective Start: 02/05/23 15:34 Freq: Status: Active Protocol: Document 03/21/23 09:03 AM (Rec: 03/21/23 15:16 AM [id number]) OP-PT Subjective Patient Comments Patient Comments Pt reports continued discomfort. She will see her referring provider tomorrow and hoping to get further imaging. Pt reports that her foot was swollen yesterday for unknown reason. PT-OP-D Balance Start: 02/05/23 15:34 Freq: Status: Active Protocol: Document 03/07/23 14:23 AM (Rec: 03/07/23 17:10 AM [id number]) Balance Tests Single Limb Standing Single Limb- Right 4 Single Limb- Left 10 PT-OP-G Mobility & Gait Start: 02/05/23 15:34 Freq: Status: Active Protocol: Document 02/06/23 08:55 AM (Rec: 02/06/23 10:24 AM [id number]) OP Gait Assessment Gait Gait Assistance Required: Independent Assistive Devices Assistive Device Straight Cane Orthotic/Prosthetic Devices or Brace: No Gait Deviations General Gait Pattern Antalgic,Decreased Stride Length Factors Limiting Gait Function Factors Limiting Gait Function Decreased Strength,Limited Range of Motion,Pain Comments Gait Comments Pt unable to demonstrate heel strike on right. Pt maintains R ankle plantarflexion during gait, secondary to pain. PT-OP-J Posture/Palpation/Skin Start: 02/05/23 15:34 Freq: Status: Active Protocol: Document 02/06/23 08:55 AM (Rec: 02/06/23 10:24 AM [id number]) Posture Evaluation Position Standing Ankle/Foot Posture (L) Pronated,(R) Pronated Foot Arch (L) Medium Arch,(R) Low Arch Palpation Assessment Location One Palpation Location R achilles/ankle Palpation Findings Edema,Soft Tissue Tightness, Tenderness Palpation Details at distal achilles, heel, minimal discomfort at calf PT-OP-K Range of Motion Start: 02/05/23 15:34 Freq: Status: Active Protocol: Document 03/21/23 09:03 AM (Rec: 03/21/23 15:16 AM [id number]) Ankle and Foot Goniometric Range of Motion Ankle and Foot Measured in Degrees Right Dorsiflexion with Knee Extended 0 PT-OP-L Special Tests Start: 02/05/23 15:34 Freq: Status: Active Protocol: Document 02/06/23 08:55 AM (Rec: 02/06/23 10:24 AM [id number]) Special Tests Foot/Ankle Special Tests [place] Test Results negative Other Special Tests Special Tests neg haglands, negative royal davila test on R PT-OP-M Strength Start: 02/05/23 15:34 Freq: Status: Active Protocol: Document 02/06/23 08:55 AM (Rec: 02/06/23 10:24 AM [id number]) Ankle/Foot Strength Ankle and Foot Manual Muscle Testing Left Dorsiflexion (L4) 5 Normal Plantarflexion (S1) 5 Normal Inversion 5 Normal Eversion (S1) 5 Normal Right Dorsiflexion (L4) 3+ Fair+ Plantarflexion (S1) 3+ Fair+ Inversion 3 Fair Eversion (S1) 3 Fair Comments Pt able to do heel raise in standing position with bilateral LE PT-OP-T Assessment and Plan Start: 02/05/23 15:34 Freq: Status: Active Protocol: Document 03/21/23 09:03 AM (Rec: 03/21/23 15:16 AM [id number]) Physical Therapy Assessment Impairments Impairments Activity Tolerance,Balance, Edema,Functional Activities, Functional Mobility,Gait,Pain, ROM,Soft Tissue Mobility, Strength Goals Five Impairment Balance Impairment Pt unable to SLS on R LE secondary to pain Short Term Goal (STG) Pt able to SLS for 5 seconds on ea LE. 03/07/23: progressing towards goal. Pt able to hold for 4 seconds on R STG Duration 02/27/23 Social Media Assistant Goal (LTG) Pt able to SLS for 10 seconds on ea LE 03/21/23: Partially met. Pt able to SLS on L for 10 seconds, and R LE for 4 seconds. LTG Duration 03/20/23 Four Impairment LEFS Impairment Pt with score of 44/80 on LEFS . Half-Way Goal (LTG) Pt with LEFS of 65/80. Goal Unmet: 46/80 on 03/21/23 LTG Duration 03/20/23 Three Impairment Pain with driving Impairment Pt unable to drive without increase in pain. Half-Way Goal (LTG) Pt to report that she is able to drive desired distance without increase in pain by 1- 2 points on 0-10 scale. Unmet 03/21/23: Pt reports that she is able to drive for 10- 15 min before pain makes her want to stop. LTG Duration 03/20/23 Two Impairment Difficulty walking Impairment Pt reports that she is unable to ambulate 3 blocks with SPC, secondary to pain. Short Term Goal (STG) Pt able to ambulate 3 blocks with proper heel strike without increase in pain more than 2 points on 0-10 scale. 03/07/23: Progressing towards goal. Pt reports that she has been able to walk 2 blocks comfortably. She had recent covid and has not been walking as much. STG Duration 02/27/23 Social Media Assistant Goal (LTG) Pt able to ambulate 5 blocks without increase in pain more than 2 points on 0-10 scale. 03/21/23: Goal unmet: Pt able to ambulate 2 blocks before need to stop secondary to pain . LTG Duration 03/20/23 One Impairment Pt with limited dorsiflexion ROM Impairment Pt's dorsiflexion with knee extended ROM at 3 degrees Short Term Goal (STG) Pt will demonstrate improvement in ankle dorsiflexion ROM to 8 degrees. 03/07/23: Progressing towards goal. Pt with 5 deg DF with knee extended and 10 deg with knee bent. STG Duration 02/27/23 Social Media Assistant Goal (LTG) Pt will demonstrate improvement in ankle dorsiflexion ROM to 12 degrees LTG Duration 03/20/23 Assessment Summary Assessment Pt continues to demonstrate antalgic gait pattern and discomfort with ankle mobility . Pt with decrease in ankle DF mobility compared to previous assessments. Pt had been demonstrating some improvement in activity tolerance, though recently sprained ankle again . Pt able to tolerate very gentle ankle strengthening, though limited ROM. Pt with tenderness at plantar fascia, heel and achilles. Pt continues to demonstrate difficulty with weightbearing on R LE. Pt will be meeting with referring provider tomorrow to determine future POC. Physical Therapy Plan Frequency and Duration Frequency of Treatment 2x/Week Duration of treatment (weeks) 6 Plan of Care Start Date 02/06/23 Plan of Care End Date 03/21/23 Therapeutic Interventions Therapeutic Interventions Balance Training,Gait Training ,Home Exercise Program,Joint Mobilizations,Manual Therapy, Neuromuscular Re-education, Patient/Caregiver Education, Self-Care/Home Management,Soft Tissue Mobilization,Taping, Therapeutic Activities, Therapeutic Exercises Modalities Cold Pack/Ice Massage,Electric Stimulation,Hot Packs, Ultrasound Next Visit Focus/Plan Next Note Type Treatment Note Next Visit Plan Progress LE strength and ankle mobility as tolerated. Utilize manual tecnniques to decrease pain.
--- NOTE | 2023-03-21 09:03 | PT.OPPOC ---
Physical, Occupational & Speech Therapy At [facility] Current Diagnoses Achilles tendinitis, right leg (03/21/23) Visit Care Team Role Provider Type CHANI Mack Attending Provider Non-Staff Family Provider Primary Care Provider Referring Provider Specialty: Medical Address: [address] [place] [address], [phone] Email: Plan Of Care PT-OP-T Assessment and Plan Start: 02/05/23 15:34 Freq: Status: Active Protocol: Document 03/21/23 09:03 AM (Rec: 03/21/23 15:16 AM [id number]) Physical Therapy Assessment Impairments Impairments Activity Tolerance,Balance, Edema,Functional Activities, Functional Mobility,Gait,Pain, ROM,Soft Tissue Mobility, Strength Goals Five Impairment Balance Impairment Pt unable to SLS on R LE secondary to pain Short Term Goal (STG) Pt able to SLS for 5 seconds on ea LE. 03/07/23: progressing towards goal. Pt able to hold for 4 seconds on R STG Duration 02/27/23 Montessori Toddler Teacher Goal (LTG) Pt able to SLS for 10 seconds on ea LE 03/21/23: Partially met. Pt able to SLS on L for 10 seconds, and R LE for 4 seconds. LTG Duration 03/20/23 Four Impairment LEFS Impairment Pt with score of 44/80 on LEFS . [facility]dc Goal (LTG) Pt with LEFS of 65/80. Goal Unmet: 46/80 on 03/21/23 LTG Duration 03/20/23 Three Impairment Pain with driving Impairment Pt unable to drive without increase in pain. Montessori Toddler Teacher Goal (LTG) Pt to report that she is able to drive desired distance without increase in pain by 1- 2 points on 0-10 scale. Unmet 03/21/23: Pt reports that she is able to drive for 10- 15 min before pain makes her want to stop. LTG Duration 03/20/23 Two Impairment Difficulty walking Impairment Pt reports that she is unable to ambulate 3 blocks with SPC, secondary to pain. Short Term Goal (STG) Pt able to ambulate 3 blocks with proper heel strike without increase in pain more than 2 points on 0-10 scale. 03/07/23: Progressing towards goal. Pt reports that she has been able to walk 2 blocks comfortably. She had recent covid and has not been walking as much. STG Duration 02/27/23 Montessori Toddler Teacher Goal (LTG) Pt able to ambulate 5 blocks without increase in pain more than 2 points on 0-10 scale. 03/21/23: Goal unmet: Pt able to ambulate 2 blocks before need to stop secondary to pain . LTG Duration 03/20/23 One Impairment Pt with limited dorsiflexion ROM Impairment Pt's dorsiflexion with knee extended ROM at 3 degrees Short Term Goal (STG) Pt will demonstrate improvement in ankle dorsiflexion ROM to 8 degrees. 03/07/23: Progressing towards goal. Pt with 5 deg DF with knee extended and 10 deg with knee bent. STG Duration 02/27/23 Montessori Toddler Teacher Goal (LTG) Pt will demonstrate improvement in ankle dorsiflexion ROM to 12 degrees LTG Duration 03/20/23 Assessment Summary Assessment Pt continues to demonstrate antalgic gait pattern and discomfort with ankle mobility . Pt with decrease in ankle DF mobility compared to previous assessments. Pt had been demonstrating some improvement in activity tolerance, though recently sprained ankle again . Pt able to tolerate very gentle ankle strengthening, though limited ROM. Pt with tenderness at plantar fascia, heel and achilles. Pt continues to demonstrate difficulty with weightbearing on R LE. Pt will be meeting with referring provider tomorrow to determine future POC. Physical Therapy Plan Frequency and Duration Frequency of Treatment 2x/Week Duration of treatment (weeks) 6 Plan of Care Start Date 02/06/23 Plan of Care End Date 03/21/23 Therapeutic Interventions Therapeutic Interventions Balance Training,Gait Training ,Home Exercise Program,Joint Mobilizations,Manual Therapy, Neuromuscular Re-education, Patient/Caregiver Education, Self-Care/Home Management,Soft Tissue Mobilization,Taping, Therapeutic Activities, Therapeutic Exercises Modalities Cold Pack/Ice Massage,Electric Stimulation,Hot Packs, Ultrasound Next Visit Focus/Plan Next Note Type Treatment Note Next Visit Plan Progress LE strength and ankle mobility as tolerated. Utilize manual tecnniques to decrease pain. Plan of Care Dates Plan of Care Start Date 02/06/23 Plan of Care End Date 03/21/23 Electronically Signed by: Claudia Sanford, PT 03/21/23 6194 If you are in agreement with this Plan of Care, please return a signed and dated copy. I have reviewed this Plan of Care and certify that the skilled therapy services above are required to meet the patient?s needs. Physician Signature Date Printed Name and Credentials Clinical Instructor Signature Printed Name and Credentials
--- NOTE | 2023-04-12 10:22 | PT.OPDS ---
Current Diagnoses Achilles tendinitis, right leg (03/21/23) Visit Care Team Role Provider Type CHANI Mack Attending Provider Non-Staff Family Provider Primary Care Provider Referring Provider Specialty: Medical Address: [address] [place] [address], [place], [address] Email: Visit Number Visit Number 8 Discharge Summary PT-OP-B Current Condition Start: 02/05/23 15:34 Freq: Status: Active Protocol: Document 03/12/23 09:02 AM (Rec: 03/12/23 09:45 AM [id number]) Current Condition History of Current Condition Onset Date 1 month ago Current Complaints Pain at posterior heel and achilles History of Current Condition Pt slipped on ice in 2017. In 2018 she found that she had more extensive damage from that event, which required surgery. 1 month ago pt was descending stairs and slipped on the last 2 stairs, which caused current exacerbation. Pt has been using [facility]PC full- time for one month. Pt has used SPC intermittently in the past. Prior Treatments and Tests Pt reports that she saw her referring provider and they did not do imaging at this time. Pt is taking tylenol as needed. Future Testing and Treatments Planned Pt plans to go back to surgeon (from 2018) if symptoms do not resolve. PT-OP-C Subjective Start: 02/05/23 15:34 Freq: Status: Active Protocol: Document 03/21/23 09:03 AM (Rec: 03/21/23 15:16 AM [id number]) OP-PT Subjective Patient Comments Patient Comments Pt reports continued discomfort. She will see her referring provider tomorrow and hoping to get further imaging. Pt reports that her foot was swollen yesterday for unknown reason. PT-OP-D Balance Start: 02/05/23 15:34 Freq: Status: Active Protocol: Document 03/07/23 14:23 AM (Rec: 03/07/23 17:10 AM [id number]) Balance Tests Single Limb Standing Single Limb- Right 4 Single Limb- Left 10 PT-OP-G Mobility & Gait Start: 02/05/23 15:34 Freq: Status: Active Protocol: Document 02/06/23 08:55 AM (Rec: 02/06/23 10:24 AM [id number]) OP Gait Assessment Gait Gait Assistance Required: Independent Assistive Devices Assistive Device Straight Cane Orthotic/Prosthetic Devices or Brace: No Gait Deviations General Gait Pattern Antalgic,Decreased Stride Length Factors Limiting Gait Function Factors Limiting Gait Function Decreased Strength,Limited Range of Motion,Pain Comments Gait Comments Pt unable to demonstrate heel strike on right. Pt maintains R ankle plantarflexion during gait, secondary to pain. PT-OP-J Posture/Palpation/Skin Start: 02/05/23 15:34 Freq: Status: Active Protocol: Document 02/06/23 08:55 AM (Rec: 02/06/23 10:24 AM [id number]) Posture Evaluation Position Standing Ankle/Foot Posture (L) Pronated,(R) Pronated Foot Arch (L) Medium Arch,(R) Low Arch Palpation Assessment Location One Palpation Location R achilles/ankle Palpation Findings Edema,Soft Tissue Tightness, Tenderness Palpation Details at distal achilles, heel, minimal discomfort at calf PT-OP-K Range of Motion Start: 02/05/23 15:34 Freq: Status: Active Protocol: Document 03/21/23 09:03 AM (Rec: 03/21/23 15:16 AM [id number]) Ankle and Foot Goniometric Range of Motion Ankle and Foot Right Dorsiflexion with Knee Extended 0 PT-OP-L Special Tests Start: 02/05/23 15:34 Freq: Status: Active Protocol: Document 02/06/23 08:55 AM (Rec: 02/06/23 10:24 AM [id number]) Special Tests Foot/Ankle Special Tests Zarco Test Results negative Other Special Tests Special Tests neg haglands, negative royal davila test on R PT-OP-M Strength Start: 02/05/23 15:34 Freq: Status: Active Protocol: Document 02/06/23 08:55 AM (Rec: 02/06/23 10:24 AM [id number]) Ankle/Foot Strength Ankle and Foot Manual Muscle Testing Left Dorsiflexion (L4) 5 Normal Plantarflexion (S1) 5 Normal Inversion 5 Normal Eversion (S1) 5 Normal Right Dorsiflexion (L4) 3+ Fair+ Plantarflexion (S1) 3+ Fair+ Inversion 3 Fair Eversion (S1) 3 Fair Comments Pt able to do heel raise in standing position with bilateral LE PT-OP-T Assessment and Plan Start: 02/05/23 15:34 Freq: Status: Active Protocol: Document 04/12/23 10:22 AM (Rec: 04/12/23 10:23 AM [id number]) Physical Therapy Plan Discharge Physical Therapy Discharge Reasons Plateau in Progress Discharge Comments Pt was d/c with HEP. Pt plan to follow up with PCP and possibly surgeon for further imaging if indicated.
== END 2023-04-12 12:03 | disposition home or self-care (01) ==
LOC: PHYS 09:00
PROVIDERS: Family Provider Nurse Practitioner Family; PCP Nurse Practitioner Family; Referring Provider Nurse Practitioner Family; Visit Provider Nurse Practitioner Family
DX: M76.61 Achilles tendinitis, right leg (principal)
CPT/HCPCS: 97110; 97140; 97161

== ENCOUNTER → 2023-03-29 08:32 | Outpatient (CLI) | payer MEDICARE, MEDICAID, SELFPAY ==
[2023-03-29 09:18] LABS: BUN Creatinine Ratio 28.2 (6-22); Blood Urea Nitrogen 24 mg/dL (7-17); Calcium 9.9 mg/dL (8.4-10.2); Carbon Dioxide 27 mmol/L (22-32); Chloride 99 mmol/L (98-107); Estimated Glomerular Filt Rate > 60 mL/min (>60); Glucose 112 mg/dL (70-100); HEMOLYSIS < 15 (0-50); Potassium 3.5 mmol/L (3.4-5.1); Sodium 135 mmol/L (137-145)
[2023-03-31 04:24] LABS: RPR Screen Non Reactive (Non Reactive)
== END ==
PROVIDERS: Family Provider Nurse Practitioner Family; PCP Nurse Practitioner Family; Referring Provider Nurse Practitioner Family; Visit Provider Nurse Practitioner Family
DX: R73.03 Prediabetes (principal); Z11.3 Encounter for screening for infections with a predominantly sexual mode of transmission
CPT/HCPCS: 36415; 80048; 86592; 87535

== ENCOUNTER 2023-03-31 15:46 | Emergency (ER) | payer MEDICARE, MEDICAID, SELFPAY ==
[2023-03-31 15:50] VITALS: BP 121/74; PULSE 77; RESP 18; TEMP 36.7; O2SAT 96; BMI 36.9
--- NOTE | 2023-03-31 15:50 | ED_ITS ---
HPI - Extremity Problem <Bobby Roy PA-C - Last Filed: 03/31/23 16:10> General Chief complaint: Wound/Laceration Stated complaint: cut right hand Time Seen by Provider: 03/31/23 15:49 History of Present Illness HPI Narrative: This is a 57-year-old female presents to the emergency department due to lacerations to her right 2nd and 3rd fingers after cutting herself on a can. Denies any changes in range of motion. Tetanus is up date. No active bleeding. Patient is not on blood thinners. Related Data Home Medications Medication Instructions Recorded Confirmed APAP/Dichloralphenazone/Torey ##0 01/22/11 03/05/22 (MIDRIN 65 MG-100 MG-325 MG) NORTRIPTYLINE HCL (Nortriptyline 10 mg PO HS ##0 01/22/11 03/05/22 HCl) cetirizine 10 mg tablet 10 mg PO Q DAY ##0 01/22/11 03/05/22 losarten PO 1XD 01/08/22 03/05/22 Previous Rx's Medication Instructions Recorded benzocaine 15 mg-menthol 3.6 mg 1 sonido mucous membrane Q2-4H PRN 01/08/22 lozenges (Cepacol Sore Throat sore throat #16 ea (benzocaine-menthol)) nirmatrelvir 300 mg (150 mg See Rx Instructions PO .COMPLEX 01/08/22 x2)-ritonavir 100 mg tablet,dose #30 tabs pack (Paxlovid) benzonatate 100 mg capsule 100 mg PO TID PRN cough #20 caps 04/11/22 Allergies Allergy/AdvReac Type Severity Reaction Status Date / Time bee pollen Allergy Severe Hives Verified 08/14/22 16:21 shellfish derived Allergy Severe Hives Verified 08/14/22 16:21 Sulfa (Sulfonamide Allergy Severe Hives Verified 08/14/22 16:21 Antibiotics) naproxen [From Naprosyn] Allergy Unknown Verified 08/14/22 16:21 aspirin Allergy Verified 08/14/22 16:21 Penicillins Allergy Verified 08/14/22 16:21 Review of Systems <Bobby Roy PA-C - Last Filed: 03/31/23 16:10> Review of Systems Narrative: GENERAL: Denies chills, fatigue, malaise, fever, sweats. HEENT: Denies sinus pain, ear pain, sore throat, difficulty swallowing, dizziness. RESPIRATORY: Denies dyspnea, cough, wheezing, hemoptysis, sputum. CARDIOVASCULAR: Denies chest pain, palpitations, orthopnea, edema, GASTROINTESTINAL: Denies nausea, vomiting, abdominal pain, diarrhea, constipation, melena. : Denies dysuria, frequency, incontinence, hematuria, urinary retention. MUSCULOSKELETAL: denies weakness, joint pain, or bony pain SKIN: Finger lacerations NEUROLOGIC: Denies weakness, headache, numbness, change in speech, confusion, seizures, incoordination. PSYCHIATRIC: No concerning psychosocial issues. 12 point review of systems is negative except for those stated above Patient History <Bobby Roy PA-C - Last Filed: 03/31/23 16:10> Medical History Psoriasis Social History Smoking Status: Former smoker Smoking Status: Former smoker alcohol intake frequency: holidays/special occasions only Substance Use Type: does not use Exam <Bobby Roy PA-C - Last Filed: 03/31/23 16:10> Narrative Exam Narrative: GENERAL: Well-developed patient, in mild distress. HEAD: Atraumatic. Normocephalic. EYES: Pupils equal round and reactive. Extraocular motions intact. No scleral icterus. No injection or drainage. ENT: Nose without bleeding, purulent drainage. Throat without erythema, tonsillar hypertrophy or exudate. Airway patent. NECK: Trachea midline. Non tender CARDIOVASCULAR: Regular rate and rhythm without murmurs, gallops, or rubs. RESPIRATORY: Clear to auscultation. Breath sounds equal bilaterally. No wheezes, rales, or rhonchi. GASTROINTESTINAL: Abdomen soft, non-tender, nondistended. EXTREMITIES: No edema or joint tenderness. BACK: Nontender without deformity or crepitance. No flank tenderness. NEURO: AOx3. SKIN: Superficial 2 cm laceration to the dorsal aspect of the right 2nd digit at the distal phalanx, superficial 2.5 cm laceration to the dorsal aspect of the right 3rd digit as well. Full flexion-extension at the DIP joints. Initial Vital Signs Initial Vital Signs: Vital Signs Temperature 98.0 F 03/31/23 15:50 Pulse Rate 77 03/31/23 15:50 Respiratory Rate 18 03/31/23 15:50 Blood Pressure 121/74 03/31/23 15:50 Pulse Oximetry 96 03/31/23 15:50 Oxygen Delivery Method Room Air 03/31/23 15:50 <Deborah Atkins DO - Last Filed: 04/01/23 07:07> Initial Vital Signs Initial Vital Signs: Vital Signs Temperature 98.0 F 03/31/23 15:50 Pulse Rate 77 03/31/23 15:50 Respiratory Rate 18 03/31/23 15:50 Blood Pressure 121/74 03/31/23 15:50 Pulse Oximetry 96 03/31/23 15:50 Oxygen Delivery Method Room Air 03/31/23 15:50 Procedures <Bobby Roy PA-C - Last Filed: 03/31/23 16:10> Laceration Repair Laceration 1: Time of procedure: 16:04 Site: hand Side (If applicable): right Size (cm): 2 Description: linear Depth: simple, single layer Pre-repair: irrigated extensively Skin layer closed with: dermabond Laceration 2: Time of procedure: 16:05 Site: hand Side (If applicable): right Size (cm): 2.5 Description: linear Depth: simple, single layer Pre-repair: irrigated extensively Skin layer closed with: dermabond Course <Bobby Roy PA-C - Last Filed: 03/31/23 16:10> Vital Signs Vital signs: Vital Signs - 8 hr 03/31/23 15:50 Temperature 98.0 F Pulse Rate 77 Respiratory Rate 18 Blood Pressure 121/74 Pulse Oximetry 96 Oxygen Delivery Method Room Air <Deborah Atkins DO - Last Filed: 04/01/23 07:07> Vital Signs Vital signs: Vital Signs - 8 hr 03/31/23 15:50 Temperature 98.0 F Pulse Rate 77 Respiratory Rate 18 Blood Pressure 121/74 Pulse Oximetry 96 Oxygen Delivery Method Room Air MDM - Extremity (Nontraumatic) <PARTH Marrero Last Filed: 03/31/23 16:10> MDM Narrative Medical decision making narrative: MDM * differential diagnosis includes but not limited to laceration, fracture, tendon injury * Prior records reviewed: Patient was here a month ago for bilateral impacted cerumen. History of hypertension. Your wax was removed and patient was discharged. * My lab interpretation: None obtained * My imgaing interpretation: None obtained * Clinical Decision Rules/Scores evaluated: None * Independent discussions with: None ED Course: This is a 57-year-old female presents emergency department due to superficial lacerations to his 2nd and 3rd fingers. Tetanus is up-to-date. Lacerations were not deep enough to warrant sutures. Wound was closed using Dermabond without complications. Shared Decision Making: Discussed plan with patient who is comfortable with the plan. Social Considerations: None Disposition: Discharged to home Discharge Plan Departure Patient Disposition: Home Clinical Impression: Laceration Instructions: DI for Laceration Repair-Skin Glue Activity Restrictions/Additional Instructions: Thank you for coming to the [facility] Emergency Department today. I am glad that we are able to clamp the wound. The glue and wound should heal over time. The glue should wear off over time. Please watch the wounds for any spreading redness or purulent drainage or any concerns for infection. You may follow up in the walk-in clinic if you develop any of this for further evaluation and antibiotics. I hope you feel better soon. Please follow up with your primary care provider within a week if your symptoms continue. If you do not have a primary care provider please contact the [facility] Resource line at [phone]. They will ask some questions about your medical history and help you get set up with a provider in the community. Prescriptions: No Action losarten 50 mg PO 1XD Paxlovid 150 mg x 2- 100 mg tablet See Rx Instructions PO .COMPLEX Qty: 30 0RF Rx Instructions: take TWO 150 mg tablets of nirmatrelvir with ONE 100 mg tablet of ritonavir twice daily for 5 days PO Cepacol Sore Throat (felice-men) 15-3.6 mg lozenge 1 sonido mucous membrane Q2-4H PRN (Reason: sore throat) Qty: 16 0RF NORTRIPTYLINE HCL (Nortriptyline HCl) 10 mg PO HS Qty: 0 APAP/Dichloralphenazone/Torey (MIDRIN 65 MG-100 MG-325 MG) Qty: 0 cetirizine 10 MG tablet 10 mg PO Q DAY Qty: 0 benzonatate 100 mg capsule 100 mg PO TID PRN (Reason: cough) Qty: 20 0RF Referrals: Mady Leyva ARNP [Primary Care Provider] - Stand Alone Forms: Patient Portal/API ED Sign-out <Deborah Atkins DO - Last Filed: 04/01/23 07:07> Cosign ED Attending Raymundo Attestation: I was immediately available in the department for consultation. Documentation has been reviewed.
[2023-03-31 16:15] VITALS: BP 111/60; PULSE 78; RESP 17; O2SAT 99
== END 2023-03-31 16:16 | disposition home or self-care (01) ==
PROVIDERS: Emergency Provider Physician Assistant Medical; Family Provider Nurse Practitioner Family; PCP Nurse Practitioner Family
DX: S61.210A Laceration without foreign body of right index finger without damage to nail, initial encounter (principal); S61.212A Laceration without foreign body of right middle finger without damage to nail, initial encounter; W26.9XXA Contact with unspecified sharp object(s), initial encounter
CPT/HCPCS: 12002; 99283

== ENCOUNTER → 2023-04-03 14:29 | Outpatient (CLI) | payer MEDICARE, OTHER, MEDICAID, SELFPAY | PROVIDERS: Family Provider Nurse Practitioner Family; PCP Nurse Practitioner Family; Visit Provider Nurse Practitioner Family | DX: L24.A9 Irritant contact dermatitis due friction or contact with other specified body fluids (principal) | CPT/HCPCS: 87070; 87075; 87077; 87147; 87186; 87205 ==

== ENCOUNTER → 2023-04-15 08:04 | Outpatient (CLI) | payer MEDICARE, OTHER, MEDICAID, SELFPAY ==
[2023-04-15 17:19] LABS: HIV 1 & 2 Ab/Ag 4th Gen Combo NEGATIVE (NEGATIVE)
== END ==
PROVIDERS: Family Provider Nurse Practitioner Family; PCP Nurse Practitioner Family; Referring Provider Nurse Practitioner Family; Visit Provider Nurse Practitioner Family
DX: Z11.3 Encounter for screening for infections with a predominantly sexual mode of transmission (principal)
CPT/HCPCS: 36415; 87389

== ENCOUNTER 2023-04-19 16:16 | Emergency (ER) | payer MEDICARE, OTHER, MEDICAID, SELFPAY ==
[2023-04-19 17:03] VITALS: BP 158/80; PULSE 82; RESP 18; TEMP 36.7; O2SAT 96; BMI 36.9
[2023-04-19 18:01] LABS: Add Manual Diff / Slide Review NO; Basophils Absolute Auto 200 /uL (0-100); Basophils Percent Auto 1.2 % (0-2); Eosinophils Absolute Auto 200 /uL (0-450); Eosinophils Percent Auto 1.3 % (2-4); Hematocrit 39.8 % (36-46); Hemoglobin 13.7 g/dL (12.0-16.0); Lymphocytes Absolute Auto 3400 /uL (1100-4500); Mean Corpuscular HGB Conc 34.3 % (30-36); Mean Corpuscular Hemoglobin 28.7 PG (26-34); Mean Corpuscular Volume 83.7 fL (80-100); Monocytes Absolute Auto 1000 /uL (0-900); Monocytes Percent Auto 7.2 % (3-14); Neutrophils Absolute Auto 9000 /uL (1500-7000); Neutrophils Percent Auto 65.3 % (50-75); Platelet Count 270 X10^3/uL (150-400); Red Blood Cell Count 4.76 X10^6/uL (4.0-5.2); Red Cell Distribution Width 13.6 % (11.6-14.8); White Blood Cell Count 13.7 X10^3/uL (4.5-11.0)
[2023-04-19 18:17] LABS: Alanine Aminotransferase 44 IU/L (<35); Albumin 4.2 g/dL (3.5-5.0); Albumin Globulin Ratio 1.2 (1.0-2.8); Alkaline Phosphatase 119 U/L (38-126); Aspartate Aminotransferase 27 IU/L (14-36); BUN Creatinine Ratio 23.1 (6-22); Bilirubin Total 0.3 mg/dL (0.2-1.3); Blood Urea Nitrogen 18 mg/dL (7-17); Calcium 10.1 mg/dL (8.4-10.2); Carbon Dioxide 30 mmol/L (22-32); Chloride 100 mmol/L (98-107); Estimated Glomerular Filt Rate > 60 mL/min (>60); Globulin 3.5 g/dL (1.7-4.1); Glucose 110 mg/dL (70-100); HEMOLYSIS 17 (0-50); Lipase 91 U/L (23-300); Potassium 3.6 mmol/L (3.4-5.1); Sodium 137 mmol/L (137-145); Total Protein 7.7 g/dL (6.3-8.2)
--- NOTE | 2023-04-19 21:29 | ED.GENADULT ---
HPI - General Adult General Chief complaint: Abdominal Pain Stated complaint: POST SURG/ABD PAIN Time Seen by Provider: 04/19/23 21:23 Source: patient Mode of arrival: Ambulatory History of Present Illness HPI narrative: Patient is a 57-year-old female. Three days ago underwent a routine colonoscopy. She states they did take polyps during that time. She did have a bowel movement since the procedure. She is here for left-sided abdominal discomfort. No fevers. No urinary symptoms. States she has had a kidney stone in the past and this potentially feels somewhat like that. No fevers. No vomiting. Related Data Home Medications Medication Instructions Recorded Confirmed APAP/Dichloralphenazone/Torey ##0 01/22/11 04/03/23 (MIDRIN 65 MG-100 MG-325 MG) NORTRIPTYLINE HCL (Nortriptyline 10 mg PO HS ##0 01/22/11 04/03/23 HCl) cetirizine 10 mg tablet 10 mg PO Q DAY ##0 01/22/11 04/03/23 losarten PO 1XD 01/08/22 04/03/23 Previous Rx's Medication Instructions Recorded benzocaine 15 mg-menthol 3.6 mg 1 sonido mucous membrane Q2-4H PRN 01/08/22 lozenges (Cepacol Sore Throat sore throat #16 ea (benzocaine-menthol)) nirmatrelvir 300 mg (150 mg See Rx Instructions PO .COMPLEX 01/08/22 x2)-ritonavir 100 mg tablet,dose #30 tabs pack (Paxlovid) benzonatate 100 mg capsule 100 mg PO TID PRN cough #20 caps 04/11/22 doxycycline hyclate 100 mg capsule 100 mg PO BID #14 caps 04/03/23 Allergies Allergy/AdvReac Type Severity Reaction Status Date / Time bee pollen Allergy Severe Hives Verified 04/19/23 17:03 shellfish derived Allergy Severe Hives Verified 04/19/23 17:03 Sulfa (Sulfonamide Allergy Severe Hives Verified 04/19/23 17:03 Antibiotics) naproxen [From Naprosyn] Allergy Unknown Hives Verified 04/19/23 17:03 Penicillins Allergy Hives Verified 04/19/23 17:03 Review of Systems Constitutional Constitutional: Reports system reviewed and no additional complaints, except as documented Cardiovascular Cardiovascular: Reports system reviewed and no additional complaints, except as documented Gastrointestinal Gastrointestinal: Reports system reviewed and no additional complaints, except as documented Genitourinary Genitourinary: Reports system reviewed and no additional complaints, except as documented Musculoskeletal Musculoskeletal: Reports system reviewed and no additional complaints, except as documented Integumentary/Breasts Skin/Breast: Reports system reviewed and no additional complaints, except as documented Neurologic Neurologic: Reports system reviewed and no additional complaints, except as documented Patient History Medical History Psoriasis Social History Smoking Status: Former smoker Smoking Status: Former smoker alcohol intake frequency: holidays/special occasions only Substance Use Type: does not use Exam Initial Vital Signs Initial Vital Signs: Vital Signs Temperature 98.0 F 04/19/23 17:03 Pulse Rate 82 04/19/23 17:03 Respiratory Rate 18 04/19/23 17:03 Blood Pressure 158/80 H 04/19/23 17:03 Pulse Oximetry 96 04/19/23 17:03 Oxygen Delivery Method Room Air 04/19/23 17:03 Const General: cooperative, comfortable and No ill appearing HENMT Head: normal to inspection and normocephalic Resp Effort & Inspection: normal respiratory effort Cardio Rate: regular rate GI Inspection: normal to inspection and non-distended Palpation: soft and tender (Left-sided abdomen) Skin General: no rashes or lesions noted Neuro General: patient alert, patient awake, patient oriented x3 and moves all extremities Extrem General: capillary refill normal Course Orders Ordered: ED Orders 04/19/23 21:30 CT abdomen pelvis wo con Stat Discontinued Medications Morphine Sulfate (Morphine 4 Mg/Ml Inj) 4 mg IV NOW ONE Stop: 04/19/23 21:30 Last Admin: 04/19/23 21:56 Dose: 4 mg Documented By: RICO Ondansetron HCl (Ondansetron 4 Mg Odt) 4 mg PO NOW PRN PRN Reason: Nausea And Vomiting Ondansetron HCl (Ondansetron 4 Mg/2 Ml Inj) 4 mg IV NOW PRN PRN Reason: Nausea And Vomiting Last Admin: 04/19/23 21:56 Dose: 4 mg Documented By: RICO Vital Signs Vital signs: Vital Signs - 8 hr 04/19/23 21:54 04/19/23 22:09 04/19/23 22:10 Pulse Rate 75 Respiratory Rate 16 Blood Pressure 136/60 Pulse Oximetry 96 89 L 93 Oxygen Delivery Method Room Air Room Air Nasal Cannula Oxygen Flow Rate 2 04/19/23 23:13 Pulse Rate 76 Respiratory Rate 16 Blood Pressure 138/63 Pulse Oximetry 95 Oxygen Delivery Method Room Air Oxygen Flow Rate Medical Decision Making Lab Data Lab results reviewed: Yes I reviewed the patient's lab results. 04/19/23 17:49 04/19/23 17:49 Labs: Lab Results 04/19/23 Range/Units 17:49 WBC 13.7 H (4.5-11.0) X10^3/uL RBC 4.76 (4.0-5.2) X10^6/uL Hgb 13.7 (12.0-16.0) g/dL Hct 39.8 (36-46) % MCV 83.7 (80-100) fL MCH 28.7 (26-34) PG MCHC 34.3 (30-36) % RDW 13.6 (11.6-14.8) % Plt Count 270 (150-400) X10^3/uL Neut % (Auto) 65.3 (50-75) % Lymph % (Auto) 25.0 (25-40) % Hamilton % (Auto) 7.2 (3-14) % Eos % (Auto) 1.3 L (2-4) % Baso % (Auto) 1.2 (0-2) % Neut # (Auto) 9000 H (2258-9464) /uL Lymph # (Auto) 3400 (2259-4112) /uL Hamilton # (Auto) 1000 H (0-900) /uL Eos # (Auto) 200 (0-450) /uL Baso # (Auto) 200 H (0-100) /uL Sodium 137 (137-145) mmol/L Potassium 3.6 (3.4-5.1) mmol/L Chloride 100 (98-107) mmol/L Carbon Dioxide 30 (22-32) mmol/L BUN 18 H (7-17) mg/dL Creatinine 0.78 (0.52-1.04) mg/dL Estimated GFR > 60 (>60) mL/min BUN/Creatinine Ratio 23.1 H (6-22) Glucose 110 H (70-100) mg/dL Calcium 10.1 (8.4-10.2) mg/dL Total Bilirubin 0.3 (0.2-1.3) mg/dL AST 27 (14-36) IU/L ALT 44 H (<35) IU/L Alkaline Phosphatase 119 (38-126) U/L Total Protein 7.7 (6.3-8.2) g/dL Albumin 4.2 (3.5-5.0) g/dL Globulin 3.5 (1.7-4.1) g/dL Albumin/Globulin Ratio 1.2 (1.0-2.8) Lipase 91 (23-300) U/L Imaging Data CT scan - abdomen/pelvis: Radiologist's Impression: PROCEDURE: CT ABDOMEN PELVIS WO CON INDICATIONS: Left-sided abdominal pain, recent colonoscopy, history of stones TECHNIQUE: Axial sections were acquired from the lung bases to the pubic symphysis. Coronal and sagittal reformats were performed. For radiation dose reduction, the following was used: automated exposure control, adjustment of mA and/or kV according to patient size. COMPARISON: [facility], CT, CT ABDOMEN PELVIS WITH CONTRAST, 06/24/2018, 2:17. [facility], CT, CT ABDOMEN PELVIS W CON, 08/14/2022, 19:16. FINDINGS: Image quality: Excellent. Lung bases: Unremarkable. Small hiatal hernia Heart: No significant findings. URINARY: Right Kidney: No stones or hydronephrosis. There is a 5.5 cm simple cyst in the superior pole. Right Ureter: No hydroureter. Left Kidney: Tiny nonobstructive stones. No hydronephrosis. There is a cortical scar in left kidney. Left Ureter: No hydroureter. Bladder: Normal wall thickness. No stones. ABDOMEN: Liver: Normal size. Moderate hepatic steatosis. Gallbladder: Unremarkable. Biliary ducts: Unremarkable. Pancreas: Unremarkable. Spleen: Unremarkable. Adrenal Glands: Unremarkable. Stomach and Bowel: Stomach, small bowel loops, and colon are normal in caliber. Diverticulosis. There is pericolonic stranding in descending colon adjacent to a diverticulum, consistent with acute diverticulitis. Normal appendix. Peritoneum: No abnormal intraperitoneal fluid. No free air. Ventral Wall: No hernia. Abdominal Nodes: No enlarged retroperitoneal or mesenteric lymph nodes. Vessels: Aorta and inferior vena cava are normal in size. PELVIS: Pelvic Organs: Unremarkable. Pelvic Nodes: Unremarkable. Miscellaneous: No inguinal hernias are seen. Bones: Unremarkable. IMPRESSION: 1. Diverticulosis and acute diverticulitis of the descending colon. No diverticular perforation or abscess. 2. Tiny nonobstructive stones in left kidney. There is a left renal cortical scar. No hydronephrosis. 3. A large simple cyst in right kidney. 4. Moderate hepatic steatosis. ECG Data Attestation: I personally reviewed and interpreted this ECG as follows: Interpretation: Sinus rhythm Ventricular rate is 72 Normal axis Normal QRS Normal QTC No ST T wave changes MDM Narrative Medical decision making narrative: CT scan shows no acute pathology. Patient states she feels better after pain medication. She is a benign abdominal exam. No indication for surgical consultation. No indication of perforation or abscess or kidney stone. Low suspicion for pyelonephritis. No skin changes. I suspect that her symptoms are related to her recent colonoscopy. Will discharge patient home with return precautions. She expressed understanding and agreement. Discharge Plan Departure Patient Disposition: Home Clinical Impression: Abdominal pain Instructions: DI for Abdominal Pain-Adult Activity Restrictions/Additional Instructions: Your labs and CT scan today are very reassuring. They do not show any signs of an abscess or perforations or bowel blockages. Recommend that you follow all of the postoperative instructions given to you by the provider that did the colonoscopy. Return to the emergency department for new symptoms. Prescriptions: No Action losarten 50 mg PO 1XD Paxlovid 150 mg x 2- 100 mg tablet See Rx Instructions PO .COMPLEX Qty: 30 0RF Rx Instructions: take TWO 150 mg tablets of nirmatrelvir with ONE 100 mg tablet of ritonavir twice daily for 5 days PO Cepacol Sore Throat (felice-men) 15-3.6 mg lozenge 1 sonido mucous membrane Q2-4H PRN (Reason: sore throat) Qty: 16 0RF doxycycline hyclate 100 mg capsule 100 mg PO BID Qty: 14 0RF NORTRIPTYLINE HCL (Nortriptyline HCl) 10 mg PO HS Qty: 0 APAP/Dichloralphenazone/Torey (MIDRIN 65 MG-100 MG-325 MG) Qty: 0 cetirizine 10 MG tablet 10 mg PO Q DAY Qty: 0 benzonatate 100 mg capsule 100 mg PO TID PRN (Reason: cough) Qty: 20 0RF Referrals: Mady Leyva ARNP [Primary Care Provider] - Stand Alone Forms: Patient Portal/API
[2023-04-19 21:54] VITALS: BP 136/60; PULSE 75; RESP 16; O2SAT 96
[2023-04-19] MEDS: MORPHINE 4 MG/ML INJ IV (21:56)
[2023-04-19] MEDS: ONDANSETRON 4 MG/2 ML INJ IV (21:56)
[2023-04-19 22:09] VITALS: O2SAT 89
[2023-04-19 22:10] VITALS: O2SAT 93
[2023-04-19 23:13] VITALS: BP 138/63; PULSE 76; RESP 16; O2SAT 95
== END 2023-04-19 23:15 | disposition home or self-care (01) ==
PROVIDERS: Emergency Medicine; Emergency Provider Emergency Medicine; Family Provider Nurse Practitioner Family; PCP Nurse Practitioner Family
DX: R10.9 Unspecified abdominal pain (principal); Z87.442 Personal history of urinary calculi
CPT/HCPCS: 74176; 80053; 83690; 85025; 93005; 96374; 96375; 99284; J2270; J2405

== ENCOUNTER 2023-06-15 15:57 | Emergency (ER) | payer MEDICARE, OTHER, MEDICAID, SELFPAY ==
[2023-06-15 16:24] VITALS: BP 147/70; PULSE 74; RESP 16; TEMP 37; O2SAT 98; BMI 36.0
--- NOTE | 2023-06-15 16:29 | ED_ITS ---
HPI - Extremity Problem General Chief complaint: Extremity Problem,Nontraumatic Stated complaint: R/foot unable to put pressure on it Time Seen by Provider: 06/15/23 16:29 Source: patient Mode of arrival: Wheelchair History of Present Illness HPI Narrative: This is a 58-year-old female presents emergency department due to acute on chronic right foot and ankle pain. She states that she broke her right foot 5 years ago and chronic pain since then but as of last night she was unable to put any weight on it through the foot or ankle. No acute trauma to the foot or ankle. Denies any numbness. Does state it is slightly more swollen. Has a appointment with the orthopedist in 11 days. Related Data Home Medications Medication Instructions Recorded Confirmed APAP/Dichloralphenazone/Torey ##0 01/22/11 04/03/23 (MIDRIN 65 MG-100 MG-325 MG) NORTRIPTYLINE HCL (Nortriptyline 10 mg PO HS ##0 01/22/11 04/03/23 HCl) cetirizine 10 mg tablet 10 mg PO Q DAY ##0 01/22/11 04/03/23 losarten PO 1XD 01/08/22 04/03/23 Previous Rx's Medication Instructions Recorded benzocaine 15 mg-menthol 3.6 mg 1 sonido mucous membrane Q2-4H PRN 01/08/22 lozenges (Cepacol Sore Throat sore throat #16 ea (benzocaine-menthol)) nirmatrelvir 300 mg (150 mg See Rx Instructions PO .COMPLEX 01/08/22 x2)-ritonavir 100 mg tablet,dose #30 tabs pack (Paxlovid) benzonatate 100 mg capsule 100 mg PO TID PRN cough #20 caps 04/11/22 doxycycline hyclate 100 mg capsule 100 mg PO BID #14 caps 04/03/23 Allergies Allergy/AdvReac Type Severity Reaction Status Date / Time bee pollen Allergy Severe Hives Verified 06/15/23 16:24 shellfish derived Allergy Severe Hives Verified 06/15/23 16:24 Sulfa (Sulfonamide Allergy Severe Hives Verified 06/15/23 16:24 Antibiotics) naproxen [From Naprosyn] Allergy Unknown Hives Verified 06/15/23 16:24 Penicillins Allergy Hives Verified 06/15/23 16:24 Review of Systems Review of Systems Narrative: GENERAL: Denies chills, fatigue, malaise, fever, sweats. HEENT: Denies sinus pain, ear pain, sore throat, difficulty swallowing, dizziness. RESPIRATORY: Denies dyspnea, cough, wheezing, hemoptysis, sputum. CARDIOVASCULAR: Denies chest pain, palpitations, orthopnea, edema, GASTROINTESTINAL: Denies nausea, vomiting, abdominal pain, diarrhea, constipation, melena. : Denies dysuria, frequency, incontinence, hematuria, urinary retention. MUSCULOSKELETAL: Reports right foot and ankle pain SKIN: Denies rash, skin lesions, or other NEUROLOGIC: Denies weakness, headache, numbness, change in speech, confusion, seizures, incoordination. PSYCHIATRIC: No concerning psychosocial issues. 12 point review of systems is negative except for those stated above Patient History Medical History Psoriasis Social History Smoking Status: Former smoker Smoking Status: Former smoker alcohol intake frequency: holidays/special occasions only Substance Use Type: does not use Exam Narrative Exam Narrative: GENERAL: Well-developed patient, in mild distress. HEAD: Atraumatic. Normocephalic. EYES: Pupils equal round and reactive. Extraocular motions intact. No scleral icterus. No injection or drainage. ENT: Nose without bleeding, purulent drainage. Throat without erythema, tonsillar hypertrophy or exudate. Airway patent. NECK: Trachea midline. Non tender CARDIOVASCULAR: Regular rate and rhythm without murmurs, gallops, or rubs. RESPIRATORY: Clear to auscultation. Breath sounds equal bilaterally. No wheezes, rales, or rhonchi. GASTROINTESTINAL: Abdomen soft, non-tender, nondistended. EXTREMITIES: Mild tenderness to palpation with palpation of the right calcaneus BACK: Nontender without deformity or crepitance. No flank tenderness. NEURO: AOx3. SKIN: No rash or erythema of visible areas Initial Vital Signs Initial Vital Signs: Vital Signs Temperature 98.6 F 06/15/23 16:24 Pulse Rate 74 06/15/23 16:24 Respiratory Rate 16 06/15/23 16:24 Blood Pressure 147/70 H 06/15/23 16:24 Pulse Oximetry 98 12/30/23 16:24 Oxygen Delivery Method Room Air 12/30/23 16:24 Course Orders Ordered: ED Orders 06/15/23 16:34 XR ankle RT min 3V Stat XR foot RT min 3V Stat Vital Signs Vital signs: Vital Signs - 8 hr 06/15/23 16:24 Temperature 98.6 F Pulse Rate 74 Respiratory Rate 16 Blood Pressure 147/70 H Pulse Oximetry 98 Oxygen Delivery Method Room Air MDM - Extremity (Nontraumatic) Imaging Data Extremity x-ray #1: Radiologist's Impression: [address] [address] XRay Report Signed Patient: Brooklyn Bruno MR#: [id number] : 1965 Acct:[id number] Age/Sex: 58 / F Date of Service: 06/15/23 Loc: ED Accession Number: [id number] Procedure: XR foot RT min 3V Ordering Provider: Bobby Roy P.A-C PROCEDURE: XR FOOT RT MIN 3V INDICATIONS: R foot pain TECHNIQUE: 3 views of the foot were acquired. COMPARISON: None. FINDINGS: Bones: No displaced fracture. No dislocation. Soft tissues: No suspicious calcifications. Plantar calcaneal enthesopathy. IMPRESSION: Plantar calcaneal enthesopathy. No acute radiographic abnormality. If there is high concern for further derangement, consider MRI evaluation. Dictated by: Chan Curiel M.D. on 06/15/2023 at 17:13 Approved by: Chan Curiel M.D. on 06/15/2023 at 17:14 Extremity x-ray #2: Radiologist's Impression: [address] [address] XRay Report Signed Patient: Brooklyn Bruno MR#: [id number] : 1965 Acct:[id number] Age/Sex: 58 / F Date of Service: 06/15/23 Loc: ED Accession Number: [id number] Procedure: XR ankle RT min 3V Ordering Provider: Bobby Roy P.A-C PROCEDURE: XR ANKLE RT MIN 3V INDICATIONS: R ankle pain TECHNIQUE: 3 views of the ankle were acquired. COMPARISON: [facility], XR ANKLE 3 VIEWS WEIGHT BEARING RIGHT, 12/04/2018, 15:18. FINDINGS: Bones: There is an age-indeterminate likely chronic bone fragment adjacent to the medial malleolus. The ankle mortise appears otherwise intact. No definite acute fracture. Plantar calcaneal enthesopathy is present. Soft tissues: No suspicious calcifications. IMPRESSION: No acute radiographic abnormality. If there is high concern for further derangement, consider MRI evaluation. Dictated by: Chan Curiel M.D. on 06/15/2023 at 17:15 Approved by: Chan Curiel M.D. on 06/15/2023 at 17:17 MDM Narrative Medical decision making narrative: MDM * differential diagnosis includes but not limited to calcaneal fracture, Achilles tendon injury, strain * Prior records reviewed: Patient was last seen here 2 months ago due to abdominal pain. Underwent a routine colonoscopy 3 days [address] to that. CT scan showed no acute pathologies. * My lab interpretation: None obtained * My imgaing interpretation: Foot x-ray showed no fractures but did show plantar calcaneal enthesopathy which maybe due to overuse. * Clinical Decision Rules/Scores evaluated: None * Independent discussions with: None ED Course: This is a 58-year-old female presents to the emergency department due to acute on chronic right calcaneal pain. X-rays ordered which showed no acute fractures but did show plantar calcaneal enthesopathy which maybe due to overuse. Patient has an established orthopedist follow up in 11 days. Recommended rest, ice, compression, elevation and NSAIDs for pain. There was no erythema or warmth or areas of fluctuance concerning for infection. Shared Decision Making: Discussed plan with the patient who is comfortable with the plan Social Considerations: None Disposition: Discharged to home Discharge Plan Departure Patient Disposition: Home Clinical Impression: Acute foot pain Activity Restrictions/Additional Instructions: Thank you for coming to the [facility] Emergency Department today. Your x-rays of the foot and ankle showed no acute fractures but did show something called calcaneal plantar enthesopathy which maybe due to overuse. Please follow up with the orthopedist as you have scheduled for further discussion regarding this. I recommend rest, ice, compression, elevation, and ibuprofen as needed for the pain. I hope you feel better soon. Please follow up with your primary care provider within a week if your symptoms continue. If you do not have a primary care provider please contact the [facility] Resource line at [phone]. They will ask some questions about your medical history and help you get set up with a provider in the community. Prescriptions: No Action losarten 50 mg PO 1XD Paxlovid 150 mg x 2- 100 mg tablet See Rx Instructions PO .COMPLEX Qty: 30 0RF Rx Instructions: take TWO 150 mg tablets of nirmatrelvir with ONE 100 mg tablet of ritonavir twice daily for 5 days PO Cepacol Sore Throat (felice-men) 15-3.6 mg lozenge 1 sonido mucous membrane Q2-4H PRN (Reason: sore throat) Qty: 16 0RF doxycycline hyclate 100 mg capsule 100 mg PO BID Qty: 14 0RF NORTRIPTYLINE HCL (Nortriptyline HCl) 10 mg PO HS Qty: 0 APAP/Dichloralphenazone/Torey (MIDRIN 65 MG-100 MG-325 MG) Qty: 0 cetirizine 10 MG tablet 10 mg PO Q DAY Qty: 0 benzonatate 100 mg capsule 100 mg PO TID PRN (Reason: cough) Qty: 20 0RF Referrals: Mady Leyva ARNP [Primary Care Provider] - Stand Alone Forms: Patient Portal/API
--- NOTE | 2023-06-15 16:34 | DI.RAD.S_ITS ---
PROCEDURE: XR FOOT RT MIN 3V INDICATIONS: R foot pain TECHNIQUE: 3 views of the foot were acquired. COMPARISON: None. FINDINGS: Bones: No displaced fracture. No dislocation. Soft tissues: No suspicious calcifications. Plantar calcaneal enthesopathy. IMPRESSION: Plantar calcaneal enthesopathy. No acute radiographic abnormality. If there is high concern for further derangement, consider MRI evaluation. Dictated by: Chan Curiel M.D. on 06/15/2023 at 17:13 Approved by: Chan Curiel M.D. on 06/15/2023 at 17:14
--- NOTE | 2023-06-15 16:34 | DI.RAD.S_ITS ---
PROCEDURE: XR ANKLE RT MIN 3V INDICATIONS: R ankle pain TECHNIQUE: 3 views of the ankle were acquired. COMPARISON: [facility] [place], [place], XR ANKLE 3 VIEWS WEIGHT BEARING RIGHT, 12/04/2018, 15:18. FINDINGS: Bones: There is an age-indeterminate likely chronic bone fragment adjacent to the medial malleolus. The ankle mortise appears otherwise intact. No definite acute fracture. Plantar calcaneal enthesopathy is present. Soft tissues: No suspicious calcifications. IMPRESSION: No acute radiographic abnormality. If there is high concern for further derangement, consider MRI evaluation. Dictated by: Chan Curiel M.D. on 06/15/2023 at 17:15 Approved by: Chan Curiel M.D. on 06/15/2023 at 17:17
--- NOTE | 2023-06-15 16:46 | PC.NURSE ---
pain upon palpation of right foot. Unable to bear weight on right foot.
[2023-06-15 17:50] VITALS: BP 130/66; PULSE 69; RESP 20; O2SAT 96
== END 2023-06-15 17:48 | disposition home or self-care (01) ==
PROVIDERS: Emergency Provider Physician Assistant Medical; Family Provider Nurse Practitioner Family; PCP Nurse Practitioner Family
DX: M79.671 Pain in right foot (principal)
CPT/HCPCS: 73610; 73630; 99283

== ENCOUNTER 2023-09-03 13:11 | Emergency (ER) | payer MEDICARE, OTHER, MEDICAID, SELFPAY ==
[2023-09-03] VITALS (12 sets, daily range): BP systolic 125–171; BP diastolic 58–83; PULSE 67–75; RESP 18; TEMP 37.2; O2SAT 95–99; BMI 34.9
--- NOTE | 2023-09-03 13:25 | DI.RAD.S_ITS ---
PROCEDURE: XR CHEST 1V INDICATIONS: chest pain TECHNIQUE: One view of the chest was acquired. COMPARISON: [facility], CR, XR CHEST 1V, 07/08/2022, 18:13. FINDINGS: Surgical changes and devices: None. Lungs and pleura: Lungs are clear. No pleural effusions or pneumothorax. Mediastinum: Mediastinal contours appear normal. Heart size is normal. Bones and chest wall: No suspicious bony lesions. Overlying soft tissues appear unremarkable. IMPRESSION: No acute cardiopulmonary abnormality is seen. Dictated by: Anastacia Power MD, PhD on 09/03/2023 at 14:15 Approved by: Anastacia Power MD, PhD on 09/03/2023 at 14:15
[2023-09-03 13:52] LABS: Add Manual Diff / Slide Review NO; Basophils Absolute Auto 100 /uL (0-100); Basophils Percent Auto 0.7 % (0-2); Eosinophils Absolute Auto 200 /uL (0-450); Eosinophils Percent Auto 1.7 % (2-4); Hematocrit 40.3 % (36-46); Hemoglobin 13.7 g/dL (12.0-16.0); Lymphocytes Absolute Auto 2700 /uL (1100-4500); Lymphocytes Percent Auto 29.6 % (25-40); Mean Corpuscular HGB Conc 33.9 % (30-36); Mean Corpuscular Hemoglobin 29.1 PG (26-34); Mean Corpuscular Volume 85.8 fL (80-100); Monocytes Absolute Auto 700 /uL (0-900); Monocytes Percent Auto 7.3 % (3-14); Neutrophils Absolute Auto 5500 /uL (1500-7000); Neutrophils Percent Auto 60.7 % (50-75); Platelet Count 283 X10^3/uL (150-400); Red Blood Cell Count 4.69 X10^6/uL (4.0-5.2); Red Cell Distribution Width 13.7 % (11.6-14.8); White Blood Cell Count 9.1 X10^3/uL (4.5-11.0)
[2023-09-03 14:02] LABS: PTT Partial Thromboplastin Tim 37 SECONDS (25.1-36.5)
[2023-09-03 14:04] LABS: Alanine Aminotransferase 70 IU/L (<35); Albumin 4.5 g/dL (3.5-5.0); Albumin Globulin Ratio 1.3 (1.0-2.8); Alkaline Phosphatase 122 U/L (38-126); Aspartate Aminotransferase 43 IU/L (14-36); BUN Creatinine Ratio 25.7 (6-22); Bilirubin Total 0.6 mg/dL (0.2-1.3); Blood Urea Nitrogen 19 mg/dL (7-17); Calcium 9.5 mg/dL (8.4-10.2); Carbon Dioxide 30 mmol/L (22-32); Chloride 101 mmol/L (98-107); Creatine Kinase 39 U/L (30-135); Estimated Glomerular Filt Rate > 60 mL/min (>60); Globulin 3.6 g/dL (1.7-4.1); Glucose 107 mg/dL (70-100); HEMOLYSIS 31 (0-50); Lipase 121 U/L (23-300); Magnesium 1.5 mg/dL (1.6-2.3); Potassium 3.3 mmol/L (3.4-5.1); Sodium 137 mmol/L (137-145); Total Protein 8.1 g/dL (6.3-8.2)
[2023-09-03 14:15] LABS: Troponin I < 0.012 ng/mL (0.01-0.034)
[2023-09-03 14:38] LABS: Phosphorous 3.3 mg/dL (2.5-4.5)
[2023-09-03] MEDS: MAGNESIUM OXIDE 400 MG TABLET PO (14:46)
[2023-09-03] MEDS: SODIUM CHLORIDE 0.9% 1,000 ML 1000 ML IV (14:47)
--- NOTE | 2023-09-03 14:54 | ED_ITS ---
HPI - Syncope <Elba Mendoza PA-C - Last Filed: 09/03/23 16:08> General Chief Complaint: Dizziness Stated Complaint: syncope, dizzy Time Seen by Provider: 09/03/23 13:18 Source: patient Mode of arrival: Ambulatory Limitations: no limitations History of Present Illness HPI narrative: 58-year-old female with past medical history diabetes, hypertension presents to the ED status post a presyncopal episode that occurred just prior to arrival. Patient states that she was standing by the food line, when she felt her vision going somewhat white and lightheaded. Patient did not fall since she was helped to a chair by friends standing by her. No head strike. Patient denies fever, chills, chest pain, shortness of breath, nausea, vomiting, abdominal pain, dysuria. Patient states that she stays well hydrated. Patient does endorse looser bowel movements close to diarrhea due to the metformin that she started in March 2023. Patient also notes that her blood pressure has recently been running much lower than prior. Patient reports that her blood pressure has typically been 120/130s systolic, but recently she noted systolic 100. Patient also endorses that she has lost 30 lb since March when she was started on the metformin for diabetes. Patient takes 2 blood pressure medications for hypertension, names unknown. Related Data Home Medications Medication Instructions Recorded Confirmed APAP/Dichloralphenazone/Torey ##0 01/22/11 04/03/23 (MIDRIN 65 MG-100 MG-325 MG) NORTRIPTYLINE HCL (Nortriptyline 10 mg PO HS ##0 01/22/11 04/03/23 HCl) cetirizine 10 mg tablet 10 mg PO Q DAY ##0 01/22/11 04/03/23 losarten PO 1XD 01/08/22 04/03/23 Previous Rx's Medication Instructions Recorded benzocaine 15 mg-menthol 3.6 mg 1 sonido mucous membrane Q2-4H PRN 01/08/22 lozenges (Cepacol Sore Throat sore throat #16 ea (benzocaine-menthol)) nirmatrelvir 300 mg (150 mg See Rx Instructions PO .COMPLEX 01/08/22 x2)-ritonavir 100 mg tablet,dose #30 tabs pack (Paxlovid) benzonatate 100 mg capsule 100 mg PO TID PRN cough #20 caps 04/11/22 doxycycline hyclate 100 mg capsule 100 mg PO BID #14 caps 04/03/23 Allergies Allergy/AdvReac Type Severity Reaction Status Date / Time bee pollen Allergy Severe Hives Verified 06/15/23 16:24 shellfish derived Allergy Severe Hives Verified 06/15/23 16:24 Sulfa (Sulfonamide Allergy Severe Hives Verified 06/15/23 16:24 Antibiotics) naproxen [From Naprosyn] Allergy Unknown Hives Verified 06/15/23 16:24 Penicillins Allergy Hives Verified 06/15/23 16:24 Review of Systems <Elba Mendoza PA-C - Last Filed: 09/03/23 16:08> Constitutional Constitutional: Denies chills, Denies fatigue, Denies fever(s), Denies frequent falls, Denies lethargy and Denies weakness Eyes Eyes: Denies change in vision, Denies eye discharge, Denies irritation and Denies loss of vision ENT Ears, Nose, Mouth, and Throat: Denies change in voice, Denies dizziness, Denies neck pain, Denies sore throat and Denies throat swelling Cardiovascular Cardiovascular: Denies chest pain, Denies irregular heart rhythm, Denies lightheadedness, Denies palpitations, Denies dyspnea, Denies dyspnea on exertion and Denies orthopnea Respiratory Respiratory: Denies cough, Denies dyspnea, Denies dyspnea on exertion and Denies wheezing Gastrointestinal Gastrointestinal: Denies abdominal pain, Denies change in bowel habits, Denies diarrhea, Denies nausea and Denies vomiting Musculoskeletal Musculoskeletal: Denies neck pain and Denies numbness Integumentary/Breasts Skin/Breast: Denies pruritus, Denies erythema, Denies rash and Denies wounds Neurologic Neurologic: Denies behavioral changes, Denies confusion, Denies dizziness, Denies frequent falls, Denies loss of vision, Denies numbness and Denies weakness Psychiatric Psychiatric: Denies anxiety, Denies behavioral changes, Denies confusion, Denies depression, Denies homicidal ideation and Denies suicidal ideation Endocrine Endocrine: Denies fatigue, Denies flushing and Denies palpitations Hematologic/Lymphatic Hematologic/Lymphatic: Denies easy bruising Allergic/Immunologic Allergic/Immunologic: Denies urticaria, Denies throat swelling and Denies wheezing Patient History <Elba Mendoza PA-C - Last Filed: 09/03/23 16:08> Medical History Psoriasis Social History Smoking Status: Former smoker Smoking Status: Former smoker alcohol intake frequency: holidays/special occasions only Substance Use Type: does not use Exam <Elba Mendoza PA-C - Last Filed: 09/03/23 16:08> Narrative Exam Narrative: Const General:?cooperative, healthy appearing and comfortable [facility] Head:?normal to inspection Ears:?hearing grossly normal bilaterally Nose:?external nose normal Face and sinus:?normal facial exam and sinuses nontender Mouth:?oral mucosae normal Throat:?posterior oropharynx normal Eyes General:?appearance normal, both eyes and all related structures Neck Neck:?normal visual inspection and no lymphadenopathy noted Resp Effort & Inspection:?normal respiratory effort Auscultation:?clear to auscultation bilaterally Cardio Rate:?regular rate Rhythm:?regular rhythm Neuro General:?patient alert, patient awake and patient oriented x3 Initial Vital Signs Initial Vital Signs: Vital Signs Temperature 98.9 F 09/03/23 13:15 Pulse Rate 75 09/03/23 13:15 Respiratory Rate 18 09/03/23 13:15 Blood Pressure 148/77 H 09/03/23 13:15 Pulse Oximetry 99 09/03/23 13:15 Oxygen Delivery Method Room Air 09/03/23 13:15 <Deborah Atkins DO - Last Filed: 09/06/23 08:49> Initial Vital Signs Initial Vital Signs: Vital Signs Temperature 98.9 F 09/03/23 13:15 Pulse Rate 75 09/03/23 13:15 Respiratory Rate 18 09/03/23 13:15 Blood Pressure 148/77 H 09/03/23 13:15 Pulse Oximetry 99 09/03/23 13:15 Oxygen Delivery Method Room Air 09/03/23 13:15 Course <Elba Mendoza PA-C - Last Filed: 09/03/23 16:08> Orders Ordered: Discontinued Medications Magnesium Sulfate (Magnesium Sulfate) 2 gm in 50 mls @ 25 mls/hr IV NOW ONE Stop: 09/03/23 16:18 Last Admin: 09/03/23 15:09 Dose: Not Given Documented By: MPO Sodium Chloride (Normal Saline 0.9%) 1,000 mls @ 1,000 mls/hr IV BOLUS ONE Stop: 09/03/23 15:36 Last Infusion: 09/03/23 15:45 Dose: Infused Documented By: Admin: 09/03/23 14:47 Dose: 1,000 mls/hr Documented By: SHAUNA Magnesium Oxide (Magnesium Oxide 400 Mg Tablet) 400 mg PO NOW ONE Stop: 09/03/23 14:40 Last Admin: 09/03/23 14:46 Dose: 400 mg Documented By: SHAUNA Vital Signs Vital signs: Vital Signs - 8 hr 09/03/23 13:15 09/03/23 13:25 09/03/23 13:26 Temperature 98.9 F Pulse Rate 75 72 Respiratory Rate 18 Blood Pressure 148/77 H 133/83 Pulse Oximetry 99 97 Oxygen Delivery Method Room Air 09/03/23 13:26 09/03/23 13:30 09/03/23 13:30 Temperature Pulse Rate 74 71 Respiratory Rate Blood Pressure 140/82 Pulse Oximetry 97 96 Oxygen Delivery Method 09/03/23 14:01 09/03/23 14:02 09/03/23 14:02 Temperature Pulse Rate 73 72 Respiratory Rate Blood Pressure 126/62 Pulse Oximetry 95 95 Oxygen Delivery Method 09/03/23 14:30 09/03/23 14:32 09/03/23 14:32 Temperature Pulse Rate 69 70 Respiratory Rate Blood Pressure 171/79 H Pulse Oximetry 97 95 Oxygen Delivery Method 09/03/23 15:00 09/03/23 15:01 09/03/23 15:01 Temperature Pulse Rate 70 69 Respiratory Rate Blood Pressure 125/58 L Pulse Oximetry 96 97 Oxygen Delivery Method 09/03/23 15:30 09/03/23 15:30 09/03/23 15:45 Temperature Pulse Rate 67 67 Respiratory Rate Blood Pressure 129/62 Pulse Oximetry 95 96 Oxygen Delivery Method 09/03/23 15:45 Temperature Pulse Rate Respiratory Rate Blood Pressure 128/62 Pulse Oximetry Oxygen Delivery Method <Deborah Atkins, - Last Filed: 09/06/23 08:49> Orders Ordered: Discontinued Medications Magnesium Sulfate (Magnesium Sulfate) 2 gm in 50 mls @ 25 mls/hr IV NOW ONE Stop: 09/03/23 16:18 Last Admin: 09/03/23 15:09 Dose: Not Given Documented By: SHAUNA Sodium Chloride (Normal Saline 0.9%) 1,000 mls @ 1,000 mls/hr IV BOLUS ONE Stop: 09/03/23 15:36 Last Infusion: 09/03/23 15:45 Dose: Infused Documented By: Admin: 09/03/23 14:47 Dose: 1,000 mls/hr Documented By: SHAUNA Magnesium Oxide (Magnesium Oxide 400 Mg Tablet) 400 mg PO NOW ONE Stop: 09/03/23 14:40 Last Admin: 09/03/23 14:46 Dose: 400 mg Documented By: SHAUNA Vital Signs Vital signs: Vital Signs - 8 hr 09/03/23 13:15 09/03/23 13:25 09/03/23 13:26 Temperature 98.9 F Pulse Rate 75 72 Respiratory Rate 18 Blood Pressure 148/77 H 133/83 Pulse Oximetry 99 97 Oxygen Delivery Method Room Air 09/03/23 13:26 09/03/23 13:30 09/03/23 13:30 Temperature Pulse Rate 74 71 Respiratory Rate Blood Pressure 140/82 Pulse Oximetry 97 96 Oxygen Delivery Method 09/03/23 14:01 09/03/23 14:02 09/03/23 14:02 Temperature Pulse Rate 73 72 Respiratory Rate Blood Pressure 126/62 Pulse Oximetry 95 95 Oxygen Delivery Method 09/03/23 14:30 09/03/23 14:32 09/03/23 14:32 Temperature Pulse Rate 69 70 Respiratory Rate Blood Pressure 171/79 H Pulse Oximetry 97 95 Oxygen Delivery Method 09/03/23 15:00 09/03/23 15:01 09/03/23 15:01 Temperature Pulse Rate 70 69 Respiratory Rate Blood Pressure 125/58 L Pulse Oximetry 96 97 Oxygen Delivery Method 09/03/23 15:30 09/03/23 15:30 09/03/23 15:45 Temperature Pulse Rate 67 67 Respiratory Rate Blood Pressure 129/62 Pulse Oximetry 95 96 Oxygen Delivery Method 09/03/23 15:45 Temperature Pulse Rate Respiratory Rate Blood Pressure 128/62 Pulse Oximetry Oxygen Delivery Method MDM - Syncope <Elba Mendoza PA-C - Last Filed: 09/03/23 16:08> Lab Data 09/03/23 13:40 09/03/23 13:40 Labs: Lab Results 09/03/23 Range/Units 13:40 WBC 9.1 (4.5-11.0) X10^3/uL RBC 4.69 (4.0-5.2) X10^6/uL Hgb 13.7 (12.0-16.0) g/dL Hct 40.3 (36-46) % MCV 85.8 (80-100) fL MCH 29.1 (26-34) PG MCHC 33.9 (30-36) % RDW 13.7 (11.6-14.8) % Plt Count 283 (150-400) X10^3/uL Neut % (Auto) 60.7 (50-75) % Lymph % (Auto) 29.6 (25-40) % [place] % (Auto) 7.3 (3-14) % Eos % (Auto) 1.7 L (2-4) % Baso % (Auto) 0.7 (0-2) % Neut # (Auto) 5500 (0825-6258) /uL Lymph # (Auto) 2700 (6318-4310) /uL [place]idan # (Auto) 700 (0-900) /uL Eos # (Auto) 200 (0-450) /uL Baso # (Auto) 100 (0-100) /uL PT 11.0 (9.4-12.5) SECONDS INR 1.0 (0.9-1.3) APTT 37 H (25.1-36.5) SECONDS Sodium 137 (137-145) mmol/L Potassium 3.3 L (3.4-5.1) mmol/L Chloride 101 (98-107) mmol/L Carbon Dioxide 30 (22-32) mmol/L BUN 19 H (7-17) mg/dL Creatinine 0.74 (0.52-1.04) mg/dL Estimated GFR > 60 (>60) mL/min BUN/Creatinine Ratio 25.7 H (6-22) Glucose 107 H (70-100) mg/dL Calcium 9.5 (8.4-10.2) mg/dL Phosphorus 3.3 (2.5-4.5) mg/dL Magnesium 1.5 L (1.6-2.3) mg/dL Total Bilirubin 0.6 (0.2-1.3) mg/dL AST 43 H (14-36) IU/L ALT 70 H (<35) IU/L Alkaline Phosphatase 122 (38-126) U/L Total Creatine Kinase 39 (30-135) U/L Troponin I < 0.012 (0.01-0.034) ng/mL Total Protein 8.1 (6.3-8.2) g/dL Albumin 4.5 (3.5-5.0) g/dL Globulin 3.6 (1.7-4.1) g/dL Albumin/Globulin Ratio 1.3 (1.0-2.8) Lipase 121 (23-300) U/L Point of Care Testing Glucose POC 111 Urine Dip Bedside Urine Glucose Negative Bedside Urine Bilirubin - Negative Bedside Urine Ketone - Negative Urine Specific [place] 1.010 Bedside Urine Occult Blood - Negative Bedside Urine pH 7.0 Bedside Urine Protein - Negative Bedside Urine Urobilinogen - Negative Bedside Urine Nitrite - Negative Bedside Urine Leukocytes - Negative Esterase MDM Narrative Medical decision making narrative: 58-year-old female with past medical history diabetes, hypertension presents to the ED status post a presyncopal episode that occurred just prior to arrival. Concern for vasovagal syncope versus hypoglycemia versus cardiac a etiology versus dehydration versus electrolyte derangements versus UTI versus other. Will obtain labs, EKG, chest x-ray, troponin, UA, UA without UTI. Magnesium low at 1.6. Labs otherwise unremarkable. EKG is normal sinus rhythm with no acute ST-T changes. Chest x-ray without acute changes. Will replete magnesium, give IV fluids, reassess. Patient's symptoms improved with IV fluids and magnesium p.o.. Discussed workup and findings with patient. Discussed that her recent weight loss might be causing her blood pressure to run lower, causing her lightheadedness. Recommend she follow-up with her PCP as soon as possible for re-evaluation/readjustment of medications. ED return precautions were discussed with patient. Patient verbalized understanding. Medical records reviewed: Yes <Deborah Atkins DO - Last Filed: 09/06/23 08:49> Lab Data Labs: Lab Results 09/03/23 Range/Units 13:40 WBC 9.1 (4.5-11.0) X10^3/uL RBC 4.69 (4.0-5.2) X10^6/uL Hgb 13.7 (12.0-16.0) g/dL Hct 40.3 (36-46) % MCV 85.8 (80-100) fL MCH 29.1 (26-34) PG MCHC 33.9 (30-36) % RDW 13.7 (11.6-14.8) % Plt Count 283 (150-400) X10^3/uL Neut % (Auto) 60.7 (50-75) % Lymph % (Auto) 29.6 (25-40) % Sheridan % (Auto) 7.3 (3-14) % Eos % (Auto) 1.7 L (2-4) % Baso % (Auto) 0.7 (0-2) % Neut # (Auto) 5500 (8182-0504) /uL Lymph # (Auto) 2700 (3010-9523) /uL Sheridan # (Auto) 700 (0-900) /uL Eos # (Auto) 200 (0-450) /uL Baso # (Auto) 100 (0-100) /uL PT 11.0 (9.4-12.5) SECONDS INR 1.0 (0.9-1.3) APTT 37 H (25.1-36.5) SECONDS Sodium 137 (137-145) mmol/L Potassium 3.3 L (3.4-5.1) mmol/L Chloride 101 (98-107) mmol/L Carbon Dioxide 30 (22-32) mmol/L BUN 19 H (7-17) mg/dL Creatinine 0.74 (0.52-1.04) mg/dL Estimated GFR > 60 (>60) mL/min BUN/Creatinine Ratio 25.7 H (6-22) Glucose 107 H (70-100) mg/dL Calcium 9.5 (8.4-10.2) mg/dL Phosphorus 3.3 (2.5-4.5) mg/dL Magnesium 1.5 L (1.6-2.3) mg/dL Total Bilirubin 0.6 (0.2-1.3) mg/dL AST 43 H (14-36) IU/L ALT 70 H (<35) IU/L Alkaline Phosphatase 122 (38-126) U/L Total Creatine Kinase 39 (30-135) U/L Troponin I < 0.012 (0.01-0.034) ng/mL Total Protein 8.1 (6.3-8.2) g/dL Albumin 4.5 (3.5-5.0) g/dL Globulin 3.6 (1.7-4.1) g/dL Albumin/Globulin Ratio 1.3 (1.0-2.8) Lipase 121 (23-300) U/L Point of Care Testing Glucose POC 111 Urine Dip Bedside Urine Glucose Negative Bedside Urine Bilirubin - Negative Bedside Urine Ketone - Negative Urine Specific [place] 1.010 Bedside Urine Occult Blood - Negative Bedside Urine pH 7.0 Bedside Urine Protein - Negative Bedside Urine Urobilinogen - Negative Bedside Urine Nitrite - Negative Bedside Urine Leukocytes - Negative Esterase Imaging Data Chest x-ray: Radiologist's Impression: Close Chest X-Ray (Signed) Anastacia Power - 09/03/23 Foot X-Ray (Signed) Chan Curiel - 06/15/23 Ankle X-Ray (Signed) Chan Curiel - 06/15/23 Abdomen/Pelvis CT (Signed) Natalie Dalton - 04/19/23 Mammogram, Additional Views (Signed) Von Anderson - 01/25/23 Breast Ultrasound (Signed) Von Anderson - 01/25/23 Mammogram Screening (Signed) Ryan Boyce - 01/15/23 Abdomen/Pelvis CT (Signed) Kalpesh Cooper - 08/14/22 Chest X-Ray (Signed) Kalpesh Cooper - 07/08/22 Chest X-Ray (Signed) Von Anderson - 04/11/22 Mammogram Screening (Signed) Giovanni Edwardsn - 01/08/22 Launch?Image [place] [id number] XRay Report Signed Patient: Brooklyn Bruno MR#: [id number] : 1965 Acct:[id number] Age/Sex: 58 / F Date of Service: 09/03/23 Loc: ED Accession Number: [id number] Procedure: XR chest 1V Ordering Provider: Deborah Atkins D.O. PROCEDURE: XR CHEST 1V INDICATIONS: chest pain TECHNIQUE: One view of the chest was acquired. COMPARISON: [facility], , XR CHEST 1V, 07/08/2022, 18:13. FINDINGS: Surgical changes and devices: None. Lungs and pleura: Lungs are clear. No pleural effusions or pneumothorax. Mediastinum: Mediastinal contours appear normal. Heart size is normal. Bones and chest wall: No suspicious bony lesions. Overlying soft tissues appear unremarkable. IMPRESSION: No acute cardiopulmonary abnormality is seen. Dictated by: Anastacia Power MD, PhD on 09/03/2023 at 14:15 Approved by: Anastacia Power MD, PhD on 09/03/2023 at 14:15 ECG Data Attestation: I personally reviewed and interpreted this ECG as follows: Interpretation: Sinus rhythm no acute ST changes rate of 72 ID 1-2 QRS 88 QTC 442. Patient has prior from 04/19/2023 which appears similar. Discharge Plan Departure Patient Disposition: Home Clinical Impression: Syncope Qualifiers: Syncope type: unspecified Qualified Code(s): R55 - Syncope and collapse Instructions: DI for Syncope in Adults (Fainting) Activity Restrictions/Additional Instructions: You were evaluated in the ED today for a fainting episode. Your EKG, chest x- ray, urine were normal. Your magnesium was very slightly low, and we gave you a magnesium pill. We also gave you some IV fluids today. Your symptoms improved with the medications. You may continue to take a magnesium supplement at home in the form of magnesium glycinate which is available [id number]. Please continue to drink plenty of water. It is possible that your fainting might be related to your blood pressure is running lower due to your recent weight loss. Please follow-up with your PCP as soon as possible for further evaluation and to readjust any medications for your hypertension as appropriate. In the meanwhile, if you have worsening symptoms, chest pain, shortness of breath, please return to the ED. Prescriptions: No Action losarten 50 mg PO 1XD Paxlovid 150 mg x 2- 100 mg tablet See Rx Instructions PO .COMPLEX Qty: 30 0RF Rx Instructions: take TWO 150 mg tablets of nirmatrelvir with ONE 100 mg tablet of ritonavir twice daily for 5 days PO Cepacol Sore Throat (felice-men) 15-3.6 mg lozenge 1 sonido mucous membrane Q2-4H PRN (Reason: sore throat) Qty: 16 0RF doxycycline hyclate 100 mg capsule 100 mg PO BID Qty: 14 0RF NORTRIPTYLINE HCL (Nortriptyline HCl) 10 mg PO HS Qty: 0 APAP/Dichloralphenazone/Torey (MIDRIN 65 MG-100 MG-325 MG) Qty: 0 cetirizine 10 MG tablet 10 mg PO Q DAY Qty: 0 benzonatate 100 mg capsule 100 mg PO TID PRN (Reason: cough) Qty: 20 0RF Referrals: Mady Leyva ARNP [Primary Care Provider] - Stand Alone Forms: Patient Portal/API ED Sign-out <Deborah Atkins DO - Last Filed: 09/06/23 08:49> Cosign ED Attending Raymundo Attestation: I was immediately available in the department for consultation. Labs, chest x- ray, EKG were reviewed.
== END 2023-09-03 16:08 | disposition home or self-care (01) ==
PROVIDERS: Emergency Medicine; Emergency Provider Student in an Organized Health Care Education/Training Program; Family Provider Nurse Practitioner Family; PCP Nurse Practitioner Family
DX: R55 Syncope and collapse (principal); R07.9 Chest pain, unspecified
CPT/HCPCS: 36415; 71045; 80053; 81003; 82550; 82962; 83690; 83735; 84100; 84484; 85025; 85610; 85730; 93005; 96360; 99284

== ENCOUNTER → 2023-10-21 13:16 | Outpatient (CLI) | payer MEDICARE, SELFPAY ==
--- NOTE | 2023-10-21 13:19 | DI.MG.S_ITS ---
BILATERAL DIGITAL DIAGNOSTIC MAMMOGRAM 3D/2D: 10/21/2023 CLINICAL: Patient returns for a 6 month follow up of the right breast, due for bilateral exam. Comparison is made to exams dated: 01/25/2023 mammogram, 01/15/2023 mammogram, and 01/08/2022 mammogram - [facility]. There are scattered areas of fibroglandular density in both breasts (category b / 25%-50% glandular tissue). Prior asymmetry is no longer seen in the right breast at 1 o'clock in the middle depth. This is consistent with overlapping fibroglandular tissue, resolved cyst or lymph node. No significant masses, calcifications, or other findings are seen in either breast. Mammograms are otherwise stable. IMPRESSION: NEGATIVE Bilateral mammograms are normal. Resolution of right breast asymmetry previously seen only on mammogram. This was likely glandular tissue or a resolved cyst and is benign. There is no mammographic evidence of malignancy. Return to annual mammogram screening schedule is recommended. Findings and recommendations were conveyed to the patient at time of exam. Based on the Tyrer Cuzick model (a risk assessment model) the patient's lifetime risk is 8.8% and her 10 year risk is 3.0%. According to the ACR, ACS, and NCCN guidelines, an annual breast MRI exam along with mammogram is recommended if the patient's lifetime risk is 20% or greater. This exam was interpreted at Station ID: [id number]. NOTE: For mammograms, a report in lay terms will be sent to the patient. Approximately 15% of breast malignancies will not be visualized mammographically. In the management of a palpable breast mass, a negative mammogram must not discourage biopsy of a clinically suspicious lesion. Electronically Signed By: Elvia loredo/:10/21/2023 14:09:25 letter sent: Normal Exam ACR BI-RADS Category 1: Negative [id number]
== END ==
PROVIDERS: Family Provider Nurse Practitioner Family; PCP Nurse Practitioner Family; Referring Provider Nurse Practitioner Family; Visit Provider Nurse Practitioner Family
DX: R92.8 Other abnormal and inconclusive findings on diagnostic imaging of breast (principal); R92.323 Mammographic fibroglandular density, bilateral breasts
CPT/HCPCS: 77066; G0279

== ENCOUNTER → 2023-12-24 18:58 | Outpatient (CLI) | payer MEDICARE, SELFPAY ==
[2023-12-24 19:44] LABS: Influenza A - CEPHEID Flu A NEGATIVE (NEGATIVE); Influenza B - CEPHEID Flu B NEGATIVE (NEGATIVE); Respiratory Syncytial Virus Negative (Negative)
[2023-12-24 19:48] LABS: COVID-19 CEPHEID 4-PLEX PCR Negative (Negative)
== END ==
PROVIDERS: Family Provider Nurse Practitioner Family; PCP Nurse Practitioner Family; Visit Provider Nurse Practitioner Family
DX: R05.1 Acute cough (principal)
CPT/HCPCS: 0241U

== ENCOUNTER → 2023-12-24 18:59 | Outpatient (CLI) | payer MEDICARE, MEDICAID, SELFPAY ==
--- NOTE | 2023-12-24 19:01 | DI.RAD.S_ITS ---
PROCEDURE: XR CHEST 2V INDICATIONS: Cough TECHNIQUE: 2 views of the chest were acquired. COMPARISON: [facility], CR, XR CHEST 2V, 04/11/2022, 19:37. [facility], CR, XR CHEST 1V, 09/03/2023, 13:51. FINDINGS: Surgical changes and devices: None. Lungs and pleura: Lungs are clear. No pleural effusions or pneumothorax. Mediastinum: Mediastinal contours are normal. Heart size is normal. Bones and chest wall: No suspicious bony abnormalities. Soft tissues appear unremarkable. IMPRESSION: No acute cardiopulmonary abnormality is seen. Approved by: John Paul Ellis M.D. on 12/25/2023 at 13:03
== END ==
PROVIDERS: Family Provider Nurse Practitioner Family; PCP Nurse Practitioner Family; Referring Provider Nurse Practitioner Family; Visit Provider Nurse Practitioner Family
DX: R05.9 Cough, unspecified (principal)
CPT/HCPCS: 0241U; 71046

== ENCOUNTER → 2024-03-16 07:26 | Outpatient (CLI) | payer MEDICARE, MEDICAID, SELFPAY ==
[2024-03-16 08:04] LABS: Hematocrit 42.3 % (36-46); Hemoglobin 14.1 g/dL (12.0-16.0); Mean Corpuscular HGB Conc 33.4 % (30-36); Mean Corpuscular Hemoglobin 28.4 PG (26-34); Mean Corpuscular Volume 84.9 fL (80-100); Platelet Count 290 X10^3/uL (150-400); Red Blood Cell Count 4.98 X10^6/uL (4.0-5.2); White Blood Cell Count 8.6 X10^3/uL (4.5-11.0)
[2024-03-16 08:14] LABS: Hemoglobin A1C% w Est Avg Glu 5.8 % (4.0-6.0)
[2024-03-16 08:31] LABS: Alanine Aminotransferase 28 IU/L (<35); Albumin Globulin Ratio 1.3 (1.0-2.8); Alkaline Phosphatase 110 U/L (38-126); Aspartate Aminotransferase 27 IU/L (14-36); Bilirubin Total 0.6 mg/dL (0.2-1.3); Blood Urea Nitrogen 20 mg/dL (7-17); Calcium 9.8 mg/dL (8.4-10.2); Carbon Dioxide 25 mmol/L (22-32); Chloride 104 mmol/L (98-107); Cholesterol 200 mg/dL (140-199); Estimated Glomerular Filt Rate > 60 mL/min (>60); Globulin 3.2 g/dL (1.7-4.1); Glucose 123 mg/dL (70-100); HDL Cholesterol 47 mg/dL (40-60); HEMOLYSIS 33 (0-50); LDL Cholesterol Calculated 119 mg/dL (<100); Potassium 4.2 mmol/L (3.4-5.1); Sodium 137 mmol/L (137-145); Total Protein 7.2 g/dL (6.3-8.2); Triglycerides 168 mg/dL (35-150)
[2024-03-16 08:32] LABS: Creatinine Urine Random 167.33 mg/dL
[2024-03-16 08:35] LABS: Microalbumin Urine Random 1.7 mg/dL (0-1.6)
== END ==
PROVIDERS: Family Provider Nurse Practitioner Family; PCP Nurse Practitioner Family; Referring Provider Nurse Practitioner Family; Visit Provider Nurse Practitioner Family
DX: I10 Essential (primary) hypertension (principal); R73.03 Prediabetes
CPT/HCPCS: 36415; 80053; 80061; 82043; 82570; 83036; 85027

== ENCOUNTER 2024-07-22 19:25 | Emergency (ER) | payer MEDICARE, MEDICAID, SELFPAY ==
[2024-07-22 19:29] VITALS: BP 138/83; PULSE 78; RESP 18; TEMP 36.8; O2SAT 97; BMI 35.3
--- NOTE | 2024-07-22 19:52 | DI.CT.S_ITS ---
PROCEDURE: CT KIDNEY URETER BLADDER (KUB) INDICATIONS: left sided flank pain TECHNIQUE: Axial sections were acquired from the lung bases to the pubic symphysis. Coronal and sagittal reformats were performed. For radiation dose reduction, the following was used: automated exposure control, adjustment of mA and/or kV according to patient size. COMPARISON: None. FINDINGS: Image quality: Diagnostic. Lower Chest: No significant findings. URINARY: Right Kidney: No stones or hydronephrosis. Simple appearing cyst in upper pole right kidney is seen measures 6.3 x 5.6 cm in size. Right Ureter: No hydroureter. Left Kidney: No obstructing stones or hydronephrosis. Tiny 2-3 mm nonobstructing left renal calculi are seen. Old scarring involving upper pole of left kidney with thinning of cortex suggestive of remote insult. Left Ureter: No hydroureter. Bladder: Normal wall thickness. No stones. ABDOMEN: Liver: No contour-deforming solid mass. Moderate hepatic steatosis is seen. Gallbladder: No radiopaque gallstones or wall thickening. Biliary ducts: No biliary dilation. Pancreas: No ductal dilation. Spleen: Size is within normal limits. Adrenal Glands: No adrenal nodules. Stomach and Bowel: There is no bowel obstruction. No gastric or small bowel wall thickening. Appendix is visualized and is within normal limits. Descending colon and sigmoid colon diverticulosis is seen. Focal area of mild colonic wall thickening with pericolonic fat stranding involving distal descending colon in left lower quadrant is seen, concerning for early acute diverticulitis best seen on series 2 image 92 and series 4, image 69. No abscess collection. Peritoneum: No abnormal intraperitoneal fluid. No free air. Ventral Wall: No hernia. Abdominal Nodes: No enlarged retroperitoneal or mesenteric lymph nodes. Vessels: Aorta and inferior vena cava are normal in size. PELVIS: Pelvic Organs: Unremarkable. Pelvic Nodes: Unremarkable. Miscellaneous: No inguinal hernias are seen. Bones: No aggressive appearing bony lesions. IMPRESSION: 1. No obstructing stones or hydronephrosis. Tiny nonobstructing left renal calculi. Suggestion of remote injury involving left kidney with cortical scarring. 2. No hydroureter. Normal appearing urinary bladder. 3. Finding is concerning for early acute diverticulitis involving distal descending colon in left lower quadrant. No signs of perforation. No abscess collection. No free fluid or free air. Normal appendix. No bowel obstruction. Dictated by: Kalpesh Cooper M.D. on 07/22/2024 at 20:38 Approved by: Kalpesh Cooper M.D. on 07/22/2024 at 20:41
--- NOTE | 2024-07-22 20:03 | ED_ITS ---
HPI - Abdominal Pain General Chief Complaint: Abdominal Pain Stated Complaint: Kidney Attack, Hist L Kidney Issues Time Seen by Provider: 07/22/24 19:52 Source: patient Mode of arrival: Ambulatory History of Present Illness HPI narrative: 59-year-old female with a history of nephrolithiasis, urolithiasis, comes into the ED from home for evaluation of left-sided flank pain, states it is similar to history of her urolithiasis, states it started earlier today got worse, colicky in nature nothing making it better or worse, does admit to some nausea no vomiting, no radiation, and denies any other symptoms such as headache visual disturbances chest pain shortness breath fever chills or any other GI/ symptoms time. Related Data Home Medications Medication Instructions Recorded Confirmed APAP/Dichloralphenazone/Torey ##0 01/22/11 04/03/23 (MIDRIN 65 MG-100 MG-325 MG) NORTRIPTYLINE HCL (Nortriptyline 10 mg PO HS ##0 01/22/11 04/03/23 HCl) cetirizine 10 mg tablet 10 mg PO Q DAY ##0 01/22/11 04/03/23 chlorthalidone 25 mg tablet 25 mg PO DAILY 12/24/23 12/24/23 losartan 50 mg tablet 50 mg PO DAILY 12/24/23 12/24/23 metformin 1,000 mg tablet 1,000 mg PO BID 12/24/23 12/24/23 Previous Rx's Medication Instructions Recorded benzonatate 200 mg capsule 200 mg PO BID PRN cough #28 caps 12/24/23 codeine 10 mg-guaifenesin 100 mg/5 10 ml PO Q4-6H PRN cough #120 mL 12/24/23 mL oral liquid ciprofloxacin HCl 500 mg tablet 500 mg PO BID 1 week #14 tabs 07/22/24 metronidazole 500 mg tablet 500 mg PO BID 1 week #14 tabs 07/22/24 ondansetron 4 mg disintegrating 4 mg PO Q8H PRN nausea and 07/22/24 tablet vomiting 5 days #15 tabs Allergies Allergy/AdvReac Type Severity Reaction Status Date / Time bee pollen Allergy Severe Hives Verified 12/24/23 18:46 shellfish derived Allergy Severe Hives Verified 12/24/23 18:46 Sulfa (Sulfonamide Allergy Severe Hives Verified 12/24/23 18:46 Antibiotics) naproxen [From Naprosyn] Allergy Unknown Hives Verified 12/24/23 18:46 Penicillins Allergy Hives Verified 12/24/23 18:46 Review of Systems Review of Systems Narrative: General: Denies fever, chills, weight loss HEENT: Denies headache, eye drainage, eye irritation, head trauma, sore throat, voice change Cardiovascular: Denies any chest pain, palpitations, shortness of breath, tachycardia Respiratory: Denies any shortness of breath, cough, wheeze, stridor GI/: Positive left-sided flank pain, Denies any abdominal pain, nausea, vomiting, diarrhea, bright red blood per rectum, melanotic stools, urinary frequency, urinary retention, dysuria, hematuria MSK: Denies any joint pain, muscle pains, swelling Skin: Denies any rashes, lesions, discoloration Neuro: Denies any headache, lightheadedness, dizziness, fainting, weakness Psych: Denies SI/HI Patient History Medical History Psoriasis Social History Smoking Status: Former smoker Smoking Status: Former smoker alcohol intake frequency: holidays/special occasions only Exam Narrative Exam Narrative: General: Cooperative, comfortable, well-developed, not in acute distress HEENT: Normocephalic, atraumatic, PERRLA, normal sclera, eyelids normal, Neck: Active full range of motion, atraumatic Chest: Normal to inspection, negative crepitus, no overlying erythema ecchymosis Respiratory: Normal respiratory effort, not in acute respiratory distress, clear to auscultation bilaterally negative cough, wheeze, tachypnea, rhonchi, rales Cardiology: Regular rate rhythm negative gallop, murmur, rubs GI/: Positive left-sided CVA tenderness, Normal to inspection, soft, nonrigid, no tenderness to palpation, exam deferred MSK: Full range of active range of motion of all 4 extremities, atraumatic Skin: No rashes lesions noted Neuro: Alert awake oriented x3, moves all 4 extremities spontaneously, cranial nerves intact, able to answer all questions appropriately follows commands appropriately Psych: Cooperative, negative suicidal or homicidal ideations Initial Vital Signs Initial Vital Signs: Vital Signs Temperature 98.2 F 07/22/24 19:29 Pulse Rate 78 07/22/24 19:29 Respiratory Rate 18 07/22/24 19:29 Blood Pressure 138/83 07/22/24 19:29 Pulse Oximetry 97 07/22/24 19:29 Oxygen Delivery Method Room Air 07/22/24 19:29 Course Orders Ordered: ED Orders 07/22/24 19:35 Urine Culture Stat Urine Microscopic Stat 07/22/24 19:52 CT kidney ureter bladder (KUB) Stat 07/22/24 20:25 BMP [Basic Metabolic Panel] Stat CBC Auto Diff [Complete Blood Count AUTO DIFF] Stat Discontinued Medications Ciprofloxacin (Ciprofloxacin 250 Mg Tablet) 500 mg PO NOW ONE Stop: 07/22/24 21:26 Last Admin: 07/22/24 21:30 Dose: 500 mg Documented By: Sodium Chloride (Normal Saline 0.9%) 1,000 mls @ 1,000 mls/hr IV BOLUS ONE Stop: 07/22/24 20:51 Last Infusion: 07/22/24 21:27 Dose: Infused Documented By: Admin: 07/22/24 20:27 Dose: 1,000 mls/hr Documented By: AB Metronidazole (Metronidazole 500 Mg Tablet) 500 mg PO NOW ONE Stop: 07/22/24 21:26 Last Admin: 07/22/24 21:30 Dose: 500 mg Documented By: AB Morphine Sulfate (Morphine 4 Mg/Ml Inj) 4 mg IV NOW ONE Stop: 07/22/24 19:53 Last Admin: 07/22/24 20:28 Dose: 4 mg Documented By: AB Ondansetron HCl (Ondansetron 4 Mg/2 Ml Inj) 4 mg IV NOW ONE Stop: 07/22/24 20:23 Last Admin: 07/22/24 20:28 Dose: 4 mg Documented By: AB Vital Signs Vital signs: Vital Signs - 8 hr 07/22/24 19:29 Temperature 98.2 F Pulse Rate 78 Respiratory Rate 18 Blood Pressure 138/83 Pulse Oximetry 97 Oxygen Delivery Method Room Air MDM - Abdominal Pain Differential Diagnosis Differential diagnosis: Likely other (Urolithiasis, nephrolithiasis, pyelonephritis, urinary tract infection) Lab Data 07/22/24 20:25 07/22/24 20:25 Labs: Lab Results 07/22/24 07/22/24 Range/Units 19:35 20:25 WBC 10.3 (4.5-11.0) X10^3/uL RBC 4.77 (4.0-5.2) X10^6/uL Hgb 13.5 (12.0-16.0) g/dL Hct 40.1 (36-46) % MCV 84.1 (80-100) fL MCH 28.3 (26-34) PG MCHC 33.7 (30-36) % RDW 13.7 (11.6-14.8) % Plt Count 274 (150-400) X10^3/uL Neut % (Auto) 56.3 (50-75) % Lymph % (Auto) 34.1 (25-40) % [place] % (Auto) 7.1 (3-14) % Eos % (Auto) 1.7 L (2-4) % Baso % (Auto) 0.8 (0-2) % Neut # (Auto) 5800 (2718-7672) /uL Lymph # (Auto) 3500 (7034-9792) /uL [place] # (Auto) 700 (0-900) /uL Eos # (Auto) 200 (0-450) /uL Baso # (Auto) 100 (0-100) /uL Sodium 138 (137-145) mmol/L Potassium 3.8 (3.4-5.1) mmol/L Chloride 103 (98-107) mmol/L Carbon Dioxide 27 (22-32) mmol/L BUN 20 H (7-17) mg/dL Creatinine 0.96 (0.52-1.04) mg/dL Estimated GFR > 60 (>60) mL/min BUN/Creatinine Ratio 20.8 (6-22) Glucose 115 H (70-100) mg/dL Calcium 9.3 (8.4-10.2) mg/dL Urine RBC 0-1/hpf (0-5/HPF) Urine WBC 1-5/hpf (0-5/HPF) Ur Squamous Epith Cells 1-5 /hpf (0-5/HPF) Urine Bacteria Moderate (10-30) H (None) Ur Culture Indicated? Specimen cultured Vol Urine Centrifuged 10ml (spun) Point of care testing: Urine Dip Bedside Urine Glucose Negative Bedside Urine Bilirubin - Negative Bedside Urine Ketone - Negative Urine Specific [place] 1.015 Bedside Urine Occult Blood +/- Bedside Urine pH 6.5 Bedside Urine Protein - Negative Bedside Urine Urobilinogen - Negative Bedside Urine Nitrite - Negative Bedside Urine Leukocytes ++ [address] scan - abdomen/pelvis: Radiologist's Impression: [address] [address] [address] Scan Report Signed Patient: Brooklyn Bruno MR#: [id number] : 1965 Acct:[id number] Age/Sex: 59 / F Date of Service: 07/22/24 Loc: ED Accession Number: [id number] Procedure: CT kidney ureter bladder (KUB) Ordering Provider: Delvis Solis D.O. PROCEDURE: CT KIDNEY URETER BLADDER (KUB) INDICATIONS: left sided flank pain TECHNIQUE: Axial sections were acquired from the lung bases to the pubic symphysis. Coronal and sagittal reformats were performed. For radiation dose reduction, the following was used: automated exposure control, adjustment of mA and/or kV according to patient size. COMPARISON: None. FINDINGS: Image quality: Diagnostic. Lower Chest: No significant findings. URINARY: Right Kidney: No stones or hydronephrosis. Simple appearing cyst in upper pole right kidney is seen measures 6.3 x 5.6 cm in size. Right Ureter: No hydroureter. Left Kidney: No obstructing stones or hydronephrosis. Tiny 2-3 mm nonobstructing left renal calculi are seen. Old scarring involving upper pole of left kidney with thinning of cortex suggestive of remote insult. Left Ureter: No hydroureter. Bladder: Normal wall thickness. No stones. ABDOMEN: Liver: No contour-deforming solid mass. Moderate hepatic steatosis is seen. Gallbladder: No radiopaque gallstones or wall thickening. Biliary ducts: No biliary dilation. Pancreas: No ductal dilation. Spleen: Size is within normal limits. Adrenal Glands: No adrenal nodules. Stomach and Bowel: There is no bowel obstruction. No gastric or small bowel wall thickening. Appendix is visualized and is within normal limits. Descending colon and sigmoid colon diverticulosis is seen. Focal area of mild colonic wall thickening with pericolonic fat stranding involving distal descending colon in left lower quadrant is seen, concerning for early acute diverticulitis best seen on series 2 image 92 and series 4, image 69. No abscess collection. Peritoneum: No abnormal intraperitoneal fluid. No free air. Ventral Wall: No hernia. Abdominal Nodes: No enlarged retroperitoneal or mesenteric lymph nodes. Vessels: Aorta and inferior vena cava are normal in size. PELVIS: Pelvic Organs: Unremarkable. Pelvic Nodes: Unremarkable. Miscellaneous: No inguinal hernias are seen. Bones: No aggressive appearing bony lesions. IMPRESSION: 1. No obstructing stones or hydronephrosis. Tiny nonobstructing left renal calculi. Suggestion of remote injury involving left kidney with cortical scarring. 2. No hydroureter. Normal appearing urinary bladder. 3. Finding is concerning for early acute diverticulitis involving distal descending colon in left lower quadrant. No signs of perforation. No abscess collection. No free fluid or free air. Normal appendix. No bowel obstruction. MDM Narrative Medical decision making narrative: 59-year-old female with a history of urolithiasis, nephrolithiasis coming in for left-sided flank pain nausea no vomiting started earlier today similar to previous. Patient had lab work imaging urinalysis performed here in the emergency department, does show moderate amount of bacteria given patient with CVA tenderness patient will be treated for pyelonephritis, lab work unremarkable otherwise. CT scan showing early diverticulitis without abscess fistula formation therefore patient will also be treated for early diverticulitis, [facility] which will cover both diverticulitis and pyelonephritis. She was instructed to follow up with primary care and GI in outpatient setting she verbalized understanding of this was given strict return precautions verbalized understanding of this and agrees to being discharged home with outpatient follow up. Discharge Plan Departure Patient Disposition: Home Clinical Impression: Acute diverticulitis, Pyelonephritis Instructions: DI for Kidney Infection, DI for Diverticulitis Activity Restrictions/Additional Instructions: Please follow up with primary care and GI in outpatient setting Please read the discharge instructions sheet carefully and bring all papers to all doctor follow-up visits, as it may contain information that your doctor may want to see. Disease processes change and evolve, if your symptoms worsen or if you develop any new symptoms that are concerning to you please return for evaluation. Your evaluation today does not show any evidence of any life- threatening/serious illnesses requiring admission to the hospital or surgery. Please follow-up with your doctor for re-evaluation in approximately 1 day. Seek immediate medical attention for any worrisome symptoms. *If you do not have a primary care provider please contact the [facility] Resource line at [phone]. They will ask some questions about your medical history and help get you set up with a doctor in the community. Prescriptions: New ciprofloxacin HCl 500 mg tablet 500 mg PO BID 7 Days Qty: 14 0RF metronidazole 500 mg tablet 500 mg PO BID 7 Days Qty: 14 0RF ondansetron 4 mg tablet,disintegrating 4 mg PO Q8H PRN (Reason: nausea and vomiting) 5 Days Qty: 15 0RF No Action losartan 50 mg tablet 50 mg PO DAILY chlorthalidone 25 mg tablet 25 mg PO DAILY metformin 1,000 mg tablet 1,000 mg PO BID codeine-guaifenesin 10-100 mg/5 mL liquid 10 ml PO Q4-6H PRN (Reason: cough) Qty: 120 0RF benzonatate 200 mg capsule 200 mg PO BID PRN (Reason: cough) Qty: 28 0RF NORTRIPTYLINE HCL (Nortriptyline HCl) 10 mg PO HS Qty: 0 APAP/Dichloralphenazone/Torey (MIDRIN 65 MG-100 MG-325 MG) Qty: 0 cetirizine 10 MG tablet 10 mg PO Q DAY Qty: 0 Referrals: Mady Leyva ARNP [Primary Care Provider] - Stand Alone Forms: Patient Portal/API/Survey
[2024-07-22] MEDS: SODIUM CHLORIDE 0.9% 1,000 ML 1000 ML IV (20:27)
[2024-07-22] MEDS: MORPHINE 4 MG/ML INJ IV (20:28)
[2024-07-22] MEDS: ONDANSETRON 4 MG/2 ML INJ IV (20:28)
[2024-07-22 20:34] LABS: Add Manual Diff / Slide Review NO; Basophils Absolute Auto 100 /uL (0-100); Basophils Percent Auto 0.8 % (0-2); Eosinophils Absolute Auto 200 /uL (0-450); Eosinophils Percent Auto 1.7 % (2-4); Hematocrit 40.1 % (36-46); Hemoglobin 13.5 g/dL (12.0-16.0); Lymphocytes Absolute Auto 3500 /uL (1100-4500); Lymphocytes Percent Auto 34.1 % (25-40); Mean Corpuscular HGB Conc 33.7 % (30-36); Mean Corpuscular Hemoglobin 28.3 PG (26-34); Mean Corpuscular Volume 84.1 fL (80-100); Monocytes Absolute Auto 700 /uL (0-900); Monocytes Percent Auto 7.1 % (3-14); Neutrophils Absolute Auto 5800 /uL (1500-7000); Neutrophils Percent Auto 56.3 % (50-75); Platelet Count 274 X10^3/uL (150-400); Red Blood Cell Count 4.77 X10^6/uL (4.0-5.2); Red Cell Distribution Width 13.7 % (11.6-14.8); White Blood Cell Count 10.3 X10^3/uL (4.5-11.0)
--- NOTE | 2024-07-22 20:43 | PC.NURSE ---
Pt states that she has a history of kidney stones in the past
[2024-07-22 20:45] LABS: BUN Creatinine Ratio 20.8 (6-22); Blood Urea Nitrogen 20 mg/dL (7-17); Calcium 9.3 mg/dL (8.4-10.2); Carbon Dioxide 27 mmol/L (22-32); Chloride 103 mmol/L (98-107); Estimated Glomerular Filt Rate > 60 mL/min (>60); Glucose 115 mg/dL (70-100); HEMOLYSIS < 15 (0-50); Potassium 3.8 mmol/L (3.4-5.1); Sodium 138 mmol/L (137-145)
[2024-07-22 20:47] VITALS: BP 140/84; PULSE 63; O2SAT 98
[2024-07-22 20:57] LABS: Bacteria Urine Moderate (10-30); Culture Indicated Urine Specimen Cultured; RBC Urine 0-1/HPF (0-5/HPF); Squamous Epithelial Cell Urine 1-5 /HPF (0-5/HPF); Urine Volume 10mL (spun); WBC Urine 1-5/HPF (0-5/HPF)
[2024-07-22 21:00] VITALS: PULSE 61; O2SAT 98
[2024-07-22 21:27] VITALS: BP 129/70; PULSE 64; O2SAT 96
[2024-07-22 21:30] VITALS: BP 137/69; PULSE 71
[2024-07-22] MEDS: CIPROFLOXACIN 250 MG TABLET 500 MG PO (21:30)
[2024-07-22] MEDS: metroNIDAZOLE 500 MG TABLET PO (21:30)
== END 2024-07-22 21:41 | disposition home or self-care (01) ==
PROVIDERS: Emergency Provider Student in an Organized Health Care Education/Training Program; Family Provider Nurse Practitioner Family; PCP Nurse Practitioner Family
DX: K57.32 Diverticulitis of large intestine without perforation or abscess without bleeding (principal); N12 Tubulo-interstitial nephritis, not specified as acute or chronic; B96.1 Klebsiella pneumoniae [K. pneumoniae] as the cause of diseases classified elsewhere; Z87.442 Personal history of urinary calculi; Z87.891 Personal history of nicotine dependence
CPT/HCPCS: 36415; 74176; 80048; 81003; 81015; 85025; 87077; 87086; 87186; 96361; 96374; 96375; 99284; J2270; J2405

== ENCOUNTER 2024-09-11 18:11 | Emergency (ER) | payer MEDICARE, MEDICAID, SELFPAY ==
[2024-09-11] VITALS (7 sets, daily range): BP systolic 142–198; BP diastolic 71–105; PULSE 74–80; RESP 16–23; TEMP 36.6; O2SAT 95–97; BMI 36.0
--- NOTE | 2024-09-11 18:18 | EKG_ITS ---
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
--- NOTE | 2024-09-11 19:51 | ED.GENADULT ---
HPI - General Adult General Chief complaint: Extremity Injury, Upper Stated complaint: left shoulder pain shooting down arm Time Seen by Provider: 09/11/24 18:30 Source: patient Mode of arrival: Ambulatory History of Present Illness HPI narrative: 59-year-old woman with a history of hypertension for which she intermittently uses blood pressure medications presents complaining of left shoulder pain that has gotten progressively worse over the last couple of weeks. No fevers, no redness, no recent trauma. She does not have any arthritis diagnoses. She has been using ibuprofen, does not tolerate ice, icy hot and the pain is getting worse. She has not having elbow or wrist pain in his neurovascularly intact distally. Related Data Home Medications Medication Instructions Recorded Confirmed APAP/Dichloralphenazone/Torey ##0 01/22/11 04/03/23 (MIDRIN 65 MG-100 MG-325 MG) NORTRIPTYLINE HCL (Nortriptyline 10 mg PO HS ##0 01/22/11 04/03/23 HCl) cetirizine 10 mg tablet 10 mg PO Q DAY ##0 01/22/11 04/03/23 chlorthalidone 25 mg tablet 25 mg PO DAILY 12/24/23 12/24/23 losartan 50 mg tablet 50 mg PO DAILY 12/24/23 12/24/23 metformin 1,000 mg tablet 1,000 mg PO BID 12/24/23 12/24/23 Previous Rx's Medication Instructions Recorded benzonatate 200 mg capsule 200 mg PO BID PRN cough #28 caps 12/24/23 codeine 10 mg-guaifenesin 100 mg/5 10 ml PO Q4-6H PRN cough #120 mL 12/24/23 mL oral liquid tramadol 50 mg tablet 50 mg PO Q6H PRN pain #14 tabs 09/11/24 tramadol 50 mg tablet 50 mg PO Q6H PRN pain #14 tabs 09/11/24 Allergies Allergy/AdvReac Type Severity Reaction Status Date / Time bee pollen Allergy Severe Hives Verified 12/24/23 18:46 shellfish derived Allergy Severe Hives Verified 12/24/23 18:46 Sulfa (Sulfonamide Allergy Severe Hives Verified 12/24/23 18:46 Antibiotics) naproxen [From Naprosyn] Allergy Unknown Hives Verified 12/24/23 18:46 Penicillins Allergy Hives Verified 12/24/23 18:46 Review of Systems Review of Systems Narrative: Pertinent positive and negative findings as per HPI Patient History Medical History Psoriasis Social History Smoking Status: Former smoker Smoking Status: Former smoker alcohol intake frequency: holidays/special occasions only Exam Initial Vital Signs Initial Vital Signs: Vital Signs Temperature 98 F 09/11/24 18:13 Pulse Rate 80 09/11/24 18:13 Respiratory Rate 18 09/11/24 18:13 Blood Pressure 198/105 H 09/11/24 18:13 Pulse Oximetry 96 09/11/24 18:13 Oxygen Delivery Method Room Air 09/11/24 18:13 General: Alert appropriate in no acute distress Respiratory: Able to speak in full sentences, no obvious respiratory distress Skin: No obvious rashes, warm and dry Neurologic: Grossly intact no obvious asymmetries or abnormalities Extremity: Left shoulder is not red or particularly warm to the touch. No obvious effusion. No tenderness over the AC joint. Tenderness with internal and external rotation, abduction at greater than 45?. Neurovascularly intact. Psych: appropriate insight and affect, cooperative Course Orders Ordered: ED Orders 09/11/24 18:12 EKG-12 Lead Stat Vital Signs Vital signs: Vital Signs - 8 hr 09/11/24 18:13 Temperature 98 F Pulse Rate 80 Respiratory Rate 18 Blood Pressure 198/105 H Pulse Oximetry 96 Oxygen Delivery Method Room Air Medical Decision Making [facility] Narrative Medical decision making narrative: 59-year-old woman with increasing left shoulder pain worse with movement. No obvious trauma. Exam does not suggest significant trauma, cellulitis or concerns for septic joint. Pain does seem to be limited to the shoulder joint it self. This does not appear to be chest pain or radicular neck pain and no concerns for pleuritic component. She has not experiencing further weakness in the forearm or hand. She has been using ibuprofen only. Finds that narcotics make her head feel very funny. She has used tramadol successfully in the past. Ice apparently makes the pain worse but icy hot has been helpful. We talked about using a sling, combination of 400 mg of ibuprofen, 1 Tylenol and if pain is severe enough a tramadol every 6 hours. Recommended she follow up with her primary care physician for physical therapy referral. If pain continues after physical therapy she may benefit from MRI. There was no indication for advanced imaging, additional workup or hospitalization with today's visit. She is discharged home Treatment: Ibuprofen, Tylenol p.o. Sling is placed by nursing staff for the left upper extremity. She is neurovascularly intact pre and post placement with pain somewhat relieved with a moderate immobilization Discharge Plan Departure Patient Disposition: Home Clinical Impression: Acute pain of left shoulder, Elevated blood pressure reading Instructions: DI for Shoulder Pain Activity Restrictions/Additional Instructions: I am sorry that you are shoulder is bothering you. I think the next step in coming to eventual diagnosis we will be follow up with your primary care physician, likely physical therapy to see if they can improve your symptoms and if not you may need an MRI to get to the complete diagnosis. In the meantime, I have given you a sling to help with discomfort. It still is important that you do move your shoulder through complete movements multiple times during the day. Using 400 mg of ibuprofen (2 [id number]-gzonwoa pills) and 1 Tylenol every 6 hours can be very helpful in controlling pain. For severe pain you can add 1 tramadol to this combination Prescription for tramadol was electronically transmitted to [facility] Your blood pressure was quite high while you are in the emergency department. I would recommend taking your blood pressure medication tonight before bed and continuing to check regular blood pressures. If you find that you are getting worse or have new symptoms please do return to the emergency depart Prescriptions: New tramadol 50 mg tablet 50 mg PO Q6H PRN (Reason: pain) Qty: 14 0RF tramadol 50 mg tablet 50 mg PO Q6H PRN (Reason: pain) Qty: 14 0RF No Action losartan 50 mg tablet 50 mg PO DAILY chlorthalidone 25 mg tablet 25 mg PO DAILY metformin 1,000 mg tablet 1,000 mg PO BID codeine-guaifenesin 10-100 mg/5 mL liquid 10 ml PO Q4-6H PRN (Reason: cough) Qty: 120 0RF benzonatate 200 mg capsule 200 mg PO BID PRN (Reason: cough) Qty: 28 0RF NORTRIPTYLINE HCL (Nortriptyline HCl) 10 mg PO HS Qty: 0 APAP/Dichloralphenazone/Torey (MIDRIN 65 MG-100 MG-325 MG) Qty: 0 cetirizine 10 MG tablet 10 mg PO Q DAY Qty: 0 Referrals: Mady Leyva ARNP [Primary Care Provider] - Stand Alone Forms: Patient Portal/API/Survey
[2024-09-11] MEDS: IBUPROFEN 400 MG TABLET PO (20:08)
[2024-09-11] MEDS: ACETAMINOPHEN 325 MG TABLET PO (20:08)
== END 2024-09-11 20:23 | disposition home or self-care (01) ==
PROVIDERS: Emergency Provider Emergency Medicine; Family Provider Nurse Practitioner Family; PCP Nurse Practitioner Family
DX: M25.512 Pain in left shoulder (principal); I10 Essential (primary) hypertension
CPT/HCPCS: 93005; 93010; 99283

== ENCOUNTER → 2024-11-30 14:13 | Outpatient (CLI) | payer MEDICARE, MEDICAID, SELFPAY ==
--- NOTE | 2024-11-30 14:15 | DI.RAD.S_ITS ---
PROCEDURE: XR SHOULDER LT MIN 2V INDICATIONS: r/o OA TECHNIQUE: Three views of the shoulder were acquired. COMPARISON: None. FINDINGS: Bones: No acute fractures or dislocations. No suspicious bony lesions. Visualized ribs appear intact. [id number] acromioclavicular joint osteoarthrosis. Glenohumeral joint is not well evaluated on the included views but there appears to be minimal spurring along the inferior glenoid. Soft tissues: No suspicious soft tissue calcifications. IMPRESSION: [id number] acromioclavicular joint osteoarthrosis. No acute osseous abnormality. Approved by: John Paul Ellis M.D. on 11/30/2024 at 15:09
== END ==
PROVIDERS: Family Provider Nurse Practitioner Family; PCP Nurse Practitioner Family; Referring Provider Chiropractor; Visit Provider Chiropractor
DX: S46.912D Strain of unspecified muscle, fascia and tendon at shoulder and upper arm level, left arm, subsequent encounter (principal); M19.012 Primary osteoarthritis, left shoulder
CPT/HCPCS: 73030

== ENCOUNTER 2024-12-11 14:48 | Emergency (ER) | payer MEDICARE, MEDICAID, SELFPAY ==
[2024-12-11] VITALS (18 sets, daily range): BP systolic 147–197; BP diastolic 65–108; PULSE 62–78; RESP 12–23; TEMP 36.8; O2SAT 94–97; BMI 36.2
--- NOTE | 2024-12-11 15:17 | DI.RAD.S_ITS ---
1PROCEDURE: XR CHEST 1V INDICATIONS: Chest Pain TECHNIQUE: One view of the chest was acquired. COMPARISON: [facility], CR, XR CHEST 2V, 12/24/2023, 19:03. [facility], CR, XR CHEST 1V, 09/03/2023, 13:51. FINDINGS: Surgical changes and devices: None. Lungs and pleura: Lungs are clear. No pleural effusions or pneumothorax. Mediastinum: Mediastinal contours appear normal. Heart size is normal. Bones and chest wall: No suspicious bony lesions. Overlying soft tissues appear unremarkable. IMPRESSION: No acute cardiopulmonary abnormality is seen. Dictated by: Delon High M.D. on 12/11/2024 at 15:39 Approved by: Delon High M.D. on 12/11/2024 at 15:40
[2024-12-11 15:28] LABS: Add Manual Diff / Slide Review NO; Basophils Absolute Auto 100 /uL (0-100); Basophils Percent Auto 0.6 % (0-2); Eosinophils Absolute Auto 200 /uL (0-450); Hematocrit 41.9 % (36-46); Hemoglobin 14.3 g/dL (12.0-16.0); Lymphocytes Absolute Auto 2600 /uL (1100-4500); Mean Corpuscular HGB Conc 34.1 % (30-36); Mean Corpuscular Hemoglobin 28.8 PG (26-34); Mean Corpuscular Volume 84.3 fL (80-100); Monocytes Absolute Auto 600 /uL (0-900); Monocytes Percent Auto 6.9 % (3-14); Neutrophils Absolute Auto 5800 /uL (1500-7000); Neutrophils Percent Auto 62.5 % (50-75); Platelet Count 259 X10^3/uL (150-400); Red Blood Cell Count 4.97 X10^6/uL (4.0-5.2); Red Cell Distribution Width 13.7 % (11.6-14.8); White Blood Cell Count 9.2 X10^3/uL (4.5-11.0)
--- NOTE | 2024-12-11 15:29 | PC.NURSE ---
Pt reports feeling dizzy and SZYMANSKI around her eyes. Pt states she felt worsening dizziness when moving around. Pt reports she took 1 tyeonal at 1100--unknown dosage. Pt states this did not help. FAST negative. Pt reports she has PRN order for high blood pressure and states her bp usually is 120-130 sys
[2024-12-11 15:35] LABS: Prothrombin Time 11.3 SECONDS (9.4-12.5)
[2024-12-11 15:38] LABS: PTT Partial Thromboplastin Tim 34 SECONDS (25.1-36.5)
--- NOTE | 2024-12-11 15:38 | EKG_ITS ---
[address] [address] Test Date: 2024-12-11 Pat Name: Brooklyn Bruno Department: [facility] Room: Gender: Female Display Manager: ROXANNA : 1965 Requested By: Order Number: [id number] Reading MD: Ellis Medina MD Measurements Intervals [place] Rate: 70 P: 47 NM: 130 QRS: 12 QRSD: 84 T: 28 QT: 404 QTc: 436 Interpretive Statements Normal sinus rhythm Possible Left atrial enlargement Electronically Signed On 12-11-2024 15:50:02 PDT by Ellis Medina MD
[2024-12-11 15:41] LABS: Alanine Aminotransferase 23 IU/L (<35); Albumin 4.5 g/dL (3.5-5.0); Albumin Globulin Ratio 1.3 (1.0-2.8); Alkaline Phosphatase 132 U/L (38-126); Aspartate Aminotransferase 21 IU/L (14-36); BUN Creatinine Ratio 26.4 (6-22); Bilirubin Total 0.4 mg/dL (0.2-1.3); Blood Urea Nitrogen 23 mg/dL (7-17); Calcium 9.4 mg/dL (8.4-10.2); Carbon Dioxide 24 mmol/L (22-32); Chloride 103 mmol/L (98-107); Creatine Kinase 35 U/L (30-135); Estimated Glomerular Filt Rate > 60 mL/min (>60); Globulin 3.4 g/dL (1.7-4.1); Glucose 117 mg/dL (70-99); HEMOLYSIS < 15 (0-50); Lipase 100 U/L (23-300); Magnesium 1.7 mg/dL (1.6-2.3); Potassium 3.8 mmol/L (3.4-5.1); Sodium 138 mmol/L (137-145); Total Protein 7.9 g/dL (6.3-8.2)
[2024-12-11 15:52] LABS: NT-proBNP (BNP-Adult 18+) < 20 pg/mL (<125); Troponin I < 0.012 ng/mL (0.01-0.034)
--- NOTE | 2024-12-11 16:47 | EKG_ITS ---
[address] [address] Test Date: 2024-12-11 Pat Name: Brooklyn Bruno Department: Room: Gender: Female Public [employer] Eligibility Assistant: LILLIAN : 1965 Requested By: Order Number: [id number] Reading MD: Ellis Medina MD Measurements Intervals [place] Rate: 70 P: 43 ID: 130 QRS: 9 QRSD: 86 T: 41 QT: 404 QTc: 436 Interpretive Statements Normal sinus rhythm Possible Left atrial enlargement Electronically Signed On 12-11-2024 17:16:40 PDT by Ellis Medina MD
--- NOTE | 2024-12-11 16:54 | ED_ITS ---
<Statement entered by Ellis Villagomez, DO - 12/12/24 03:02> Co-sign statement: I was available for consultation during this patient's emergency department visit. This chart is signed by myself for administrative purposes only. I did not have direct contact with the patient during this visit. They were seen independently by the APC. HPI - Dizziness General Chief Complaint: Dizziness Stated Complaint: Hypertension Time Seen by Provider: 12/11/24 16:26 Source: patient and EMS Mode of arrival: EMS History of Present Illness HPI Narrative: This is a 51-year-old woman with a history of prediabetes, hypertension presenting with concern for a sudden onset of what he describes as a 9/10 headache with an episode of dizziness she states she was walking at lunchtime and felt that she was going to pass out because she was so dizzy. She states that she does have migraines but this does not feel like her normal migraine. She describes it as a pain that is across the front of her face from the left side to the right side and behind her eyes. She did take her migraine medication that a friend had and states it did not help with her symptoms at all. She or family with her has not noticed any speech changes she has not had any vision change denies any one-sided weakness or other symptoms. She states that earlier today and yesterday/over the last few days she has been feeling completely normal and had no other symptoms prior to this coming on today. Her symptoms started at around 12 noon. She also described a burning sensation in her left upper arm that lasted for about 5 minutes and has not returned. She does state that she previously took metformin as she has been diagnosed with prediabetes but has not had to take it for about a year as her labs were looking very good. She denies any chest pain, shortness of breath, recent fall, fevers, chills, leg pain or swelling or any other symptoms. Related Data Home Medications ?Medication ?Instructions ?Recorded ?Confirmed APAP/Dichloralphenazone/Torey ##0 01/22/11 11/30/24 (MIDRIN 65 MG-100 MG-325 MG) NORTRIPTYLINE HCL (Nortriptyline 10 mg PO HS ##0 01/2211/30/24 HCl) cetirizine 10 mg tablet 10 mg PO Q DAY ##0 01/22/11 11/30/24 chlorthalidone 25 mg tablet 25 mg PO DAILY 12/24/23 losartan 50 mg tablet 50 mg PO DAILY 12/24/2311/15 metformin 1,000 mg tablet 1,000 mg PO BID 12/24/23 Previous Rx's ?Medication ?Instructions ?Recorded tramadol 50 mg tablet 50 mg PO Q6H PRN pain #14 ta bs 09/11/24 tramadol 50 mg tablet 50 mg PO Q6H PRN pain #14 ta bs 09/11/24 Allergies Allergy/AdvReac Type Severity Reaction Status Date / Time bee pollen Allergy Severe Hives Verified 11/30/24 14:01 shellfish derived Allergy Severe Hives Verified 11/30/24 14:01 Sulfa (Sulfonamide Allergy Severe Hives Verified 11/30/24 14:01 Antibiotics) naproxen (From Naprosyn) Allergy Unknown Hives Verified 11/30/24 14:01 Penicillins Allergy Hives Verified 11/30/24 14:01 Review of Systems Review of Systems Narrative: See HPI Patient History Medical History Psoriasis Social History Smoking Status: Former smoker Smoking Status: Former smoker tobacco type: cigarettes alcohol intake frequency: holidays/special occasions only Exam Narrative Exam Narrative: GENERAL: [59] year old patient appears stated age. Obese patient, in mild distress. HEAD: Atraumatic. Normocephalic. EYES: Pupils equal round and reactive. Extraocular motions intact. No scleral icterus. No injection or drainage. ENT: Nose without bleeding, purulent drainage. Throat without erythema, tonsillar hypertrophy or exudate. Uvula midline. Airway patent. NECK: Trachea midline. Non tender CARDIOVASCULAR: Regular rate and rhythm without murmurs, gallops, or rubs. RESPIRATORY: Clear to auscultation. Breath sounds equal bilaterally. No wheezes, rales, or rhonchi. GASTROINTESTINAL: Abdomen soft, non-tender, nondistended. EXTREMITIES: No edema or joint tenderness. BACK: Nontender without deformity or crepitance. No flank tenderness. NEURO: AOx3. Cranial nerves 2-12 intact. There is no arm drift but subtle tremor in the left arm. 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 Strength in lower extremities is equal. SKIN: No rash or erythema of visible areas Initial Vital Signs Initial Vital Signs: Vital Signs Pulse Rate 78 12/11/24 14:54 Blood Pressure 197/88 H 12/11/24 14:54 Pulse Oximetry 96 12/11/24 14:54 Scores HEART Score Heart Score history: Slightly Suspicious Heart Score EKG: Normal Heart Score Age: 45-64 years old Heart Score risk factors: 1-2 risk factors Heart Score troponin: < or = to normal limit Heart Score Total: 2 Course Course Course Narrative: Patient developed mild 4/10 chest pressure and a repeat EKG was performed with no notable changes from her initial EKG. Given her sudden onset headache and dizziness with near-syncope CT noncontrast head was ordered as well as CT angio head and neck after discussion with attending physician Dr. Sosa. Aspirin was withheld pending brain imaging. Imaging returned negative for bleed. Aspirin was administered patient's symptoms overall improved with headaches improved down to 6/10 and chest pressure down to 1/10. Patient persistently hypertensive in the 170s systolic. election to treat with nitroglycerin given chest pressure and possible cardiac symptoms. Patient acknowledges she only takes blood pressure medication when her blood pressures are high states she takes some in the morning and at night and if they are higher than 140 in the morning is supposed to take her chlorthalidone and if there her than 140 in the evening and she takes her losartan. She says she has not had to take blood pressure medications for a couple of months. Nitro brought the patient's blood pressure down slightly temporarily, she did state that she felt her chest pressure was down to a 0/10 after the nitro although nurse noted that she described she had 0 chest pressure at the time the nitro was administered. The patient says her headache has also improved now down to a 3/10. Spoke with the patient again and she is feeling overall improved, after she did receive her losartan medication. Blood pressure improved to 149/65. Patient was comfortable with plan to go home her daughter who is adult will be there with her and she will call 911 or seek further evaluation if she has any recurrent symptoms or hypertension persists despite taking blood pressure medications as prescribed. Spoke with Dr. Villagomez about this patient who is in agreement with the plan. Heart score is 2. Orders Ordered: ED Orders 12/11/24 15:17 XR chest 1V Stat EKG-12 Lead Stat 12/11/24 15:20 Complete Blood Count AUTO DIFF Stat Comprehensive Metabolic Panel Stat D Dimer Stat Lipase Stat Magnesium Stat NT-proBNP (BNP-Adult 18+) Stat PTT Partial Thromboplastin Manish Stat Prothrombin Time INR Stat Troponin & CK Cardiac Panel Stat 12/11/24 16:47 EKG-12 Lead Stat 12/11/24 16:59 Urinalysis and Microscopic Stat 12/11/24 17:03 Covid-19 + FLU A/B + RSV - PCR Stat 12/11/24 17:05 CT head/brain wo con Stat 12/11/24 17:06 CT angio head and neck Stat 12/11/24 18:06 Troponin I Stat Discontinued Medications Aspirin (Aspirin 81 Mg Chew Tab) 324 mg PO NOW ONE Stop: 12/11/24 16:46 Last Admin: 12/11/24 18:25 Dose: Not Given Documented By: LILLIAN Aspirin (Aspirin 81 Mg Chew Tab) 324 mg PO NOW ONE Stop: 12/11/24 18:27 Last Admin: 12/11/24 18:33 Dose: 324 mg Documented By: LILLIAN Sodium Chloride (Normal Saline 0.9%) 1,000 mls @ 500 mls/hr IV BOLUS ONE Stop: 12/11/24 20:26 Last Admin: 12/11/24 18:33 Dose: 500 mls/hr Documented By: LILLIAN Losartan Potassium (Losartan 50 Mg Tablet) 50 mg PO NOW ONE Stop: 12/11/24 19:45 Last Admin: 12/11/24 20:09 Dose: 50 mg Documented By: ABI Nitroglycerin (Nitroglycerin 0.4 Mg Sl Tab) 0.4 mg SL NOW ONE Stop: 12/11/24 18:31 Last Admin: 12/11/24 18:38 Dose: 0.4 mg Documented By: LILLIAN Ondansetron HCl (Ondansetron 4 Mg/2 Ml Inj) 4 mg IV NOW ONE Stop: 12/11/24 17:13 Last Admin: 12/11/24 17:51 Dose: Not Given Documented By: LILLIAN Vital Signs Vital signs: Vital Signs - 8 hr 12/11/24 14:54 12/11/24 14:54 12/11/24 15:00 Temperature 98.2 F Pulse Rate 78 76 Respiratory Rate 17 Blood Pressure 197/88 H 176/79 H Pulse Oximetry 96 94 Oxygen Delivery Method Room Air 12/11/24 15:00 12/11/24 15:00 12/11/24 15:30 Temperature Pulse Rate 75 75 Respiratory Rate 16 17 Blood Pressure 176/79 H Pulse Oximetry 95 96 Oxygen Delivery Method 12/11/24 15:30 12/11/24 16:00 12/11/24 16:00 Temperature Pulse Rate 74 Respiratory Rate 17 Blood Pressure 181/84 H 176/108 H Pulse Oximetry 95 Oxygen Delivery Method 12/11/24 16:30 12/11/24 16:30 12/11/24 16:58 Temperature Pulse Rate 73 73 Respiratory Rate 19 13 Blood Pressure 178/80 H Pulse Oximetry 95 95 Oxygen Delivery Method 12/11/24 17:00 12/11/24 17:00 12/11/24 17:30 Temperature Pulse Rate 73 71 Respiratory Rate 12 19 Blood Pressure 193/84 H Pulse Oximetry 97 95 Oxygen Delivery Method 12/11/24 17:31 12/11/24 17:31 12/11/24 18:38 Temperature Pulse Rate 71 70 Respiratory Rate 19 Blood Pressure 178/78 H 169/77 H Pulse Oximetry 94 Oxygen Delivery Method 12/11/24 19:00 12/11/24 19:15 12/11/24 19:30 Temperature Pulse Rate 70 70 66 Respiratory Rate 19 16 19 Blood Pressure 174/81 H 180/84 H 164/78 H Pulse Oximetry 94 94 95 Oxygen Delivery Method Room Air Room Air Room Air MDM - Dizziness Differential Diagnosis Differential diagnosis: Likely benign paroxysmal positional vertigo, orthostatic hypotension, cerebrovascular accident, transient cerebral ischemia and other (Hypertensive urgency, hypertensive emergency) Medical Records Attestation: I reviewed the patient's medical records. Lab Data Attestation: I reviewed the patient's lab results. 12/11/24 15:20 12/11/24 15:20 Labs: Lab Results 12/11/24 12/11/24 12/11/24 Range/Units 15:20 16:59 17:03 WBC 9.2 (4.5-11.0) X10^3/uL RBC 4.97 (4.0-5.2) X10^6/uL Hgb 14.3 (12.0-16.0) g/dL Hct 41.9 (36-46) % MCV 84.3 (80-100) fL MCH 28.8 (26-34) PG MCHC 34.1 (30-36) % RDW 13.7 (11.6-14.8) % Plt Count 259 (150-400) X10^3/uL Neut % (Auto) 62.5 (50-75) % Lymph % (Auto) 28.0 (25-40) % Creek % (Auto) 6.9 (3-14) % Eos % (Auto) 2.0 (2-4) % Baso % (Auto) 0.6 (0-2) % Neut # (Auto) 5800 (3713-2460) /uL Lymph # (Auto) 2600 (1439-2899) /uL Creek # (Auto) 600 (0-900) /uL Eos # (Auto) 200 (0-450) /uL Baso # (Auto) 100 (0-100) /uL PT 11.3 (9.4-12.5) SECONDS INR 1.0 (0.9-1.3) APTT 34 (25.1-36.5) SECONDS D-Dimer < 215 (<500) ng/ml Sodium 138 (137-145) mmol/L Potassium 3.8 (3.4-5.1) mmol/L Chloride 103 (98-107) mmol/L Carbon Dioxide 24 (22-32) mmol/L BUN 23 H (7-17) mg/dL Creatinine 0.87 (0.52-1.04) mg/dL Estimated GFR > 60 (>60) mL/min BUN/Creatinine Ratio 26.4 H (6-22) Glucose 117 H (70-99) mg/dL Calcium 9.4 (8.4-10.2) mg/dL Magnesium 1.7 (1.6-2.3) mg/dL Total Bilirubin 0.4 (0.2-1.3) mg/dL AST 21 (14-36) IU/L ALT 23 (<35) IU/L Alkaline Phosphatase 132 H (38-126) U/L Total Creatine Kinase 35 (30-135) U/L Troponin I < 0.012 (0.01-0.034) ng/mL NT-Pro-B Natriuret Pep < 20 (<125) pg/mL Total Protein 7.9 (6.3-8.2) g/dL Albumin 4.5 (3.5-5.0) g/dL Globulin 3.4 (1.7-4.1) g/dL Albumin/Globulin Ratio 1.3 (1.0-2.8) Lipase 100 (23-300) U/L Urine Color Yellow Urine Appearance Clear Urine pH 6.5 (4.5-8.0) Ur Specific [place] 1.015 (1.000-1.035) Urine Protein Negative (Negative) Urine Glucose (UA) Negative (Negative) g/dL Urine Ketones Negative (NEGATIVE) Urine Occult Blood Negative (Negative) Urine Nitrate Negative (Negative) Urine Bilirubin Negative (NEGATIVE) Urine Urobilinogen 0.2 (0.2) E.U./dL Ur Leukocyte Esterase Negative (NEGATIVE) Urine RBC None seen (0-5/HPF) Urine WBC None seen (0-5/HPF) Ur Squamous Epith Cells 0-1 /hpf (0-5/HPF) Urine Bacteria Occasional (0-1) (None) Ur Culture Indicated? Cult not indicated Vol Urine Centrifuged 10ml (spun) SARS-CoV-2 (PCR) Negative (Negative) Influenza A (RT-PCR) Flu a negative (NEGATIVE) Influenza B (RT-PCR) Flu b negative (NEGATIVE) RSV (PCR) Negative (Negative) 12/11/24 Range/Units 18:06 WBC (4.5-11.0) X10^3/uL RBC (4.0-5.2) X10^6/uL Hgb (12.0-16.0) g/dL Hct (36-46) % MCV (80-100) fL MCH (26-34) PG MCHC (30-36) % RDW (11.6-14.8) % Plt Count (150-400) X10^3/uL Neut % (Auto) (50-75) % Lymph % (Auto) (25-40) % Creek % (Auto) (3-14) % Eos % (Auto) (2-4) % Baso % (Auto) (0-2) % Neut # (Auto) (5840-2130) /uL Lymph # (Auto) (4411-9843) /uL Creek # (Auto) (0-900) /uL Eos # (Auto) (0-450) /uL Baso # (Auto) (0-100) /uL PT (9.4-12.5) SECONDS INR (0.9-1.3) APTT (25.1-36.5) SECONDS D-Dimer (<500) ng/ml Sodium (137-145) mmol/L Potassium (3.4-5.1) mmol/L Chloride (98-107) mmol/L Carbon Dioxide (22-32) mmol/L BUN (7-17) mg/dL Creatinine (0.52-1.04) mg/dL Estimated GFR (>60) mL/min BUN/Creatinine Ratio (6-22) Glucose (70-99) mg/dL Calcium (8.4-10.2) mg/dL Magnesium (1.6-2.3) mg/dL Total Bilirubin (0.2-1.3) mg/dL AST (14-36) IU/L ALT (<35) IU/L Alkaline Phosphatase (38-126) U/L Total Creatine Kinase (30-135) U/L Troponin I < 0.012 (0.01-0.034) ng/mL NT-Pro-B Natriuret Pep (<125) pg/mL Total Protein (6.3-8.2) g/dL Albumin (3.5-5.0) g/dL Globulin (1.7-4.1) g/dL Albumin/Globulin Ratio (1.0-2.8) Lipase (23-300) U/L Urine Color Urine Appearance Urine pH (4.5-8.0) Ur Specific [place] (1.000-1.035) Urine Protein (Negative) Urine Glucose (UA) (Negative) g/dL Urine Ketones (NEGATIVE) Urine Occult Blood (Negative) Urine Nitrate (Negative) Urine Bilirubin (NEGATIVE) Urine Urobilinogen (0.2) E.U./dL Ur Leukocyte Esterase (NEGATIVE) Urine RBC (0-5/HPF) Urine WBC (0-5/HPF) Ur Squamous Epith Cells (0-5/HPF) Urine Bacteria (None) Ur Culture Indicated? Vol Urine Centrifuged SARS-CoV-2 (PCR) (Negative) Influenza A (RT-PCR) (NEGATIVE) Influenza B (RT-PCR) (NEGATIVE) RSV (PCR) (Negative) Imaging Data CT scan - head: My Impression: [facility] radiology report Radiologist's Impression: [address] [address] [address] Scan Report Signed Patient: Brooklyn Bruno MR#: [id number] : 1965 Acct:[id number] Age/Sex: 59 / F Date of Service: 12/11/24 Loc: ED Accession Number: [id number] Procedure: CT head/brain wo con Ordering Provider: Emily Jernigan PA-C PROCEDURE: CT HEAD/BRAIN WO CON INDICATIONS: headache, near syncope, HTN TECHNIQUE: Noncontrast 4.5 mm thick angled axial sections acquired from the foramen magnum to the vertex, with coronal and sagittal reformats. For radiation dose reduction, the following was used: automated exposure control, adjustment of mA and/or kV according to patient size. COMPARISON: None. FINDINGS: Image quality: Diagnostic. CSF spaces: Basal cisterns are patent. No extra-axial fluid collections. The ventricles are symmetric in size and shape. Brain: No acute intracranial hemorrhage or mass effect. There is minimal cerebral volume loss, with resultant ventricular and sulcal prominence. There are minimal periventricular and deep white matter chronic small vessel ischemic changes. Skull and face: Calvarium and visualized facial bones appear intact, without suspicious lesions. Sinuses: Visualized sinuses and mastoids are clear. IMPRESSION: No acute intracranial pathology. Approved by: John Paul Ellis M.D. on 12/11/2024 at 18:06 ct head neck angio: My Impression: Agree with Radiology interpretation Radiologist's Impression: [address] [address] [address] Scan Report Signed Patient: Brooklyn Bruno MR#: [id number] : 1965 Acct:[id number] Age/Sex: 59 / F Date of Service: 12/11/24 Loc: ED Accession Number: [id number] Procedure: CT angio head and neck Ordering Provider: Emily Jernigan PA-C PROCEDURE: CT ANGIO HEAD AND NECK INDICATIONS: HTN, dizzy, SZYMANSKI, subtle Left arm deficit TECHNIQUE: After the administration of intravenous contrast, 1 mm thick sections acquired from the aortic arch through the [place]. 3-dimensional zvvfsdd-jdulyrybo-znmifkbcha (MIP) and/or volume rendering reformats were acquired of the central intracranial vasculature and neck separately. For radiation dose reduction, the following was used: automated exposure control, adjustment of mA and/or kV according to patient size. COMPARISON: [facility], CT, CT HEAD WITHOUT CONTRAST, 06/02/2019, 19:29. [facility], CT, CT HEAD/BRAIN WO CON, 12/11/2024, 17:36. FINDINGS: Image quality: Mild venous contamination. Diagnostic. Cerebral CT Angiogram: Internal carotid arteries: No acute findings. Atherosclerotic calcifications are seen without hemodynamically significant stenosis. stenosis. No occlusion. No aneurysm. Anterior cerebral arteries: Unremarkable. No significant stenosis. No occlusion. No aneurysm. Middle cerebral arteries: Unremarkable. No significant stenosis. No occlusion. No aneurysm. Posterior cerebral arteries: Unremarkable. No significant stenosis. No occlusion. No aneurysm. Basilar artery: Unremarkable. No significant stenosis. No occlusion. No aneurysm. Vertebral arteries: Unremarkable as visualized. Dural venous sinuses: Unremarkable given phase of enhancement. Other: Arterial phase appearance of the brain parenchyma is unremarkable. Neck CT Angiogram: Internal carotid arteries: Unremarkable. No significant stenosis. No dissection or occlusion. Common carotid arteries: Unremarkable. No significant stenosis. No dissection or occlusion. External carotid arteries: Unremarkable. No occlusion. Vertebral arteries: Left vertebral artery arises directly from the aortic arch, a normal anatomic variant. No significant stenosis. No dissection or occlusion. Aortic Arch and Mediastinum: Partially visualized aortic arch unremarkable without evidence of aneurysm. Origins of the great vessels unremarkable. Other: Enlarged heterogeneous and nodular thyroid. IMPRESSION: No significant intracranial arterial abnormality is seen. No significant abnormality is seen within the arteries of the neck. Heterogeneous nodular thyroid. Recommend follow-up outpatient thyroid ultrasound for further evaluation. Any quantitative measurements of stenosis were performed using NASCET criteria. Approved by: John Paul Ellis M.D. on 12/11/2024 at 18:12 ECG Data Interpretation: Heart rate 70 QTC 436 milliseconds. NSR without ectopy or ST changes. Treatment and disposition Shared decision making:: Shared decision-making was used in determining plan for evaluation today in the emergency department and plan for discharge to home. MDM Narrative Medical decision making narrative: This is a 59-year-old woman presented with concern for an episode of headache with dizziness and brief left arm pain. 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 However noncontrast head CT and CT head neck angio returned negative. And patient had no persistent or worsening symptoms or exam change. Initial troponin was negative as was repeat troponin. However patient initially had no chest pain but did develop some chest pressure during her ER stay. For which she received aspirin and also nitroglycerin sublingual. She was also treated with her prescribed losartan 50 mg which improved her blood pressures to 149/65 prior to discharge. Headache reduced to a 3/10, patient does have chronic migraines. Chest pain did not recur or worsen during her ER stay. EKG was obtained when patient presented and a 2nd EKG was obtained after she developed chest pressure. Which showed no change. Her heart score is 2. She was advised to follow up closely with her PCP, also talked to them about seeing Cardiology as she should have further evaluation, and may need to change her blood pressure regimen. She was responsive to losartan but states she has not taken any blood pressure medications for 2 months though she checks her blood pressures twice daily and they are not typically elevated. She was advised to call 911 or return to the emergency department if she has any new returning symptoms for worsening symptoms. MD Sosa and Hernando were consulted regarding the patient's care. Return precautions provided, follow-up plan discussed, all questions answered. Discharge Plan Departure Patient Disposition: Home Clinical Impression: Hypertensive urgency Activity Restrictions/Additional Instructions: *You have been diagnosed with [hypertensive urgency/hypertension] *What to do: *Please continue to take your regular medications as directed. [ ] New medication prescriptions sent to your pharmacy: [ ] [ ] New medication written as a paper prescription [ X] No new medications given *Please follow up with your primary care provider in 2-3 days, call for an appointment. Let them know you were seen in the Emergency Department and that we ask that you be seen in follow up. We will electronically transmit a record of today's note if your PCP is in our system. You came in today with concern for an episode of headache and dizziness with a brief period of left upper arm pain. Your symptoms were concerning possibly for a stroke or problem in your brain or a cardiac etiology. We checked your cardiac labs and also rechecked these hours after you initially came into the ER to confirm they were not elevated. We did a scan of your brain and neck to evaluate for possible bleeding in your brain or clots and did not see any evidence of this on the scan. We treated you with aspirin, some fluids and also a medication called nitroglycerin which can reduced blood pressure and help with chest pain as you did develop some mild chest pain while you were in the emergency department. Given that your imaging was negative and your repeat troponin was negative your EKG also looked good and did not show any change after you developed your mild chest discomfort it is reasonable to have you follow up closely with PCP and Cardiology and certainly if you develop recurrent, new or worsening symptoms seek re-evaluation in the ER or call 911 immediately. *If you do not have a primary care provider please contact the [facility] Resource line at [phone]. They will ask some questions about your medical history and help get you set up with a doctor in the community. *Return to Emergency Department if you should have any new, worsening or concerning symptoms, such as [fever greater than 101 F, shaking chills, worsening pain, persistent vomiting or other bothersome symptoms] Prescriptions: No Action losartan 50 mg tablet 50 mg PO DAILY chlorthalidone 25 mg tablet 25 mg PO DAILY metformin 1,000 mg tablet 1,000 mg PO BID NORTRIPTYLINE HCL (Nortriptyline HCl) 10 mg PO HS Qty: 0 APAP/Dichloralphenazone/Torey (MIDRIN 65 MG-100 MG-325 MG) Qty: 0 cetirizine 10 MG tablet 10 mg PO Q DAY Qty: 0 tramadol 50 mg tablet 50 mg PO Q6H PRN (Reason: pain) Qty: 14 0RF tramadol 50 mg tablet 50 mg PO Q6H PRN (Reason: pain) Qty: 14 0RF Referrals: Mady Leyva ARNP [Primary Care Provider, Medical] Stand Alone Forms: Patient Portal/API
[2024-12-11 17:00] LABS: D Dimer < 215 ng/ml (<500)
--- NOTE | 2024-12-11 17:05 | DI.CT.S_ITS ---
PROCEDURE: CT HEAD/BRAIN WO CON INDICATIONS: headache, near syncope, HTN TECHNIQUE: Noncontrast 4.5 mm thick angled axial sections acquired from the foramen magnum to the vertex, with coronal and sagittal reformats. For radiation dose reduction, the following was used: automated exposure control, adjustment of mA and/or kV according to patient size. COMPARISON: None. FINDINGS: Image quality: Diagnostic. CSF spaces: Basal cisterns are patent. No extra-axial fluid collections. The ventricles are symmetric in size and shape. Brain: No acute intracranial hemorrhage or mass effect. There is minimal cerebral volume loss, with resultant ventricular and sulcal prominence. There are minimal periventricular and deep white matter chronic small vessel ischemic changes. Skull and face: Calvarium and visualized facial bones appear intact, without suspicious lesions. Sinuses: Visualized sinuses and mastoids are clear. IMPRESSION: No acute intracranial pathology. Approved by: John Paul Ellis M.D. on 12/11/2024 at 18:06
--- NOTE | 2024-12-11 17:06 | DI.CT.S_ITS ---
PROCEDURE: CT ANGIO HEAD AND NECK INDICATIONS: HTN, dizzy, SZYMANSKI, subtle Left arm deficit TECHNIQUE: After the administration of intravenous contrast, 1 mm thick sections acquired from the aortic arch through the [place] of [place]. 3-dimensional xqsmoaw-rgsrqythm-uoaspiieor (MIP) and/or volume rendering reformats were acquired of the central intracranial vasculature and neck separately. For radiation dose reduction, the following was used: automated exposure control, adjustment of mA and/or kV according to patient size. COMPARISON: [facility], CT, CT HEAD WITHOUT CONTRAST, 06/02/2019, 19:29. [facility], CT, CT HEAD/BRAIN WO CON, 12/11/2024, 17:36. FINDINGS: Image quality: Mild venous contamination. Diagnostic. Cerebral CT Angiogram: Internal carotid arteries: No acute findings. Atherosclerotic calcifications are seen without hemodynamically significant stenosis. stenosis. No occlusion. No aneurysm. Anterior cerebral arteries: Unremarkable. No significant stenosis. No occlusion. No aneurysm. Middle cerebral arteries: Unremarkable. No significant stenosis. No occlusion. No aneurysm. Posterior cerebral arteries: Unremarkable. No significant stenosis. No occlusion. No aneurysm. Basilar artery: Unremarkable. No significant stenosis. No occlusion. No aneurysm. Vertebral arteries: Unremarkable as visualized. Dural venous sinuses: Unremarkable given phase of enhancement. Other: Arterial phase appearance of the brain parenchyma is unremarkable. Neck CT Angiogram: Internal carotid arteries: Unremarkable. No significant stenosis. No dissection or occlusion. Common carotid arteries: Unremarkable. No significant stenosis. No dissection or occlusion. External carotid arteries: Unremarkable. No occlusion. Vertebral arteries: Left vertebral artery arises directly from the aortic arch, a normal anatomic variant. No significant stenosis. No dissection or occlusion. Aortic Arch and Mediastinum: Partially visualized aortic arch unremarkable without evidence of aneurysm. Origins of the great vessels unremarkable. Other: Enlarged heterogeneous and nodular thyroid. IMPRESSION: No significant intracranial arterial abnormality is seen. No significant abnormality is seen within the arteries of the neck. Heterogeneous nodular thyroid. Recommend follow-up outpatient thyroid ultrasound for further evaluation. Any quantitative measurements of stenosis were performed using NASCET criteria. Approved by: John Paul Ellis M.D. on 12/11/2024 at 18:12
[2024-12-11 17:20] LABS: Appearance Urine UA CLEAR; Bilirubin Urine UA NEGATIVE (NEGATIVE); Color Urine UA YELLOW; Glucose Urine UA NEGATIVE (Negative); Ketones Urine UA NEGATIVE (NEGATIVE); Leukocyte Esterase Urine UA NEGATIVE (NEGATIVE); Nitrite Urine UA NEGATIVE (Negative); Occult Blood Urine UA NEGATIVE (Negative); Protein Urine UA NEGATIVE (Negative); Specific Gravity Urine UA 1.015 (1.000-1.035); Urobilinogen Urine UA 0.2 E.U./dL (0.2); pH Urine UA 6.5 (4.5-8.0)
[2024-12-11 17:38] LABS: Urine Volume 10mL (spun)
[2024-12-11 17:39] LABS: Bacteria Urine Occasional (0-1); Culture Indicated Urine Cult Not Indicated; RBC Urine None Seen (0-5/HPF); Squamous Epithelial Cell Urine 0-1 /HPF (0-5/HPF); WBC Urine None Seen (0-5/HPF)
[2024-12-11 17:58] LABS: Influenza A - CEPHEID Flu A NEGATIVE (NEGATIVE); Influenza B - CEPHEID Flu B NEGATIVE (NEGATIVE); Respiratory Syncytial Virus Negative (Negative)
[2024-12-11 17:59] LABS: COVID-19 CEPHEID 4-PLEX PCR Negative (Negative)
[2024-12-11] MEDS: SODIUM CHLORIDE 0.9% 1,000 ML 500 ML IV (18:33)
[2024-12-11] MEDS: ASPIRIN 81 MG CHEW TAB 324 MG PO (18:33)
[2024-12-11 18:36] LABS: Troponin I < 0.012 ng/mL (0.01-0.034)
[2024-12-11] MEDS: NITROGLYCERIN 0.4 MG SL TAB SL (18:38)
--- NOTE | 2024-12-11 18:48 | PC.NURSE ---
Pt reports no change after nitro; states she has little to no cp. states head feels the same as well.
[2024-12-11] MEDS: LOSARTAN 50 MG TABLET PO (20:09)
== END 2024-12-11 21:02 | disposition home or self-care (01) ==
PROVIDERS: Emergency Medicine; Emergency Provider Student in an Organized Health Care Education/Training Program; Family Provider Nurse Practitioner Family; PCP Nurse Practitioner Family
DX: I16.0 Hypertensive urgency (principal); R51.9 Headache, unspecified; I10 Essential (primary) hypertension; Z87.891 Personal history of nicotine dependence
CPT/HCPCS: 0241U; 36415; 70450; 70496; 70498; 71045; 80053; 81001; 82550; 83690; 83735; 83880; 84484; 85025; 85379; 85610; 85730; 93005; 96360; 96361; 99284; Q9967

== ENCOUNTER 2024-12-23 07:30 | Outpatient (RCR) | payer MEDICARE, MEDICAID, SELFPAY ==
--- NOTE | 2024-12-15 19:00 | PT.OIE ---
Current Diagnoses Strain of unspecified muscle, fascia and tendon at shoulder and upper arm level, left arm, subsequent encounter (12/15/24) Past Medical History (Last Reviewed 12/11/24 @ 17:31 by Emily Jernigan PA-C) Psoriasis Visit Care Team Role Provider Type CHANI Mack Attending Provider Non-Staff Family Provider Primary Care Provider Referring Provider Specialty: Medical Address: [address] [place] [address], [phone] Email: Physical Therapy Initial Evaluation PT-OP-A Visit Information Start: 12/15/24 07:31 Freq: Status: Active Protocol: Document 12/15/24 07:32 AERODYNAMIC CONSULTANT (Rec: 12/15/24 09:00 AERODYNAMIC CONSULTANT Laptop) Out-Patient Physical Therapy Visit Information Visit Information Visit Type Initial Evaluation Visit Start Time 07:32 Visit Stop Time 08:35 Visit Number 1 Number of PATROL DRIVER Visits 0 Evaluation Information Evaluation Date 12/15/24 PT-OP-B Current Condition Start: 12/15/24 07:31 Freq: Status: Active Protocol: Document 12/15/24 07:32 AERODYNAMIC CONSULTANT (Rec: 12/15/24 09:00 AERODYNAMIC CONSULTANT Laptop) Current Condition History of Current Condition Onset Date a few months Current Complaints L shoulder pain History of Current Pt amb into session with normal gait pattern. Pt Condition reports she went to the walk in clinic for pains in her L shoulder which pops painfully when she moves it, is very limited putting it behind her, driving with her L arm is difficult, and cannot sleep on L shoulder. She reports a few months ago she was walking her 9 lb dog and noticed pain in her L shoulder which progressively got worse. Pain is mostly in back of shoulder and radiates to front of shoulder. Pt reports she is R hand dominant but does a lot with her L hand. Prior Treatments and L shoulder Xray 11/30/24 impression: [id number] Tests acromioclavicular joint osteoarthrosis. No acute osseous abnormality Treatment Goals Patient/Caregiver To be able to use my L arm again Goals PT-OP-C Subjective Start: 12/15/24 07:31 Freq: Status: Active Protocol: Document 12/15/24 07:32 AERODYNAMIC CONSULTANT (Rec: 12/15/24 09:00 AERODYNAMIC CONSULTANT Laptop) Patient Questionnaires Quick Dash- Upper Extremity Quick Dash UE Score 38.6% OP-PT Pain Assessment Comments Pain Comments Pt reports 5/10 pain to L shoulder with movement. PT-OP-F Manual Assessment Start: 12/15/24 07:31 Freq: Status: Active Protocol: Document 12/15/24 07:32 AERODYNAMIC CONSULTANT (Rec: 12/15/24 09:00 AERODYNAMIC CONSULTANT Laptop) Manual Assessments Other Manual Assessments Other Manual TTP and decreased soft tissue mobility to L upper trap, Assessments sub occipitals, supraspinatus, infraspinatus, teres major, pec, and bicep. PT-OP-J Posture/Palpation/Skin Start: 12/15/24 07:31 Freq: Status: Active Protocol: Document 12/15/24 07:32 AERODYNAMIC CONSULTANT (Rec: 12/15/24 09:00 AERODYNAMIC CONSULTANT Laptop) Posture Evaluation Comments Posture Comments Sitting: R shoulder slightly elevated from L, slight winging of L scapula, excessive kyphosis, B forward rounded shoulders, forward head posture PT-OP-K Range of Motion Start: 12/15/24 07:31 Freq: Status: Active Protocol: Document 12/15/24 07:32 AERODYNAMIC CONSULTANT (Rec: 12/15/24 09:00 AERODYNAMIC CONSULTANT Laptop) Shoulder Goniometric Range of Motion Shoulder L Shoulder ROM WFL No Testing Position Sitting Flexion 95 Extension 40 Abduction 80 External Rotation at 55 90 degrees Abduction External Rotation at 54 45 degrees Abduction External Rotation at 40 0 degrees Abduction Internal Rotation T12 Behind Back (text) Comments pain with flex, abd, ER at 0, 45, and 90 degrees. Significant UT compensation R Shoulder ROM WFL Yes Testing Position Sitting Flexion 151 Extension 54 Abduction 129 External Rotation at 100 90 degrees Abduction External Rotation at 120 45 degrees Abduction External Rotation at 60 0 degrees Abduction Internal Rotation Thumb to T6 Behind Back (text) PT-OP-M Strength Start: 12/15/24 07:31 Freq: Status: Active Protocol: Document 12/15/24 07:32 AERODYNAMIC CONSULTANT (Rec: 12/15/24 09:00 AERODYNAMIC CONSULTANT Laptop) Shoulder Strength Shoulder Manual Muscle Testing L Flexion 4- Good- Extension 4- Good- Abduction (C5) 4 Good Adduction 4+ Good+ External Rotation 4 Good Internal Rotation 4+ Good+ Horizontal Abduction 4- Good- Horizontal Adduction 3+ Fair+ Comments pain with flex, ext, abd but not as much as other movements, ER, horizontal add>abd. UT activation compensation R Flexion 4+ Good+ Extension 5 Normal Abduction (C5) 4+ Good+ Adduction 5 Normal External Rotation 4 Good Internal Rotation 5 Normal Horizontal Abduction 5 Normal Horizontal Adduction 5 Normal Elbow/Forearm Strength Elbow and Forearm Manual Muscle Testing L Flexion (C6) 4+ Good+ Extension (C7) 4- Good- Comments pain with flex R Flexion (C6) 5 Normal Extension (C7) 5 Normal PT-OP-Q Treatments Start: 12/15/24 07:31 Freq: Status: Active Protocol: Document 12/15/24 07:32 AERODYNAMIC CONSULTANT (Rec: 12/15/24 09:00 AERODYNAMIC CONSULTANT Laptop) Therapeutic Exercises Sitting Exercises Scap Retract Side bilateral Reps/Minutes x10 Comments disc for HEP d/t increased pain in L shoulder Standing Exercises Iso shoulder Standing Exercise Against wall: shoulder flex, abd, ER, IR Name Side left Resistance gentle pain free Equipment Used wall Reps/Minutes x10 each Comments Added to HEP with HO PT-OP-T Assessment and Plan Start: 12/15/24 07:31 Freq: Status: Active Protocol: Document 12/15/24 07:32 AERODYNAMIC CONSULTANT (Rec: 12/15/24 09:00 AERODYNAMIC CONSULTANT Laptop) Physical Therapy Assessment Rehab Potential Rehabilitation Good Potential Evaluation Complexity Number of Personal 1-2 Factors/ Comorbidities Number of Body 3 Systems Impaired Clinical Stable Presentation at Evaluation Impairments Impairments Activity Tolerance,Functional Activities,Pain,Posture, ROM,Soft Tissue Mobility,Strength Goals 3 Impairment HEP Impairment lack of HEP Short Term Goal (STG Pt will demonstrate ind with progressive HEP in order ) to progress appropriately toward goals. STG Duration 6 weeks 2 Impairment ROM Impairment L shoulder ROM Eval AROM: L flex 95 degrees, abd 80 degrees, ER at 45 degrees 54 degrees R flex 151 degrees, abd 129 degrees, ER at 45 degrees 120 degrees Short Term Goal (STG Pt will improve L shoulder AROM by at least 30 degrees ) shoulder flex, abd, and ER at 45 degrees to improve function. STG Duration 6 weeks Fdc Goal (LTG) Pt will improve L shoulder AROM flex to at least 140 degrees, abd to at least 120 degrees, and ER at 45 degrees to at least 110 degrees without pain to improve function. LTG Duration 12 weeks 1 Impairment Quick Dash UE Impairment Eval: 38.6% impaired [employer] Warden Goal (LTG) Pt will reduce Quick Dash UE impairment score from 38.6 % to equal to or less than 8% to demonstrate improved functional mobility. LTG Duration 12 weeks Assessment Summary Assessment Pt presents with L shoulder pain, decreased soft tissue mobility to L shoulder and cervical muscles, impaired posture with forward flexed pattern, decreased L shoulder AROM in all directions, decreased strength throughout L shoulder, and decreased scapular stability muscles. Pt will highly benefit from skilled PT intervention to address deficits and improve function. Physical Therapy Plan Frequency and Duration Frequency of 2x/Week Treatment Duration of 12 treatment (weeks) Plan of Care Start 12/15/24 Date Plan of Care End 03/09/25 Date Therapeutic Interventions Therapeutic Home Exercise Program,Joint Mobilizations,Manual Interventions Therapy,Neuromuscular Re-education,Patient/Caregiver Education,Soft Tissue Mobilization,Taping,Therapeutic Activities,Therapeutic Exercises Modalities Cold Pack/Ice Massage,Electric Stimulation,Hot Packs, Iontophoresis,Ultrasound Next Visit Focus/Plan Next Note Type Treatment Note Next Visit Plan STM to L cervical/scapular/shoulder muscles, L UT and LS stretch, review HEP, supine scap retractions and chin tucks
--- NOTE | 2024-12-16 19:01 | PT.OPPOC ---
Physical, Occupational & Speech Therapy At [facility] Current Diagnoses Strain of unspecified muscle, fascia and tendon at shoulder and upper arm level, left arm, subsequent encounter (12/15/24) Visit Care Team Role Provider Type CHANI Mack Attending Provider Non-Staff Family Provider Primary Care Provider Referring Provider Specialty: Medical Address: [address] [place] [address], [phone] Email: Plan Of Care PT-OP-B Current Condition Start: 12/15/24 07:31 Freq: Status: Active Protocol: Document 12/15/24 07:32 ASSISTANT DIRECTOR OF FINANCIAL AID (Rec: 12/15/24 09:00 ASSISTANT DIRECTOR OF FINANCIAL AID Laptop) Current Condition History of Current Condition Onset Date a few months Current Complaints L shoulder pain History of Current Pt amb into session with normal gait pattern. Pt Condition reports she went to the walk in clinic for pains in her L shoulder which pops painfully when she moves it, is very limited putting it behind her, driving with her L arm is difficult, and cannot sleep on L shoulder. She reports a few months ago she was walking her 9 lb dog and noticed pain in her L shoulder which progressively got worse. Pain is mostly in back of shoulder and radiates to front of shoulder. Pt reports she is R hand dominant but does a lot with her L hand. Prior Treatments and L shoulder Xray 11/30/24 impression: [id number] Tests acromioclavicular joint osteoarthrosis. No acute osseous abnormality Treatment Goals Patient/Caregiver To be able to use my L arm again Goals PT-OP-T Assessment and Plan Start: 12/15/24 07:31 Freq: Status: Active Protocol: Document 12/15/24 07:32 ASSISTANT DIRECTOR OF FINANCIAL AID (Rec: 12/15/24 09:00 ASSISTANT DIRECTOR OF FINANCIAL AID Laptop) Physical Therapy Assessment Rehab Potential Rehabilitation Good Potential Evaluation Complexity Number of Personal 1-2 Factors/ Comorbidities Number of Body 3 Systems Impaired Clinical Stable Presentation at Evaluation Impairments Impairments Activity Tolerance,Functional Activities,Pain,Posture, ROM,Soft Tissue Mobility,Strength Goals 3 Impairment HEP Impairment lack of HEP Short Term Goal (STG Pt will demonstrate ind with progressive HEP in order ) to progress appropriately toward goals. STG Duration 6 weeks 2 Impairment ROM Impairment L shoulder ROM Eval AROM: L flex 95 degrees, abd 80 degrees, ER at 45 degrees 54 degrees R flex 151 degrees, abd 129 degrees, ER at 45 degrees 120 degrees Short Term Goal (STG Pt will improve L shoulder AROM by at least 30 degrees ) shoulder flex, abd, and ER at 45 degrees to improve function. STG Duration 6 weeks Saw Man Goal (LTG) Pt will improve L shoulder AROM flex to at least 140 degrees, abd to at least 120 degrees, and ER at 45 degrees to at least 110 degrees without pain to improve function. LTG Duration 12 weeks 1 Impairment Quick Dash UE Impairment Eval: 38.6% impaired Correction Goal (LTG) Pt will reduce Quick Dash UE impairment score from 38.6 % to equal to or less than 8% to demonstrate improved functional mobility. LTG Duration 12 weeks Assessment Summary Assessment Pt presents with L shoulder pain, decreased soft tissue mobility to L shoulder and cervical muscles, impaired posture with forward flexed pattern, decreased L shoulder AROM in all directions, decreased strength throughout L shoulder, and decreased scapular stability muscles. Pt will highly benefit from skilled PT intervention to address deficits and improve function. Physical Therapy Plan Frequency and Duration Frequency of 2x/Week Treatment Duration of 12 treatment (weeks) Plan of Care Start 12/15/24 Date Plan of Care End 03/09/25 Date Therapeutic Interventions Therapeutic Home Exercise Program,Joint Mobilizations,Manual Interventions Therapy,Neuromuscular Re-education,Patient/Caregiver Education,Soft Tissue Mobilization,Taping,Therapeutic Activities,Therapeutic Exercises Modalities Cold Pack/Ice Massage,Electric Stimulation,Hot Packs, Iontophoresis,Ultrasound Next Visit Focus/Plan Next Note Type Treatment Note Next Visit Plan STM to L cervical/scapular/shoulder muscles, L UT and LS stretch, review HEP, supine scap retractions and chin tucks Plan of Care Dates Plan of Care Start Date 12/15/24 Plan of Care End Date 03/09/25 Electronically Signed by: Latha Reddy, PT 12/16/24 [id number] If you are in agreement with this Plan of Care, please return a signed and dated copy. I have reviewed this Plan of Care and certify that the skilled therapy services above are required to meet the patient?s needs. Physician Signature Date Printed Name and Credentials Clinical Instructor Signature Printed Name and Credentials
--- NOTE | 2024-12-17 15:51 | PT.OTN ---
Current Diagnoses Strain of unspecified muscle, fascia and tendon at shoulder and upper arm level, left arm, subsequent encounter (12/17/24) Physical Therapy Treatment Note PT-OP-A Visit Information Start: 12/15/24 07:31 Freq: Status: Active Protocol: Document 12/17/24 07:32 AB (Rec: 12/17/24 08:32 AB [id number]) Out-Patient Physical Therapy Visit Information Visit Information Visit Type Treatment Note Visit Note Visit [email or web address] Access [email or web address]: [email or web address] Visit Start Time 07:33 Visit Stop Time 08:16 Visit Number 2 Number of SUPERVISOR TELLERS Visits 1 PT-OP-B Current Condition Start: 12/15/24 07:31 Freq: Status: Active Protocol: Document 12/15/24 07:32 SMASH HAND (Rec: 12/15/24 09:00 SMASH HAND Laptop) Current Condition History of Current Condition Onset Date a few months Current Complaints L shoulder pain History of Current Pt amb into session with normal gait pattern. Pt Condition reports she went to the walk in clinic for pains in her L shoulder which pops painfully when she moves it, is very limited putting it behind her, driving with her L arm is difficult, and cannot sleep on L shoulder. She reports a few months ago she was walking her 9 lb dog and noticed pain in her L shoulder which progressively got worse. Pain is mostly in back of shoulder and radiates to front of shoulder. Pt reports she is R hand dominant but does a lot with her L hand. Prior Treatments and L shoulder Xray 11/30/24 impression: [id number] Tests acromioclavicular joint osteoarthrosis. No acute osseous abnormality Treatment Goals Patient/Caregiver To be able to use my L arm again Goals PT-OP-C Subjective Start: 12/15/24 07:31 Freq: Status: Active Protocol: Document 12/17/24 07:32 AB (Rec: 12/17/24 08:32 AB [id number]) OP-PT Subjective Patient Comments Patient Comments Patient reports she is the same, rates shoulder pain 5/ 10 start of session. PT-OP-F Manual Assessment Start: 12/15/24 07:31 Freq: Status: Active Protocol: Document 12/15/24 07:32 SMASH HAND (Rec: 12/15/24 09:00 SMASH HAND Laptop) Manual Assessments Other Manual Assessments Other Manual TTP and decreased soft tissue mobility to L upper trap, Assessments sub occipitals, supraspinatus, infraspinatus, teres major, pec, and bicep. PT-OP-J Posture/Palpation/Skin Start: 12/15/24 07:31 Freq: Status: Active Protocol: Document 12/15/24 07:32 SMASH HAND (Rec: 12/15/24 09:00 SMASH HAND Laptop) Posture Evaluation Comments Posture Comments Sitting: R shoulder slightly elevated from L, slight winging of L scapula, excessive kyphosis, B forward rounded shoulders, forward head posture PT-OP-K Range of Motion Start: 12/15/24 07:31 Freq: Status: Active Protocol: Document 12/15/24 07:32 SMASH HAND (Rec: 12/15/24 09:00 SMASH HAND Laptop) Shoulder Goniometric Range of Motion Shoulder L Shoulder ROM WFL No Testing Position Sitting Flexion 95 Extension 40 Abduction 80 External Rotation at 55 90 degrees Abduction External Rotation at 54 45 degrees Abduction External Rotation at 40 0 degrees Abduction Internal Rotation T12 Behind Back (text) Comments pain with flex, abd, ER at 0, 45, and 90 degrees. Significant UT compensation R Shoulder ROM WFL Yes Testing Position Sitting Flexion 151 Extension 54 Abduction 129 External Rotation at 100 90 degrees Abduction External Rotation at 120 45 degrees Abduction External Rotation at 60 0 degrees Abduction Internal Rotation Thumb to T6 Behind Back (text) PT-OP-M Strength Start: 12/15/24 07:31 Freq: Status: Active Protocol: Document 12/15/24 07:32 SMASH HAND (Rec: 12/15/24 09:00 SMASH HAND Laptop) Shoulder Strength Shoulder Manual Muscle Testing L Flexion 4- Good- Extension 4- Good- Abduction (C5) 4 Good Adduction 4+ Good+ External Rotation 4 Good Internal Rotation 4+ Good+ Horizontal Abduction 4- Good- Horizontal Adduction 3+ Fair+ Comments pain with flex, ext, abd but not as much as other movements, ER, horizontal add>abd. UT activation compensation R Flexion 4+ Good+ Extension 5 Normal Abduction (C5) 4+ Good+ Adduction 5 Normal External Rotation 4 Good Internal Rotation 5 Normal Horizontal Abduction 5 Normal Horizontal Adduction 5 Normal Elbow/Forearm Strength Elbow and Forearm Manual Muscle Testing L Flexion (C6) 4+ Good+ Extension (C7) 4- Good- Comments pain with flex R Flexion (C6) 5 Normal Extension (C7) 5 Normal PT-OP-Q Treatments Start: 12/15/24 07:31 Freq: Status: Active Protocol: Document 12/17/24 07:32 AB (Rec: 12/17/24 08:32 AB [id number]) Therapeutic Exercises Supine Exercises 1/2 foam roller Supine Exercise Name 1. pec stretch 2. alt UE flexion Side bilateral Reps/Minutes 2 min for stretch X 10 for flexion Comments verbal cues Sidelying Exercises ER AROM Side left Equipment Used 10 Reps/Minutes x Comments Verbal and tactile cues Sitting Exercises shoulder ER Sitting Exercise 1. PROM body over UE 2. AROM Name Side left Reps/Minutes 1 X 10 for 5-10 sec 2 X 10 for 3 sec Comments verbal cues Scap Retract Side bilateral Reps/Minutes x10 Comments review Standing Exercises L stretch Side bilateral Reps/Minutes X 10 Comments verbal and visual cues Manual Therapy Treatment Consent Patient gave verbal Yes consent for manual treatment Soft Tissue Mobilization L shoulder Body Location Pec, UT/levator scap, post cuff Mobilization Type Cross-Friction,Rolling,Sustained Pressure Intensity/Depth Moderate Body Position Hooklying Comments and sidelying Joint Mobilizations scapular mobilization Joint L shoulder Direction dep and add Grade III Body Position Sidelying Taping L shoulder Treatment Focus posture and pain Type of Tape Kinesio Tape Skin Inspection WNL Comments I strip ant GH to scap I strip levator scap and I strip UT orig to instert patient positioned seated in good posture PT-OP-T Assessment and Plan Start: 12/15/24 07:31 Freq: Status: Active Protocol: Document 12/17/24 07:32 AB (Rec: 12/17/24 08:32 AB [id number]) Physical Therapy Assessment Goals 3 Impairment HEP Impairment lack of HEP Short Term Goal (STG Pt will demonstrate ind with progressive HEP in order ) to progress appropriately toward goals. STG Duration 6 weeks 2 Impairment ROM Impairment L shoulder ROM Eval AROM: L flex 95 degrees, abd 80 degrees, ER at 45 degrees 54 degrees R flex 151 degrees, abd 129 degrees, ER at 45 degrees 120 degrees Short Term Goal (STG Pt will improve L shoulder AROM by at least 30 degrees ) shoulder flex, abd, and ER at 45 degrees to improve function. STG Duration 6 weeks [employer] Blasting Goal (LTG) Pt will improve L shoulder AROM flex to at least 140 degrees, abd to at least 120 degrees, and ER at 45 degrees to at least 110 degrees without pain to improve function. LTG Duration 12 weeks 1 Impairment Quick Dash UE Impairment Eval: 38.6% impaired [facility] Goal (LTG) Pt will reduce Quick Dash UE impairment score from 38.6 % to equal to or less than 8% to demonstrate improved functional mobility. LTG Duration 12 weeks Assessment Summary Assessment 103 deg AROM L shoulder end of session. Patient reports 5.5/10 pain end of session L shoulder. Decreased AROM continues to impact functional mobility. Physical Therapy Plan Frequency and Duration Frequency of 2x/Week Treatment Duration of 12 treatment (weeks) Plan of Care Start 12/15/24 Date Plan of Care End 03/09/25 Date Next Visit Focus/Plan Next Note Type Treatment Note Next Visit Plan STM to L cervical/scapular/shoulder muscles, L UT and LS stretch, review HEP, supine scap retractions and chin tucks
--- NOTE | 2024-12-23 11:20 | PT.OTN ---
Current Diagnoses Strain of unspecified muscle, fascia and tendon at shoulder and upper arm level, left arm, subsequent encounter (12/23/24) Physical Therapy Treatment Note PT-OP-A Visit Information Start: 12/15/24 07:31 Freq: Status: Active Protocol: Document 12/23/24 07:34 CENTREX RADIO OPERATOR (Rec: 12/23/24 08:21 CENTREX RADIO OPERATOR Laptop) Out-Patient Physical Therapy Visit Information Visit Information Visit Type Treatment Note Visit Start Time 07:35 Visit Stop Time 08:18 Visit Number 3 Number of OUTBOARD MOTOR INSPECTOR Visits 0 Evaluation Information Evaluation Date 12/15/24 PT-OP-B Current Condition Start: 12/15/24 07:31 Freq: Status: Active Protocol: Document 12/15/24 07:32 CENTREX RADIO OPERATOR (Rec: 12/15/24 09:00 CENTREX RADIO OPERATOR Laptop) Current Condition History of Current Condition Onset Date a few months Current Complaints L shoulder pain History of Current Pt amb into session with normal gait pattern. Pt Condition reports she went to the walk in clinic for pains in her L shoulder which pops painfully when she moves it, is very limited putting it behind her, driving with her L arm is difficult, and cannot sleep on L shoulder. She reports a few months ago she was walking her 9 lb dog and noticed pain in her L shoulder which progressively got worse. Pain is mostly in back of shoulder and radiates to front of shoulder. Pt reports she is R hand dominant but does a lot with her L hand. Prior Treatments and L shoulder Xray 11/30/24 impression: [id number] Tests acromioclavicular joint osteoarthrosis. No acute osseous abnormality Treatment Goals Patient/Caregiver To be able to use my L arm again Goals PT-OP-C Subjective Start: 12/15/24 07:31 Freq: Status: Active Protocol: Document 12/23/24 07:34 CENTREX RADIO OPERATOR (Rec: 12/23/24 08:21 CENTREX RADIO OPERATOR Laptop) OP-PT Subjective Patient Comments Patient Comments Pt reports her shoulder is still popping but with much improved pain, currently 2/10 pain. Pt reports she has been working on her HEP and has no questions. PT-OP-F Manual Assessment Start: 12/15/24 07:31 Freq: Status: Active Protocol: Document 12/15/24 07:32 CENTREX RADIO OPERATOR (Rec: 12/15/24 09:00 CENTREX RADIO OPERATOR Laptop) Manual Assessments Other Manual Assessments Other Manual TTP and decreased soft tissue mobility to L upper trap, Assessments sub occipitals, supraspinatus, infraspinatus, teres major, pec, and bicep. PT-OP-J Posture/Palpation/Skin Start: 12/15/24 07:31 Freq: Status: Active Protocol: Document 12/15/24 07:32 CENTREX RADIO OPERATOR (Rec: 12/15/24 09:00 CENTREX RADIO OPERATOR Laptop) Posture Evaluation Comments Posture Comments Sitting: R shoulder slightly elevated from L, slight winging of L scapula, excessive kyphosis, B forward rounded shoulders, forward head posture PT-OP-K Range of Motion Start: 12/15/24 07:31 Freq: Status: Active Protocol: Document 12/15/24 07:32 CENTREX RADIO OPERATOR (Rec: 12/15/24 09:00 CENTREX RADIO OPERATOR Laptop) Shoulder Goniometric Range of Motion Shoulder L Shoulder ROM WFL No Testing Position Sitting Flexion 95 Extension 40 Abduction 80 External Rotation at 55 90 degrees Abduction External Rotation at 54 45 degrees Abduction External Rotation at 40 0 degrees Abduction Internal Rotation T12 Behind Back (text) Comments pain with flex, abd, ER at 0, 45, and 90 degrees. Significant UT compensation R Shoulder ROM WFL Yes Testing Position Sitting Flexion 151 Extension 54 Abduction 129 External Rotation at 100 90 degrees Abduction External Rotation at 120 45 degrees Abduction External Rotation at 60 0 degrees Abduction Internal Rotation Thumb to T6 Behind Back (text) PT-OP-M Strength Start: 12/15/24 07:31 Freq: Status: Active Protocol: Document 12/15/24 07:32 CENTREX RADIO OPERATOR (Rec: 12/15/24 09:00 CENTREX RADIO OPERATOR Laptop) Shoulder Strength Shoulder Manual Muscle Testing L Flexion 4- Good- Extension 4- Good- Abduction (C5) 4 Good Adduction 4+ Good+ External Rotation 4 Good Internal Rotation 4+ Good+ Horizontal Abduction 4- Good- Horizontal Adduction 3+ Fair+ Comments pain with flex, ext, abd but not as much as other movements, ER, horizontal add>abd. UT activation compensation R Flexion 4+ Good+ Extension 5 Normal Abduction (C5) 4+ Good+ Adduction 5 Normal External Rotation 4 Good Internal Rotation 5 Normal Horizontal Abduction 5 Normal Horizontal Adduction 5 Normal Elbow/Forearm Strength Elbow and Forearm Manual Muscle Testing L Flexion (C6) 4+ Good+ Extension (C7) 4- Good- Comments pain with flex R Flexion (C6) 5 Normal Extension (C7) 5 Normal PT-OP-Q Treatments Start: 12/15/24 07:31 Freq: Status: Active Protocol: Document 12/23/24 07:34 CENTREX RADIO OPERATOR (Rec: 12/23/24 08:21 CENTREX RADIO OPERATOR Laptop) Therapeutic Exercises Supine Exercises Chin tucks Supine Exercise Name 1. chin tucks 2. chin tucks with hold Reps/Minutes 1. x10 2. x10 with 5s hold Comments no VC needed Sidelying Exercises shoulder hor abd Sidelying Exercise with STM to rhomboids and levator scap Name Side left Reps/Minutes x10 Comments VC/TC to maintain scap depression shoulder flex Sidelying Exercise with STM to rhomboids and levator scap Name Side left Reps/Minutes x10 Comments VC/TC to maintain scap depression Sitting Exercises Lev scap stretch Sitting Exercise Added to HEP verbally-does not want handout for this Name Side left Reps/Minutes 30s Comments Edu to stretch for no less than 30s UT stretch Sitting Exercise Added to HEP verbally-does not want handout for this Name Side left Reps/Minutes 30s Comments Edu to stretch for no less than 30s Manual Therapy Treatment Consent Patient gave verbal Yes consent for manual treatment Soft Tissue Mobilization cervical Body Location B suboccipitals Mobilization Type Rolling,Trigger Point Release Intensity/Depth Moderate Body Position Supine Comments R>L L shoulder Body Location UT/levator scap Mobilization Type Cross-Friction,Rolling,Sustained Pressure Intensity/Depth Moderate Body Position Sidelying PT-OP-T Assessment and Plan Start: 12/15/24 07:31 Freq: Status: Active Protocol: Document 12/23/24 07:34 CENTREX RADIO OPERATOR (Rec: 12/23/24 08:21 CENTREX RADIO OPERATOR Laptop) Physical Therapy Assessment Impairments Impairments Activity Tolerance,Functional Activities,Pain,Posture, ROM,Soft Tissue Mobility,Strength Goals 3 Impairment HEP Impairment lack of HEP Short Term Goal (STG Pt will demonstrate ind with progressive HEP in order ) to progress appropriately toward goals. STG Duration 6 weeks 2 Impairment ROM Impairment L shoulder ROM Eval AROM: L flex 95 degrees, abd 80 degrees, ER at 45 degrees 54 degrees R flex 151 degrees, abd 129 degrees, ER at 45 degrees 120 degrees Short Term Goal (STG Pt will improve L shoulder AROM by at least 30 degrees ) shoulder flex, abd, and ER at 45 degrees to improve function. STG Duration 6 weeks Commercial Finance Analyst Goal (LTG) Pt will improve L shoulder AROM flex to at least 140 degrees, abd to at least 120 degrees, and ER at 45 degrees to at least 110 degrees without pain to improve function. LTG Duration 12 weeks 1 Impairment Quick Dash UE Impairment Eval: 38.6% impaired Detention Goal (LTG) Pt will reduce Quick Dash UE impairment score from 38.6 % to equal to or less than 8% to demonstrate improved functional mobility. LTG Duration 12 weeks Assessment Summary Assessment Pt tolerated STM and exercises/stretches well this session with pain during STM with active movement to L levator scap but no remaining pain after, with slight improved ROM in L shoulder flex at end of session. Start of session: AROM L shoulder abd 154 degrees, flex 140 degrees pain free. End of session: L shoulder abd 153, flex 145 Physical Therapy Plan Frequency and Duration Frequency of 2x/Week Treatment Duration of 12 treatment (weeks) Plan of Care Start 12/15/24 Plan of Care End 03/09/25 Date Therapeutic Interventions Therapeutic Home Exercise Program,Joint Mobilizations,Manual Interventions Therapy,Neuromuscular Re-education,Patient/Caregiver Education,Soft Tissue Mobilization,Taping,Therapeutic Activities,Therapeutic Exercises Modalities Cold Pack/Ice Massage,Electric Stimulation,Hot Packs, Iontophoresis,Ultrasound Next Visit Focus/Plan Next Note Type Treatment Note Next Visit Plan L shoulder taping, supine scap retractions
--- NOTE | 2024-12-24 16:16 | PT-OP ANOTE ---
Pt called today and cancelled today's appt and remaining appts scheduled. She is having to take care of her mother and unable to attend PT. POC expires 03/09/25. Cutting Table Operator First discussed with pt can call back to schedule more appts. Cutting Table Operator First wasn't sure if PT wants to DC pt and pt can call back with new referral or keep encounter open and if returns before POC expiration can complete a PN update. PT will assess and decide.
--- NOTE | 2025-02-25 15:46 | PT.OPDS ---
Pt last seen 12/23 and POC expires 03/09. Called pt to check on her status, she requests to be discharged from PT as her shoulder is feeling better. Pt encouraged to get a new doctor's referral for PT if PT needs arise in the future. Will D/C PT. Current Diagnoses Strain of unspecified muscle, fascia and tendon at shoulder and upper arm level, left arm, subsequent encounter (12/23/24) Visit Care Team Role Provider Type CHANI Mack Attending Provider Non-Staff Family Provider Primary Care Provider Referring Provider Specialty: Medical Address: [address] [place] [address], [phone] Email: Visit Number Visit Number 3 Discharge Summary PT-OP-A Visit Information Start: 12/15/24 07:31 Freq: Status: Active Protocol: Document 12/23/24 07:34 GAS PIT WORKER (Rec: 12/23/24 08:21 GAS PIT WORKER Laptop) Out-Patient Physical Therapy Visit Information Visit Information Visit Type Treatment Note Visit Start Time 07:35 Visit Stop Time 08:18 Visit Number 3 Number of FILES SUPERVISOR Visits 0 Evaluation Information Evaluation Date 12/15/24 PT-OP-B Current Condition Start: 12/15/24 07:31 Freq: Status: Active Protocol: Document 12/15/24 07:32 GAS PIT WORKER (Rec: 12/15/24 09:00 GAS PIT WORKER Laptop) Current Condition History of Current Condition Onset Date a few months Current Complaints L shoulder pain History of Current Pt amb into session with normal gait pattern. Pt Condition reports she went to the walk in clinic for pains in her L shoulder which pops painfully when she moves it, is very limited putting it behind her, driving with her L arm is difficult, and cannot sleep on L shoulder. She reports a few months ago she was walking her 9 lb dog and noticed pain in her L shoulder which progressively got worse. Pain is mostly in back of shoulder and radiates to front of shoulder. Pt reports she is R hand dominant but does a lot with her L hand. Prior Treatments and L shoulder Xray 11/30/24 impression: [id number] Tests acromioclavicular joint osteoarthrosis. No acute osseous abnormality Treatment Goals Patient/Caregiver To be able to use my L arm again Goals PT-OP-C Subjective Start: 12/15/24 07:31 Freq: Status: Active Protocol: Document 12/23/24 07:34 GAS PIT WORKER (Rec: 12/23/24 08:21 GAS PIT WORKER Laptop) OP-PT Subjective Patient Comments Patient Comments Pt reports her shoulder is still popping but with much improved pain, currently 2/10 pain. Pt reports she has been working on her HEP and has no questions. PT-OP-F Manual Assessment Start: 12/15/24 07:31 Freq: Status: Active Protocol: Document 12/15/24 07:32 GAS PIT WORKER (Rec: 12/15/24 09:00 GAS PIT WORKER Laptop) Manual Assessments Other Manual Assessments Other Manual TTP and decreased soft tissue mobility to L upper trap, Assessments sub occipitals, supraspinatus, infraspinatus, teres major, pec, and bicep. PT-OP-J Posture/Palpation/Skin Start: 12/15/24 07:31 Freq: Status: Active Protocol: Document 12/15/24 07:32 GAS PIT WORKER (Rec: 12/15/24 09:00 GAS PIT WORKER Laptop) Posture Evaluation Comments Posture Comments Sitting: R shoulder slightly elevated from L, slight winging of L scapula, excessive kyphosis, B forward rounded shoulders, forward head posture PT-OP-K Range of Motion Start: 12/15/24 07:31 Freq: Status: Active Protocol: Document 12/15/24 07:32 GAS PIT WORKER (Rec: 12/15/24 09:00 GAS PIT WORKER Laptop) Shoulder Goniometric Range of Motion Shoulder L Shoulder ROM WFL No Testing Position Sitting Flexion 95 Extension 40 Abduction 80 External Rotation at 55 90 degrees Abduction External Rotation at 54 45 degrees Abduction External Rotation at 40 0 degrees Abduction Internal Rotation T12 Behind Back (text) Comments pain with flex, abd, ER at 0, 45, and 90 degrees. Significant UT compensation R Shoulder ROM WFL Yes Testing Position Sitting Flexion 151 Extension 54 Abduction 129 External Rotation at 100 90 degrees Abduction External Rotation at 120 45 degrees Abduction External Rotation at 60 0 degrees Abduction Internal Rotation Thumb to T6 Behind Back (text) PT-OP-M Strength Start: 12/15/24 07:31 Freq: Status: Active Protocol: Document 12/15/24 07:32 GAS PIT WORKER (Rec: 12/15/24 09:00 GAS PIT WORKER Laptop) Shoulder Strength Shoulder Manual Muscle Testing L Flexion 4- Good- Extension 4- Good- Abduction (C5) 4 Good Adduction 4+ Good+ External Rotation 4 Good Internal Rotation 4+ Good+ Horizontal Abduction 4- Good- Horizontal Adduction 3+ Fair+ Comments pain with flex, ext, abd but not as much as other movements, ER, horizontal add>abd. UT activation compensation R Flexion 4+ Good+ Extension 5 Normal Abduction (C5) 4+ Good+ Adduction 5 Normal External Rotation 4 Good Internal Rotation 5 Normal Horizontal Abduction 5 Normal Horizontal Adduction 5 Normal Elbow/Forearm Strength Elbow and Forearm Manual Muscle Testing L Flexion (C6) 4+ Good+ Extension (C7) 4- Good- Comments pain with flex R Flexion (C6) 5 Normal Extension (C7) 5 Normal PT-OP-T Assessment and Plan Start: 12/15/24 07:31 Freq: Status: Active Protocol: Document 12/23/24 07:34 GAS PIT WORKER (Rec: 12/23/24 08:21 GAS PIT WORKER Laptop) Physical Therapy Assessment Impairments Impairments Activity Tolerance,Functional Activities,Pain,Posture, ROM,Soft Tissue Mobility,Strength Goals 3 Impairment HEP Impairment lack of HEP Short Term Goal (STG Pt will demonstrate ind with progressive HEP in order ) to progress appropriately toward goals. STG Duration 6 weeks 2 Impairment ROM Impairment L shoulder ROM Eval AROM: L flex 95 degrees, abd 80 degrees, ER at 45 degrees 54 degrees R flex 151 degrees, abd 129 degrees, ER at 45 degrees 120 degrees Short Term Goal (STG Pt will improve L shoulder AROM by at least 30 degrees ) shoulder flex, abd, and ER at 45 degrees to improve function. STG Duration 6 weeks Longterm Goal (LTG) Pt will improve L shoulder AROM flex to at least 140 degrees, abd to at least 120 degrees, and ER at 45 degrees to at least 110 degrees without pain to improve function. LTG Duration 12 weeks 1 Impairment Quick Dash UE Impairment Eval: 38.6% impaired Coding Clerks Supervisor Goal (LTG) Pt will reduce Quick Dash UE impairment score from 38.6 % to equal to or less than 8% to demonstrate improved functional mobility. LTG Duration 12 weeks Assessment Summary Assessment Pt tolerated STM and exercises/stretches well this session with pain during STM with active movement to L levator scap but no remaining pain after, with slight improved ROM in L shoulder flex at end of session. Start of session: AROM L shoulder abd 154 degrees, flex 140 degrees pain free. End of session: L shoulder abd 153, flex 145 Physical Therapy Plan Frequency and Duration Frequency of 2x/Week Treatment Duration of 12 treatment (weeks) Plan of Care Start 12/15/24 Date Plan of Care End 03/09/25 Date Therapeutic Interventions Therapeutic Home Exercise Program,Joint Mobilizations,Manual Interventions Therapy,Neuromuscular Re-education,Patient/Caregiver Education,Soft Tissue Mobilization,Taping,Therapeutic Activities,Therapeutic Exercises Modalities Cold Pack/Ice Massage,Electric Stimulation,Hot Packs, Iontophoresis,Ultrasound Next Visit Focus/Plan Next Note Type Treatment Note Next Visit Plan L shoulder taping, supine scap retractions
== END 2025-03-02 09:25 | disposition home or self-care (01) ==
LOC: PHYS 07:30
PROVIDERS: Family Provider Nurse Practitioner Family; PCP Nurse Practitioner Family; Referring Provider Nurse Practitioner Family; Visit Provider Nurse Practitioner Family
DX: S46.912D Strain of unspecified muscle, fascia and tendon at shoulder and upper arm level, left arm, subsequent encounter (principal)
CPT/HCPCS: 97110; 97140; 97162

== ENCOUNTER → 2025-02-24 13:43 | Outpatient (CLI) | payer MEDICARE, MEDICAID, SELFPAY ==
[2025-02-24 14:13] LABS: Add Manual Diff / Slide Review NO; Hematocrit 43.3 % (36-46); Hemoglobin 14.8 g/dL (12.0-16.0); Lymphocytes Absolute Auto 3100 /uL (1100-4500); Mean Corpuscular HGB Conc 34.2 % (30-36); Mean Corpuscular Hemoglobin 28.6 PG (26-34); Mean Corpuscular Volume 83.6 fL (80-100); Platelet Count 280 X10^3/uL (150-400)
[2025-02-24 14:31] LABS: Hemoglobin A1C% w Est Avg Glu 6.0 % (4.0-6.0)
[2025-02-24 14:52] LABS: Alanine Aminotransferase 20 IU/L (<35); Albumin 4.7 g/dL (3.5-5.0); Albumin Globulin Ratio 1.5 (1.0-2.8); Alkaline Phosphatase 124 U/L (38-126); Blood Urea Nitrogen 23 mg/dL (7-17); Calcium 9.8 mg/dL (8.4-10.2); Carbon Dioxide 28 mmol/L (22-32); Chloride 96 mmol/L (98-107); Cholesterol 227 mg/dL (140-199); Estimated Glomerular Filt Rate > 60 mL/min (>60); Globulin 3.2 g/dL (1.7-4.1); Glucose 103 mg/dL (70-99); HDL Cholesterol 54 mg/dL (40-60); HEMOLYSIS < 15 (0-50); Potassium 3.9 mmol/L (3.4-5.1); Sodium 137 mmol/L (137-145); Total Protein 7.9 g/dL (6.3-8.2); Triglycerides 223 mg/dL (35-150)
[2025-02-24 15:22] LABS: TSH w/ Reflex to FT4 0.58 uIU/mL (0.47-4.68)
== END ==
PROVIDERS: Family Provider Nurse Practitioner Family; PCP Nurse Practitioner Family; Referring Provider Nurse Practitioner Family; Visit Provider Nurse Practitioner Family
DX: E66.01 Morbid (severe) obesity due to excess calories (principal); R73.03 Prediabetes; E78.5 Hyperlipidemia, unspecified; E66.812 Obesity, class 2; I10 Essential (primary) hypertension; Z68.36 Body mass index [BMI] 36.0-36.9, adult
CPT/HCPCS: 36415; 80053; 80061; 83036; 84443; 85025

== ENCOUNTER 2025-03-17 14:43 | Emergency (ER) | payer MEDICARE, MEDICAID, SELFPAY ==
[2025-03-17 14:46] VITALS: BP 198/79; PULSE 72; RESP 15; TEMP 35.8; O2SAT 98; BMI 35.6
--- NOTE | 2025-03-17 14:50 | DI.RAD.S_ITS ---
PROCEDURE: XR LUMBAR SPINE 2-3V INDICATIONS: fall,back pain TECHNIQUE: 3 views of the lumbar spine were acquired. COMPARISON: None. FINDINGS: Bones: 5 [id number] vertebrae are present. There is normal bony alignment. No vertebral body compression fractures. No suspicious bony lesions. Mild degenerative changes with anterior osteophyte formation and facet arthropathy. Soft tissues: Overlying bowel gas pattern is normal. No suspicious soft tissue calcifications. IMPRESSION: No acute osseous abnormalities. Dictated by: Delon High M.D. on 03/17/2025 at 15:53 Approved by: Delon High M.D. on 03/17/2025 at 15:54
--- NOTE | 2025-03-17 14:50 | DI.RAD.S_ITS ---
PROCEDURE: XR SACRUM COCCYX MIN 2V INDICATIONS: fall TECHNIQUE: 3 views of the sacrum and coccyx acquired. COMPARISON: [facility], CT, CT KIDNEY URETER BLADDER ([facility]UB), 07/22/2024, 20:02. FINDINGS: Bones: No fractures or dislocations. No suspicious bony lesions. Soft tissues: Visualized bowel gas pattern is normal. No suspicious soft tissue densities. IMPRESSION: No acute osseous abnormality. If pain persists with conservative management, consider repeat x-ray in 10-14 days or cross-sectional imaging. Dictated by: Delon High M.D. on 03/17/2025 at 15:54 Approved by: Delon High M.D. on 03/17/2025 at 15:55
--- NOTE | 2025-03-17 16:43 | ED.FALL ---
HPI - Fall <Nani Márquez PA-C - Last Filed: 03/17/25 18:44> General Chief Complaint: Fall Stated Complaint: Fell Sun lower back is hurting Time Seen by Provider: 03/17/25 15:53 Mode of arrival: Ambulatory History of Present Illness HPI Narrative: Ms. Bruno is a very pleasant 59-year-old female with a past medical history of hypertension, type 2 diabetes on metformin who presents to the emergency department for right side low back/glute pain after a slip and fall that occurred at home on Saturday. Patient states she accidentally fell in her home Saturday causing her to land on her right buttocks. She has continued to have pain which is making it hard for her to sleep at night which prompted her ER arrival. She is ambulatory and the pain does not radiate down the leg, no saddle anesthesia, no bowel or bladder incontinence, no fevers. She used ibuprofen at noon which did not help and she states that she does not take Tylenol as a doctor previously told her that she should not take this medication. There was no head strike. No injury to the upper and lower extremities. No blood thinners. She is not interested in opiate pain medication as it makes her ?loopy?. Related Data Home Medications ?Medication ?Instructions ?Recorded ?Confirmed APAP/Dichloralphenazone/Torey ##0 01/22/11 11/30/24 (MIDRIN 65 MG-100 MG-325 MG) NORTRIPTYLINE HCL (Nortriptyline 10 mg PO HS ##0 01/22/11 11/30/24 HCl) cetirizine 10 mg tablet 10 mg PO Q DAY ##0 01/22/11 11/30/24 chlorthalidone 25 mg tablet 25 mg PO DAILY 12/24/23 11/30/24 losartan 50 mg tablet 50 mg PO DAILY 12/24/23 11/30/24 metformin 1,000 mg tablet 1,000 mg PO BID 12/24/23 11/30/24 Previous Rx's ?Medication ?Instructions ?Recorded tramadol 50 mg tablet 50 mg PO Q6H PRN pain #14 tabs 09/11/24 tramadol 50 mg tablet 50 mg PO Q6H PRN pain #14 tabs 09/11/24 methocarbamol 500 mg tablet 500 mg PO TID PRN muscle spasms 03/17/25 #20 tabs Allergies Allergy/AdvReac Type Severity Reaction Status Date / Time bee pollen Allergy Severe Hives Verified 03/17/25 14:47 shellfish derived Allergy Severe Hives Verified 03/17/25 14:47 Sulfa (Sulfonamide Allergy Severe Hives Verified 03/17/25 14:47 Antibiotics) naproxen (From Naprosyn) Allergy Unknown Hives Verified 03/17/25 14:47 Penicillins Allergy Hives Verified 03/17/25 14:47 Review of Systems <Nani Márquez PA-C - Last Filed: 03/17/25 18:44> Review of Systems ROS Unobtainable: All systems reviewed & are unremarkable except as noted in HPI and below Patient History <Nani Márquez PA-C - Last Filed: 03/17/25 18:44> Medical History Psoriasis Social History Smoking Status: Unknown if ever smoked Smoking Status: Unknown if ever smoked tobacco type: cigarettes alcohol intake frequency: holidays/special occasions only Exam <Nani Márquez PA-C - Last Filed: 03/17/25 18:44> Narrative Exam Narrative: GENERAL: 59 year old patient appears stated age. Well-developed patient, in no acute distress, tearful 2/2 pain. HEAD: Atraumatic. Normocephalic. EYES: No scleral icterus. No injection or drainage. NECK: Trachea midline. Cervical ROM intact. CARDIOVASCULAR: Regular rate RESPIRATORY: ?Nonlabored respirations. ?Speaking in clear, full sentences. EXTREMITIES: No LE edema. 2+ PT pulses BL. No TTP UE or LE. BACK: No midline spinal tenderness. Patient has tenderness to palpation of the right sacral region with no overlying skin changes. She can stand and ambulate independently. NEURO: AOx3. ?Clear speech. ?Moves all 4 extremities appropriately. SKIN: No rash or erythema of visible areas Initial Vital Signs Initial Vital Signs: Vital Signs Temperature 96.5 F L 03/17/25 14:46 Pulse Rate 72 03/17/25 14:46 Respiratory Rate 15 03/17/25 14:46 Blood Pressure 198/79 H 03/17/25 14:46 Pulse Oximetry 98 03/17/25 14:46 Oxygen Delivery Method Room Air 03/17/25 14:46 <Deborah Atkins DO - Last Filed: 03/19/25 23:34> Initial Vital Signs Initial Vital Signs: Vital Signs Temperature 96.5 F L 03/17/25 14:46 Pulse Rate 72 03/17/25 14:46 Respiratory Rate 15 03/17/25 14:46 Blood Pressure 198/79 H 03/17/25 14:46 Pulse Oximetry 98 03/17/25 14:46 Oxygen Delivery Method Room Air 03/17/25 14:46 Course <Nani Márquez PA-C - Last Filed: 03/17/25 18:44> Orders Ordered: Discontinued Medications Ketorolac Tromethamine (Ketorolac 30 Mg/Ml Vial) 30 mg IM NOW ONE Stop: 03/17/25 16:51 Last Admin: 03/17/25 17:05 Dose: 30 mg Documented By: MARK Lidocaine (Lidocaine 5% Patch) 1 each TOP NOW ONE Stop: 03/17/25 16:51 Last Admin: 03/17/25 17:05 Dose: 1 each Documented By: CTS Vital Signs Vital signs: Vital Signs - 8 hr 03/17/25 14:46 03/17/25 17:14 Temperature 96.5 F L Pulse Rate 72 88 Respiratory Rate 15 16 Blood Pressure 198/79 H 136/74 Pulse Oximetry 98 97 Oxygen Delivery Method Room Air Room Air <Deborah tAkins DO - Last Filed: 03/19/25 23:34> Orders Ordered: Discontinued Medications Ketorolac Tromethamine (Ketorolac 30 Mg/Ml Vial) 30 mg IM NOW ONE Stop: 03/17/25 16:51 Last Admin: 03/17/25 17:05 Dose: 30 mg Documented By: MARK Lidocaine (Lidocaine 5% Patch) 1 each TOP NOW ONE Stop: 03/17/25 16:51 Last Admin: 03/17/25 17:05 Dose: 1 each Documented By: CTS Vital Signs Vital signs: Vital Signs - 8 hr 03/17/25 14:46 03/17/25 17:14 Temperature 96.5 F L Pulse Rate 72 88 Respiratory Rate 15 16 Blood Pressure 198/79 H 136/74 Pulse Oximetry 98 97 Oxygen Delivery Method Room Air Room Air MDM - Fall <PARTH Mederos Last Filed: 03/17/25 18:44> Medical Records Attestation: I reviewed the patient's medical records. Imaging Data XR Lumbar: Radiologist's Impression: PROCEDURE: XR LUMBAR SPINE 2-3V INDICATIONS: fall,back pain TECHNIQUE: 3 views of the lumbar spine were acquired. COMPARISON: None. FINDINGS: Bones: 5 [id number] vertebrae are present. There is normal bony alignment. No vertebral body compression fractures. No suspicious bony lesions. Mild degenerative changes with anterior osteophyte formation and facet arthropathy. Soft tissues: Overlying bowel gas pattern is normal. No suspicious soft tissue calcifications. IMPRESSION: No acute osseous abnormalities. Dictated by: Delon High M.D. on 03/17/2025 at 15:53 Approved by: Delon High M.D. on 03/17/2025 at 15:54 Sacrum XR: Radiologist's Impression: PROCEDURE: XR SACRUM COCCYX MIN 2V INDICATIONS: fall TECHNIQUE: 3 views of the sacrum and coccyx acquired. COMPARISON: [facility], CT, CT KIDNEY URETER BLADDER (KUB), 07/22/2024, 20:02. FINDINGS: Bones: No fractures or dislocations. No suspicious bony lesions. Soft tissues: Visualized bowel gas pattern is normal. No suspicious soft tissue densities. IMPRESSION: No acute osseous abnormality. If pain persists with conservative management, consider repeat x-ray in 10-14 days or cross-sectional imaging. Dictated by: Delon High M.D. on 03/17/2025 at 15:54 Approved by: Delon High M.D. on 03/17/2025 at 15:55 MDM Narrative Medical decision making narrative: 59-year-old female with a past medical history of hypertension, type 2 diabetes on metformin who presents to the emergency department for right side low back/glute pain after a slip and fall that occurred at home on Saturday. Differential diagnosis includes but isn't limited to sacral fracture, coccyx fracture, lumbar compression fracture, strain, sprain, contusion, etc. On exam patient is in no acute distress, nontoxic appearing, vital signs appropriate except for elevated blood pressure. She has tenderness to palpation of the right sacral region with no overlying skin deformities, no midline tenderness, lower extremities are neurovascularly intact. No bowel or bladder incontinence, saddle anesthesia, she is able to stand and ambulate independently. She has taken ibuprofen earlier without relief. She does not take Tylenol. She does not want to take opioids as she has had negative side effects in the past. X-ray lumbar spine and sacrum/coccyx obtained reveal no acute bony abnormalities, she does have mild degenerative changes in the lumbar spine. Had an extensive discussion about pain control, at this time we will trial Toradol, Lidoderm, muscle relaxers for home however she does need to drive herself home today. Prescription for methocarbamol sent to pharmacy of choice. Patient was also recommended ibuprofen, acetaminophen, heat therapy, gentle movement, avoiding bed rest, PCP follow up. Discussed strict ER return precautions. Patient verbalized understanding of all information agreeable with the plan, vital signs are all within normal limits, she is stable for discharge home. Discharge Plan Departure Patient Disposition: Home Clinical Impression: Acute coccygeal pain Fall Qualifiers: Encounter type: initial encounter Qualified Code(s): W19.XXXA - Unspecified fall, initial encounter Lumbar strain Qualifiers: Encounter type: initial encounter Qualified Code(s): S39.012A - Strain of muscle, fascia and tendon of lower back, initial encounter Instructions: DI for Low Back Pain Activity Restrictions/Additional Instructions: Dear Nena Kiana, Thank you for coming to the emergency department. Today you were evaluated for right-sided low back pain after a fall directly onto your buttocks. X-ray of your lumbar spine and sacrum/coccyx did not reveal any broken bones, you do have some underlying degenerative changes of the lumbar spine. It is very important to avoid bed rest and to perform light gentle movement such as walking while you are healing from this injury. Applying heat or ice on this area may be helpful. Please use ibuprofen/Motrin and acetaminophen/Tylenol to help with the pain, these medications can be used together or alternating. Ibuprofen goes through the kidneys and Tylenol goes through the liver. You have been prescribed muscle relaxers to help with your pain. Please be aware that these medications can make you drowsy so do not use them if your going to be driving a car. Please take Ibuprofen (Motrin/Advil) or Acetaminophen (Tylenol) for pain. These are available over the counter. You may take Ibuprofen 600 mg every 8 hours with food for pain. You may also take Acetaminophen 650 mg every 4-6 hours for pain. Do not exceed 3000 mg of Tylenol a day as this can cause liver damage. Do not drink alcohol with either of these medications. Please return to the emergency department if develop any new or worsening symptoms, severe pain, inability to walk, fevers, issues going to the bathroom, or other concerns. Please follow up with the primary care doctor to make sure your symptoms are improving appropriately. Please follow up with your primary care doctor within the next 2-3 days for ER follow-up. (If you do not have a PCP you can call [phone]. ?to schedule an appointment with an [facility] Primary Care Provider) IF YOU DEVELOP ANY NEW OR WORSENING SYMPTOMS, RETURN TO THE ER! Please read the attached instructions, they highlight more specific treatments and interventions for you at home. Thank you for letting me participate in your care, Nani Márquez PA-C Prescriptions: New methocarbamol 500 mg tablet 500 mg PO TID PRN (Reason: muscle spasms) Qty: 20 0RF Rx Instructions: can take up to 2 tabs (1,000 mg) per dose for muscle spasms. No Action losartan 50 mg tablet 50 mg PO DAILY chlorthalidone 25 mg tablet 25 mg PO DAILY metformin 1,000 mg tablet 1,000 mg PO BID NORTRIPTYLINE HCL (Nortriptyline HCl) 10 mg PO HS Qty: 0 APAP/Dichloralphenazone/Torey (MIDRIN 65 MG-100 MG-325 MG) Qty: 0 cetirizine 10 MG tablet 10 mg PO Q DAY Qty: 0 tramadol 50 mg tablet 50 mg PO Q6H PRN (Reason: pain) Qty: 14 0RF tramadol 50 mg tablet 50 mg PO Q6H PRN (Reason: pain) Qty: 14 0RF Referrals: Lawanda Ellis, THAI, REMODELER [Primary Care Provider, Nursing] Stand Alone Forms: Patient Portal/API ED Sign-out <Deborah Atkins, - Last Filed: 03/19/25 23:34> Cosign ED Attending Raymundo Attestation: I was immediately available in the department for consultation.
[2025-03-17] MEDS: LIDOCAINE 5% PATCH 1 EACH TOP (17:05)
[2025-03-17] MEDS: KETOROLAC 30 MG/ML VIAL IM (17:05)
[2025-03-17 17:14] VITALS: BP 136/74; PULSE 88; RESP 16; O2SAT 97
== END 2025-03-17 17:14 | disposition home or self-care (01) ==
PROVIDERS: Emergency Provider Physician Assistant; Family Provider Nurse Practitioner Family; PCP Nurse Practitioner Family
DX: S39.012A Strain of muscle, fascia and tendon of lower back, initial encounter (principal); M53.3 Sacrococcygeal disorders, not elsewhere classified; W01.0XXA Fall on same level from slipping, tripping and stumbling without subsequent striking against object, initial encounter
CPT/HCPCS: 72100; 72220; 96372; 99283; J1885